=== PATIENT | male | born 1955 | race Caucasian/White ===

== ENCOUNTER 2023-04-03 16:44 | Emergency (ER) | payer BC, SELFPAY ==
--- NOTE | ~2023-04-03 | XR_ITS ---
EXAMINATION: XR chest 2V Exam Date/Time: 04/03/2023 17:06 CDT HISTORY: cough and fever since labor day. Comparison: None. RESULT: Lines, tubes, and devices: None. Lungs and pleura: Clear. Cardiomediastinal silhouette: Unremarkable. Left hemidiaphragm elevation. Other: No acute osseous or upper abdominal finding. IMPRESSION: No acute cardiopulmonary process. Reviewed, dictated and finalized at location K.
[2023-04-03 17:05] VITALS: BP 120/78; PULSE 102; RESP 16; TEMP 37.6; O2SAT 99
--- NOTE | 2023-04-03 17:24 | ED.GENADULT ---
HPI - General Adult General Chief complaint: Upper Respiratory Infection Stated complaint: Cough/Fever Source: patient and family Mode of arrival: ambulatory Limitations: no limitations History of Present Illness HPI narrative: Patient presents for evaluation of sick symptoms since the start of this month. He has had intermittent fevers, reports a productive cough of yellow sputum with associated shortness of breath. He has also been wheezing at home. His throat feels raw which he attributes to frequent coughing. No nausea or vomiting, however he has had diarrhea. He feels fatigued. No recent sick contacts. No underlying hx of asthma or COPD. He is a former smoker. He has tried Robitussin which has helped somewhat. He has also tried albuterol which does not help, and Tessalon Perles which do. He had pneumonia in the past and this feels similar. Related Data Home Medications Medication Instructions Recorded Confirmed atorvastatin 20 mg tablet 20 mg PO DAILY 04/03/23 04/03/23 lisinopril 20 1 tablet PO DAILY 04/03/23 04/03/23 mg-hydrochlorothiazide 25 mg tablet Allergies Allergy/AdvReac Type Severity Reaction Status Date / Time No Known Allergies Allergy Verified 04/03/23 17:11 Review of Systems Review of Systems: CONSTITUTIONAL:Reports fatigue and intermittent fever. Denies chills, or sweats. EYES: Denies visual changes, redness, or discharge. ENT: Reports sore throat. Denies rhinorrhea, congestion, or otalgia. CARDIOVASCULAR: Denies chest pain, palpitations, or edema. RESPIRATORY: Reports productive cough of yellow sputum with associated SOB GASTROINTESTINAL: Reports diarrhea. Denies abdominal pain, nausea, vomiting GENITOURINARY: Denies dysuria or hematuria. SKIN: Denies rash or itching. MUSCULOSKELETAL: Denies back pain, joint pain, or myalgia. NEUROLOGIC: Denies headache, numbness, dizziness, or weakness. PSYCHIATRIC: Denies anxiety or depression. [facility] Past Medical History Medical History Hyperlipidemia Hypertension Surgical History Surgical History No pertinent past surgical history Family History Family History Mother Family history non-contributory Social History Social History Smoking status: Former smoker Alcohol intake: current Alcohol use details: Five beers per week Substance use: former Substance use type: marijuana Living arrangements: with family Gender identity (if verbalized by the patient): Male Sexual Orientation (if Verbalized by the Patient): Straight or Heterosexual Spiritual care concerns: No Exam Narrative: GENERAL: Well-appearing, well-nourished, and in no acute distress. HEAD: Normocephalic, atraumatic. EYES: PERRLA and EOMI. ENT: Nares clear, no rhinorrhea or epistaxis. Mucous membranes moist. Posterior pharyngeal erythema without exudate. Uvula is midline. Bilateral TMs pearly guillen nonbulging NECK: Supple. No adenopathy or masses. No carotid bruits or JVD CHEST: Cough present on exam. Clear to auscultation. No respiratory distress. No wheezes rales or rhonchi HEART: Regular rate and rhythm. No murmur heard. Normal peripheral pulses. ABDOMEN: Soft, nontender, nondistended, normal active bowel sounds. EXTREMITIES: Normal range of motion. No edema. SKIN: Warm, dry, no rash. NEURO: No focal deficits. Alert and oriented x3. PSYCH: Normal mood and affect. Course Course Emergency Course: This is a 67-year-old male who presented for evaluation of respiratory symptoms for approximately 3 weeks. COVID, influenza, strep chest x-ray were all negative. Clinically his exam is consistent with pneumonia. This is further supported by his reported symptoms consistent with those in the past experience
== END 2023-04-03 18:13 | disposition home or self-care (01) ==
PROVIDERS: Emergency Provider Nurse Practitioner
DX: J18.9 Pneumonia, unspecified organism (principal); Z20.822 Contact with and (suspected) exposure to COVID-19; Z87.891 Personal history of nicotine dependence; E78.5 Hyperlipidemia, unspecified; I10 Essential (primary) hypertension
CPT/HCPCS: 71046; 87081; 87426; 87804; 87880; 99213; C9803; G0463

== ENCOUNTER 2023-06-02 09:16 | Emergency (ER) | payer BC, SELFPAY ==
[2023-06-02 09:27] VITALS: BP 146/85; PULSE 94; RESP 16; TEMP 37; O2SAT 97
--- NOTE | 2023-06-02 09:37 | ED.EAR ---
HPI - Ear Problem General Chief complaint: Ear Stated complaint: Ear Problem Source: patient, family and RN notes reviewed History of Present Illness HPI Narrative: 67 yo M presents to urgent care with complaints of right ear pain, decreased hearing, and yellow pus. Pt states 8 days ago, he was attempting to flush his ears with a new device when he believes he stuck the device in too far and caused a significant pain. Pt states that's when his hearing decreased and he started to develop yellow pus in that ear. Pt states he was irrigating his ears b/c friends and family were pestering him to get hearing aids due to loss of hearing. Pt denies any fevers, chills, chest pain, SOB, or other symptoms. Related Data Home Medications Medication Instructions Recorded Confirmed atorvastatin 20 mg tablet 20 mg PO DAILY 04/03/23 06/02/23 lisinopril 20 1 tablet PO DAILY 04/03/23 06/02/23 mg-hydrochlorothiazide 25 mg tablet Allergies Allergy/AdvReac Type Severity Reaction Status Date / Time No Known Allergies Allergy Verified 06/02/23 09:35 Review of Systems Review of Systems: CONSTITUTIONAL: Denies fever, chills, or sweats. EYES: Denies visual changes, redness, or discharge. ENT: Denies sore throat CARDIOVASCULAR: Denies chest pain, palpitations, or edema. RESPIRATORY: Denies cough or dyspnea. GASTROINTESTINAL: Denies abdominal pain, nausea, vomiting, or diarrhea. GENITOURINARY: Denies dysuria or hematuria. SKIN: Denies rash or itching. MUSCULOSKELETAL: Denies back pain, joint pain, or myalgia. NEUROLOGIC: Denies headache, numbness, or weakness. Pertinent positives per HPI. [facility] Past Medical History Medical History Hyperlipidemia Hypertension Surgical History Surgical History No pertinent past surgical history Family History Family History Mother Family history non-contributory Social History Social History Smoking status: Former smoker Alcohol intake: current Alcohol use details: Five beers per week Substance use: former Substance use type: marijuana Living arrangements: with family Gender identity (if verbalized by the patient): Male Sexual Orientation (if Verbalized by the Patient): Straight or Heterosexual Spiritual care concerns: No Comments At the time of my signature, I reviewed and agree with the nursing past medical, surgical, social, and family history. There is no relevant family history pertinent to the patient complaint. Exam Narrative: GENERAL: This is a well-nourished, well-developed patient, in no apparent distress. HEAD: normocephalic, atraumatic. EYES: Sclera clear/white. Vision is grossly intact. EARS: External ears normal, Left auditory canal clear and without drainage, TM normal without perforation. Hearing grossly intact. Right canal with yellow, purulent drainage. Right TM is not visualized due to purulent drainage. NOSE: External nose normal with no obvious nasal discharge, nares without redness, no rhinorrhea. NECK: Neck supple, non-tender without lymphadenopathy, masses or thyromegaly. CARDIOVASCULAR: Regular rate and rhythm without murmurs, gallops, or rubs. RESPIRATORY: Clear to auscultation. Breath sounds equal bilaterally. No wheezes, rales, or rhonchi. SKIN: warm, intact with no suspicious lesions or rash, good texture and turgor. NEURO: awake, alert, and oriented to person, place and time. There were no obvious focal neurologic abnormalities. Course Course Level of Care: Express Care Visit Vital Signs Vital signs: Vital Signs Temperature 98.6 F 06/02/23 09:27 Pulse Rate 94 06/02/23 09:27 Respiratory Rate 16 06/02/23 09:27 Blood Pressure 146/85 H 06/02/23 09:27 Pulse Oximetry 97
== END 2023-06-02 09:46 | disposition home or self-care (01) ==
PROVIDERS: Emergency Provider Nurse Practitioner Family
DX: H66.91 Otitis media, unspecified, right ear (principal); E78.5 Hyperlipidemia, unspecified; I10 Essential (primary) hypertension; Z79.899 Other long term (current) drug therapy; Z87.891 Personal history of nicotine dependence
CPT/HCPCS: 99213; G0463

== ENCOUNTER 2023-07-11 09:17 | Outpatient (CLI) | payer BC, SELFPAY ==
[2023-07-11 19:46] LABS: Basophils Absolute Auto 0.1 K/mm3 (0.0-0.1); Basophils Percent Auto 0.8 % (0.2-1.2); Eosinophils Absolute Auto 0.1 K/mm3 (0-0.3); Eosinophils Percent Auto 0.9 % (0-4.4); Hematocrit 49.4 % (42.0-52.0); Immature Granulocyte Absolute 0.02 K/mm3 (0.00-0.031); Immature Granulocyte Percent A 0.3 % (0-0.5); Lymphocytes Absolute Auto 1.56 K/mm3 (0.9-3.2); Lymphocytes Percent Auto 20.6 % (18.3-44.2); Mean Corpuscular HGB Conc 32.4 g/dl (32-36); Mean Corpuscular Hemoglobin 32.8 pg (26-34); Mean Corpuscular Volume 101.2 fl (80-100); Mean Platelet Volume 9.5 fl (7.4-10.4); Monocytes Absolute Auto 0.7 K/mm3 (0.1-0.6); Monocytes Percent Auto 8.6 % (2.6-8.5); Neutrophils Absolute Auto 5.2 K/mm3 (1.3-6.7); Neutrophils Percent Auto 68.8 % (45.5-73.1); Platelet Count Result 299 k/mm3 (150-375); Red Blood Count 4.88 M/mm3 (4.6-6.20); Red Cell Distribution Width 11.9 % (11.5-14.5); White Blood Count 7.6 K/mm3 (4.5-10.0)
[2023-07-11 21:30] LABS: Alanine Aminotransferase 35 U/L (6-50); Albumin Level 4.7 g/dL (3.5-5.1); Alkaline Phosphatase 152 U/L (38-126); Anion Gap 12 mmol/L (8-16); Aspartate Amino Transferase 48 U/L (17-59); Bilirubin,Total 0.8 mg/dL (0.2-1.3); Blood Urea Nitrogen 15 mg/dL (9-20); Calcium 9.9 mg/dL (8.4-10.2); Carbon Dioxide 28 mmol/L (22-30); Chloride 99 mmol/L (98-107); Cholesterol 200 mg/dL (0-200); Estimated Glomerular Filt Rate > 60; Glucose 97 mg/dL (65-110); HDL Direct 53 mg/dL; Potassium 4.4 mmol/L (3.4-5.0); Sodium 139 mmol/L (137-145); Triglycerides 90 mg/dL (<150)
[2023-07-11 21:44] LABS: LDL Cholesterol Direct 112 mg/dL
[2023-07-11 22:00] LABS: Prostate Specific Antigen 1.9 ng/mL (< OR = 4.0)
[2023-07-11 23:31] LABS: Hemoglobin A1C 5.3 % (<5.7)
== END 2023-07-11 09:18 | disposition home or self-care (01) ==
PROVIDERS: PCP Nurse Practitioner Adult Health; Visit Provider Nurse Practitioner Adult Health
DX: Z12.5 Encounter for screening for malignant neoplasm of prostate (principal); E78.5 Hyperlipidemia, unspecified
CPT/HCPCS: 36415; 80053; 80061; 83036; 84153; 84443; 85025; G0103

== ENCOUNTER 2023-08-25 10:00 | Outpatient (CLI) | payer BC, SELFPAY ==
--- NOTE | ~2023-08-25 | CT_ITS ---
CT Scan of the Chest without Contrast: Clinical Indication: Lung cancer screening, personal history of nicotine dependence Technique: Contiguous sections were acquired throughout the chest without intravenous contrast. Dose reduction technique was used on this scan by utilizing automated exposure control and iterative recon struction technique. The dose-length product (DLP) was 190.38 mGy-cm. Findings: There is no evidence of any significant mediastinal, hilar or axillary lymphadenopathy. Coronary jose ry calcifications are present. There is no evidence of pleural or pericardial effusion. The lungs are clear. No pulmonary nodules or infiltrates are noted. Images through the upper abdomen reveal no abnormalities. Impression: Lung RADS 1: Negative. 12 month follow-up screening CT advised. Reviewed, dictated and finalized at location . [facility] Impression: Lung RADS 1: Negative. 12 month follow-up screening CT advised.
== END 2023-08-25 10:01 | disposition home or self-care (01) ==
PROVIDERS: PCP Nurse Practitioner Adult Health; Visit Provider Nurse Practitioner Adult Health
DX: Z12.2 Encounter for screening for malignant neoplasm of respiratory organs (principal); Z87.891 Personal history of nicotine dependence
CPT/HCPCS: 71271

== ENCOUNTER 2023-09-18 14:16 | Outpatient (CLI) | payer BC, SELFPAY ==
--- NOTE | ~2023-09-18 | XR_ITS ---
EXAMINATION: XR chest 2V DATE: 09/18/2023 14:34 INDICATION: Unspecified cough TECHNIQUE: PA and lateral views of the chest were obtained. COMPARISON: Chest radiograph dated 04/03/2023 FINDINGS: The lungs are clear with no focal airspace opacities, pulmonary edema, pleural effusion or pneumothor ax. The cardiomediastinal silhouette is normal. Mild thoracic spondylosis with chronic mild anterior wedging of T11 and T12. Old anterior left sixth and seventh rib fractures. IMPRESSION: 1. No acute cardiopulmonary disease. Reviewed, dictated and finalized at location L.
[2023-09-18 18:49] LABS: Hematocrit 45.7 % (42.0-52.0); Mean Corpuscular HGB Conc 32.8 g/dl (32-36); Mean Corpuscular Hemoglobin 32.5 pg (26-34); Mean Corpuscular Volume 98.9 fl (80-100); Mean Platelet Volume 10.2 fl (7.4-10.4); Platelet Count Result 349 k/mm3 (150-375); Red Blood Count 4.62 M/mm3 (4.6-6.20); Red Cell Distribution Width 11.7 % (11.5-14.5); White Blood Count 14.8 K/mm3 (4.5-10.0)
[2023-09-18 20:09] LABS: Appearance Urine Clear (Clear); Bacteria Urine None Seen /hpf; Bilirubin Urine 1+ (Negative); Blood Urine Negative (Negative); Color Urine Dark Yellow (Yellow); Glucose Urine UA Negative (Negative); Ketones Urine 1+ mg/dL (Negative); Leukocyte Esterase Ur Negative LEU/UL (Negative); Mucus Urine Present /lpf; Need Manual Microscopic Reviewed; Nitrate Urine Negative (Negative); Protein Urine 1+ mg/dL (Negative); RBC Urine 0-2 /hpf (0-2); Specific Grav Ur 1.024 (1.001-1.035); Squamous Epithelial Cell Urine None Seen /hpf (Few); WBC Urine 0-5 /hpf (0-3); pH Urine 5.5 (5.0-9.0)
[2023-09-18 20:13] LABS: Add Urine Microscopic? YES
[2023-09-18 21:58] LABS: Alanine Aminotransferase 22 U/L (6-50); Albumin Level 4.7 g/dL (3.5-5.1); Alkaline Phosphatase 134 U/L (38-126); Anion Gap 11 mmol/L (8-16); Aspartate Amino Transferase 50 U/L (17-59); Bilirubin,Total 1.3 mg/dL (0.2-1.3); Blood Urea Nitrogen 24 mg/dL (9-20); Calcium 10.2 mg/dL (8.4-10.2); Carbon Dioxide 22 mmol/L (22-30); Chloride 101 mmol/L (98-107); Estimated Glomerular Filt Rate > 60; Glucose 119 mg/dL (65-110); Magnesium 2.3 mg/dL (1.6-2.3); Potassium 4.7 mmol/L (3.4-5.0); Sodium 134 mmol/L (137-145)
== END 2023-09-18 14:17 | disposition home or self-care (01) ==
PROVIDERS: PCP Nurse Practitioner Adult Health; Visit Provider Nurse Practitioner Adult Health
DX: R13.10 Dysphagia, unspecified (principal); R05.9 Cough, unspecified; R50.9 Fever, unspecified; R82.998 Other abnormal findings in urine; M62.81 Muscle weakness (generalized); R74.8 Abnormal levels of other serum enzymes
CPT/HCPCS: 36415; 71046; 80048; 80076; 83735; 85027

== ENCOUNTER 2023-09-25 16:24 | Outpatient (CLI) | payer BC, SELFPAY ==
[2023-09-25 17:02] LABS: Anion Gap 7 mmol/L (8-16); Blood Urea Nitrogen 20 mg/dL (9-20); Calcium 9.6 mg/dL (8.4-10.2); Carbon Dioxide 26 mmol/L (22-30); Chloride 99 mmol/L (98-107); Estimated Glomerular Filt Rate > 60; Glucose 111 mg/dL (65-110); Potassium 4.2 mmol/L (3.4-5.0); Sodium 132 mmol/L (137-145)
== END 2023-09-25 16:25 | disposition home or self-care (01) ==
LOC: ANHLAB 16:25
PROVIDERS: PCP Nurse Practitioner Adult Health; Visit Provider Nurse Practitioner Adult Health
DX: E87.1 Hypo-osmolality and hyponatremia (principal)
CPT/HCPCS: 36415; 80048

== ENCOUNTER 2023-09-26 16:09 | Emergency (ER) | payer BC, SELFPAY ==
--- NOTE | ~2023-09-26 | CT_ITS ---
EXAMINATION: CTA brain carotid DATE: 09/26/2023 20:41 INDICATION: Weakness TECHNIQUE: Computed tomographic angiography (CTA) of the head was performed with 100 mL Omnipaque-350 intravenous contrast. CTA of the neck was performed with intravenous contrast. The dose-length produ ct was 1229.66 mGy-cm. Maximum intensity projection and volume rendered 3D-reconstructions were creat ed by the technologist on a separate workstation. Automated exposure control and iterative reconstruc tion technique were employed. COMPARISON: None. FINDINGS: HEAD CTA: There is no acute intraparenchymal hemorrhage. No evidence of mass lesion. No evidence of a cute infarction. There is mild periventricular and subcortical hypodensity probably related to small vessel ischemic disease. There is mild prominence of the sulci and ventricles related to cerebral atr ophy. Intracranial calcified cerebral atherosclerosis is noted. There are no extra-axial collections. There is no mass effect or midline shift. The orbits and soft tissues are unremarkable. The visualiz ed sinuses and mastoid air cells are well aerated. There is no significant stenosis of the basilar artery or posterior cerebral arteries. There is no si gnificant stenosis of the intracranial internal carotid arteries or the left anterior or bilateral mi ddle cerebral arteries. The right anterior cerebral artery A1 segment is occluded or hypoplastic. The anterior communicating artery and posterior communicating arteries are normal. There is no aneurysm. NECK CTA: The thyroid gland is unremarkable. The submandibular and parotid glands are symmetric. Ther e is no lymphadenopathy. There are no masses identified. The airway is unremarkable. The superior med iastinum is unremarkable. There are no osseous abnormalities. There is 0% stenosis of the proximal right internal carotid artery relative to normal distal artery l umen diameter (NASCET criteria). There is 0% stenosis of the proximal left internal carotid artery re lative to normal distal artery lumen diameter. IMPRESSION: 1. No acute intracranial abnormality. Occluded or hypoplastic right anterior cerebral artery A1 segme nt, otherwise normal head CTA. 2. 0% stenosis of the proximal right internal carotid artery relative to normal distal artery lumen d iameter (NASCET criteria). 3. 0% stenosis of the proximal left internal carotid artery relative to normal distal artery lumen di ameter. Reviewed, dictated and finalized at location F. IMPRESSION: 1. No acute intracranial abnormality. Occluded or hypoplastic right anterior ce rebral artery A1 segment, otherwise normal head CTA. 2. 0% stenosis of the proximal right internal carotid artery relative to normal distal artery lumen diameter (NASCET criteria). 3. 0% stenosis of the proximal left internal carotid artery relative to normal distal artery lumen diameter.
--- NOTE | ~2023-09-26 | XR_ITS ---
EXAMINATION: XR chest 2V DATE: 09/26/2023 17:49 INDICATION: Weakness, hypertension TECHNIQUE: AP and lateral views of the chest are obtained. COMPARISON: 09/18/2023 FINDINGS: The lungs are free of acute opacities. No pleural effusion or pneumothorax. The cardiomedia stinal silhouette is normal. There is moderate thoracic spondylosis. IMPRESSION: 1. No acute cardiopulmonary abnormality. Reviewed, dictated and finalized at location F.
--- NOTE | ~2023-09-26 | CT_ITS ---
EXAMINATION: CT brain wo con INDICATION: Weakness COMPARISON: None TECHNIQUE: Standard unenhanced head CT. The dose-length product (DLP) was 681.00 mGy-cm. The mA was a djusted according to patient size. Iterative reconstruction technique was employed. FINDINGS: No acute intraparenchymal hemorrhage. No evidence of mass lesion. No evidence of acute infa rction. There is mild periventricular and subcortical hypodensity probably related to small vessel is chemic disease. There is mild prominence of the sulci and ventricles related to cerebral atrophy. Int racranial calcified cerebral atherosclerosis is noted. No extra-axial collections. No mass effect or midline shift. The orbits and soft tissues are unremarkable. There is a small right mastoid effusion. IMPRESSION: 1. No acute intracranial abnormality. 2. Age related findings. Reviewed, dictated and finalized at location F.
--- NOTE | ~2023-09-26 | XR_ITS ---
EXAMINATION: XR wrist LT 2V INDICATION: Left wrist pain TECHNIQUE: Two views of the left wrist are obtained. COMPARISON: None available FINDINGS: Bone alignment is normal. There is no fracture. There is calcification of the triangular fi brocartilage. There is mild osteoarthritis at the triscaphe joint. Wrist soft tissue swelling is note d. IMPRESSION: 1. No acute osseous abnormality identified. Reviewed, dictated and finalized at location F.
--- NOTE | ~2023-09-26 | XR_ITS ---
EXAMINATION: XR elbow LT min 3V DATE: 09/26/2023 19:32 INDICATION: Left elbow pain TECHNIQUE: Anteroposterior, oblique and lateral views of the left elbow were obtained. COMPARISON: None. FINDINGS: Alignment is normal. No fracture is identified. There is a large elbow joint effusion. Ther e is a posterior enthesophyte of the olecranon at the triceps insertion. Soft tissues are unremarkabl e. IMPRESSION: 1. Large elbow joint effusion without identifiable fracture, possibly reflecting occult fracture. Con commanding officer motorized squad follow-up radiographs in 7-10 days to evaluate for productive changes of bony healing or CT if there is high clinical suspicion for acute fracture. Reviewed, dictated and finalized at location F. IMPRESSION: 1. Large elbow joint effusion without identifiable fracture, possibly reflectin g occult fracture. Consider follow-up radiographs in 7-10 days to evaluate for productive changes of bony healing or CT if there is high clinical suspicion fo r acute fracture.
[2023-09-26 16:12] VITALS: BP 127/67; PULSE 94; RESP 16; TEMP 36.4; O2SAT 100
--- NOTE | 2023-09-26 16:45 | ED.WEAKNESS ---
HPI - Weakness General Chief complaint: Weakness <Pierre Valente APRN - Last Filed: 09/27/23 18:15> Stated complaint: sent by PCP for full work up <Pierre Valente APRN - Last Filed: 09/27/23 18:15> Time Seen by Provider: 09/26/23 16:48 <Pierre Valente APRN - Last Filed: 09/27/23 18:15> Focused HPI: Tony is a 67-year-old male patient presenting to the emergency room today with complaints of generalized weakness, states he is not able to use his left arm and he is noticing some stiff joints and swelling in his left ankle. Reports that he had stopped drinking alcohol 1 month ago and things have been going downhill ever since. States he drink 6 pack daily times 40 years. Has some blood work done by his PCP in that showed that he had elevated liver enzymes and that scared him so he discontinued cold turkey. GENERAL: Well-appearing, well-nourished, and in no acute distress. HEAD: Normocephalic, atraumatic. CHEST: Clear to auscultation. No respiratory distress. HEART: Regular rate and rhythm. NEURO: Alert and oriented x3. Patient screened in triage and initial orders placed. Additional care and disposition to be based upon diagnostic testing and treatment. <Pierre Valente APRN - Last Filed: 09/27/23 18:15> Source: patient <Pierre Valente APRN - Last Filed: 09/27/23 18:15> Mode of arrival: ambulatory <Pierre Valente APRN - Last Filed: 09/27/23 18:15> Limitations: no limitations <Pierre Valente APRN - Last Filed: 09/27/23 18:15> History of Present Illness HPI Narrative: 67-year-old male present to ED for evaluation of increased generalized weakness and left arm pain after recently quitting alcohol. <Yogesh Barreto MD - Last Filed: 09/27/23 21:55> Related Data Home medications: Home Medications Medication Instructions Recorded Confirmed atorvastatin 20 mg tablet 20 mg PO DAILY 04/03/23 09/18/23 lisinopril 20 1 tablet PO DAILY 04/03/23 09/18/23 mg-hydrochlorothiazide 25 mg tablet AREDS 2 BYMOUTH 07/11/23 09/18/23 Asprin 81 mg BYMOUTH 07/11/23 09/18/23 Mens Multi 50+ BYMOUTH 07/11/23 09/18/23 Qunol Ultra Coq10 BYMOUTH 07/11/23 09/18/23 Super B-Complex BYMOUTH 07/11/23 09/18/23 Tumeric BYMOUTH 07/11/23 09/18/23 Vitamim D3 BYMOUTH 07/11/23 09/18/23 <Pierre Valente APRN - Last Filed: 09/27/23 18:15> Allergies/Adverse reactions: Allergies Allergy/AdvReac Type Severity Reaction Status Date / Time No Known Allergies Allergy Verified 09/18/23 13:53 <Pierre Valente APRN - Last Filed: 09/27/23 18:15> Review of Systems Review of Systems: All systems reviewed & are unremarkable except as noted in HPI and below <Yogesh Barreto MD - Last Filed: 09/27/23 21:55> [facility] Past Medical History Medical History: Medical History Hyperlipidemia Hypertension <Pierre Valente APRN - Last Filed: 09/27/23 18:15> Surgical History Surgical History: Surgical History No pertinent past surgical history <iPerre Valente APRN - Last Filed: 09/27/23 18:15> Family History Family History: Family History Mother Family history non-contributory Sibling Hypertension <Pierre Valente APRN - Last Filed: 09/27/23 18:15> Social History Social History: Social History Smoking status: Former smoker Tobacco type: e-cigarettes/vaping Alcohol intake: current Alcohol use details: Five beers per week Substance use: former Substance use type: marijuana Lack of Transportation: No Lack of Food: Never True Current Housing: I Have Housing Concerned About Future Housing: No Difficulty Paying Gas/Electric Bills: No Difficulty Paying for Meds: No
--- NOTE | 2023-09-26 16:54 | ECG_ITS ---
Measurements Intervals [place] Rate: 90 P: 15 DE: 146 QRS: 32 QRSD: 86 T: 55 QT: 349 QTc: 428 Interpretive Statements SINUS RHYTHM BASELINE ARTIFACT- I, II, III, AVR, AVL, AVF, V1-V6 NORMAL ECG NO PREVIOUS ECG AVAILABLE FOR COMPARISON Electronically Signed On 09-26-2023 19:09:33 CDT by Jose Shrestha D.O.
[2023-09-26 17:27] LABS: Basophils Absolute Auto 0.1 K/mm3 (0.0-0.1); Basophils Percent Auto 0.5 % (0.2-1.2); Eosinophils Absolute Auto 0.2 K/mm3 (0-0.3); Eosinophils Percent Auto 1.5 % (0-4.4); Hematocrit 39.3 % (42.0-52.0); Immature Granulocyte Absolute 0.05 K/mm3 (0.00-0.031); Immature Granulocyte Percent A 0.5 % (0-0.5); Immature Platelet Fraction Pct 3.7 % (0.9-11.2); Lymphocytes Absolute Auto 1.65 K/mm3 (0.9-3.2); Lymphocytes Percent Auto 15.1 % (18.3-44.2); Mean Corpuscular HGB Conc 33.1 g/dl (32-36); Mean Corpuscular Hemoglobin 32.1 pg (26-34); Mean Platelet Volume 9.5 fl (7.4-10.4); Monocytes Absolute Auto 1.3 K/mm3 (0.1-0.6); Monocytes Percent Auto 11.6 % (2.6-8.5); Neutrophils Absolute Auto 7.8 K/mm3 (1.3-6.7); Neutrophils Percent Auto 70.8 % (45.5-73.1); Platelet Count Result 403 k/mm3 (150-375); Red Blood Count 4.05 M/mm3 (4.6-6.20); Red Cell Distribution Width 11.4 % (11.5-14.5)
[2023-09-26 17:42] LABS: Ethanol < 10 mg/dL (<10)
[2023-09-26 17:47] LABS: Alanine Aminotransferase 21 U/L (6-50); Alkaline Phosphatase 99 U/L (38-126); Anion Gap 6 mmol/L (8-16); Aspartate Amino Transferase 27 U/L (17-59); Bilirubin,Total 0.5 mg/dL (0.2-1.3); Blood Urea Nitrogen 22 mg/dL (9-20); CRP 8.9 mg/dL (<1.0); Calcium 9.6 mg/dL (8.4-10.2); Carbon Dioxide 29 mmol/L (22-30); Chloride 99 mmol/L (98-107); Estimated CRCL calculation 105 ml/min; Estimated Glomerular Filt Rate > 60; Glucose 108 mg/dL (65-110); Sodium 134 mmol/L (137-145)
[2023-09-26 17:51] LABS: NT Pro B Type Natriuretic Pept 32 pg/mL (19.9-100)
[2023-09-26 17:55] LABS: Troponin I < 0.012 ng/mL (0.000-0.034)
[2023-09-26 18:02] LABS: Creatine Kinase 42 U/L (55-170)
[2023-09-26 18:05] LABS: Erythrocyte Sedimentation Rate 8 mm/hr (0-20)
[2023-09-26 18:51] VITALS: BP 126/77; PULSE 88; RESP 17; O2SAT 99
[2023-09-26 19:08] LABS: Appearance Urine Clear (Clear); Bilirubin Urine Negative (Negative); Blood Urine Negative (Negative); Color Urine Dark Yellow (Yellow); Glucose Urine UA Negative (Negative); Ketones Urine Trace mg/dL (Negative); Leukocyte Esterase Ur Negative LEU/UL (Negative); Nitrate Urine Negative (Negative); Protein Urine Negative (Negative); Specific Grav Ur 1.022 (1.001-1.035); pH Urine 5.5 (5.0-9.0)
[2023-09-26 19:14] LABS: Add Urine Microscopic? NO
[2023-09-26 22:00] VITALS: BP 129/90; PULSE 89; RESP 17; O2SAT 97
[2023-09-28 17:16] LABS: Folic Acid > 20.0 ng/mL (2.76->20)
== END 2023-09-26 22:45 | disposition home or self-care (01) ==
PROVIDERS: Nurse Practitioner Family; Emergency Provider Emergency Medicine; PCP Nurse Practitioner Adult Health
DX: M25.522 Pain in left elbow (principal); F10.239 Alcohol dependence with withdrawal, unspecified; Y90.0 Blood alcohol level of less than 20 mg/100 ml; I10 Essential (primary) hypertension; E78.5 Hyperlipidemia, unspecified; R93.6 Abnormal findings on diagnostic imaging of limbs
CPT/HCPCS: 36415; 70450; 70496; 70498; 71046; 73080; 73100; 80053; 80307; 82550; 82607; 82746; 83880; 84484; 85025; 85055; 85652; 86140; 93005; 99284; A4565; Q9967

== ENCOUNTER 2023-11-24 11:19 | Emergency (ER) | payer BC, SELFPAY ==
[2023-11-24 11:24] VITALS: BP 141/71; PULSE 98; RESP 20; TEMP 37.3; O2SAT 100
[2023-11-24 11:34] VITALS: BP 141/71; PULSE 98; RESP 20; TEMP 37.3; O2SAT 100
--- NOTE | 2023-11-24 11:35 | ED.URI ---
HPI - URI/Sore Throat General Chief Complaint: Upper Respiratory Infection Stated Complaint: Cough/respiratory/fever Time Seen by Provider: 11/24/23 11:35 Source: patient Mode of arrival: ambulatory Limitations: no limitations History of Present Illness HPI Narrative: 68-year-old male presents with complaint of cough, nasal congestion, sinus pressure, fatigue for 1 week. Taking Tessalon Perles with no relief of his symptoms. Patient states he has been often of sick since [place]. States that him and his and grandkids keep getting a chest X sick. No chest pain or shortness of breath. All systems reviewed and negative except as noted above. Related Data Home Medications Medication Instructions Recorded Confirmed Asprin 81 mg BYMOUTH 07/11/23 09/18/23 Qunol Ultra Coq10 BYMOUTH 07/11/23 09/18/23 Super B-Complex BYMOUTH 07/11/23 09/18/23 Tumeric BYMOUTH 07/11/23 09/18/23 Vitamim D3 BYMOUTH 07/11/23 09/18/23 Allergies Allergy/AdvReac Type Severity Reaction Status Date / Time No Known Allergies Allergy Verified 09/18/23 13:53 Review of Systems Review of Systems: CONSTITUTIONAL: Denies fever, chills, or sweats. Reports EYES: Denies visual changes, redness, or discharge. ENT: Reports rhinorrhea, congestion. Denies sore throat, or otalgia. CARDIOVASCULAR: Denies chest pain, palpitations, or edema. RESPIRATORY: Reports cough. Denies dyspnea. GASTROINTESTINAL: Denies abdominal pain, nausea, vomiting, or diarrhea. GENITOURINARY: Denies dysuria or hematuria. SKIN: Denies rash or itching. MUSCULOSKELETAL: Denies back pain, joint pain, or myalgia. NEUROLOGIC: Denies headache, numbness, or weakness. PSYCHIATRIC: Denies anxiety or depression. All other systems reviewed are negative, except as documented in HPI. [facility] Past Medical History Medical History Hyperlipidemia Hypertension Surgical History Surgical History No pertinent past surgical history Family History Family History Mother Family history non-contributory Sibling Hypertension Social History Social History Smoking status: Former smoker Tobacco type: e-cigarettes/vaping Alcohol intake: current Alcohol use details: Five beers per week Substance use: former Substance use type: marijuana Lack of Transportation: No Lack of Food: Never True Current Housing: I Have Housing Concerned About Future Housing: No Difficulty Paying Gas/Electric Bills: No Difficulty Paying for Meds: No Currently Unemployed: No Education: High School Diploma/GED Difficulty w/ Childcare or Family Care: No Living arrangements: with family Occupation/Education: retired Gender identity (if verbalized by the patient): Male Sexual Orientation (if Verbalized by the Patient): Straight or Heterosexual Spiritual care concerns: No Agree to blood products: Yes Comments At time of signature, agree with nursing past medical, surgical, social and family history. There is no relevant family history pertinent to the presenting complaint. Exam Narrative: GENERAL: This is a well-nourished, well-developed patient, in no apparent distress. HEAD: normocephalic, atraumatic. EYES: PERRL. Sclera clear/white. Vision is grossly intact. EARS: External ears normal, auditory canals clear and without drainage, TMs normal without perforation. Hearing grossly intact. NOSE: External nose normal with nasal drainage, erythema and swelling to bilateral nares. THROAT: Mucous membranes moist, erythema postnasal drainage NECK: Neck supple, non-tender without lymphadenopathy, masses or thyromegaly. CARDIOVASCULAR: Regular rate and rhythm without murmurs, gallops, or rubs. RESPIRATORY: Decreased to lower lung gillespie bilaterally
== END 2023-11-24 11:56 | disposition home or self-care (01) ==
PROVIDERS: Emergency Provider Nurse Practitioner Family; PCP Family Medicine
DX: J20.9 Acute bronchitis, unspecified (principal); J01.90 Acute sinusitis, unspecified; E78.5 Hyperlipidemia, unspecified; I10 Essential (primary) hypertension
CPT/HCPCS: 99213; G0463

== ENCOUNTER 2023-12-07 07:57 | Outpatient (CLI) | payer BC, SELFPAY | END 2023-12-07 07:58 | disposition home or self-care (01) | LOC: ANHAUDASC 08:00 | PROVIDERS: PCP Family Medicine; Visit Provider Nurse Practitioner Adult Health | DX: H90.3 Sensorineural hearing loss, bilateral (principal); H93.13 Tinnitus, bilateral | CPT/HCPCS: 92557; 92567 ==

== ENCOUNTER 2023-12-13 10:02 | Outpatient (CLI) | payer BC, SELFPAY ==
[2023-12-13 19:54] LABS: Appearance Urine Clear (Clear); Bilirubin Urine Negative (Negative); Blood Urine Negative (Negative); Color Urine Yellow (Yellow); Glucose Urine UA Negative (Negative); Ketones Urine Negative (Negative); Leukocyte Esterase Ur Negative LEU/UL (Negative); Nitrate Urine Negative (Negative); Protein Urine Negative (Negative); Specific Grav Ur 1.016 (1.001-1.035); Urobilinogen Urine 0.2 mg/dL (<2.0); pH Urine 5.5 (5.0-9.0)
[2023-12-13 19:59] LABS: Add Urine Microscopic? NO
[2023-12-13 20:00] LABS: Basophils Percent Auto 0.4 % (0.2-1.2); Eosinophils Absolute Auto 0.1 K/mm3 (0-0.3); Hemoglobin 13.3 g/dL (14.0-18.0); Immature Granulocyte Absolute 0.03 K/mm3 (0.00-0.031); Immature Granulocyte Percent A 0.3 % (0-0.5); Lymphocytes Absolute Auto 1.61 K/mm3 (0.9-3.2); Lymphocytes Percent Auto 17.4 % (18.3-44.2); Mean Corpuscular HGB Conc 30.2 g/dl (32-36); Mean Corpuscular Hemoglobin 29.7 pg (26-34); Mean Corpuscular Volume 98.2 fl (80-100); Mean Platelet Volume 9.9 fl (7.4-10.4); Monocytes Absolute Auto 0.6 K/mm3 (0.1-0.6); Monocytes Percent Auto 5.9 % (2.6-8.5); Platelet Count Result 393 k/mm3 (150-375); Red Blood Count 4.48 M/mm3 (4.6-6.20); Red Cell Distribution Width 13.9 % (11.5-14.5); White Blood Count 9.3 K/mm3 (4.5-10.0)
[2023-12-13 21:27] LABS: Erythrocyte Sedimentation Rate 14 mm/hr (0-20)
[2023-12-14 00:21] LABS: Alanine Aminotransferase 19 U/L (6-50); Albumin Level 4.8 g/dL (3.5-5.1); Alkaline Phosphatase 107 U/L (38-126); Anion Gap 12 mmol/L (4-12); Aspartate Amino Transferase 41 U/L (17-59); Bilirubin,Total 0.6 mg/dL (0.2-1.3); Blood Urea Nitrogen 12 mg/dL (9-20); Calcium 10.1 mg/dL (8.4-10.2); Carbon Dioxide 25 mmol/L (22-30); Chloride 102 mmol/L (98-107); Cholesterol 201 mg/dL (0-200); Creatine Kinase 36 U/L (55-170); Estimated Glomerular Filt Rate > 60; Glucose 85 mg/dL (65-110); HDL Direct 33 mg/dL; Potassium 4.2 mmol/L (3.4-5.0); Sodium 139 mmol/L (137-145); Triglycerides 93 mg/dL (<150)
[2023-12-14 00:51] LABS: LDL Cholesterol Direct 136 mg/dL
[2023-12-14 13:24] LABS: Vitamin D 25 Hydroxy 32.2 ng/mL
== END 2023-12-13 10:03 | disposition home or self-care (01) ==
PROVIDERS: PCP Nurse Practitioner Adult Health; Visit Provider Nurse Practitioner Adult Health
DX: F10.11 Alcohol abuse, in remission (principal); M62.81 Muscle weakness (generalized); E55.9 Vitamin D deficiency, unspecified; E78.5 Hyperlipidemia, unspecified
CPT/HCPCS: 36415; 80048; 80061; 80076; 81003; 82306; 82550; 82607; 82746; 84425; 85025; 85652

== ENCOUNTER 2023-12-19 11:08 | Outpatient (CLI) | payer BC, SELFPAY ==
--- NOTE | ~2023-12-19 | CT_ITS ---
Non-contrast CT scan of the Abdomen and Pelvis Clinical indication: Weight loss Technique: 2.5 mm axial scans were obtained through the abdomen and pelvis without intravenous or or al contrast. Dose reduction technique was used on this scan by utilizing automated exposure control a nd iterative reconstruction technique. The dose-length product (DLP) was 763.46 mGy-cm. Findings: Images through the lung bases reveal mild bibasilar tree-in-bud opacities, compatible with small airways infectious process. Punctate nonobstructing right renal stones are present. No left renal stone. No ureteral stone or hyd ronephrosis on either side. The liver, spleen, pancreas, gallbladder, and adrenals appear normal. There are atherosclerotic calci fications of the aorta. There is no evidence of bowel obstruction. Images through the pelvis were performed. There is no evidence of ascites or lymphadenopathy. Urinary bladder unremarkable. No pelvic mass seen. No ascites. There is diffuse degenerative spondylosis of the lumbar spine. Impression: Mild bibasilar tree-in-bud opacities are consistent with small airways infectious process. Punctate nonobstructing right renal stones. Reviewed, dictated and finalized at [facility]. Impression: Mild bibasilar tree-in-bud opacities are consistent with small airways infectio us process. Punctate nonobstructing right renal stones.
== END 2023-12-19 11:09 ==
LOC: MICIMG 11:08
PROVIDERS: PCP Nurse Practitioner Adult Health; Visit Provider Nurse Practitioner Adult Health
DX: R63.4 Abnormal weight loss (principal); F10.11 Alcohol abuse, in remission; N20.0 Calculus of kidney
CPT/HCPCS: 74176

== ENCOUNTER 2023-12-19 15:37 | Outpatient (CLI) | payer BC, SELFPAY ==
[2023-12-19 15:55] LABS: Basophils Percent Auto 0.4 % (0.2-1.2); Eosinophils Absolute Auto 0.2 K/mm3 (0-0.3); Eosinophils Percent Auto 2.9 % (0-4.4); Hematocrit 42.9 % (42.0-52.0); Hemoglobin 13.8 g/dL (14.0-18.0); Immature Granulocyte Absolute 0.03 K/mm3 (0.00-0.031); Immature Granulocyte Percent A 0.4 % (0-0.5); Lymphocytes Absolute Auto 2.14 K/mm3 (0.9-3.2); Lymphocytes Percent Auto 27.2 % (18.3-44.2); Mean Corpuscular HGB Conc 32.2 g/dl (32-36); Mean Corpuscular Hemoglobin 29.7 pg (26-34); Mean Corpuscular Volume 92.5 fl (80-100); Mean Platelet Volume 8.7 fl (7.4-10.4); Monocytes Absolute Auto 0.5 K/mm3 (0.1-0.6); Monocytes Percent Auto 6.2 % (2.6-8.5); Neutrophils Percent Auto 62.9 % (45.5-73.1); Platelet Count Result 498 k/mm3 (150-375); Red Blood Count 4.64 M/mm3 (4.6-6.20); Red Cell Distribution Width 13.3 % (11.5-14.5); White Blood Count 7.9 K/mm3 (4.5-10.0)
[2023-12-19 18:00] LABS: Iron 111 ug/dL (49-181)
[2023-12-19 18:10] LABS: Percent Iron Saturation 34 % (20-50)
[2023-12-19 19:54] LABS: CRP 0.7 mg/dL (<1.0); Lactate Dehydrogenase 187 U/L (120-246)
[2023-12-22 05:49] LABS: Methylmalonic Acid 129 nmol/L (87-318)
[2023-12-27 17:18] LABS: Soluble Transferrin Receptor 1.81 mg/L (0.76-1.76)
== END 2023-12-19 15:38 | disposition home or self-care (01) ==
LOC: ANHLAB 15:39
PROVIDERS: PCP Nurse Practitioner Adult Health; Visit Provider Internal Medicine Hematology & Oncology
DX: D64.9 Anemia, unspecified (principal)
CPT/HCPCS: 36415; 82728; 83540; 83550; 83615; 83921; 84238; 85025; 86140

== ENCOUNTER 2024-01-03 12:06 | Outpatient (CLI) | payer BC, SELFPAY ==
[2024-01-03 12:58] LABS: Immunoglobulin A 203 mg/dL (70-400); Immunoglobulin G 1097 mg/dL (700-1600); Immunoglobulin M 43 mg/dL (40-230)
[2024-01-04 12:39] LABS: Kappa\\Lambda Light Chains 0.84 (0.26-1.65); Lambda Light Chain 36.8 mg/L (5.7-26.3)
[2024-01-04 14:33] LABS: Protein, Total 7.3 g/dL (6.1-8.1)
[2024-01-04 17:14] LABS: Albumin 4.1 g/dL (3.8-4.8); Alpha 1 Globulin 0.4 g/dL (0.2-0.3); Alpha 2 Globulin 0.9 g/dL (0.5-0.9); Beta 1 Globulin 0.5 g/dL (0.4-0.6); Gamma Globulin 1.1 g/dL (0.8-1.7)
== END 2024-01-03 12:07 | disposition home or self-care (01) ==
LOC: ANHLAB 12:11
PROVIDERS: PCP Nurse Practitioner Adult Health; Visit Provider Internal Medicine Hematology & Oncology
DX: R77.9 Abnormality of plasma protein, unspecified (principal)
CPT/HCPCS: 36415; 82784; 83883; 84155; 84165

== ENCOUNTER 2024-03-18 10:12 | Outpatient (CLI) | payer BC, SELFPAY ==
--- NOTE | ~2024-03-18 | XR_ITS ---
EXAMINATION: XR chest 2V DATE: 03/18/2024 10:20 INDICATION: Unspecified cough TECHNIQUE: PA and lateral views of the chest were obtained. COMPARISON: Chest radiograph dated 09/26/2023 FINDINGS: Unchanged mild elevation of the left hemidiaphragm. No focal airspace opacities, pulmonary edema, ple ural effusion or pneumothorax. Heart size is normal. Chronic mild anterior wedging of a lower thoraci c vertebral body with bridging osteophytes at multiple levels consistent with diffuse idiopathic ske letal hyperostosis (DISH). IMPRESSION: 1. Chronic mild elevation the left hemidiaphragm. No acute cardiopulmonary disease. Reviewed, dictated and finalized at location B. IMPRESSION: 1. Chronic mild elevation the left hemidiaphragm. No acute cardiopulmonary dise ase.
== END 2024-03-18 10:13 | disposition home or self-care (01) ==
PROVIDERS: PCP Nurse Practitioner Adult Health; Visit Provider Nurse Practitioner Adult Health
DX: J98.6 Disorders of diaphragm (principal); R05.9 Cough, unspecified
CPT/HCPCS: 71046

== ENCOUNTER 2024-04-28 08:45 | Outpatient (CLI) | payer BC, SELFPAY ==
[2024-04-28 10:42] LABS: Basophils Percent Auto 0.4 % (0.2-1.2); Eosinophils Percent Auto 0.2 % (0-4.4); Hematocrit 45.6 % (42.0-52.0); Hemoglobin 15.5 g/dL (14.0-18.0); Immature Granulocyte Absolute 0.04 K/mm3 (0.00-0.031); Immature Granulocyte Percent A 0.4 % (0-0.5); Lymphocytes Absolute Auto 1.29 K/mm3 (0.9-3.2); Lymphocytes Percent Auto 12.3 % (18.3-44.2); Mean Corpuscular Hemoglobin 32.1 pg (26-34); Mean Corpuscular Volume 94.4 fl (80-100); Mean Platelet Volume 9.5 fl (7.4-10.4); Monocytes Absolute Auto 0.8 K/mm3 (0.1-0.6); Monocytes Percent Auto 7.4 % (2.6-8.5); Neutrophils Absolute Auto 8.4 K/mm3 (1.3-6.7); Neutrophils Percent Auto 79.3 % (45.5-73.1); Platelet Count Result 275 k/mm3 (150-375); Red Blood Count 4.83 M/mm3 (4.6-6.20); Red Cell Distribution Width 12.4 % (11.5-14.5); White Blood Count 10.5 K/mm3 (4.5-10.0)
[2024-04-28 11:21] LABS: Alanine Aminotransferase 22 U/L (6-50); Albumin Level 4.6 g/dL (3.5-5.1); Alkaline Phosphatase 134 U/L (38-126); Anion Gap 9 mmol/L (4-12); Aspartate Amino Transferase 26 U/L (17-59); Bilirubin,Total 0.8 mg/dL (0.2-1.3); Blood Urea Nitrogen 22 mg/dL (9-20); Calcium 9.5 mg/dL (8.4-10.2); Carbon Dioxide 29 mmol/L (22-30); Chloride 99 mmol/L (98-107); Estimated Glomerular Filt Rate > 60; Glucose 106 mg/dL (65-110); Potassium 4.2 mmol/L (3.4-5.0); Sodium 137 mmol/L (137-145)
[2024-04-30 00:39] LABS: Red Blood Cell Folate 509 ng/mL RBC (>280)
--- NOTE | 2024-05-01 12:46 | WPDNEUROLOGY ---
Neurology EEG Report General Information Date of Study: 04/28/24 TEST Electroencephalogram DIAGNOSIS memory loss CONDITION OF RECORDING neurodiagnostic lab EEG NUMBER [id number] CLINICAL HISTORY memory loss EEG DESCRIPTION background activity consists of posterior dominant rhythm in theta range at 7 hertz with an amplitude of 15-30 microvolts. This appears mildly formed. There is no significant anteroposterior gradient. Hyperventilation not performed. 40 cc which was performed during which no significant abnormal background changes were seen. Patient was noted to be drowsy during which attenuation of background activity was seen. Diffuse theta activity was seen. However patient did not progress to stage 2 sleep. IMPRESSION This is an abnormal EEG due to presence of mild diffuse background slowing suggestive of generalized encephalopathy. No focal abnormalities were seen.
[2024-05-02 17:13] LABS: Methylmalonic Acid 132 nmol/L (69-390)
[2024-05-03 11:09] LABS: Vitamin D 1,25 (OH)2 Total 52 pg/mL (18-72); Vitamin D2 1,25 (OH)2 <8 pg/mL; Vitamin D3 1,25 (OH)2 52 pg/mL
== END 2024-04-28 08:46 | disposition home or self-care (01) ==
LOC: ANHNEURO 08:48
PROVIDERS: PCP Nurse Practitioner Adult Health; Visit Provider Psychiatry & Neurology Neurology
DX: F03.90 Unspecified dementia, unspecified severity, without behavioral disturbance, psychotic disturbance, mood disturbance, and anxiety (principal); F10.11 Alcohol abuse, in remission; G93.41 Metabolic encephalopathy; E55.9 Vitamin D deficiency, unspecified; Z87.828 Personal history of other (healed) physical injury and trauma
CPT/HCPCS: 36415; 80053; 82607; 82652; 82747; 83921; 85025; 95816

== ENCOUNTER 2024-04-29 10:40 | Outpatient (CLI) | payer BC, SELFPAY ==
[2024-04-29 11:06] LABS: Basophils Percent Auto 0.4 % (0.2-1.2); Eosinophils Percent Auto 0.5 % (0-4.4); Hematocrit 43.1 % (42.0-52.0); Hemoglobin 14.9 g/dL (14.0-18.0); Immature Granulocyte Absolute 0.02 K/mm3 (0.00-0.031); Immature Granulocyte Percent A 0.3 % (0-0.5); Lymphocytes Absolute Auto 1.63 K/mm3 (0.9-3.2); Lymphocytes Percent Auto 21.6 % (18.3-44.2); Mean Corpuscular HGB Conc 34.6 g/dl (32-36); Mean Corpuscular Hemoglobin 31.8 pg (26-34); Mean Corpuscular Volume 92.1 fl (80-100); Monocytes Absolute Auto 0.9 K/mm3 (0.1-0.6); Monocytes Percent Auto 11.4 % (2.6-8.5); Neutrophils Percent Auto 65.8 % (45.5-73.1); Platelet Count Result 264 k/mm3 (150-375); Red Blood Count 4.68 M/mm3 (4.6-6.20); Red Cell Distribution Width 12.4 % (11.5-14.5); White Blood Count 7.5 K/mm3 (4.5-10.0)
[2024-04-29 12:15] LABS: Iron 50 ug/dL (49-181)
[2024-04-29 12:17] LABS: Alanine Aminotransferase 23 U/L (6-50); Albumin Level 4.7 g/dL (3.5-5.1); Alkaline Phosphatase 129 U/L (38-126); Anion Gap 11 mmol/L (4-12); Aspartate Amino Transferase 22 U/L (17-59); Bilirubin,Total 0.9 mg/dL (0.2-1.3); Blood Urea Nitrogen 21 mg/dL (9-20); Calcium 9.9 mg/dL (8.4-10.2); Carbon Dioxide 25 mmol/L (22-30); Chloride 98 mmol/L (98-107); Estimated Glomerular Filt Rate > 60; Glucose 103 mg/dL (65-110); Potassium 4.1 mmol/L (3.4-5.0); Sodium 134 mmol/L (137-145)
[2024-04-29 12:24] LABS: Percent Iron Saturation 15 % (20-50)
[2024-05-01 08:43] LABS: Protein, Total 7.1 g/dL (6.1-8.1)
[2024-05-01 15:33] LABS: Kappa\\Lambda Light Chains 1.03 (0.26-1.65)
== END 2024-04-29 10:41 | disposition home or self-care (01) ==
PROVIDERS: PCP Nurse Practitioner Adult Health; Visit Provider Internal Medicine Hematology & Oncology
DX: R77.9 Abnormality of plasma protein, unspecified (principal); D64.9 Anemia, unspecified
CPT/HCPCS: 36415; 80053; 82728; 83540; 83550; 83883; 84155; 84165; 84238; 85025

== ENCOUNTER 2024-04-29 11:51 | Emergency (ER) | payer BC, SELFPAY ==
[2024-04-29 11:59] VITALS: BP 109/71; PULSE 94; RESP 20; TEMP 37.2; O2SAT 97
--- NOTE | 2024-04-29 12:13 | ED.URI ---
HPI - URI/Sore Throat General Chief Complaint: Upper Respiratory Infection Stated Complaint: Congestion/Chest Congestion/Cough/Fever Time Seen by Provider: 04/29/24 12:13 Source: patient, RN notes reviewed and old records reviewed Mode of arrival: ambulatory Limitations: no limitations History of Present Illness HPI Narrative: 68 year old male accompanied by spouse with complaint of acute cough which is productive of yellowish mucous with fevers, some sore throat for the past 5 days with fevers up to 102F. reports that patient has been taking Mucinex and Tylenol for his symptoms. reports that patient usually gets this cough and congestion with infection usually in the fall with the change of weather and crop harvest. reports that patient has had pneumonia in the past. MD elicited complaint: fever, cough (productive) and sore throat Pertinent past history: pneumonia Onset (ago): day(s) (5) Pain scale (0-10): 4 Description of mucous: yellow Able to tolerate fluids by mouth: Yes Treatments prior to arrival: acetaminophen and other (Mucinex) Related Data Home Medications Medication Instructions Recorded Confirmed Asprin 81 mg [facility] 07/11/23 04/09/24 Qunol Ultra Coq10 [facility] 07/11/23 04/09/24 Super B-Complex [facility] 07/11/23 04/09/24 Tumeric [facility] 07/11/23 04/09/24 Vitamim D3 [facility] 07/11/23 04/09/24 [facility] 04/29/24 Allergies Allergy/AdvReac Type Severity Reaction Status Date / Time No Known Allergies Allergy Verified 04/29/24 11:58 Review of Systems Review of Systems: CONSTITUTIONAL: Reports malaise, chills, sweats, or fever. EYES: Denies visual changes, redness, or discharge. ENT: Reports rhinorrhea, congestion,no sinus pain, no otalgia and positive for sore throat. CARDIOVASCULAR: Denies chest pain, palpitations, or edema. RESPIRATORY: Reports productive cough yellow mucous.? Denies acute dyspnea. GASTROINTESTINAL: Denies abdominal pain, nausea, vomiting, diarrhea SKIN: Denies rash or itching. MUSCULOSKELETAL: Denies myalgia. NEUROLOGIC: Denies headache. All systems reviewed & are unremarkable except as noted in HPI and below PMFSH Past Medical History Medical History (Updated 04/29/24 @ 12:55 by Radha Meraz NP) Dementia Hyperlipidemia Hypertension Metabolic encephalopathy Pneumonia Surgical History Surgical History (Updated 04/29/24 @ 12:53 by Radha Meraz NP) History of medial meniscus repair of right knee Hx of cervical spine surgery Hx of tonsillectomy Family History Family History Mother Family history non-contributory Sibling Hypertension Social History Social History Smoking status: Former smoker Tobacco type: e-cigarettes/vaping Alcohol intake: current Alcohol use details: Five beers per week Substance use: former Substance use type: marijuana Lack of Transportation: No Lack of Food: Never True Current Housing: I Have Housing Concerned About Future Housing: No Difficulty Paying Gas/Electric Bills: No Difficulty Paying for Meds: No Currently Unemployed: No Education: High School Diploma/GED Difficulty w/ Childcare or Family Care: No Living arrangements: with family Occupation/Education: retired Gender identity (if verbalized by the patient): Male Sexual Orientation (if Verbalized by the Patient): Straight or Heterosexual Spiritual care concerns: No Agree to blood products: Yes Comments At time of signature, agree with nursing past medical, surgical, social and family history. There is no relevant family history pertinent to the presenting complaint Exam Narrative: GENERAL: Well-appearing, well-nourished, and in no acute distress. HEAD: Normocephalic EYES: PERRLA, conjunctivae clear ENT: Nares clear, turbinates edematous and erythematous, clear discharge. Mucous
[2024-04-29 12:19] LABS: EDCOVIDSCREEN Negative (Negative); EDINFLUASCREEN Negative (Negative); EDINFLUBSCREEN Negative (Negative)
== END 2024-04-29 12:38 | disposition home or self-care (01) ==
PROVIDERS: Emergency Provider Registered Nurse; PCP Nurse Practitioner Adult Health
DX: J06.9 Acute upper respiratory infection, unspecified (principal); R05.1 Acute cough; Z20.822 Contact with and (suspected) exposure to COVID-19; Z87.891 Personal history of nicotine dependence; F03.90 Unspecified dementia, unspecified severity, without behavioral disturbance, psychotic disturbance, mood disturbance, and anxiety; E78.5 Hyperlipidemia, unspecified; I10 Essential (primary) hypertension; G93.41 Metabolic encephalopathy
CPT/HCPCS: 87426; 87804; 99213; G0463

== ENCOUNTER 2024-05-10 08:32 | Outpatient (CLI) | payer BC, SELFPAY ==
--- NOTE | ~2024-05-10 | MR_ITS ---
MRI of the brain Clinical History: Dementia Technique: Axial and sagittal T1-weighted images were acquired. These were followed by axial T2-weigh jesús, diffusion weighted, gradient, and FLAIR images. Findings: There is no acute infarct, intracranial hemorrhage or mass lesion. There are mild chronic m icrovascular ischemic changes in the periventricular white matter bilaterally. Ventricles and subarachnoid spaces are mildly dilated. Orbits are unremarkable. Paranasal sinuses and mastoid air cells are clear. Major intracranial flow voids appear intact. Sagittal midline structures are intact. IMPRESSION: No intracranial hemorrhage, mass lesion, or acute infarct. Mild chronic microvascular ischemic change, and mild generalized atrophy. Reviewed, dictated and finalized at location . TOGRAPHIC CENTER SPECIALIST
== END 2024-05-10 08:33 | disposition home or self-care (01) ==
PROVIDERS: PCP Nurse Practitioner Adult Health; Visit Provider Psychiatry & Neurology Neurology
DX: F03.90 Unspecified dementia, unspecified severity, without behavioral disturbance, psychotic disturbance, mood disturbance, and anxiety (principal); I67.82 Cerebral ischemia; G31.9 Degenerative disease of nervous system, unspecified
CPT/HCPCS: 70551

== ENCOUNTER 2024-05-12 12:38 | Outpatient (CLI) | payer BC, SELFPAY ==
[2024-05-12 16:34] LABS: Immunoglobulin A 201 mg/dL (70-400); Immunoglobulin G 1000 mg/dL (700-1600); Immunoglobulin M 49 mg/dL (40-230)
== END 2024-05-12 12:39 | disposition home or self-care (01) ==
LOC: ANHLAB 12:40
PROVIDERS: PCP Nurse Practitioner Adult Health; Visit Provider Internal Medicine Hematology & Oncology
DX: R77.9 Abnormality of plasma protein, unspecified (principal)
CPT/HCPCS: 36415; 82784

== ENCOUNTER 2024-06-10 08:00 | Outpatient (RCR) | payer BC, SELFPAY | END 2024-08-17 23:59 | disposition home or self-care (01) | LOC: ANHAUDASC 08:00 | PROVIDERS: PCP Nurse Practitioner Adult Health; Visit Provider Nurse Practitioner Adult Health | DX: Z46.1 Encounter for fitting and adjustment of hearing aid (principal) | CPT/HCPCS: 99199; V5261 ==

== ENCOUNTER 2024-06-19 13:37 | Emergency (ER) | payer BC, SELFPAY ==
--- NOTE | ~2024-06-19 | CT_ITS ---
EXAMINATION: CT brain wo con DATE: 06/19/2024 14:35 INDICATION: Head injury. Fall. TECHNIQUE: Computed tomography (CT) of the head was performed without intravenous contrast. The mA wa s adjusted according to patient size. Iterative reconstruction technique was employed. The dose-lengt h product was 681.00 mGy-cm. COMPARISON: Head CT 09/26/2023, brain MRI 05/10/2024 FINDINGS: There are scattered areas of low attenuation in the cerebral white matter, which is within normal limits for the patient's age. There is no intracranial hemorrhage, acute infarction, or abnorm al intracranial mass lesion. The ventricles are normal in size. There is mild mucosal thickening in t he paranasal sinuses. The orbits are normal. The mastoid air cells are normal. There is right frontal lateral scalp soft tissue swelling with soft tissue gas. IMPRESSION: 1. Normal aging brain. Reviewed, dictated and finalized at location A. IFIED BREASTFEEDING EDUCATOR IMPRESSION: 1. Normal aging brain.
--- NOTE | ~2024-06-19 | XR_ITS ---
EXAMINATION: XR shoulder RT min 2V, XR humerus RT DATE: 06/19/2024 14:44 INDICATION: Right shoulder and upper arm pain and deformity post fall TECHNIQUE: 1. AP and Grashey views of the right shoulder were obtained. 2. 2 views of the left humerus were obtained with of the minimal differences in degree of rotation. COMPARISON: None FINDINGS: Transverse fracture across the surgical neck of the proximal right humerus. There is 12 mm posterior displacement and 25 degrees posterior medial angulation with medial sided impaction. The humeral head remains normally centered over the glenoid but is rotated as with abduction and posterior rotation. No other fractures identified. Moderate acromioclavicular and mild to moderate glenohumeral osteoarth ritis. There is expansion of the distal third of the humerus with cortical thickening and thickened t rabecular pattern consistent with Paget's disease. Mild to moderate osteoarthritis at the right elbow . IMPRESSION: 1. Displaced and angulated two-part fracture the surgical neck of the proximal right humerus. 2. 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 3. 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 Reviewed, dictated and finalized at location A. LVING FIELD ASSEMBLER IMPRESSION: 1. Displaced and angulated two-part fracture the surgical neck of the proximal right humerus. 2. 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 3. Mild to moderate polyarticular osteoarthritis at the right elbow and shoulde r.
--- NOTE | ~2024-06-19 | XR_ITS ---
EXAMINATION: XR elbow RT min 3V DATE: 06/19/2024 14:45 INDICATION: Right elbow injury and pain. TECHNIQUE: 3 views of right elbow were obtained. COMPARISON: None. FINDINGS: Distal right humerus demonstrates thickened trabecula and bone expansion. No fracture. Ther e is mild elbow joint osteoarthritis. There is an elbow joint effusion. There is soft tissue swelling . IMPRESSION: 1. 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 2. Mild elbow joint osteoarthritis. 3. Elbow joint effusion. Reviewed, dictated and finalized at location A. DISK QUALITY CONTROL SUPERVISOR
--- NOTE | ~2024-06-19 | CT_ITS ---
EXAMINATION: CT cervical spine wo con DATE: 06/19/2024 14:35 INDICATION: Neck injury. Fall. TECHNIQUE: Computed tomography (CT) of the cervical spine was performed without intravenous contrast. Automated exposure control and iterative reconstruction technique were employed. The dose-length pro duct was 304.63 mGy-cm. COMPARISON: None FINDINGS: There is kyphosis of cervical spine. There are changes of anterior fusion procedure at C3-C 4 with interbody device and anterior plate and screws. Vertebral body heights are normal. There is mo derately decreased disc height at C4-C5 and severely decreased disc height at C5-C6, C6-C7, and C7-T1 . There is interbody fusion at C6-C7. The following disc levels are specifically discussed: C2-C3: There is mild right and severe left uncovertebral joint osteoarthritis. There is moderate righ t and severe left facet joint osteoarthritis. There is mild right and moderate left neural foraminal stenosis. There is mild central canal stenosis. C3-C4: There is mild bilateral uncovertebral joint hypertrophy. There is mild bilateral facet joint h ypertrophy. There is mild bilateral neural foraminal stenosis. There is no central canal stenosis. C4-C5: There is severe bilateral uncovertebral joint osteoarthritis. There is mild bilateral facet bettina int osteoarthritis. There is mild bilateral neural foraminal stenosis. There is mild central canal st enosis. C5-C6: There is severe bilateral uncovertebral joint osteoarthritis. There is severe bilateral facet joint osteoarthritis. There is mild bilateral neural foraminal stenosis. There is mild central canal stenosis. C6-C7: There is severe bilateral uncovertebral joint hypertrophy. There is moderate right and severe left facet joint osteoarthritis. There is mild bilateral neural foraminal stenosis. There is mild karmen tral canal stenosis. C7-T1: There is severe bilateral uncovertebral joint osteoarthritis. There is moderate bilateral face t joint osteoarthritis. There is moderate bilateral neural foraminal stenosis. There is mild central canal stenosis. IMPRESSION: 1. No fracture. 2. Severe cervical spondylosis. 3. Anterior fusion procedure at C3-C4. Reviewed, dictated and finalized at location A. CREAM FREEZER
[2024-06-19 13:38] VITALS: BP 140/92; PULSE 84; RESP 14; TEMP 36.8; O2SAT 94
[2024-06-19] MEDS: MORPHINE SULFATE (*CRX) 4 MG/ML INJ IV PUSH (16:00)
[2024-06-19 16:01] VITALS: BP 111/80; PULSE 78; RESP 15; O2SAT 96
--- NOTE | 2024-06-19 18:09 | ED_ITS ---
HPI - Fall General Chief Complaint: Fall Stated Complaint: GLF, poss dislocated R shoulder Time Seen by Provider: 06/19/24 13:42 History of Present Illness HPI Narrative: Pt p/w fall, he slipped while putting on command hooks. did hit his head, and landed on his right shoulder. Pain mostly to his right shoulder and elbow. Related Data Home Medications ?Medication ?Instructions ?Recorded ?Confirmed ?Last Taken ?Type Asprin 81 mg [facility] 07/11/23 04/09/24 Unknown History Qunol Ultra Coq10 [facility] 07/11/23 04/09/24 Unknown History Super B-Complex [facility] 07/11/23 04/09/24 Unknown History Tumeric [facility] 07/11/23 04/09/24 Unknown History Vitamim D3 [facility] 07/11/23 04/09/24 Unknown History Iron Otc 04/29/24 Unknown History Allergies Allergy/AdvReac Type Severity Reaction Status Date / Time No Known Allergies Allergy Verified 06/19/24 13:50 Review of Systems Review of Systems: All systems reviewed & are unremarkable except as noted in HPI and below PMFSH Past Medical History Medical History (Updated 06/19/24 @ 15:37 by Poppy Velez MD) Pneumonia Metabolic encephalopathy Dementia Hyperlipidemia Hypertension Surgical History Surgical History (Updated 04/29/24 @ 12:53 by Radha Meraz NP) History of medial meniscus repair of right knee Hx of cervical spine surgery Hx of tonsillectomy Family History Family History Mother Family history non-contributory Sibling Hypertension Social History Social History Smoking status: Former smoker Tobacco type: e-cigarettes/vaping Alcohol intake: current Alcohol use details: Five beers per week Substance use: former Substance use type: marijuana Lack of Transportation: No Lack of Food: Never True Current Housing: I Have Housing Concerned About Future Housing: No Difficulty Paying Gas/Electric Bills: No Difficulty Paying for Meds: No Currently Unemployed: No Education: High School Diploma/GED Difficulty w/ Childcare or Family Care: No Living arrangements: with family Occupation/Education: retired Gender identity (if verbalized by the patient): Male Sexual Orientation (if Verbalized by the Patient): Straight or Heterosexual Spiritual care concerns: No Agree to blood products: Yes Exam Narrative: EXAMINATION OF ORGAN SYSTEMS/BODY AREAS: Constitutional: Vital signs per nursing GENERAL:[No acute distress, non-toxic appearing.] Slightly uncomfortable HEAD: abrasions to forehead EYES: EOMI, conjunctiva normal ENT: Hearing grossly intact LUNGS: Nonlabored breathing. HEART: [Regular rate and rhythm] ABD: [Soft], [nontender to palpation] EXT: Tenderness to R upper arm, elbow; no tenderness to wrist SKIN: abrasion forehead NEURO: [Alert and oriented x 3. No gross focal sensory or strength deficits.] PSYCH: Normal affect Course Vital Signs Vital signs: Vital Signs Temperature 98.2 F 06/19/24 13:38 Pulse Rate 84 06/19/24 13:38 Respiratory Rate 14 06/19/24 13:38 Blood Pressure 140/92 H 06/19/24 13:38 Pulse Oximetry 94 06/19/24 13:38 Temperature 98.2 F 06/19/24 13:38 Pulse Rate 78 06/19/24 16:01 Respiratory Rate 15 06/19/24 16:01 Blood Pressure 111/80 06/19/24 16:01 Pulse Oximetry 96 06/19/24 16:01 MDM - Fall MDM Narrative Medical decision making narrative: patient presents here after a fall, did hit his head, mostly been having pain to his right shoulder/ arm. X-rays obtained and do confirm humerus fracture unfortunately, he is placed in sling, findings discussed with patient, pain medication administered, follow-up to Orthopedics provided. Discharge Plan Discharge Clinical Impression: Fracture, humerus Patient Disposition: Home, Self-Care Condition: Stable Instructions: Proximal Humerus Fracture (ED) Additional Instructions: Please keep your arm in the sling, follow up with orthopedic surgeon. You can come back to the emergency room for any further issues. Patient Language: Guinean Prescriptions: New hydrocodone-acetaminophen 5-300 mg tablet 1 tablet PO Q8H PRN (Reason: pain) Qty: 20 0RF methocarbamol 750 mg tablet 750 mg PO TID PRN (Reason: muscle spasm) Qty: 30 0RF No Action Iron Otc amoxicillin 875 mg tablet 875 mg PO Q12H Qty: 20 0RF benzonatate 200 mg capsule 200 mg PO TID PRN (Reason: cough) Qty: 20 0RF Rx Instructions: for cough prednisone 20 mg tablet 40 mg PO DAILY 5 Days Qty: 10 0RF escitalopram oxalate [Lexapro] 10 mg tablet 10 mg PO DAILY Qty: 30 5RF Asprin 81 mg [facility] Patient Comments: [facility]D [facility] Instructions: 100mg QD [facility] Rx Instructions: QD Tumeric [facility] Rx Instructions: 450mg QD Vitamim D3 [facility] Rx Instructions: 50mcg 200iu Daily lorazepam [Ativan] 1 mg tablet 1 mg PO ONCE MDD 2 mg on the day of test PRN (Reason: MRI) Qty: 2 0RF Rx Instructions: 1 tablet to be taken 1 hour before MRI and may repeat once more if necessary maximum 2 tablets atorvastatin 20 mg tablet See Rx Instructions .ROUTE .COMPLEX Qty: 90 0RF Dose Instruction: TAKE 1 TABLET BY MOUTH DAILY Rx Instructions: TAKE 1 TABLET BY MOUTH DAILY lisinopril-hydrochlorothiazide 20-25 mg tablet See Rx Instructions .ROUTE .COMPLEX Qty: 90 0RF Dose Instruction: TAKE 1 TABLET BY MOUTH DAILY Rx Instructions: TAKE 1 TABLET BY MOUTH DAILY Follow-up/Referrals: Lalo Lopez MD [Physician] - 2 Days Zaina Castillo APRN [Primary Care Provider] -
== END 2024-06-19 16:22 | disposition home or self-care (01) ==
PROVIDERS: Emergency Provider Emergency Medicine; PCP Nurse Practitioner Adult Health
DX: S42.221A 2-part displaced fracture of surgical neck of right humerus, initial encounter for closed fracture (principal); I10 Essential (primary) hypertension; E78.5 Hyperlipidemia, unspecified; G93.41 Metabolic encephalopathy; F03.90 Unspecified dementia, unspecified severity, without behavioral disturbance, psychotic disturbance, mood disturbance, and anxiety; Z98.1 Arthrodesis status; Z87.01 Personal history of pneumonia (recurrent); Z87.891 Personal history of nicotine dependence; Z79.899 Other long term (current) drug therapy; M19.021 Primary osteoarthritis, right elbow; M19.011 Primary osteoarthritis, right shoulder; M47.812 Spondylosis without myelopathy or radiculopathy, cervical region; R93.6 Abnormal findings on diagnostic imaging of limbs; W01.0XXA Fall on same level from slipping, tripping and stumbling without subsequent striking against object, initial encounter
CPT/HCPCS: 70450; 72125; 73030; 73060; 73080; 96374; 99284; A4565; J2270

== ENCOUNTER 2024-06-23 12:58 | Inpatient (IN) | payer MEDICARE, BC, SELFPAY ==
[2024-06-23] VITALS (12 sets, daily range): BP systolic 99–144; BP diastolic 56–88; PULSE 72–145; RESP 15–22; TEMP 36.4–38; O2SAT 90–99; BMI 25.2
--- NOTE | ~2024-06-23 | XR_ITS ---
XR chest 1V portable 06/26/2024 09:57 Indication: PICC line placement Procedure: AP portable chest Comparison: Comparison to multiple prior studies sequentially, with oldest reviewed study dated 09/25. Findings: Cardiomegaly. There is left perihilar atelectasis/consolidation. PICC line tip in the SVC. Mild pulmonary vascular congestion. No significant pleural effusion or pneumothorax. Impression: 1: Left perihilar linear consolidation, most likely atelectasis. Pneumonia less favored. 2: Cardiomegaly with pulmonary vascular congestion. 3: Left subclavian PICC line tip in the SVC. Reviewed, dictated and finalized at location B. FACTURING SALES REPRESENTATIVE Impression: 1: Left perihilar linear consolidation, most likely atelectasis. Pneumonia less favored. 2: Cardiomegaly with pulmonary vascular congestion. 3: Left subclavian PICC line tip in the SVC.
--- NOTE | ~2024-06-23 | CT_ITS ---
EXAMINATION:CT diagnostic chest wo con DATE: 06/23/2024 16:34 INDICATION: Left lung nodule. TECHNIQUE: Computed tomography (CT) of the chest was performed without intravenous contrast. Automate d exposure control and iterative reconstruction technique were employed. The dose-length product (DLP ) was 545.10 mGy-cm. COMPARISON: Chest CT 08/25/2023 FINDINGS: There is mild elevation of left hemidiaphragm. There is mild atelectasis bilaterally. No pl eural effusion. The heart size is normal. There are coronary artery calcifications. No pericardial ef fusion. The gallbladder is distended, likely secondary to fasting. There is severe cervical and thora cic spondylosis. IMPRESSION: 1. Mild atelectasis in the lungs. Reviewed, dictated and finalized at location A. LE E BUSINESS DEVELOPER
--- NOTE | ~2024-06-23 | XR_ITS ---
XR shoulder RT min 2V Ordering provider: YU Zhao History: . Right Shoulder fx- recurrent fall s/p 06/19 XR . Comparison: June 19, 2024 FINDINGS: BONES: Impacted fracture of the proximal metaphysis of the right humerus with extension to the joint space.. JOINT SPACES: The acromioclavicular joint shows mild osteoarthritic changes. The glenohumeral joint i s narrowed. SOFT TISSUES: Normal. IMPRESSION: Impacted fracture in the proximal metaphysis of the right humerus. Minimal change in alignment. Reviewed, dictated and finalized at location A. PRECIPITATOR OPERATOR HELPER IMPRESSION: Impacted fracture in the proximal metaphysis of the right humerus. Minimal lizama ge in alignment.
--- NOTE | ~2024-06-23 | XR_ITS ---
EXAMINATION: XR wrist RT 2V DATE: 06/24/2024 15:25 INDICATION: Right wrist pain TECHNIQUE: Posteroanterior and lateral views of the right wrist were obtained. COMPARISON: none FINDINGS: Alignment is normal. No fracture. There is dystrophic calcification projecting over the soft tissues dorsal palmar to the proximal carpal row and in the region of the triangular fibrocartilage complex p otentially related to chondrocalcinosis. Mild osteoarthritis at the triscaphe and first carpal metaca rpal joints. No cortical erosions. Diffuse mild soft tissue swelling about the mid to distal forearm. IMPRESSION: 1. Nonspecific soft tissue swelling about the mid to distal right forearm. No acute osseous abnormali ty. Reviewed, dictated and finalized at location A. RONMENTAL HEALTH SANITARIAN IMPRESSION: 1. Nonspecific soft tissue swelling about the mid to distal right forearm. No a cute osseous abnormality.
--- NOTE | ~2024-06-23 | XR_ITS ---
Portable chest x-ray Comparison: 06/26/2024 Clinical History: Congestion Findings: Stable discoid atelectasis or scarring at the left perihilar region. Left-sided PICC line in place. Cardiomediastinal silhouette is stable. Bones and soft tissues are unremarkable. Impression: Stable discoid atelectasis or scarring left perihilar region. No other significant pulmonary abnormality. Left-sided PICC line in place. Reviewed, dictated and finalized at [facility]. ETY EDITOR Impression: Stable discoid atelectasis or scarring left perihilar region. No other significant pulmonary abnormality. Left-sided PICC line in place.
--- NOTE | ~2024-06-23 | CT_ITS ---
EXAMINATION: CT brain wo con DATE: 06/23/2024 13:49 INDICATION: Altered mental status TECHNIQUE: Computed tomography (CT) of the head was performed without intravenous contrast. Sagittal and coronal reconstructions were performed. The mA was adjusted according to patient size. Iterative reconstruction technique was employed. The dose-length product was 1059.33 mGy-cm. COMPARISON: head CT dated 06/19/2024 FINDINGS: No acute intracranial hemorrhage, acute infarction or abnormal extra axial fluid collection. There is mild scattered white matter hypoattenuation consistent with chronic small vessel ischemic disease. S ymmetric prominence of the sulci and ventricles consistent with mild age-appropriate diffuse cerebral volume loss. Ventricles are normal and symmetric. No mass/mass effect. The orbits, paranasal sinuses and mastoid air cells are normal. IMPRESSION: 1. Normal aging brain. No acute intracranial process. Reviewed, dictated and finalized at location A. DOMETER MECHANIC
--- NOTE | ~2024-06-23 | XR_ITS ---
EXAMINATION: XR chest 1V portable DATE: 06/23/2024 14:17 INDICATION: Altered mental status TECHNIQUE: frontal view of the chest was obtained. COMPARISON: Chest radiograph dated FINDINGS: Elevation of left hemidiaphragm with linear discoid atelectasis in the left midlung zone. There is an approximately 1.8 cm nodular opacity at the left lung base projecting over the left hemidiaphragm. N o pulmonary edema, pleural effusion or pneumothorax The cardiomediastinal silhouette is normal. IMPRESSION: 1. Mild elevation left hemidiaphragm with discoid atelectasis in the left midlung zone. 2. Indeterminate 1.8 cm nodular opacity at the left lung base. Recommend chest CT for further evaluat ion. Reviewed, dictated and finalized at location A. SAMPLE BEVELER IMPRESSION: 1. Mild elevation left hemidiaphragm with discoid atelectasis in the left midlu ng zone. 2. Indeterminate 1.8 cm nodular opacity at the left lung base. Recommend chest CT for further evaluation.
--- NOTE | 2024-06-23 12:59 | ECG_ITS ---
Test Date: 2024-06-23 13:06:28 Measurements Intervals [place] Rate: 102 P: 3 RI: 147 QRS: 21 QRSD: 90 T: 56 QT: 341 QTc: 445 Interpretive Statements SINUS TACHYCARDIA MODERATE ST DEPRESSION [0.05+ mV ST DEPRESSION] No previous ECG available for comparison Electronically Signed On 06-23-2024 13:13:17 UC ARCHITECT by Domenic Rojas M.D.
[2024-06-23 13:09] LABS: Glucose Point of Care 116 mg/dl (65-105)
[2024-06-23 13:28] LABS: Basophils Percent Auto 0.1 % (0.2-1.2); Eosinophils Percent Auto 0.1 % (0-4.4); Hematocrit 31.8 % (42.0-52.0); Hemoglobin 10.6 g/dL (14.0-18.0); Immature Granulocyte Absolute 0.06 K/mm3 (0.00-0.031); Immature Granulocyte Percent A 0.4 % (0-0.5); Lymphocytes Absolute Auto 1.82 K/mm3 (0.9-3.2); Lymphocytes Percent Auto 12.9 % (18.3-44.2); Mean Corpuscular HGB Conc 33.3 g/dl (32-36); Mean Corpuscular Hemoglobin 30.7 pg (26-34); Mean Corpuscular Volume 92.2 fl (80-100); Monocytes Absolute Auto 1.5 K/mm3 (0.1-0.6); Monocytes Percent Auto 10.8 % (2.6-8.5); Neutrophils Absolute Auto 10.6 K/mm3 (1.3-6.7); Neutrophils Percent Auto 75.7 % (45.5-73.1); Platelet Count Result 340 k/mm3 (150-375); Red Blood Count 3.45 M/mm3 (4.6-6.20); Red Cell Distribution Width 12.4 % (11.5-14.5); White Blood Count 14.1 K/mm3 (4.5-10.0)
[2024-06-23 13:43] LABS: Alanine Aminotransferase 25 U/L (6-50); Albumin Level 3.7 g/dL (3.5-5.1); Alkaline Phosphatase 103 U/L (38-126); Anion Gap 4 mmol/L (4-12); Aspartate Amino Transferase 35 U/L (17-59); Bilirubin,Total 1.3 mg/dL (0.2-1.3); Blood Urea Nitrogen 31 mg/dL (9-20); Calcium 9.1 mg/dL (8.4-10.2); Carbon Dioxide 26 mmol/L (22-30); Chloride 99 mmol/L (98-107); Estimated CRCL calculation 107 ml/min; Estimated Glomerular Filt Rate > 60; Glucose 125 mg/dL (65-110); Potassium 3.9 mmol/L (3.4-5.0); Sodium 129 mmol/L (137-145)
[2024-06-23] MEDS: LORazepam INJ (*CRX) 2 MG/ML VIAL 0.5 MG IV PUSH (14:10)
[2024-06-23] MEDS: SODIUM CHLORIDE 0.9% IV 1,000 ML 999 ML IV CONT (14:10)
[2024-06-23 14:26] LABS: INR 1.1; Prothrombin Time 14.9 Seconds (11.1-14.7)
[2024-06-23 14:27] LABS: Partial Thromboplastin Time 28.7 Seconds (22.3-36.8)
[2024-06-23 14:45] LABS: Add Urine Microscopic? YES; Appearance Urine Clear (Clear); Bacteria Urine None Seen /hpf; Bilirubin Urine Negative (Negative); Blood Urine Negative (Negative); Color Urine Dark Yellow (Yellow); Glucose Urine UA Negative (Negative); Ketones Urine 2+ mg/dL (Negative); Leukocyte Esterase Ur Negative LEU/UL (Negative); Nitrate Urine Negative (Negative); Non Pathogenic Casts 0-2; Protein Urine 1+ mg/dL (Negative); RBC Urine 0-2 /hpf (0-2); Specific Grav Ur 1.027 (1.001-1.035); Squamous Epithelial Cell Urine None Seen /hpf (Few); WBC Urine 0-5 /hpf (0-3)
[2024-06-23 15:00] LABS: Ammonia < 9 umol/L (9-30)
--- NOTE | 2024-06-23 15:03 | PC.NURSE ---
Patient unable to take PO medications. Provider aware. Patient also acting more altered than when he initially came to the ED. Provider aware and at bedside at this time
[2024-06-23] MEDS: LORazepam INJ (*CRX) 2 MG/ML VIAL 1 MG IV PUSH ×2 (15:20→16:23)
[2024-06-23 15:38] LABS: Influenza A QL RT-PCR Negative (Negative); Influenza B QL RT-PCR Negative (Negative); RSV RNA, RT-PCR Negative (Negative); SARS-CoV-2 RNA PCR Negative (Negative)
--- NOTE | 2024-06-23 16:54 | ED_ITS ---
HPI - General Adult General Chief complaint: Altered Mental Status Stated complaint: AMS Time Seen by Provider: 06/23/24 13:18 History of Present Illness HPI narrative: Patient is a 68-year-old male who presents ER with increased confusion. Patient with history of dementia. Had a recent fall in last week causing fracture to his right shoulder. He has had decreased oral intake. He started having shakiness of his extremities. He has been seeing objects in the room that are crawling around that no one else can actually see. He is oriented x1. No additional falls. Related Data Home Medications ?Medication ?Instructions ?Recorded ?Confirmed ?Last Taken ?Type Asprin 81 mg BYILUTH 07/11/23 04/09/24 Unknown History Qunol Ultra Coq10 BYILUTH 07/11/23 04/09/24 Unknown History Super B-Complex BYILUTH 07/11/23 04/09/24 Unknown History Tumeric BYILUTH 07/11/23 04/09/24 Unknown History Vitamim D3 BYILUTH 07/11/23 04/09/24 Unknown History Iron Otc 04/29/24 Unknown History Allergies Allergy/AdvReac Type Severity Reaction Status Date / Time No Known Allergies Allergy Verified 06/23/24 15:16 Review of Systems 2 Review of Systems: ROS unobtainable: Yes unobtainable due to mental status PMFSH Past Medical History Medical History (Updated 06/23/24 @ 18:33 by Oliver Hanson MD) Pneumonia Metabolic encephalopathy Dementia Hyperlipidemia Hypertension Surgical History Surgical History (Updated 04/29/24 @ 12:53 by Radha Meraz NP) History of medial meniscus repair of right knee Hx of cervical spine surgery Hx of tonsillectomy Family History Family History Mother Family history non-contributory Sibling Hypertension Social History Social History Smoking status: Former smoker Tobacco type: e-cigarettes/vaping Alcohol intake: current Alcohol use details: Five beers per week Substance use: former Substance use type: marijuana Lack of Transportation: No Lack of Food: Never True Current Housing: I Have Housing Concerned About Future Housing: No Difficulty Paying Gas/Electric Bills: No Difficulty Paying for Meds: No Currently Unemployed: No Education: High School Diploma/GED Difficulty w/ Childcare or Family Care: No Living arrangements: with family Occupation/Education: retired Gender identity (if verbalized by the patient): Male Sexual Orientation (if Verbalized by the Patient): Straight or Heterosexual Spiritual care concerns: No Agree to blood products: Yes Exam 2 Narrative: GENERAL: Well-appearing, well-nourished, and in no acute distress. HEAD: Normocephalic, atraumatic. EYES: PERRL and EOMI. ENT: Mucous membranes moist. CHEST: Clear to auscultation. No respiratory distress. HEART: Regular rate and rhythm. Normal peripheral pulses. ABDOMEN: Soft, nontender, nondistended EXTREMITIES: Right upper extremity with bruising from shoulder down towards the elbow. Range of motion preserved at the wrist and elbow. Normal range of motion left upper extremity and bilateral lower extremities. SKIN: Warm, dry, no rash. NEURO: Alert orient x1. Intermittently tremulous and frequently scared he is going to fall off the bed. Course Course Emergency Course: Patient febrile and given Tylenol. No source of fever identified but patient does have leukocytosis with mild drop in hemoglobin. May be related to fracture. I made BUN but preserved creatinine and. Admit to hospitalist service for observation. Vital Signs Vital signs: Vital Signs Temperature 98.5 F 06/23/24 12:52 Pulse Rate 99 06/23/24 12:52 Respiratory Rate 15 06/23/24 12:52 Blood Pressure 126/86 06/23/24 12:52 Pulse Oximetry 96 06/23/24 12:52 Oxygen Delivery Room Air 06/23/24 12:52 Temperature 100.4 F H 06/23/24 14:48 Pulse Rate 92 06/23/24 17:14 Respiratory Rate 20 06/23/24 17:14 Blood Pressure 114/56 L 06/23/24 17:14 Pulse Oximetry 94 06/23/24 17:14 Oxygen Delivery Room Air 06/23/24 12:52 Medical Decision Making Vital Signs Vital Signs: Vital Signs Temperature 98.5 F 06/23/24 12:52 Pulse Rate 99 06/23/24 12:52 Respiratory Rate 15 06/23/24 12:52 Blood Pressure 126/86 06/23/24 12:52 Pulse Oximetry 96 06/23/24 12:52 Oxygen Delivery Room Air 06/23/24 12:52 Temperature 100.4 F H 06/23/24 14:48 Pulse Rate 92 06/23/24 17:14 Respiratory Rate 20 06/23/24 17:14 Blood Pressure 114/56 L 06/23/24 17:14 Pulse Oximetry 94 06/23/24 17:14 Oxygen Delivery Room Air 06/23/24 12:52 Lab Data 06/23/24 13:15 06/23/24 13:15 Labs: Lab Results 06/23/24 06/23/24 06/23/24 Range/Units 13:07 13:15 14:32 WBC 14.1 H (4.5-10.0) K/mm3 RBC 3.45 L (4.6-6.20) M/mm3 Hgb 10.6 L D (14.0-18.0) g/dL Hct 31.8 L (42.0-52.0) % MCV 92.2 (80-100) fl MCH 30.7 (26-34) pg MCHC 33.3 (32-36) g/dl RDW 12.4 (11.5-14.5) % Plt Count 340 (150-375) k/mm3 MPV 9.0 (7.4-10.4) fl Immature Gran % (Auto) 0.4 (0-0.5) % Neut % (Auto) 75.7 H (45.5-73.1) % Lymph % (Auto) 12.9 L (18.3-44.2) % [place] % (Auto) 10.8 H (2.6-8.5) % Eos % (Auto) 0.1 (0-4.4) % Baso % (Auto) 0.1 L (0.2-1.2) % Lymph # (Auto) 1.82 (0.9-3.2) K/mm3 [place] # (Auto) 1.5 H (0.1-0.6) K/mm3 Eos # (Auto) 0.0 (0-0.3) K/mm3 Baso # (Auto) 0.0 (0.0-0.1) K/mm3 Abs Immat Gran (auto) 0.06 H (0.00-0.031) K/mm3 Absolute Neuts (auto) 10.6 H (1.3-6.7) K/mm3 Absolute Nucleated RBC 0.000 (0.0-0.012) K/mm3 Nucleated RBC % 0.0 (0.0-0.2) % PT 14.9 H (11.1-14.7) Seconds INR 1.1 APTT 28.7 (22.3-36.8) Seconds Sodium 129 L (137-145) mmol/L Potassium 3.9 (3.4-5.0) mmol/L Chloride 99 (98-107) mmol/L Carbon Dioxide 26 (22-30) mmol/L Anion Gap 4 (4-12) mmol/L BUN 31 H D (9-20) mg/dL Creatinine 0.70 (0.7-1.3) mg/dL Estim Creat Clear Calc 107 ml/min Estimated GFR > 60 (59 - ) Glucose 125 H (65-110) mg/dL POC Capillary Glucose 116 H (65-105) mg/dl Calcium 9.1 (8.4-10.2) mg/dL Total Bilirubin 1.3 (0.2-1.3) mg/dL AST 35 (17-59) U/L ALT 25 (6-50) U/L Alkaline Phosphatase 103 (38-126) U/L Ammonia (9-30) umol/L Total Protein 7.0 (6.3-8.2) g/dL Albumin 3.7 (3.5-5.1) g/dL Urine Color Dark yellow (Yellow) Urine Appearance Clear (Clear) Urine pH 6.0 (5.0-9.0) Ur Specific [place] 1.027 (1.001-1.035) Urine Protein 1+ H (Negative) mg/dL Urine Glucose (UA) Negative (Negative) mg/dL Urine Ketones 2+ H (Negative) mg/dL Ur Blood (Man) Negative (Negative) Urine Nitrate Negative (Negative) Urine Bilirubin Negative (Negative) Urine Urobilinogen 1.0 (<2.0) mg/dL Leukocyte Esterase Rfl Negative (Negative) MELITON/UL Urine RBC 0-2 (0-2) /hpf Urine WBC 0-5 (0-3) /hpf Ur Squamous Epith Cells None seen (Few) /hpf Urine Bacteria None seen /hpf Urine Casts 0-2 Urine Opiates Screen Pending Urine Methadone Screen Pending Ur Barbiturates Screen Pending Ur Phencyclidine Scrn Pending Ur Amphetamine Screen Pending U Benzodiazepines Scrn Pending Urine Cocaine Screen Pending U Cannabinoids Screen Pending Influenza A (RT-PCR) (Negative) Influenza B (RT-PCR) (Negative) RSV (RT-PCR) (Negative) SARS-CoV-2 RNA (RT-PCR) (Negative) 06/23/24 06/23/24 Range/Units 14:46 14:57 WBC (4.5-10.0) K/mm3 RBC (4.6-6.20) M/mm3 Hgb (14.0-18.0) g/dL Hct (42.0-52.0) % MCV (80-100) fl MCH (26-34) pg MCHC (32-36) g/dl RDW (11.5-14.5) % Plt Count (150-375) k/mm3 MPV (7.4-10.4) fl Immature Gran % (Auto) (0-0.5) % Neut % (Auto) (45.5-73.1) % Lymph % (Auto) (18.3-44.2) % [place] % (Auto) (2.6-8.5) % Eos % (Auto) (0-4.4) % Baso % (Auto) (0.2-1.2) % Lymph # (Auto) (0.9-3.2) K/mm3 [place] # (Auto) (0.1-0.6) K/mm3 Eos # (Auto) (0-0.3) K/mm3 Baso # (Auto) (0.0-0.1) K/mm3 Abs Immat Gran (auto) (0.00-0.031) K/mm3 Absolute Neuts (auto) (1.3-6.7) K/mm3 Absolute Nucleated RBC (0.0-0.012) K/mm3 Nucleated RBC % (0.0-0.2) % PT (11.1-14.7) Seconds INR APTT (22.3-36.8) Seconds Sodium (137-145) mmol/L Potassium (3.4-5.0) mmol/L Chloride (98-107) mmol/L Carbon Dioxide (22-30) mmol/L Anion Gap (4-12) mmol/L BUN (9-20) mg/dL Creatinine (0.7-1.3) mg/dL Estim Creat Clear Calc ml/min Estimated GFR (59 - ) Glucose (65-110) mg/dL POC Capillary Glucose (65-105) mg/dl Calcium (8.4-10.2) mg/dL Total Bilirubin (0.2-1.3) mg/dL AST (17-59) U/L ALT (6-50) U/L Alkaline Phosphatase (38-126) U/L Ammonia < 9 L (9-30) umol/L Total Protein (6.3-8.2) g/dL Albumin (3.5-5.1) g/dL Urine Color (Yellow) Urine Appearance (Clear) Urine pH (5.0-9.0) Ur Specific [place] (1.001-1.035) Urine Protein (Negative) mg/dL Urine Glucose (UA) (Negative) mg/dL Urine Ketones (Negative) mg/dL Ur Blood (Man) (Negative) Urine Nitrate (Negative) Urine Bilirubin (Negative) Urine Urobilinogen (<2.0) mg/dL Leukocyte Esterase Rfl (Negative) MELITON/UL Urine RBC (0-2) /hpf Urine WBC (0-3) /hpf Ur Squamous Epith Cells (Few) /hpf Urine Bacteria /hpf Urine Casts Urine Opiates Screen Urine Methadone Screen Ur Barbiturates Screen Ur Phencyclidine Scrn Ur Amphetamine Screen U Benzodiazepines Scrn Urine Cocaine Screen U Cannabinoids Screen Influenza A (RT-PCR) Negative (Negative) Influenza B (RT-PCR) Negative (Negative) RSV (RT-PCR) Negative (Negative) SARS-CoV-2 RNA (RT-PCR) Negative (Negative) Imaging Data Radiologist's impression: ITS Impressions Head CT 06/23/24 13:50 IMPRESSION: 1. Normal aging brain. No acute intracranial process. Chest X-Ray 06/23/24 15:46 IMPRESSION: 1. Mild elevation left hemidiaphragm with discoid atelectasis in the left midlung zone. 2. Indeterminate 1.8 cm nodular opacity at the left lung base. Recommend chest CT for further evaluation. Chest CT 06/23/24 16:36 IMPRESSION: 1. Mild atelectasis in the lungs. ECG Data EKG #1: ECG completion date: 06/23/24 ECG completion time: 13:06 EKG Interpretation: tachycardia (102), sinus rhythm, non-specific ST changes, normal QRS, normal QT and NL axis Discharge Plan Discharge Clinical Impression: Altered mental status, Acute febrile illness Patient Disposition: Still a Patient Condition: Stable Patient Language: [place] Prescriptions: No Action Iron Otc amoxicillin 875 mg tablet 875 mg PO Q12H Qty: 20 0RF benzonatate 200 mg capsule 200 mg PO TID PRN (Reason: cough) Qty: 20 0RF Rx Instructions: for cough prednisone 20 mg tablet 40 mg PO DAILY 5 Days Qty: 10 0RF escitalopram oxalate [Lexapro] 10 mg tablet 10 mg PO DAILY Qty: 30 5RF Asprin 81 mg BYMOUTH Patient Comments: QD Qunol Ultra Coq10 BYMOUTH Rx Instructions: 100mg QD Super B-Complex BYMOUTH Rx Instructions: QD Tumeric BYMOUTH Rx Instructions: 450mg QD Vitamim D3 BYMOUTH Rx Instructions: 50mcg 200iu Daily hydrocodone-acetaminophen 5-300 mg tablet 1 tablet PO Q8H PRN (Reason: pain) Qty: 20 0RF methocarbamol 750 mg tablet 750 mg PO TID PRN (Reason: muscle spasm) Qty: 30 0RF lorazepam [Ativan] 1 mg tablet 1 mg PO ONCE MDD 2 mg on the day of test PRN (Reason: MRI) Qty: 2 0RF Rx Instructions: 1 tablet to be taken 1 hour before MRI and may repeat once more if necessary maximum 2 tablets atorvastatin 20 mg tablet See Rx Instructions .ROUTE .COMPLEX Qty: 90 0RF Dose Instruction: TAKE 1 TABLET BY MOUTH DAILY Rx Instructions: TAKE 1 TABLET BY MOUTH DAILY lisinopril-hydrochlorothiazide 20-25 mg tablet See Rx Instructions .ROUTE .COMPLEX Qty: 90 0RF Dose Instruction: TAKE 1 TABLET BY MOUTH DAILY Rx Instructions: TAKE 1 TABLET BY MOUTH DAILY Follow-up/Referrals: Zaina Castillo APRN [Primary Care Provider] -
[2024-06-23] MEDS: ACETAMINOPHEN 650 MG SUPPOSITORY (17:27)
[2024-06-23 18:45] LABS: Amphetamine Screen Urine Negative (Negative); Barbiturate Screen Urine Negative (Negative); Benzodiazepines Screen Urine Negative (Negative); Cannabinoid Screen Urine Positive (Negative); Cocaine Screen Urine Negative (Negative); Methadone Screen Urine Negative (Negative); Opiate Screen Urine Negative (Negative); Phencyclidine Screen Urine Negative (Negative)
[2024-06-23 18:56] LABS: Ethanol < 10 mg/dL (<10)
[2024-06-23 18:56] LABS: Creatine Kinase 157 U/L (55-170)
--- NOTE | 2024-06-23 19:01 | PC.NURSE ---
Patient sleeping at this time. Vital signs are within normal limits. Family at bedside
--- NOTE | 2024-06-23 19:04 | PC.NURSE ---
Provider aware of patient sleeping heavily. per family, this is not abnormal for the patient to go into periods of deep sleep. Provider states as long as vital signs are stable, let patient sleep at this time
[2024-06-23 19:09] LABS: Magnesium 2.3 mg/dL (1.6-2.3)
[2024-06-23 19:10] LABS: Erythrocyte Sedimentation Rate > 140 mm/hr (0-20)
--- NOTE | 2024-06-23 19:10 | P.HP_ITS ---
H&P: HPI History of Present Illness Date/Time: 06/23/24 18:15 Chief Complaint: Altered mental status. Narrative: This is a 68-year-old male with dementia, hypertension, and hyperlipidemia who presented to the emergency department via EMS from home for evaluation of altered mental status. Given his current clinical condition, all of the following history is obtained via a review of his electronic medical records as well as information provided by his Barbara and daughter Chaya were at bedside. He has a history of heavier alcohol use and decided to quit drinking in September 2023. Family indicates that he had troubles with withdrawal symptoms for upwards of 4 weeks and he was starting to show memory problems shortly thereafter. Over the course of the last 8 months he has become repetitive with pretty significant short-term memory loss and periods of increasing confusion and sometimes hallucinations. They also report that every few weeks or so he has a few days in a row where he sleeps a majority of the time and they are barely able to get him to wake up let alone eat. Last he had a good day and was helping his hang something up in the bathroom when she heard him yell for help. When she entered the room he was lying on his side and had an obvious deformity to the right shoulder. He was seen emergency department and was diagnosed with a humeral fracture. That evening the patient's gave him a dose of hydrocodone and methocarbamol. He has been increasingly confused since that time despite not having any further doses of those medications. He has not had any recent illnesses and family denies fever, cough, vomiting, and diarrhea. In the ED: He was alert and oriented x1 on arrival. ED nurse reported that he was extremely tremulous and anxious and he was given lorazepam 2 mg IV. Since that time he has been somnolent and very difficult to arouse. Temperature was as high as 100.4?. Blood pressures have been stable aside from a single blood pressure in the mid 90s systolic. Over the course of his stay he went into rapid atrial fibrillation which is reportedly a new diagnosis for him. Labs are significant for a WBC count of 14.1, hemoglobin 10.6, platelet 340, sodium 129, BUN 31, creatinine 0.70, lactic acid 1.0. Urinalysis is positive for 1+ protein and 2+ ketones. Head CT was without acute findings. Chest x-ray showed mild elevation of the left hemidiaphragm with discoid atelectasis in left mid lung zone and an indeterminate 1.8 cm nodule opacity at the left lung base. A subsequent chest CT showed mild atelectasis in the lungs. He is being admitted in this setting for further workup. Review of Systems Review of Systems: Unable to obtain given clinical condition. [facility] Past Medical History Medical History (Updated 06/23/24 @ 22:44 by Aneta Pichardo PA-C) Glaucoma Macular degeneration Dementia Hyperlipidemia Hypertension Surgical History Surgical History (Updated 06/23/24 @ 22:34 by Aneta Pichardo PA-C) History of tonsillectomy History of cervical spinal surgery History of medial meniscus repair of right knee Family History Family History Mother Hypertension Sibling Hypertension Social History Social History (Updated 06/23/24 @ 22:35 by Aneta Pichardo PA-C) Social History: Surrogate medical decision maker: [place], spouse. Code status: Full code. Smoking packs per day: 1 Smoking cigarettes per day: 20.0 Years smoked: 35 Smoking pack-years: 35.00 Smoking status: Former smoker Alcohol intake: former Substance use: former Substance use type: marijuana Do You Feel Safe in your Home?: Yes Lack of Transportation: No Lack of Food: Never True Current Housing: I Have Housing Concerned About Future Housing: No Difficulty Paying Gas/Electric Bills: No Difficulty Paying for Meds: No Currently Unemployed: No Education: High School Diploma/GED Difficulty w/ Childcare or Family Care: No Living arrangements: with family Occupation/Education: retired Spiritual care concerns: No Agree to blood products: Yes Meds Home Medications and Allergies Home Medications ?Medication ?Instructions ?Recorded ?Confirmed ?Type Asprin 81 mg 81 mg BYMOUTH DAILY 07/11/23 06/23/24 History Qunol Ultra Coq10 BYMOUTH 07/11/23 04/09/24 History Super B-Complex BYMOUTH 07/11/23 04/09/24 History Tumeric 1,600 mg BYMOUTH DAILY 07/11/23 06/23/24 History Vitamim D3 50 mcg BYMOUTH DAILY 07/11/23 06/23/24 History escitalopram oxalate 10 mg tablet 10 mg PO DAILY #30 tabs 04/09/24 06/23/24 Rx (Lexapro) Iron Otc 04/29/24 History atorvastatin 20 mg tablet See Rx Instructions .Route 05/22/24 06/23/24 Rx .COMPLEX #90 tabs lisinopril 20 See Rx Instructions .Route 05/22/24 06/23/24 Rx mg-hydrochlorothiazide 25 mg tablet .COMPLEX #90 tabs hydrocodone 5 mg-acetaminophen 300 1 tablet PO Q8H PRN pain #20 tabs 06/19/24 06/23/24 Rx mg tablet methocarbamol 750 mg tablet 750 mg PO TID PRN muscle spasm #30 06/19/24 06/23/24 Rx tabs B-complex with vitamin C 1 tablet PO DAILY 06/23/24 06/23/24 History coenzyme Q10 75 mg capsule (Ultra 75 mg PO DAILY 06/23/24 06/23/24 History CoQ10) ferrous sulfate 325 mg (65 mg 325 mg PO DAILY 06/23/24 06/23/24 History iron) tablet (Feosol) [id number] 300 mcg-K 60 1 tablet PO DAILY 06/23/24 06/23/24 History mcg-lycop 600 mcg-lutein 300 mcg tablet (Cent[place] Men 50 Plus) vit C 250 mg-vit E 90 mg-zinc 40 1 tablet PO ONCE 06/23/24 06/23/24 History mg-copper 1 [id number] capsule (PreserVision AREDS-2) Allergies Allergy/AdvReac Type Severity Reaction Status Date / Time No Known Allergies Allergy Verified 06/23/24 21:18 Vital Signs Vital Signs - 24 hr 06/23/24 12:52 06/23/24 13:33 06/23/24 14:48 Temperature 98.5 F 99.1 F 100.4 F H Pulse Rate 99 113 H Respiratory Rate 15 21 H Blood Pressure 126/86 144/88 H Pulse Oximetry 96 96 Oxygen Delivery Room Air 06/23/24 17:14 06/23/24 18:50 06/23/24 19:04 Temperature Pulse Rate 92 72 90 Respiratory Rate 20 20 20 Blood Pressure 114/56 L 99/80 L 106/60 Pulse Oximetry 94 93 96 Oxygen Delivery Exam Narrative: General: Ill-appearing male in the semi-Hawkins position in bed. Weight: 91.7 kg. BMI: 25.3. HEENT: Bruising over the left pentecostalism/eyebrow with a small abrasion. Pupils are 2 mm are sluggishly reactive. Sclera anicteric. Conjunctiva mildly injected. Extraocular motions appear to be intact. Tacky mucous membranes. Neck: Supple. Fall midline vertebral tenderness. No obvious carotid bruits or thyromegaly. No nuchal rigidity. Respiratory: Respirations are nonlabored. Lung sounds are diminished due to poor effort but are otherwise clear to auscultation. Cardiovascular: Irregularly irregular rate and rhythm. Gastrointestinal: Abdomen is soft, nontender, and nondistended with positive bowel sounds. Skin: Warm and dry. Bruising over the right neck, shoulder, and upper arm extending to the scapula. Musculoskeletal: Right upper extremity is swollen down to the mid forearm. Extremities: No cyanosis, clubbing, or edema. Radial and pedal pulses intact. Neurological: Somnolent but arousable to noxious stimuli. He attempts to follow some commands. He does not answer questions any falls back asleep quickly. No obvious facial asymmetry. Noted to move upper extremities. Withdraws lower extremities to noxious stimuli. Psychiatric: Confused after receiving lorazepam, unable to assess. H&P: Results Labs Labs: Short CBC 06/23/24 Range/Units 13:15 WBC 14.1 H (4.5-10.0) K/mm3 Hgb 10.6 L D (14.0-18.0) g/dL Hct 31.8 L (42.0-52.0) % Plt Count 340 (150-375) k/mm3 [facility] 06/23/24 13:15 Sodium 129 L Potassium 3.9 Chloride 99 Carbon Dioxide 26 BUN 31 H D Creatinine 0.70 Glucose 125 H Calcium 9.1 Cardiac Enzymes 06/23/24 Range/Units 18:19 Total Creatine Kinase 157 (55-170) U/L Liver Function 06/23/24 Range/Units 13:15 Total Bilirubin 1.3 (0.2-1.3) mg/dL AST 35 (17-59) U/L ALT 25 (6-50) U/L Alkaline Phosphatase 103 (38-126) U/L Albumin 3.7 (3.5-5.1) g/dL Urine 06/23/24 Range/Units 14:32 Urine Color Dark yellow (Yellow) Urine Appearance Clear (Clear) Urine pH 6.0 (5.0-9.0) Ur Specific [place] 1.027 (1.001-1.035) Urine Protein 1+ H (Negative) mg/dL Urine Glucose (UA) Negative (Negative) mg/dL Impressions Head CT 06/23/24 13:50 IMPRESSION: 1. Normal aging brain. No acute intracranial process. Chest X-Ray 06/23/24 15:46 IMPRESSION: 1. Mild elevation left hemidiaphragm with discoid atelectasis in the left midlung zone. 2. Indeterminate 1.8 cm nodular opacity at the left lung base. Recommend chest CT for further evaluation. Chest CT 06/23/24 16:36 IMPRESSION: 1. Mild atelectasis in the lungs. Assessment and Plan Assessment and plan (1) Acute febrile illness: Code(s): R50.9 - Fever, unspecified Status: Acute (2) Metabolic encephalopathy: Code(s): G93.41 - Metabolic encephalopathy Status: Acute (3) Dehydration: Code(s): E86.0 - Dehydration Status: Acute (4) Closed right humeral fracture: Code(s): S42.301A - Unspecified fracture of shaft of humerus, right arm, initial encounter for closed fracture Status: Acute (5) Atrial fibrillation with rapid ventricular response: Code(s): I48.91 - Unspecified atrial fibrillation Status: Acute (6) Anemia: Code(s): D64.9 - Anemia, unspecified Status: Acute (7) Dementia: Code(s): F03.90 - Unspecified dementia, unspecified severity, without behavioral disturbance, psychotic disturbance, mood disturbance, and anxiety Status: Acute Plan The patient presented to the emergency department for evaluation of altered mental status as detailed in HPI. Labs, imaging, EKG, and all reports were personally reviewed. He quit drinking alcohol in September 2023 and has had as a fairly rapid cognitive decline since that time and he has been diagnosed with dementia. According to the patient's it is not unusual for him to have periods where he sleeps for days at a time and family members have difficulties getting him to wake up to even eat or drink. Last he fell and broke his right humerus and after receiving hydrocodone methocarbamol he has been increasingly confused. If it was medication related, I would suspect that his mentation would start to improve after the drugs have washed out. On arrival to the ED he was tachycardic with a low-grade fever and elevated WBC count, raising concerns for infection. Chest x-ray and urinalysis however have been unremarkable and is viral panel was negative. Family states there is no way that the patient is could be drinking alcohol again. Etiology of his increasing confusion and fevers not entirely clear but I think we need to cover him for meningitis. There have been no reports of seizure-like activity. Serotonin syndrome seems less likely. Check TSH, ammonia, B12, folate, and drug screen to rule out other etiologies. Neurology has been consulted for their opinion. He looks dry on exam and by labs and will be hydrated overnight. Regarding the atrial fibrillation, this is presumably new diagnosis. He received diltiazem 10 mg IV x1 in the ED without benefit; try Lopressor to see if he responds to that. Echocardiogram has been ordered and cardiology has been consulted. Anemia stable on review of previous labs. Ortho consulted for humeral fracture. His home medications will be reviewed and resumed as appropriate. Findings and treatment plan were discussed with the patient. Questions were solicited and answered to satisfaction. The patient's medical management will be taken over by the hospitalist team in a.m. Quality VTE Prophylaxis VTE prophylaxis: mechanical ordered If No VTE Prophylaxis Answer both mechanical and pharmacologic: Reason no pharmacologic proph: medical contraindication (may need lumbar puncture) The patient has been admitted under observation status. Hospitalist MIPS Advance Care Plan I have confirmed that the patient's Advanced Care Plan is present, code status is documented, or surrogate decision maker is listed in patient medical record.: Yes Medication Reconciliation I have utilized all available resources to obtain, update and review the patients current medications (includes all prescriptions, OTC, herbals, cannabis, and nutritional supplements).: Yes
[2024-06-23 19:25] LABS: CRP 16.9 mg/dL (<1.0)
[2024-06-23 19:27] LABS: Iron 18 ug/dL (49-181)
[2024-06-23 19:38] LABS: Percent Iron Saturation 8 % (20-50)
[2024-06-23 19:46] LABS: Procalcitonin 0.1 ng/mL
[2024-06-23 19:59] LABS: Thyroid Stimulating Hormone Reflex 0.555 uIU/mL (0.465-4.68)
[2024-06-23 20:04] LABS: Folic Acid 17.7 ng/mL (2.76->20)
--- NOTE | 2024-06-23 20:11 | ECG_ITS ---
Test Date: 2024-06-23 20:16:04 Measurements Intervals [place] Rate: 136 P: 0 IA: 0 QRS: 28 QRSD: 85 T: 30 QT: 308 QTc: 463 Interpretive Statements ATRIAL FIBRILLATION WITH RAPID VENTRICULAR RESPONSE MODERATE ST DEPRESSION [0.05+ mV ST DEPRESSION] Compared to ECG 06/23/2024 13:06:28 Sinus tachycardia no longer present ST (T wave) deviation still present Electronically Signed On 06-23-2024 21:24:30 [employer] by Chris Hidalgo M.D.
--- NOTE | 2024-06-23 20:31 | PC.NURSE ---
Call out to hospitalist about patient's heart rate
[2024-06-23] MEDS: dilTIAZem HCl INJ 25 MG/5 ML VIAL 10 MG IV PUSH (20:43)
--- NOTE | 2024-06-23 20:44 | PC.NURSE ---
Spoke with Dr Hughes, hospitalist, and she gave order for 10mg cardizem IV push prior to patient going to the IMU
--- NOTE | 2024-06-23 21:10 | ADMGEN ---
This patient, Tony Mauro, was admitted to IMU Room 206-01. Patient/family oriented to hospital policies and general routines including ID bracelet, bed and alarms, visiting hours, pain management, procedures, bathroom and other care routines, personal items, smoking policy, room service/diet, and visiting hours. Information on how to activate the Rapid Response Team has been discussed. Patient/Family are encouraged to report perceived risks to care and to ask questions if they do not understand what they are told or what they should do.
--- NOTE | 2024-06-23 21:29 | PC.NURSE ---
Admission complete via recall confirmed with patient's spouse; patient is A&O x1 and unable to comprehend. Admission report to [facility].
[2024-06-23] MEDS: METOPROLOL TARTRATE INJ 5 MG/5 ML VIAL IV PUSH (22:12)
[2024-06-23] MEDS: SODIUM CHLORIDE 0.9% IV 1,000 ML 125 ML IV CONT (22:15)
[2024-06-23] MEDS: AMPICILLIN 2 GM/NS 100 ML 2 GM/100 ML BAG IVPB (23:53)
[2024-06-23] MEDS: ACYCLOVIR SODIUM IVPB 800 MG in DEXTROSE 5% IN WATER 250 ML 266 MG IVPB (23:54)
[2024-06-24] VITALS (22 sets, daily range): BP systolic 108–146; BP diastolic 51–93; PULSE 78–148; RESP 18–24; TEMP 36.4–37.2; O2SAT 90–100
[2024-06-24] MEDS: SODIUM CHLORIDE 0.9% IV 1,000 ML 100 ML IV CONT ×2 (00:18→11:21)
[2024-06-24] MEDS: dilTIAZem 100 MG/100 ML 100 MG/100 ML BAG IV CONT (00:45)
[2024-06-24] MEDS: VANCOMYCIN 1,250 MG/NS 250 ML 1,250 MG/250 ML BAG 166.67 MG IVPB (01:38)
[2024-06-24] MEDS: VANCOMYCIN 1,000 MG/NS 250 ML 1,000 MG/250 ML BAG 250 MG IVPB (01:39)
[2024-06-24] MEDS: dilTIAZem 100 MG/100 ML 100 MG/100 ML BAG 10 MG IV CONT (02:00)
[2024-06-24 04:44] LABS: Basophils Percent Auto 0.1 % (0.2-1.2); Hematocrit 30.8 % (42.0-52.0); Hemoglobin 10.2 g/dL (14.0-18.0); Immature Granulocyte Absolute 0.06 K/mm3 (0.00-0.031); Immature Granulocyte Percent A 0.5 % (0-0.5); Lymphocytes Absolute Auto 0.86 K/mm3 (0.9-3.2); Lymphocytes Percent Auto 6.9 % (18.3-44.2); Mean Corpuscular HGB Conc 33.1 g/dl (32-36); Mean Corpuscular Hemoglobin 31.1 pg (26-34); Mean Corpuscular Volume 93.9 fl (80-100); Monocytes Absolute Auto 0.7 K/mm3 (0.1-0.6); Monocytes Percent Auto 5.7 % (2.6-8.5); Neutrophils Absolute Auto 10.8 K/mm3 (1.3-6.7); Neutrophils Percent Auto 86.8 % (45.5-73.1); Platelet Count Result 317 k/mm3 (150-375); Red Blood Count 3.28 M/mm3 (4.6-6.20); Red Cell Distribution Width 12.3 % (11.5-14.5); White Blood Count 12.4 K/mm3 (4.5-10.0)
[2024-06-24] MEDS: AMIODARONE 150 MG/D5W 100 ML 150 MG/100 ML BAG 600 MG IV CONT ×2 (04:45→04:56)
[2024-06-24] MEDS: cefTRIAXone 2 GM/NS 100 ML 2 GM/100 ML BAG IVPB ×2 (04:47→16:48)
[2024-06-24 05:00] LABS: Alanine Aminotransferase 22 U/L (6-50); Albumin Level 3.4 g/dL (3.5-5.1); Alkaline Phosphatase 84 U/L (38-126); Anion Gap 6 mmol/L (4-12); Aspartate Amino Transferase 27 U/L (17-59); Bilirubin,Total 0.9 mg/dL (0.2-1.3); Blood Urea Nitrogen 24 mg/dL (9-20); Calcium 8.6 mg/dL (8.4-10.2); Carbon Dioxide 25 mmol/L (22-30); Chloride 105 mmol/L (98-107); Estimated CRCL calculation 145 ml/min; Estimated Glomerular Filt Rate > 60; Glucose 153 mg/dL (65-110); Magnesium 2.3 mg/dL (1.6-2.3); Potassium 4.1 mmol/L (3.4-5.0); Sodium 136 mmol/L (137-145)
[2024-06-24] MEDS: AMIODARONE 360 MG/D5W 200 ML 360 MG/200 ML BAG 33.33 MG IV CONT (05:06)
[2024-06-24] MEDS: AMPICILLIN 2 GM/NS 100 ML 2 GM/100 ML BAG IVPB ×5 (05:51→23:51)
--- NOTE | 2024-06-24 09:24 | P.PNIM_ITS ---
Progress Note: A&P Assessment and Plan (1) Acute febrile illness: Code(s): R50.9 - Fever, unspecified Status: Acute (2) Metabolic encephalopathy: Code(s): G93.41 - Metabolic encephalopathy Status: Acute (3) Dehydration: Code(s): E86.0 - Dehydration Status: Acute (4) Closed right humeral fracture: Code(s): S42.301A - Unspecified fracture of shaft of humerus, right arm, initial encounter for closed fracture Status: Acute (5) Atrial fibrillation with rapid ventricular response: Code(s): I48.91 - Unspecified atrial fibrillation Status: Acute (6) Anemia: Code(s): D64.9 - Anemia, unspecified Status: Acute (7) Dementia: Code(s): F03.90 - Unspecified dementia, unspecified severity, without behavioral disturbance, psychotic disturbance, mood disturbance, and anxiety Status: Acute Plan The patient presented to the emergency department for evaluation of altered mental status as detailed in HPI. Labs, imaging, EKG, and all reports were personally reviewed. Confusion Patient was diagnosed dementia, cognitive function declines rapidly Increased confusion recently Patient has a fever 100.4 in the ED, leukocytosis, 14,100 upon arrival in the ED Patient is on multiple medication for pain management including hydrocodone History of alcohol dependence, quit drinking in September 2023, Poor intake recently Viral panel negative Differential including meningitis, acute metabolic encephalopathy, polypharmacy, dehydration CT head shows no acute intracranial issues Pending blood culture Pending TSH, ammonia, B12, folate, and drug screen to rule out other etiologies. Neurology has been consulted May need lumbar puncture for diagnosis Start fluid resuscitation Continue ampicillin IV ceftriaxone IV, vancomycin IV discussed the case with Dr. Sweeney, pending consultation New onset atrial fibrillation, received diltiazem 10 mg IV x1 in the ED Also received amiodarone drip Echocardiogram pending Cardiology has been consulted. Follow recommendation Chronic Anemia stable on review of previous labs. Humeral fracture Ortho consulted for humeral fracture. Subjective Date/time seen: 06/24/24 09:24 Interval history: I saw examined the patient today. Patient is still confused, unable to engage in conversation, agitated intermittently. Patient's states patient mental status is improving today. Patient was noticed to have shaking intermittently. Patient cannot provide reliable history. Labs reviewed, leukocytosis improving, patient is afebrile over the night Exam Narrative: GENERAL: Ill-appearing in no acute distress. Well-nourished. - EYES: EOMI. Anicteric. - HENT: Moist mucous membranes. - LUNGS: Clear to auscultation bilateral ly, no wheezing, rhonchi, or rales. - CARDIOVASCULAR: Regular rate and rhyth m. No murmur. No JVD. - ABDOMEN: Soft, non-tender and non-dist ended. No palpable masses. - EXTREMITIES: No edema. Peripheral puls es 2+. Non-tender. - NEUROLOGIC: No focal neurological defi cits. CN II-XII grossly intact. - PSYCHIATRIC: Awake, Alert and not orie nted x 3. mood and affect: Restless - SKIN: No rashes or lesions. Warm. - LYMPH: No cervical lymphadenopathy. Objective Data Vital Signs Vital Signs: Vital Signs - 24 hr 06/23/24 12:52 06/23/24 13:33 06/23/24 14:48 Temperature 98.5 F 99.1 F 100.4 F H Pulse Rate 99 113 H Respiratory Rate 15 21 H Blood Pressure 126/86 144/88 H Pulse Oximetry 96 96 Oxygen Delivery Room Air Oxygen Flow Rate 06/23/24 17:14 06/23/24 18:50 06/23/24 19:04 Temperature Pulse Rate 92 72 90 Respiratory Rate 20 20 20 Blood Pressure 114/56 L 99/80 L 106/60 Pulse Oximetry 94 93 96 Oxygen Delivery Oxygen Flow Rate 06/23/24 20:41 06/23/24 21:29 06/23/24 21:37 Temperature 97.9 F 97.6 F 97.6 F Pulse Rate 135 H 108 H Respiratory Rate 22 H 16 Blood Pressure 107/76 121/79 Pulse Oximetry 99 90 Oxygen Delivery Oxygen Flow Rate 06/23/24 22:00 06/23/24 22:12 06/23/24 23:58 Temperature 97.6 F Pulse Rate 132 H 145 H 134 H Respiratory Rate 16 Blood Pressure 110/63 Pulse Oximetry 98 Oxygen Delivery Oxygen Flow Rate 06/24/24 00:00 06/24/24 00:00 06/24/24 00:45 Temperature Pulse Rate 121 H 131 H Respiratory Rate Blood Pressure 109/93 H Pulse Oximetry 94 Oxygen Delivery Oxygen Flow Rate 3 06/24/24 02:00 06/24/24 02:00 06/24/24 02:00 Temperature 98.0 F Pulse Rate 132 H 115 H 132 H Respiratory Rate 18 Blood Pressure 130/90 Pulse Oximetry 94 Oxygen Delivery Oxygen Flow Rate 06/24/24 02:00 06/24/24 04:00 06/24/24 04:00 Temperature Pulse Rate 132 H 128 H 128 H Respiratory Rate Blood Pressure 130/90 108/79 Pulse Oximetry Oxygen Delivery Oxygen Flow Rate 06/24/24 04:00 06/24/24 04:25 06/24/24 04:39 Temperature 98.3 F Pulse Rate 142 H 148 H Respiratory Rate 18 Blood Pressure 109/77 108/79 Pulse Oximetry 96 96 Oxygen Delivery Oxygen Flow Rate 3 06/24/24 04:45 06/24/24 04:56 06/24/24 04:56 Temperature Pulse Rate 138 H 125 H 122 H Respiratory Rate Blood Pressure 108/79 Pulse Oximetry Oxygen Delivery Oxygen Flow Rate 06/24/24 05:06 06/24/24 05:06 06/24/24 06:00 Temperature Pulse Rate 111 H 112 H 118 H Respiratory Rate Blood Pressure Pulse Oximetry Oxygen Delivery Oxygen Flow Rate 06/24/24 06:00 06/24/24 06:14 06/24/24 08:00 Temperature 98.6 F Pulse Rate 118 H 110 H 102 H Respiratory Rate 19 Blood Pressure 112/77 112/77 108/57 L Pulse Oximetry 90 95 Oxygen Delivery Oxygen Flow Rate 06/24/24 08:59 Temperature Pulse Rate Respiratory Rate Blood Pressure Pulse Oximetry 90 Oxygen Delivery Room Air Oxygen Flow Rate Intake/Output Intake/Output: Intake & Output 06/21/24 06/22/24 06/23/24 06/24/24 23:59 23:59 23:59 23:59 Intake Total 1250 1328.8 Output Total 601 Balance 1250 727.8 Meds/Results Medications: Active Medications Generic Name Dose Route Start Last Admin Trade Name Freq PRN Reason Stop Dose Admin Acetaminophen 650 mg 06/23/24 17:41 Acetaminophen 650 Mg Suppository RECTAL Q6H PRN Mild Pain (1-3) or Fever Ceftriaxone Sodium 2 gm in 100 mls @ 200 mls/hr 06/24/24 04:00 06/24/24 05:17 Rocephin 2 Gm/Ns 100 Ml IVPB Infused Q12H KATIA Infusion Ampicillin Sodium 2 gm in 100 mls @ 200 mls/hr 06/24/24 04:00 06/24/24 06:21 Ampicillin 2 Gm/Ns 100 Ml IVPB Infused Q4H KATIA Infusion Sodium Chloride 1,000 mls @ 100 mls/hr 06/23/24 22:55 06/24/24 00:18 Normal Saline Iv IV CONT 100 mls/hr .Q10H KATIA Administration Vancomycin HCl 1,500 mg in 500 mls @ 250 mls/hr 06/24/24 13:00 Vancomycin 1,500 Mg/Ns 500 Ml IVPB Q12H KATIA Amiodarone HCl/Dextrose 360 mg in 200 mls @ 33.333 mls/hr 06/24/24 04:33 06/24/24 06:00 Nexterone 360 Mg/D5w 200 Ml IV CONT 06/24/24 10:32 1 mg/min .Q6H ONE 33.3 mls/hr Infusion 1 MG/MIN Amiodarone HCl/Dextrose 360 mg in 200 mls @ 16.667 mls/hr 06/24/24 10:33 Nexterone 360 Mg/D5w 200 Ml IV CONT .Q12H KATIA 0.5 MG/MIN Acyclovir Sodium 800 mg/ 266 mls @ 266 mls/hr 06/24/24 08:00 Dextrose IVPB Q8H KATIA Perflutren Lipid Microsphere 0 ml 06/23/24 22:50 Perflutren Lipid Microspheres 1.5 Ml Vial Diluted To 10 Ml Total Volume IV PUSH 06/26/24 22:50 ONCE PRN adequate visualization Protocol Radiology Results: ITS Impressions Head CT 06/23/24 13:50 IMPRESSION: 1. Normal aging brain. No acute intracranial process. Chest X-Ray 06/23/24 15:46 IMPRESSION: 1. Mild elevation left hemidiaphragm with discoid atelectasis in the left midlung zone. 2. Indeterminate 1.8 cm nodular opacity at the left lung base. Recommend chest CT for further evaluation. Chest CT 06/23/24 16:36 IMPRESSION: 1. Mild atelectasis in the lungs. Labs Labs: Laboratory Results - last 24 hr 06/23/24 06/23/24 06/23/24 13:07 13:15 14:32 WBC 14.1 H RBC 3.45 L Hgb 10.6 L D Hct 31.8 L MCV 92.2 MCH 30.7 MCHC 33.3 RDW 12.4 Plt Count 340 MPV 9.0 Immature Gran % (Auto) 0.4 Neut % (Auto) 75.7 H Lymph % (Auto) 12.9 L [place] % (Auto) 10.8 H Eos % (Auto) 0.1 Baso % (Auto) 0.1 L Lymph # (Auto) 1.82 [place] # (Auto) 1.5 H Eos # (Auto) 0.0 Baso # (Auto) 0.0 Abs Immat Gran (auto) 0.06 H Absolute Neuts (auto) 10.6 H Absolute Nucleated RBC 0.000 Nucleated RBC % 0.0 ESR PT 14.9 H INR 1.1 APTT 28.7 Sodium 129 L Potassium 3.9 Chloride 99 Carbon Dioxide 26 Anion Gap 4 BUN 31 H D Creatinine 0.70 Estim Creat Clear Calc 107 Estimated GFR > 60 Glucose 125 H POC Capillary Glucose 116 H Lactic Acid Calcium 9.1 Magnesium Iron TIBC % Saturation Ferritin Total Bilirubin 1.3 AST 35 ALT 25 Alkaline Phosphatase 103 Ammonia Total Creatine Kinase C-Reactive Protein Total Protein 7.0 Albumin 3.7 Vitamin B12 Folate Procalcitonin TSH (Reflex) Urine Color Dark yellow Urine Appearance Clear Urine pH 6.0 Ur Specific [place] 1.027 Urine Protein 1+ H Urine Glucose (UA) Negative Urine Ketones 2+ H Ur Blood (Man) Negative Urine Nitrate Negative Urine Bilirubin Negative Urine Urobilinogen 1.0 Leukocyte Esterase Rfl Negative Urine RBC 0-2 Urine WBC 0-5 Ur Squamous Epith Cells None seen Urine Bacteria None seen Urine Casts 0-2 Urine Opiates Screen Negative Urine Methadone Screen Negative Ur Barbiturates Screen Negative Ur Phencyclidine Scrn Negative Ur Amphetamine Screen Negative U Benzodiazepines Scrn Negative Urine Cocaine Screen Negative U Cannabinoids Screen Positive A Ethyl Alcohol Influenza A (RT-PCR) Influenza B (RT-PCR) RSV (RT-PCR) SARS-CoV-2 RNA (RT-PCR) 06/23/24 06/23/24 06/23/24 14:46 14:57 18:18 WBC RBC Hgb Hct MCV MCH MCHC RDW Plt Count MPV Immature Gran % (Auto) Neut % (Auto) Lymph % (Auto) [place] % (Auto) Eos % (Auto) Baso % (Auto) Lymph # (Auto) [place] # (Auto) Eos # (Auto) Baso # (Auto) Abs Immat Gran (auto) Absolute Neuts (auto) Absolute Nucleated RBC Nucleated RBC % ESR > 140 H PT INR APTT Sodium Potassium Chloride Carbon Dioxide Anion Gap BUN Creatinine Estim Creat Clear Calc Estimated GFR Glucose POC Capillary Glucose Lactic Acid 1.0 Calcium Magnesium 2.3 Iron 18 L TIBC 231 L % Saturation 8 L Ferritin 361.00 H Total Bilirubin AST ALT Alkaline Phosphatase Ammonia < 9 L Total Creatine Kinase C-Reactive Protein 16.9 H Total Protein Albumin Vitamin B12 878.0 Folate 17.7 Procalcitonin 0.1 TSH (Reflex) 0.555 Urine Color Urine Appearance Urine pH Ur Specific [place] Urine Protein Urine Glucose (UA) Urine Ketones Ur Blood (Man) Urine Nitrate Urine Bilirubin Urine Urobilinogen Leukocyte Esterase Rfl Urine RBC Urine WBC Ur Squamous Epith Cells Urine Bacteria Urine Casts Urine Opiates Screen Urine Methadone Screen Ur Barbiturates Screen Ur Phencyclidine Scrn Ur Amphetamine Screen U Benzodiazepines Scrn Urine Cocaine Screen U Cannabinoids Screen Ethyl Alcohol < 10 Influenza A (RT-PCR) Negative Influenza B (RT-PCR) Negative RSV (RT-PCR) Negative SARS-CoV-2 RNA (RT-PCR) Negative 06/23/24 06/24/24 18:19 04:22 WBC 12.4 H RBC 3.28 L Hgb 10.2 L Hct 30.8 L MCV 93.9 MCH 31.1 MCHC 33.1 RDW 12.3 Plt Count 317 MPV 9.0 Immature Gran % (Auto) 0.5 Neut % (Auto) 86.8 H Lymph % (Auto) 6.9 L [place] % (Auto) 5.7 Eos % (Auto) 0.0 Baso % (Auto) 0.1 L Lymph # (Auto) 0.86 L [place] # (Auto) 0.7 H Eos # (Auto) 0.0 Baso # (Auto) 0.0 Abs Immat Gran (auto) 0.06 H Absolute Neuts (auto) 10.8 H Absolute Nucleated RBC 0.000 Nucleated RBC % 0.0 ESR PT INR APTT Sodium 136 L Potassium 4.1 Chloride 105 Carbon Dioxide 25 Anion Gap 6 BUN 24 H Creatinine 0.50 L Estim Creat Clear Calc 145 Estimated GFR > 60 Glucose 153 H POC Capillary Glucose Lactic Acid Calcium 8.6 Magnesium 2.3 Iron TIBC % Saturation Ferritin Total Bilirubin 0.9 AST 27 ALT 22 Alkaline Phosphatase 84 Ammonia Total Creatine Kinase 157 C-Reactive Protein Total Protein 7.0 Albumin 3.4 L Vitamin B12 Folate Procalcitonin TSH (Reflex) Urine Color Urine Appearance Urine pH Ur Specific [place] Urine Protein Urine Glucose (UA) Urine Ketones Ur Blood (Man) Urine Nitrate Urine Bilirubin Urine Urobilinogen Leukocyte Esterase Rfl Urine RBC Urine WBC Ur Squamous Epith Cells Urine Bacteria Urine Casts Urine Opiates Screen Urine Methadone Screen Ur Barbiturates Screen Ur Phencyclidine Scrn Ur Amphetamine Screen U Benzodiazepines Scrn Urine Cocaine Screen U Cannabinoids Screen Ethyl Alcohol Influenza A (RT-PCR) Influenza B (RT-PCR) RSV (RT-PCR) SARS-CoV-2 RNA (RT-PCR)
[2024-06-24] MEDS: ACYCLOVIR SODIUM IVPB 800 MG in DEXTROSE 5% IN WATER 250 ML 266 MG IVPB ×2 (11:21→20:49)
--- NOTE | 2024-06-24 12:59 | PM.CNOR ---
Assessment and Plan Assessment and plan (1) Closed right humeral fracture: Qualifiers: Encounter type: initial encounter Fracture alignment: displaced Humerus Location: surgical neck <YU Zhao - Last Filed: 06/24/24 13:49> Code(s): S42.301A - Unspecified fracture of shaft of humerus, right arm, initial encounter for closed fracture <ANNA ZhaoP - Last Filed: 06/24/24 13:49> Status: Acute <YU Zhao - Last Filed: 06/24/24 13:49> Assessment and Plan: Radiographs from 06/19 reveal a displaced angulated 2 part fracture of the surgical neck of the right proximal humerus. 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 Per the patient's , he has had a fall out of bed since the time of his discharge from the ER. Would recommend repeat radiographs of the right shoulder and new radiographs of the right wrist as patient does endorse right wrist pain and inability for AROM/PROM without severe pain. On exam, no obvious additional extremity pain; however, would recommend reevaluation pending ability to work with PT/OT given recurrent falls per the and inability for full exam due to mentation. The fracture type and injury as well as radiographs discussed with the family. Operative and nonoperative treatment options reviewed. Given current medical state and severe confusion, would recommend continued conservative treatment with shoulder immobilization. He is not tolerated sling. Will order shoulder immobilizer. Ice. PT/OT with [facility] once medically stable. Pain control- limit narcotics. Pending medical stability, may further discuss surgical vs. nonoperative treatment options. <YU Zhao - Last Filed: 06/24/24 13:49> (2) Atrial fibrillation with rapid ventricular response: Code(s): I48.91 - Unspecified atrial fibrillation <YU Zhao - Last Filed: 06/24/24 13:49> Status: Acute <YU Zhao - Last Filed: 06/24/24 13:49> Assessment and Plan: Cardiology consulted. <YU Zhao - Last Filed: 06/24/24 13:49> (3) Metabolic encephalopathy: Code(s): G93.41 - Metabolic encephalopathy <Antonia Rony Smith [employer] - Last Filed: 06/24/24 13:49> Status: Acute <Antonia RGali Smith [employer] - Last Filed: 06/24/24 13:49> Assessment and Plan: Neurology following. Awaiting consult recommendations. <Antonia Rony Smith [employer] - Last Filed: 06/24/24 13:49> (4) Altered mental status: Code(s): R41.82 - Altered mental status, unspecified <Antonia R. Sarah, [employer] - Last Filed: 06/24/24 13:49> Status: Acute <Antonia R. Sarah [employer] TE[employer] - Last Filed: 06/24/24 13:49> Assessment and Plan: Acute change in mentation s/p fall on 06/19. <Antonia Rony Smith [employer] TE[employer] - Last Filed: 06/24/24 13:49> (5) Dementia: Code(s): F03.90 - Unspecified dementia, unspecified severity, without behavioral disturbance, psychotic disturbance, mood disturbance, and anxiety <Antonia Rony Smith [employer] - Last Filed: 06/24/24 13:49> Status: Acute <Antonia Rony Smith [employer] - Last Filed: 06/24/24 13:49> Assessment and Plan: Early onset dementia. Follows with neurology. Patient's reports that he mentates normally 90% of the time and this current state is an acute change. <Antoniasa Rony Smith [employer] TE[employer] - Last Filed: 06/24/24 13:49> (6) History of alcohol abuse: Code(s): F10.11 - Alcohol abuse, in remission <Antonia Rony Smith [employer] - Last Filed: 06/24/24 13:49> Status: Acute <Antonia RGali Smith [employer] - Last Filed: 06/24/24 13:49> Assessment and Plan: Quit in September 2023. Acute alcohol detox, unmedicated. Resulted in neurological deficits. Early onset dementia. <Antoniasa Rony Smith [employer] TE[employer] - Last Filed: 06/24/24 13:49> Assessment and Plan: Reviewed history, exam, radiographs and current labs with attending MD and covering surgeon, Dr. Castellon, who agrees with current plan as indicated above. No further recommendations from Dr. Castellon at this time. <YU Zhao - Last Filed: 06/24/24 13:49> History of Present Illness HPI Consult date: 06/24/24 <YU Zhao - Last Filed: 06/24/24 13:49> 06/24/24 <Víctor Castellon MD - Last Filed: 06/24/24 15:18> Chief complaint: Delirium, Agitation, Febrile illness <YU Zhao - Last Filed: 06/24/24 13:49> Narrative: 68-year-old male with a history of a right shoulder fracture after a fall on 06/19. Patient was initially evaluated in the emergency room on 06/19 after a fall in the bathroom while attempting to hang something with a Command hook. This fall was unwitnessed. Radiographs of the right shoulder on 06/19 revealed a displaced and angulated two-part fracture of the surgical neck of the proximal right humerus. Per the patient's , who is currently at the bedside, he was discharged from the ED at that time with Brinkley and told to f/u with orthopedics within 1 week. Once returning home, she gave him 2 total doses of Brinkley for pain control. It was following the medication on Sunday AM that he became increasingly confused and was experiencing hallucinations. 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 He has not taken pain medication in approximately 3 years and stopped drinking in September of 2023. Prior to the fall, she reports mild dementia which was likely related to acute alcohol cessation but states he is perfectly normal 90% of the time . This acute, rapid decline in mentation prompted her to make an appointment with the neurologist. She also contacted his PCP and the PCP instructed the patient be immediately evaluated in the ER for concerns of a head trauma from the fall. No appointment with neurology or orthopedics occurred prior to return to the ED. Head CT from 06/19 revealed no acute abnormalities. New head CT from 06/23 also revealed no changes. Patient's reports subsequent falls out of bed in the time between 06/19 and readmission to the ED on 06/23. He has also began complaining of right wrist pain. The patient was admitted for delirium, agitation and further workup for possible meningitis due to elevated WBC count/fevers. At time of exam, the patient is confused and hallucinating. He has notable jerking movements and cannot answer questions appropriately. <YU Zhao - Last Filed: 06/24/24 13:49> Review of Systems Review of Systems: ROS unobtainable: Yes unobtainable due to mental status <YU Zhao - Last Filed: 06/24/24 13:49> [facility] Past Medical History Medical History: Medical History Glaucoma Macular degeneration Dementia Hyperlipidemia Hypertension <YU Zhao - Last Filed: 06/24/24 13:49> Surgical History Surgical History: Surgical History History of tonsillectomy History of cervical spinal surgery History of medial meniscus repair of right knee <YU Zhao - Last Filed: 06/24/24 13:49> Family History Family History: Family History Mother Hypertension Sibling Hypertension <YU Zhao - Last Filed: 06/24/24 13:49> Social History Social History: Social History Social History: Surrogate medical decision maker: Barbara Mauro, spouse. Code status: Full code. Smoking packs per day: 1 Smoking cigarettes per day: 20.0 Years smoked: 35 Smoking pack-years: 35.00 Smoking status: Former smoker Alcohol intake: former Substance use: former Substance use type: marijuana Do You Feel Safe in your Home?: Yes Lack of Transportation: No Lack of Food: Never True Current Housing: I Have Housing Concerned About Future Housing: No Difficulty Paying Gas/Electric Bills: No Difficulty Paying for Meds: No Currently Unemployed: No Education: High School Diploma/GED Difficulty w/ Childcare or Family Care: No Living arrangements: with family Occupation/Education: retired Spiritual care concerns: No Agree to blood products: Yes <YU Zhao - Last Filed: 06/24/24 13:49> Meds Home Medications and Allergies Home medications: Home Medications ?Medication ?Instructions ?Recorded ?Confirmed ?Type Asprin 81 mg 81 mg BYMOUTH DAILY 07/11/23 06/23/24 History Qunol Ultra Coq10 BYMOUTH 07/11/23 04/09/24 History Super B-Complex BYMOUTH 07/11/23 04/09/24 History Tumeric 1,600 mg BYMOUTH DAILY 07/11/23 06/23/24 History Vitamim D3 50 mcg BYMOUTH DAILY 07/11/23 06/23/24 History escitalopram oxalate 10 mg tablet 10 mg PO DAILY #30 tabs 04/09/24 06/23/24 Rx (Lexapro) Iron Otc 04/29/24 History atorvastatin 20 mg tablet See Rx Instructions .Route 05/22/24 06/23/24 Rx .COMPLEX #90 tabs lisinopril 20 See Rx Instructions .Route 05/22/24 06/23/24 Rx mg-hydrochlorothiazide 25 mg tablet .COMPLEX #90 tabs hydrocodone 5 mg-acetaminophen 300 1 tablet PO Q8H PRN pain #20 tabs 06/19/24 06/23/24 Rx mg tablet methocarbamol 750 mg tablet 750 mg PO TID PRN muscle spasm #30 06/19/24 06/23/24 Rx tabs B-complex with vitamin C 1 tablet PO DAILY 06/23/24 06/23/24 History coenzyme Q10 75 mg capsule (Ultra 75 mg PO DAILY 06/23/24 06/23/24 History CoQ10) ferrous sulfate 325 mg (65 mg 325 mg PO DAILY 06/23/24 06/23/24 History iron) tablet (Feosol) unfsojsi-wf-wvjpz 300 mcg-K 60 1 tablet PO DAILY 06/23/24 06/23/24 History mcg-lycop 600 mcg-lutein 300 mcg tablet (Century Men 50 Plus) vit C 250 mg-vit E 90 mg-zinc 40 1 tablet PO ONCE 06/23/24 06/23/24 History mg-copper 1 qa-awnhqu-weusab capsule (PreserVision AREDS-2) <YU Zhao - Last Filed: 06/24/24 13:49> Allergies/Adverse reactions: Allergies Allergy/AdvReac Type Severity Reaction Status Date / Time No Known Allergies Allergy Verified 06/23/24 21:18 <YU Zhao - Last Filed: 06/24/24 13:49> Vital Signs Vital Signs - 24 hr 06/23/24 13:33 06/23/24 14:48 06/23/24 17:14 Temperature 37.3 C 38.0 C H Pulse Rate 113 H 92 Respiratory Rate 21 H 20 Blood Pressure 144/88 H 114/56 L Pulse Oximetry 96 94 Oxygen Delivery Oxygen Flow Rate 06/23/24 18:50 06/23/24 19:04 06/23/24 20:41 Temperature 36.6 C Pulse Rate 72 90 135 H Respiratory Rate 20 20 22 H Blood Pressure 99/80 L 106/60 107/76 Pulse Oximetry 93 96 99 Oxygen Delivery Oxygen Flow Rate 06/23/24 21:29 06/23/24 21:37 06/23/24 22:00 Temperature 36.4 C 36.4 C Pulse Rate 108 H 132 H Respiratory Rate 16 Blood Pressure 121/79 Pulse Oximetry 90 Oxygen Delivery Oxygen Flow Rate 06/23/24 22:12 06/23/24 23:58 06/24/24 00:00 Temperature 36.4 C Pulse Rate 145 H 134 H Respiratory Rate 16 Blood Pressure 110/63 Pulse Oximetry 98 94 Oxygen Delivery Oxygen Flow Rate 3 06/24/24 00:00 06/24/24 00:45 06/24/24 02:00 Temperature Pulse Rate 121 H 131 H 132 H Respiratory Rate Blood Pressure 109/93 H Pulse Oximetry Oxygen Delivery Oxygen Flow Rate 06/24/24 02:00 06/24/24 02:00 06/24/24 02:00 Temperature 36.7 C Pulse Rate 115 H 132 H 132 H Respiratory Rate 18 Blood Pressure 130/90 130/90 Pulse Oximetry 94 Oxygen Delivery Oxygen Flow Rate 06/24/24 04:00 06/24/24 04:00 06/24/24 04:00 Temperature Pulse Rate 128 H 128 H Respiratory Rate Blood Pressure 108/79 Pulse Oximetry 96 Oxygen Delivery Oxygen Flow Rate 3 06/24/24 04:25 06/24/24 04:39 06/24/24 04:45 Temperature 36.8 C Pulse Rate 142 H 148 H 138 H Respiratory Rate 18 Blood Pressure 109/77 108/79 108/79 Pulse Oximetry 96 Oxygen Delivery Oxygen Flow Rate 06/24/24 04:56 06/24/24 04:56 06/24/24 05:06 Temperature Pulse Rate 125 H 122 H 111 H Respiratory Rate Blood Pressure Pulse Oximetry Oxygen Delivery Oxygen Flow Rate 06/24/24 05:06 06/24/24 06:00 06/24/24 06:00 Temperature Pulse Rate 112 H 118 H 118 H Respiratory Rate Blood Pressure 112/77 Pulse Oximetry Oxygen Delivery Oxygen Flow Rate 06/24/24 06:14 06/24/24 08:00 06/24/24 08:59 Temperature 37.0 C Pulse Rate 110 H 102 H Respiratory Rate 19 Blood Pressure 112/77 108/57 L Pulse Oximetry 90 95 90 Oxygen Delivery Room Air Oxygen Flow Rate 06/24/24 10:00 06/24/24 12:00 Temperature 37.2 C 37.1 C Pulse Rate 95 98 Respiratory Rate 18 18 Blood Pressure 131/51 L 137/74 Pulse Oximetry 98 97 Oxygen Delivery Oxygen Flow Rate <YU Zhao - Last Filed: 06/24/24 13:49> Exam Const: General: awake, in distress moderate, anxious, confusion, ill appearing and uncomfortable <YU Zhao - Last Filed: 06/24/24 13:49> Nutritional Appearance: average body habitus <YU Zhao - Last Filed: 06/24/24 13:49> Limitations: altered mental status <YU Zhao - Last Filed: 06/24/24 13:49> Neuro: Cognition (Neuro): abnormal cognition <YU Zhao - Last Filed: 06/24/24 13:49> Speech: Abnormal speech present <YU Zhao - Last Filed: 06/24/24 13:49> Gait exam (Neuro): Unable to assess gait <YU Zhao - Last Filed: 06/24/24 13:49> Extrem: Right upper extremity: shoulder/upper arm abnormal to inspection, tenderness of the proximal humerus and of the mid-shaft humerus, abnormal ROM held in an abnormal fashion in ADduction, pain with active ROM and pain with passive ROM and ecchymosis, elbow/forearm tenderness, swelling, abnormal ROM, ecchymosis and distal pulses intact, wrist tenderness, swelling, abnormal ROM pain with active ROM during with extension and with flexion, ecchymosis, radial pulse present 2+ and ulnar pulse present 2+ and Extremity exam: right hand normal to inspection, neurosensory exam normal and vascular exam radial pulse present <Antonia Smith [facility] - Last Filed: 06/24/24 13:49> Right lower extremity: normal to inspection and full ROM <Antonia Smith [facility] - Last Filed: 06/24/24 13:49> Left lower extremity: normal to inspection and full ROM <Antonia Smith [facility] - Last Filed: 06/24/24 13:49> Results Labs Result Diagrams: 06/24/24 04:22 06/24/24 04:22 <Antonia Smith [facility] - Last Filed: 06/24/24 13:49> Labs: Abnormal lab results 06/23/24 06/23/24 06/23/24 Range/Units 13:07 13:15 14:32 WBC 14.1 H (4.5-10.0) K/mm3 RBC 3.45 L (4.6-6.20) M/mm3 Hgb 10.6 L D (14.0-18.0) g/dL Hct 31.8 L (42.0-52.0) % Neut % (Auto) 75.7 H (45.5-73.1) % Lymph % (Auto) 12.9 L (18.3-44.2) % [place] % (Auto) 10.8 H (2.6-8.5) % Baso % (Auto) 0.1 L (0.2-1.2) % Lymph # (Auto) (0.9-3.2) K/mm3 [place] # (Auto) 1.5 H (0.1-0.6) K/mm3 Abs Immat Gran (auto) 0.06 H (0.00-0.031) K/mm3 Absolute Neuts (auto) 10.6 H (1.3-6.7) K/mm3 ESR (0-20) mm/hr PT 14.9 H (11.1-14.7) Seconds Sodium 129 L (137-145) mmol/L BUN 31 H D (9-20) mg/dL Creatinine (0.7-1.3) mg/dL Glucose 125 H (65-110) mg/dL POC Capillary Glucose 116 H (65-105) mg/dl Iron (49-181) ug/dL TIBC (265-497) ug/dL % Saturation (20-50) % Ferritin (11.1-264) ng/mL Ammonia (9-30) umol/L C-Reactive Protein (<1.0) mg/dL Albumin (3.5-5.1) g/dL Urine Protein 1+ H (Negative) mg/dL Urine Ketones 2+ H (Negative) mg/dL U Cannabinoids Screen Positive A (Negative) 06/23/24 06/23/24 06/24/24 Range/Units 14:46 18:18 04:22 WBC 12.4 H (4.5-10.0) K/mm3 RBC 3.28 L (4.6-6.20) M/mm3 Hgb 10.2 L (14.0-18.0) g/dL Hct 30.8 L (42.0-52.0) % Neut % (Auto) 86.8 H (45.5-73.1) % Lymph % (Auto) 6.9 L (18.3-44.2) % [place] % (Auto) (2.6-8.5) % Baso % (Auto) 0.1 L (0.2-1.2) % Lymph # (Auto) 0.86 L (0.9-3.2) K/mm3 [place] # (Auto) 0.7 H (0.1-0.6) K/mm3 Abs Immat Gran (auto) 0.06 H (0.00-0.031) K/mm3 Absolute Neuts (auto) 10.8 H (1.3-6.7) K/mm3 ESR > 140 H (0-20) mm/hr PT (11.1-14.7) Seconds Sodium 136 L (137-145) mmol/L BUN 24 H (9-20) mg/dL Creatinine 0.50 L (0.7-1.3) mg/dL Glucose 153 H (65-110) mg/dL POC Capillary Glucose (65-105) mg/dl Iron 18 L (49-181) ug/dL TIBC 231 L (265-497) ug/dL % Saturation 8 L (20-50) % Ferritin 361.00 H (11.1-264) ng/mL Ammonia < 9 L (9-30) umol/L C-Reactive Protein 16.9 H (<1.0) mg/dL Albumin 3.4 L (3.5-5.1) g/dL Urine Protein (Negative) mg/dL Urine Ketones (Negative) mg/dL U Cannabinoids Screen (Negative) H & H 06/23/24 06/24/24 Range/Units 13:15 04:22 Hgb 10.6 L D 10.2 L (14.0-18.0) g/dL Hct 31.8 L 30.8 L (42.0-52.0) % Coagulation 06/23/24 Range/Units 13:15 INR 1.1 All other labs normal. <YU Zhao - Last Filed: 06/24/24 13:49>
[2024-06-24] MEDS: VANCOMYCIN 1,500 MG/NS 500 ML 1,500 MG/500 ML BAG 250 MG IVPB (13:48)
--- NOTE | 2024-06-24 14:06 | PM.CNCAR ---
Assessment and Plan Assessment and plan (1) Atrial fibrillation with rapid ventricular response: Code(s): I48.91 - Unspecified atrial fibrillation Status: Acute Assessment and Plan: This is a new diagnosis for the patient. Discussed this diagnosis including pathophysiology, management strategies, and risks complications with patient and family members at the bedside. He converted to sinus rhythm this morning just before 9:00 a.m. and remains in sinus rhythm now. Will start Toprol XL 25 mg daily He does have a CHADS2 Vasc score of 2 because of his age and hypertension. However, because of his altered mental status can high risk for falls I am not sure if he is a good candidate for long-term anticoagulation. Will continue to monitor on telemetry -if he has recurrence of atrial fibrillation would recommend systemic anticoagulation as long as his mental status improves. Echocardiogram showed normal LV systolic function Consider [facility] with when he is no longer confused/agitated Cardiology will follow along on an as-needed basis. Please call with any questions. (2) Closed right humeral fracture: Qualifiers: Encounter type: initial encounter Fracture alignment: displaced Humerus Location: surgical neck Code(s): S42.301A - Unspecified fracture of shaft of humerus, right arm, initial encounter for closed fracture Status: Acute Assessment and Plan: Orthopedic surgery is following, recommend nonsurgical management for now. (3) Altered mental status: Code(s): R41.82 - Altered mental status, unspecified Status: Acute Assessment and Plan: Per hospitalist. History of Present Illness History of Present Illness Consult date/time: 06/24/24 14:06 Requesting physician: Aneta Pichardo PA-C Consult reason: atrial fibrillation Reason For Visit: Delirium, Agitation, Febrile illness Narrative: Tony Barber is a 68 year old male with dementia, hypertension, and hyperlipidemia. This is a patient who presented to the emergency room after sustaining a fall and injured his right upper arm/shoulder. Cardiology is consulted because of atrial flutter with rapid ventricular response. I was unable to obtain much history from the patient himself is he is very confused at this point. I did speak with the patient's and daughter who were at the bedside. Family members deny any previous cardiac history. The patient was previously an alcoholic but decided to quit ?cold turkey? in September of this year. Since that time, he has had issues with short-term memory loss and altered mental status. The patient was helping his with some tasks around the house when he sustained a fall and injured his. When he initially came into the hospital he was sinus tachycardia but converted to atrial fibrillation with rapid ventricular response. He was placed on amiodarone drip and did convert to sinus rhythm. Patient is unable to tell me if he was experiencing any symptoms related to the atrial fibrillation due to his mental status. At the time of my evaluation, he is comfortable and alert but not oriented. Review of Systems Review of Systems: ROS unobtainable: Yes unobtainable due to mental status [facility] Past Medical History Medical History Glaucoma Macular degeneration Dementia Hyperlipidemia Hypertension Surgical History Surgical History History of tonsillectomy History of cervical spinal surgery History of medial meniscus repair of right knee Family History Family History Mother Hypertension Sibling Hypertension Social History Social History Social History: Surrogate medical decision maker: Barbara Mauro, spouse. Code status: Full code. Smoking packs per day: 1 Smoking cigarettes per day: 20.0 Years smoked: 35 Smoking pack-years: 35.00 Smoking status: Former smoker Alcohol intake: former Substance use: former Substance use type: marijuana Do You Feel Safe in your Home?: Yes Lack of Transportation: No Lack of Food: Never True Current Housing: I Have Housing Concerned About Future Housing: No Difficulty Paying Gas/Electric Bills: No Difficulty Paying for Meds: No Currently Unemployed: No Education: High School Diploma/GED Difficulty w/ Childcare or Family Care: No Living arrangements: with family Occupation/Education: retired Spiritual care concerns: No Agree to blood products: Yes Meds Home Medications and Allergies Home Medications ?Medication ?Instructions ?Recorded ?Confirmed ?Type Asprin 81 mg 81 mg BYMOUTH DAILY 07/11/23 06/23/24 History Qunol Ultra Coq10 BYMOUTH 07/11/23 04/09/24 History Super B-Complex BYMOUTH 07/11/23 04/09/24 History Tumeric 1,600 mg BYMOUTH DAILY 07/11/23 06/23/24 History Vitamim D3 50 mcg BYMOUTH DAILY 07/11/23 06/23/24 History escitalopram oxalate 10 mg tablet 10 mg PO DAILY #30 tabs 04/09/24 06/23/24 Rx (Lexapro) Iron Otc 04/29/24 History atorvastatin 20 mg tablet See Rx Instructions .Route 05/22/24 06/23/24 Rx .COMPLEX #90 tabs lisinopril 20 See Rx Instructions .Route 05/22/24 06/23/24 Rx mg-hydrochlorothiazide 25 mg tablet .COMPLEX #90 tabs hydrocodone 5 mg-acetaminophen 300 1 tablet PO Q8H PRN pain #20 tabs 06/19/24 06/23/24 Rx mg tablet methocarbamol 750 mg tablet 750 mg PO TID PRN muscle spasm #30 06/19/24 06/23/24 Rx tabs B-complex with vitamin C 1 tablet PO DAILY 06/23/24 06/23/24 History coenzyme Q10 75 mg capsule (Ultra 75 mg PO DAILY 06/23/24 06/23/24 History CoQ10) ferrous sulfate 325 mg (65 mg 325 mg PO DAILY 06/23/24 06/23/24 History iron) tablet (Feosol) [id number]-ur-lrpcg 300 mcg-K 60 1 tablet PO DAILY 06/23/24 06/23/24 History mcg-lycop 600 mcg-lutein 300 mcg tablet (Century Men 50 Plus) vit C 250 mg-vit E 90 mg-zinc 40 1 tablet PO ONCE 06/23/24 06/23/24 History mg-copper 1 ab-xjzumt-mohdjh capsule (PreserVision AREDS-2) Allergies Allergy/AdvReac Type Severity Reaction Status Date / Time No Known Allergies Allergy Verified 06/23/24 21:18 Vital Signs Vital Signs - 24 hr 06/23/24 14:48 06/23/24 17:14 06/23/24 18:50 Temperature 38.0 C H Pulse Rate 113 H 92 72 Respiratory Rate 21 H 20 20 Blood Pressure 144/88 H 114/56 L 99/80 L Pulse Oximetry 96 94 93 Oxygen Delivery Oxygen Flow Rate 06/23/24 19:04 06/23/24 20:41 06/23/24 21:29 Temperature 36.6 C 36.4 C Pulse Rate 90 135 H 108 H Respiratory Rate 20 22 H 16 Blood Pressure 106/60 107/76 121/79 Pulse Oximetry 96 99 90 Oxygen Delivery Oxygen Flow Rate 06/23/24 21:37 06/23/24 22:00 06/23/24 22:12 Temperature 36.4 C Pulse Rate 132 H 145 H Respiratory Rate Blood Pressure Pulse Oximetry Oxygen Delivery Oxygen Flow Rate 06/23/24 23:58 06/24/24 00:00 06/24/24 00:00 Temperature 36.4 C Pulse Rate 134 H 121 H Respiratory Rate 16 Blood Pressure 110/63 Pulse Oximetry 98 94 Oxygen Delivery Oxygen Flow Rate 3 06/24/24 00:45 06/24/24 02:00 06/24/24 02:00 Temperature 36.7 C Pulse Rate 131 H 132 H 115 H Respiratory Rate 18 Blood Pressure 109/93 H 130/90 Pulse Oximetry 94 Oxygen Delivery Oxygen Flow Rate 06/24/24 02:00 06/24/24 02:00 06/24/24 04:00 Temperature Pulse Rate 132 H 132 H 128 H Respiratory Rate Blood Pressure 130/90 Pulse Oximetry Oxygen Delivery Oxygen Flow Rate 06/24/24 04:00 06/24/24 04:00 06/24/24 04:25 Temperature 36.8 C Pulse Rate 128 H 142 H Respiratory Rate 18 Blood Pressure 108/79 109/77 Pulse Oximetry 96 96 Oxygen Delivery Oxygen Flow Rate 3 06/24/24 04:39 06/24/24 04:45 06/24/24 04:56 Temperature Pulse Rate 148 H 138 H 125 H Respiratory Rate Blood Pressure 108/79 108/79 Pulse Oximetry Oxygen Delivery Oxygen Flow Rate 06/24/24 04:56 06/24/24 05:06 06/24/24 05:06 Temperature Pulse Rate 122 H 111 H 112 H Respiratory Rate Blood Pressure Pulse Oximetry Oxygen Delivery Oxygen Flow Rate 06/24/24 06:00 06/24/24 06:00 06/24/24 06:14 Temperature Pulse Rate 118 H 118 H 110 H Respiratory Rate Blood Pressure 112/77 112/77 Pulse Oximetry 90 Oxygen Delivery Oxygen Flow Rate 06/24/24 08:00 06/24/24 08:00 06/24/24 08:59 Temperature 37.0 C Pulse Rate 102 H 102 H Respiratory Rate 19 Blood Pressure 108/57 L 108/57 L Pulse Oximetry 95 90 Oxygen Delivery Room Air Oxygen Flow Rate 06/24/24 10:00 06/24/24 10:00 06/24/24 11:07 Temperature 37.2 C Pulse Rate 95 95 95 Respiratory Rate 18 Blood Pressure 131/51 L 131/51 L 131/51 L Pulse Oximetry 98 Oxygen Delivery Oxygen Flow Rate 06/24/24 12:00 Temperature 37.1 C Pulse Rate 98 Respiratory Rate 18 Blood Pressure 137/74 Pulse Oximetry 97 Oxygen Delivery Oxygen Flow Rate Exam Const: General: comfortable, no acute distress, alert and awake Orientation/consciousness: patient oriented x3 HENMT: Head: normal to inspection Eyes: General: appearance normal, both eyes and all related structures Pupils: Equal, round and reactive pupils present Neck: Neck: normal visual inspection, supple and no JVD Carotids: normal carotid upstroke Resp: Effort & Inspection: normal respiratory effort Auscultation: clear to auscultation bilaterally Cardio: Rate: regular rate Rhythm: regular rhythm Heart sounds: S1 normal heart sound present, S2 normal heart sound present and no murmurs GI: Auscultation: normal bowel sounds Skin: General skin exam: normal color Neuro: General: patient oriented x3 Cranial nerves: Yes Equal, round and reactive pupils present Extrem: General: abnormal to inspection Other: Significant ecchymosis noted on right upper extremity Psych: Appearance: grossly normal Mental Status: mental status grossly normal Results Labs and Meds 06/24/24 04:22 06/24/24 04:22 Lab results: Cardiac Enzymes 06/24/24 Range/Units 04:22 AST 27 (17-59) U/L Coagulation 06/23/24 Range/Units 13:15 PT 14.9 H (11.1-14.7) Seconds APTT 28.7 (22.3-36.8) Seconds CBC 06/24/24 Range/Units 04:22 WBC 12.4 H (4.5-10.0) K/mm3 RBC 3.28 L (4.6-6.20) M/mm3 Hgb 10.2 L (14.0-18.0) g/dL Hct 30.8 L (42.0-52.0) % Plt Count 317 (150-375) k/mm3 Lymph # (Auto) 0.86 L (0.9-3.2) K/mm3 [place] # (Auto) 0.7 H (0.1-0.6) K/mm3 Eos # (Auto) 0.0 (0-0.3) K/mm3 Baso # (Auto) 0.0 (0.0-0.1) K/mm3 Comprehensive Metabolic Panel 06/24/24 Range/Units 04:22 Sodium 136 L (137-145) mmol/L Potassium 4.1 (3.4-5.0) mmol/L Chloride 105 (98-107) mmol/L Carbon Dioxide 25 (22-30) mmol/L BUN 24 H (9-20) mg/dL Creatinine 0.50 L (0.7-1.3) mg/dL Glucose 153 H (65-110) mg/dL Calcium 8.6 (8.4-10.2) mg/dL AST 27 (17-59) U/L ALT 22 (6-50) U/L Alkaline Phosphatase 84 (38-126) U/L Total Protein 7.0 (6.3-8.2) g/dL Albumin 3.4 L (3.5-5.1) g/dL Intake and Output 06/23/24 06/24/24 06/24/24 23:59 07:59 15:59 Intake Total 250 1328.8 1536.0 Output Total 601 Balance 250 727.8 1536.0 Intake: IV 250 1328.8 1536.0 Amiodarone 150 mg/D5w 100 ml 200 150 mg In 100 ml @ 600 mls/hr IV CONT .Q10M [facility] Rx#:[id number] Amiodarone 360 mg/D5w 200 ml 30 170.0 360 mg In 200 ml @ 1 MG/MIN 33. 333 mls/hr IV CONT .Q6H ONE Rx# :[id number] Sodium Chloride 0.9% IV 1,200 341 3810 ml @ 100 mls/hr IV CONT .Q10H [facility] Rx#:[id number] dilTIAZem 100 MG/100 ML 100 mg 32.8 In 100 ml @ 10 MG/HR 10 mls/hr IV CONT .Q10H [facility] Rx#:[id number] Acyclovir Sodium Ivpb 800 mg In 266 266 Dextrose 5% in Water 250 ml @ 266 mls/hr IVPB Q8H [facility] Rx#: [id number] Ampicillin 2 gm/Ns 100 ml 2 gm 200 100 In 100 ml @ 200 mls/hr IVPB Q4H [facility] Rx#:[id number] Vancomycin 1,000 mg/Ns 250 ml 1 250 ,000 mg In 250 ml @ 250 mls/hr IVPB ONCE ONE Rx#:[id number] Vancomycin 1,250 mg/Ns 250 ml 1 250 ,250 mg In 250 ml @ 166.667 mls /hr IVPB ONCE ONE Rx#:[id number] cefTRIAXone 1 GM/NS 50 ML 1 gm 50 In 50 ml @ 100 mls/hr IVPB ONCE STA Rx#:[id number] cefTRIAXone 2 GM/NS 100 ML 2 gm 100 In 100 ml @ 200 mls/hr IVPB Q12H [facility] Rx#:[id number] Output: Urine 600 Output, Urine/Stool Mix Amount 1 Other: Intake, Other Source NPO Number of Bowel Movements Today 1 Patient Weight 06/24/24 23:59 Weight 91.5 kg
--- NOTE | 2024-06-24 15:11 | WPDNEURCNPN ---
Assessment and Plan Assessment and plan (1) Atrial fibrillation with rapid ventricular response: Code(s): I48.91 - Unspecified atrial fibrillation Status: Acute (2) Closed right humeral fracture: Qualifiers: Encounter type: initial encounter Humerus Location: surgical neck Fracture alignment: displaced Code(s): S42.301A - Unspecified fracture of shaft of humerus, right arm, initial encounter for closed fracture Status: Acute (3) Altered mental status: Code(s): R41.82 - Altered mental status, unspecified Status: Acute (4) Dementia: Code(s): F03.90 - Unspecified dementia, unspecified severity, without behavioral disturbance, psychotic disturbance, mood disturbance, and anxiety Status: Acute Plan 1. Dementia which he has been evaluated by Dr. Solomon, has had the normal EEG in the past, 2. 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 2. Antibiotics will be continued as such. 3. Previous EEG has been reviewed it was normal and will order a new EEG for tomorrow morning. 4. I started him on Zyprexa 2.5mg IM at present nurses will keep in touch with me if necessary to give another dose otherwise he will get 2.5mg every morning. 5. 1 could consider the possibility of alcohol withdrawal syndrome he can be supplemented with vitamins and we will defer Librium as he is getting the Zyprexa. If any further question arises please do not hesitate to contact me and nurses are aware Of that. Consult date: 06/24/24 HPI: Tony Mauro is a 68 year old male Admitted to the hospital through the emergency room for the complaints of increasing confusion in addition to the ongoing history of dementia patient reportedly fell last week resulting in the right shoulder fracture,he was noted to have shakiness of his extremities and he has been seeing objects in the room that are crawling around that no one else can actually see. at the time of admission to the hospital medications include aspirin 81mg daily, vitamin D3, iron over the counter, he is not allergic to any medication, he has ongoing history of in the past dementia with hypertension, history of cervical spine surgery, history of being a former smoker, E cigarettes to vaping, and currently 5 beers per week drinking, on initial exam in the emergency room he was found to have right upper extremity bruising from shoulder down towards the elbow though the emotions were preserved at the wrist and elbow vital signs were normal, CBC with hemoglobin 10.6 BMP with sodium 129 BUN 31 mast scan negative his screening for the common viral infections negative CT scan of the head negative for the bleed chest x-ray with mild elevation left hemidiaphragm chest CT scan with mild atelectasis in the lung EKG with tachycardia of 102 and in the hospital he is receiving aspirin, atorvastatin, Lexapro, hydrocodone, and oxacillin set 875mg q.12 hours and patient is already covered with acyclovir, vancomycin and ampicillin, echocardiogram done on 06/24 is negative Review of Systems Review of Systems: All systems reviewed & are unremarkable except as noted in HPI and below PMFSH Past Medical History Medical History Glaucoma Macular degeneration Dementia Hyperlipidemia Hypertension Surgical History Surgical History History of tonsillectomy History of cervical spinal surgery History of medial meniscus repair of right knee Family History Family History Mother Hypertension Sibling Hypertension Social History Social History Social History: Surrogate medical decision maker: Barbara Mauro, spouse. Code status: Full code. Smoking packs per day: 1 Smoking cigarettes per day: 20.0 Years smoked: 35 Smoking pack-years: 35.00 Smoking status: Former smoker Alcohol intake: former Substance use: former Substance use type: marijuana Do You Feel Safe in your Home?: Yes Lack of Transportation: No Lack of Food: Never True Current Housing: I Have Housing Concerned About Future Housing: No Difficulty Paying Gas/Electric Bills: No Difficulty Paying for Meds: No Currently Unemployed: No Education: High School Diploma/GED Difficulty w/ Childcare or Family Care: No Living arrangements: with family Occupation/Education: retired Spiritual care concerns: No Agree to blood products: Yes Meds Home Medications and Allergies Home Medications ?Medication ?Instructions ?Recorded ?Confirmed ?Type Asprin 81 mg 81 mg BYMOUTH DAILY 07/11/23 06/23/24 History Qunol Ultra Coq10 BYMOUTH 07/11/23 04/09/24 History Super B-Complex BYMOUTH 07/11/23 04/09/24 History Tumeric 1,600 mg BYMOUTH DAILY 07/11/23 06/23/24 History Vitamim D3 50 mcg BYMOUTH DAILY 07/11/23 06/23/24 History escitalopram oxalate 10 mg tablet 10 mg PO DAILY #30 tabs 04/09/24 06/23/24 Rx (Lexapro) Iron Otc 04/29/24 History atorvastatin 20 mg tablet See Rx Instructions .Route 05/22/24 06/23/24 Rx .COMPLEX #90 tabs lisinopril 20 See Rx Instructions .Route 05/22/24 06/23/24 Rx mg-hydrochlorothiazide 25 mg tablet .COMPLEX #90 tabs hydrocodone 5 mg-acetaminophen 300 1 tablet PO Q8H PRN pain #20 tabs 06/19/24 06/23/24 Rx mg tablet methocarbamol 750 mg tablet 750 mg PO TID PRN muscle spasm #30 06/19/24 06/23/24 Rx tabs B-complex with vitamin C 1 tablet PO DAILY 06/23/24 06/23/24 History coenzyme Q10 75 mg capsule (Ultra 75 mg PO DAILY 06/23/24 06/23/24 History CoQ10) ferrous sulfate 325 mg (65 mg 325 mg PO DAILY 06/23/24 06/23/24 History iron) tablet (Feosol) vclmisqt-lk-psqbm 300 mcg-K 60 1 tablet PO DAILY 06/23/24 06/23/24 History mcg-lycop 600 mcg-lutein 300 mcg tablet (Century Men 50 Plus) vit C 250 mg-vit E 90 mg-zinc 40 1 tablet PO ONCE 06/23/24 06/23/24 History mg-copper 1 ym-orllib-axnnwe capsule (PreserVision AREDS-2) Allergies Allergy/AdvReac Type Severity Reaction Status Date / Time No Known Allergies Allergy Verified 06/23/24 21:18 Vital Signs Vital Signs - 24 hr 06/23/24 17:14 06/23/24 18:50 06/23/24 19:04 Temperature Pulse Rate 92 72 90 Respiratory Rate 20 20 20 Blood Pressure 114/56 L 99/80 L 106/60 Pulse Oximetry 94 93 96 Oxygen Delivery Oxygen Flow Rate 06/23/24 20:41 06/23/24 21:29 06/23/24 21:37 Temperature 36.6 C 36.4 C 36.4 C Pulse Rate 135 H 108 H Respiratory Rate 22 H 16 Blood Pressure 107/76 121/79 Pulse Oximetry 99 90 Oxygen Delivery Oxygen Flow Rate 06/23/24 22:00 06/23/24 22:12 06/23/24 23:58 Temperature 36.4 C Pulse Rate 132 H 145 H 134 H Respiratory Rate 16 Blood Pressure 110/63 Pulse Oximetry 98 Oxygen Delivery Oxygen Flow Rate 06/24/24 00:00 06/24/24 00:00 06/24/24 00:45 Temperature Pulse Rate 121 H 131 H Respiratory Rate Blood Pressure 109/93 H Pulse Oximetry 94 Oxygen Delivery Oxygen Flow Rate 3 06/24/24 02:00 06/24/24 02:00 06/24/24 02:00 Temperature 36.7 C Pulse Rate 132 H 115 H 132 H Respiratory Rate 18 Blood Pressure 130/90 Pulse Oximetry 94 Oxygen Delivery Oxygen Flow Rate 06/24/24 02:00 06/24/24 04:00 06/24/24 04:00 Temperature Pulse Rate 132 H 128 H 128 H Respiratory Rate Blood Pressure 130/90 108/79 Pulse Oximetry Oxygen Delivery Oxygen Flow Rate 06/24/24 04:00 06/24/24 04:25 06/24/24 04:39 Temperature 36.8 C Pulse Rate 142 H 148 H Respiratory Rate 18 Blood Pressure 109/77 108/79 Pulse Oximetry 96 96 Oxygen Delivery Oxygen Flow Rate 3 06/24/24 04:45 06/24/24 04:56 06/24/24 04:56 Temperature Pulse Rate 138 H 125 H 122 H Respiratory Rate Blood Pressure 108/79 Pulse Oximetry Oxygen Delivery Oxygen Flow Rate 06/24/24 05:06 06/24/24 05:06 06/24/24 06:00 Temperature Pulse Rate 111 H 112 H 118 H Respiratory Rate Blood Pressure Pulse Oximetry Oxygen Delivery Oxygen Flow Rate 06/24/24 06:00 06/24/24 06:14 06/24/24 08:00 Temperature 37.0 C Pulse Rate 118 H 110 H 102 H Respiratory Rate 19 Blood Pressure 112/77 112/77 108/57 L Pulse Oximetry 90 95 Oxygen Delivery Oxygen Flow Rate 06/24/24 08:00 06/24/24 08:00 06/24/24 08:59 Temperature Pulse Rate 102 H 123 H Respiratory Rate Blood Pressure 108/57 L Pulse Oximetry 90 Oxygen Delivery Room Air Oxygen Flow Rate 06/24/24 10:00 06/24/24 10:00 06/24/24 11:07 Temperature 37.2 C Pulse Rate 95 95 95 Respiratory Rate 18 Blood Pressure 131/51 L 131/51 L 131/51 L Pulse Oximetry 98 Oxygen Delivery Oxygen Flow Rate 06/24/24 12:00 06/24/24 12:00 06/24/24 14:00 Temperature 37.1 C 36.8 C Pulse Rate 98 87 78 Respiratory Rate 18 18 Blood Pressure 137/74 142/71 H Pulse Oximetry 97 98 Oxygen Delivery Oxygen Flow Rate Exam Narrative: On examination today he is awake alert but appears happily confused, family members are around, he was aware of me being in the room he was also aware of being making conversation with family members, but every now and then 18 intermittently he did not make any sense when responded, head was normocephalic with no bruit, ear nose throat examination were normal, neck was supple with no cervical bruit, heart was irregular, lungs were clear, abdomen is soft nontender, neurologically he was awake alert oriented in the place but disoriented in time, was able to follow the verbal commands when I asked him to move the left upper extremity he moves at and also squeeze my hand, pupils are round regular feels the vision were full extraocular movements are full sensation was intact face was symmetrical tongue was in the oral cavity motor examination revealed him to have fairly normal strength in left upper and both lower extremities reflexes were 1 to2+ plantars were downgoing. Results Labs 06/24/24 04:22 06/24/24 04:22 Labs: Short CBC 06/24/24 Range/Units 04:22 WBC 12.4 H (4.5-10.0) K/mm3 Hgb 10.2 L (14.0-18.0) g/dL Hct 30.8 L (42.0-52.0) % Plt Count 317 (150-375) k/mm3 BMP 06/24/24 04:22 Sodium 136 L Potassium 4.1 Chloride 105 Carbon Dioxide 25 BUN 24 H Creatinine 0.50 L Glucose 153 H Calcium 8.6 Cardiac Enzymes 06/23/24 Range/Units 18:19 Total Creatine Kinase 157 (55-170) U/L Liver Function 06/24/24 Range/Units 04:22 Total Bilirubin 0.9 (0.2-1.3) mg/dL AST 27 (17-59) U/L ALT 22 (6-50) U/L Alkaline Phosphatase 84 (38-126) U/L Albumin 3.4 L (3.5-5.1) g/dL
[2024-06-24] MEDS: IBUPROFEN IV 800 MG/200 ML 800 MG/200 ML BAG 400 MG IVPB ×2 (15:53→23:42)
[2024-06-24] MEDS: OLANZapine 2.5 MG, WATER, STERILE FOR INJECTION 2.1 ML IM ×2 (18:55→21:45)
--- NOTE | 2024-06-24 22:50 | ECHO_ITS ---
Patient Info Name: Tony Mauro Age: 68 years : 1955 Gender: Male Ht: 75 in Wt: 202 lbs BSA: 2.21 m2 HR: 110 bpm BP: 112 / 77 mmHg Technical Quality: Fair Exam Date: 06/24/2024 11:43 AM Exam Location: Echo Lab Patient Status: Inpatient Admit Date: 06/24/2024 Staff Ordering Physician: Aneta Pichardo PA-C Billing And Insurance Coordinator: Joe Bartholomew RDCS Attending Provider: Monica Bauman MD Referring Physician: Kylee SANCHEZ; Exam Type: CA echo doppler color flow Study Info Indications - Rapid atrial fibrillation Complete two-dimensional, color flow and Doppler transthoracic echocardiogram is performed. Summary 1. Complete two-dimensional, color flow and Doppler transthoracic echocardiogram is performed. 2. Left ventricular chamber dimension is normal. 3. Left ventricular systolic function is normal, estimated at 65-70%. 4. The left ventricular diastolic function is normal. 5. E/e' 6 is not elevated. Left Ventricle E/e' 6 is not elevated. Left ventricular chamber dimension is normal. Left ventricular systolic function is normal, estimated at 65-70%. The left ventricular diastolic function is normal. Right Ventricle Right ventricular chamber dimension is normal. Right ventricular systolic function is normal and with normal TAPSE 2.3 cm. Left Atria Left atrial chamber dimension is normal. Right Atria Right atrial chamber dimension is normal. Aortic Valve The aortic valve is not well visualized. There is no aortic valve stenosis. There is no aortic valve regurgitation. Pulmonic Valve There is no pulmonic regurgitation. Mitral Valve There is no mitral valve stenosis. There is no mitral valve regurgitation. Tricuspid Valve There is no tricuspid valve regurgitation. Pericardium/Pleural There is no pericardial effusion. Inferior Vena Cava Normal inferior vena cava with >50% collapse upon inspiration consistent with normal right atrial pressure, 5 mmHg. Aorta The aortic root size at the sinus of Valsalva is normal. Left Ventricular Outflow Tract Name Value Normal LVOT 2D LVOT Diameter 2.1 cm LVOT Doppler LVOT Peak Gradient 3 mmHg LVOT Mean Gradient 1 mmHg LVOT VTI 16 cm LVOT VTI/AV VTI Ratio 0.9 LVOT Stroke Volume 52 ml LVOT CO 3.9 l/min LVOT CI 1.8 l/min/m2 Mitral Valve Name Value Normal MV Doppler MV Decel [place] 467 cm/s2 MV PHT 50 ms MV Area (PHT) 4.4 cm2 4.0-5.0 MV Diastolic Function MV E Peak Velocity 81 cm/s MV A Peak Velocity 79 cm/s MV E/A 1.0 MV Decel Time 173 ms Tricuspid Valve Name Value Normal Estimated PAP/RSVP RA Pressure 5 mmHg <=5 Aorta Name Value Normal Ascending Aorta Ao Root Diameter (MM) 1.9 cm Ao Root Diam Index (MM) 0.9 cm/m2 Aortic Valve Name Value Normal AV Doppler AV Peak Velocity 105 cm/s AV Peak Gradient 4 mmHg AV Mean Gradient 2 mmHg AV VTI 17 cm AV Area (Cont Eq VTI) 3.1 cm2 >=3.0 AV Area (Cont Eq Quintin) 3.4 cm2 AV Regurgitation 2D LVOT Area 3.4 cm2 Ventricles Name Value Normal LV Dimensions 2D/MM IVS Diastolic Thickness (2D) 0.8 cm 0.6-1.0 LVID Diastole (2D) 5.8 cm 4.2-5.8 LVIW Diastolic Thickness (2D) 0.9 cm 0.6-1.0 LVID Systole (2D) 2.5 cm 2.5-4.0 LVOT Diameter 2.1 cm LV Mass (2D Cubed) 201.18 g 88.00-224.00 LV Mass Index (2D Cubed) 91 g/m2 49-115 Relative Wall Thickness (2D) 0.33 LV Fractional Shortening/Ejection Fraction 2D/MM LV Fractional Shortening (2D) 57 % 25-43 LV EF (2D Teicholz) 87 % 52-72 LV Diastolic Volume (4C MOD) 35 ml LV EF (4C MOD) 55 % LV Diastolic Length (4C) 7.7 cm LV Systolic Length (4C) 6.5 cm LV Stroke Volume (4C MOD) 19 ml Atria Name Value Normal LA Dimensions LA Dimension (MM) 3.7 cm 3.0-4.1 LA Volume (4C A-L) 25 ml Report Signatures
[2024-06-25] VITALS (16 sets, daily range): BP systolic 108–145; BP diastolic 67–95; PULSE 66–90; RESP 18–20; TEMP 36.4–36.8; O2SAT 96–100
[2024-06-25] MEDS: SODIUM CHLORIDE 0.9% IV 1,000 ML 100 ML IV CONT ×2 (01:01→18:06)
[2024-06-25] MEDS: VANCOMYCIN 1,500 MG/NS 500 ML 1,500 MG/500 ML BAG 250 MG IVPB (01:46)
[2024-06-25] MEDS: AMPICILLIN 2 GM/NS 100 ML 2 GM/100 ML BAG IVPB ×6 (03:50→22:59)
[2024-06-25] MEDS: cefTRIAXone 2 GM/NS 100 ML 2 GM/100 ML BAG IVPB ×2 (05:04→17:51)
[2024-06-25] MEDS: ACYCLOVIR SODIUM IVPB 800 MG in DEXTROSE 5% IN WATER 250 ML 266 MG IVPB ×3 (05:04→21:14)
[2024-06-25 05:13] LABS: Estimated CRCL calculation 145 ml/min; Estimated Glomerular Filt Rate > 60
--- NOTE | 2024-06-25 08:54 | P.PNIM_ITS ---
Progress Note: A&P Assessment and Plan (1) Acute febrile illness: Code(s): R50.9 - Fever, unspecified Status: Acute (2) Metabolic encephalopathy: Code(s): G93.41 - Metabolic encephalopathy Status: Acute (3) Dehydration: Code(s): E86.0 - Dehydration Status: Acute (4) Closed right humeral fracture: Qualifiers: Encounter type: initial encounter Fracture alignment: displaced Humerus Location: surgical neck Code(s): S42.301A - Unspecified fracture of shaft of humerus, right arm, initial encounter for closed fracture Status: Acute (5) Atrial fibrillation with rapid ventricular response: Code(s): I48.91 - Unspecified atrial fibrillation Status: Acute (6) Anemia: Code(s): D64.9 - Anemia, unspecified Status: Acute (7) Dementia: Code(s): F03.90 - Unspecified dementia, unspecified severity, without behavioral disturbance, psychotic disturbance, mood disturbance, and anxiety Status: Acute Plan The patient presented to the emergency department for evaluation of altered mental status as detailed in HPI. Labs, imaging, EKG, and all reports were personally reviewed. Confusion Patient was diagnosed dementia, cognitive function declines rapidly Increased confusion recently Patient has a fever 100.4 in the ED, leukocytosis, 14,100 upon arrival in the ED Patient is on multiple medication for pain management including hydrocodone History of alcohol dependence, quit drinking in September 2023, Poor intake recently Viral panel negative Differential including meningitis, acute metabolic encephalopathy, polypharmacy, dehydration CT head shows no acute intracranial issues No grows from blood culture TSH 0.55, ammonia, B12 878, folate 17, and drug screen to rule out other etiologies. Neurology has been consulted May need lumbar puncture for diagnosis Start fluid resuscitation Continue ampicillin IV ceftriaxone IV, vancomycin IV discussed the case with Dr. Sweeney, Appreciate neurologist consultation, pending LICO, will continue antibiotics for empiric treatment of meningitis. Given high risk of bleeding, will postpone lumbar puncture if symptoms will not improve New onset atrial fibrillation, received diltiazem 10 mg IV x1 in the ED Also received amiodarone drip Echocardiogram 1. Complete two-dimensional, color flow and Doppler transthoracic echocardiogram is performed. 2. Left ventricular chamber dimension is normal. 3. Left ventricular systolic function is normal, estimated at 65-70%. 4. The left ventricular diastolic function is normal. 5. E/e' 6 is not elevated. Cardiology has been consulted. Follow recommendation Chronic Anemia stable on review of previous labs. Humeral fracture Ortho consulted for humeral fracture. Subjective Date/time seen: 06/25/24 08:54 Interval history: I saw examined the patient today. Patient is still confused, patient received Zyprexa. No new issue even overnight Labs reviewed, leukocytosis improving, patient is afebrile over the night Exam Narrative: GENERAL: Ill-appearing in no acute distress. Well-nourished. - EYES: EOMI. Anicteric. - HENT: Moist mucous membranes. - LUNGS: Clear to auscultation bilateral ly, no wheezing, rhonchi, or rales. - CARDIOVASCULAR: Regular rate and rhyth m. No murmur. No JVD. - ABDOMEN: Soft, non-tender and non-dist ended. No palpable masses. - EXTREMITIES: No edema. Peripheral puls es 2+. Non-tender. - NEUROLOGIC: No focal neurological defi cits. CN II-XII grossly intact. - PSYCHIATRIC: Awake, Alert and not orie nted x 3. mood and affect: Restless - SKIN: No rashes or lesions. Warm. - LYMPH: No cervical lymphadenopathy. Objective Data Vital Signs Vital Signs: Vital Signs - 24 hr 06/24/24 08:59 06/24/24 10:00 06/24/24 10:00 Temperature 98.9 F Pulse Rate 95 95 Respiratory Rate 18 Blood Pressure 131/51 L 131/51 L Pulse Oximetry 90 98 Oxygen Delivery Room Air 06/24/24 11:07 06/24/24 12:00 06/24/24 12:00 Temperature 98.7 F Pulse Rate 95 98 87 Respiratory Rate 18 Blood Pressure 131/51 L 137/74 Pulse Oximetry 97 Oxygen Delivery 06/24/24 14:00 06/24/24 14:00 06/24/24 16:00 Temperature 98.2 F 97.5 F L Pulse Rate 78 88 91 Respiratory Rate 18 24 H Blood Pressure 142/71 H 146/90 H Pulse Oximetry 98 97 Oxygen Delivery 06/24/24 16:00 06/24/24 18:00 06/24/24 20:00 Temperature 98.2 F Pulse Rate 87 87 94 Respiratory Rate 19 Blood Pressure 135/70 Pulse Oximetry 100 Oxygen Delivery 06/24/24 20:00 06/24/24 20:00 06/24/24 22:00 Temperature Pulse Rate 97 83 Respiratory Rate Blood Pressure Pulse Oximetry 96 Oxygen Delivery Room Air 06/25/24 00:00 06/25/24 00:00 06/25/24 00:00 Temperature 98.0 F Pulse Rate 78 90 Respiratory Rate 18 Blood Pressure 124/67 Pulse Oximetry 99 Oxygen Delivery Room Air 06/25/24 02:00 06/25/24 04:00 06/25/24 04:00 Temperature 97.8 F Pulse Rate 67 77 Respiratory Rate 19 Blood Pressure 145/95 H Pulse Oximetry 100 Oxygen Delivery Room Air 06/25/24 04:00 06/25/24 06:00 06/25/24 07:35 Temperature 97.5 F L Pulse Rate 75 71 66 Respiratory Rate 20 Blood Pressure 111/67 Pulse Oximetry 97 Oxygen Delivery Intake/Output Intake/Output: Intake & Output 06/22/24 06/23/24 06/24/24 06/25/24 23:59 23:59 23:59 23:59 Intake Total 1250 5310.8 1366 Output Total 1201 1550 Balance 1250 4109.8 -184 Meds/Results Medications: Active Medications Generic Name Dose Route Start Last Admin Trade Name Freq PRN Reason Stop Dose Admin Acetaminophen 650 mg 06/23/24 17:41 Acetaminophen 650 Mg Suppository RECTAL Q6H PRN Mild Pain (1-3) or Fever Ceftriaxone Sodium 2 gm in 100 mls @ 200 mls/hr 06/24/24 04:00 06/25/24 05:34 Rocephin 2 Gm/Ns 100 Ml IVPB Infused Q12H KATIA Infusion Sodium Chloride 1,000 mls @ 100 mls/hr 06/23/24 22:55 06/25/24 01:01 Normal Saline Iv IV CONT 100 mls/hr .Q10H KATIA Administration Vancomycin HCl 1,500 mg in 500 mls @ 250 mls/hr 06/24/24 13:00 06/25/24 03:46 Vancomycin 1,500 Mg/Ns 500 Ml IVPB Infused Q12H KATIA Infusion Acyclovir Sodium 800 mg/ 266 mls @ 266 mls/hr 06/24/24 20:00 06/25/24 06:04 Dextrose IVPB Infused Q8H KATIA Infusion Ampicillin Sodium 2 gm in 100 mls @ 200 mls/hr 06/24/24 15:00 06/25/24 06:40 Ampicillin 2 Gm/Ns 100 Ml IVPB Infused Q4H KATIA Infusion Ibuprofen 800 mg in 200 mls @ 400 mls/hr 06/24/24 13:49 06/25/24 00:12 Caldolor 800 Mg/200 Ml IVPB Infused Q6H PRN Infusion Pain Rated 4-6 Metoprolol Succinate 25 mg 06/25/24 09:00 Metoprolol Succinate Ext Rel 25 Mg Tabcr PO QAM KATIA Olanzapine 2.5 mg 06/24/24 15:40 06/24/24 15:46 Olanzapine 2.5 Mg Tablet PO Not Given QAM KATIA Perflutren Lipid Microsphere 0 ml 06/23/24 22:50 Perflutren Lipid Microspheres 1.5 Ml Vial Diluted To 10 Ml Total Volume IV PUSH 06/26/24 22:50 ONCE PRN adequate visualization Protocol Radiology Results: ITS Impressions Head CT 06/23/24 13:50 IMPRESSION: 1. Normal aging brain. No acute intracranial process. Chest X-Ray 06/23/24 15:46 IMPRESSION: 1. Mild elevation left hemidiaphragm with discoid atelectasis in the left midlung zone. 2. Indeterminate 1.8 cm nodular opacity at the left lung base. Recommend chest CT for further evaluation. Chest CT 06/23/24 16:36 IMPRESSION: 1. Mild atelectasis in the lungs. Wrist X-Ray 06/24/24 15:29 IMPRESSION: 1. Nonspecific soft tissue swelling about the mid to distal right forearm. No acute osseous abnormality. Shoulder X-Ray 06/24/24 15:31 IMPRESSION: Impacted fracture in the proximal metaphysis of the right humerus. Minimal change in alignment. Labs Labs: Laboratory Results - last 24 hr 06/25/24 04:10 Creatinine 0.50 L Estim Creat Clear Calc 145 Estimated GFR > 60
--- NOTE | 2024-06-25 08:59 | PM.PNORT ---
Progress Note: A&P Assessment and Plan (1) Closed fracture of right proximal humerus: Qualifiers: Encounter type: initial encounter Fracture morphology: other fracture Fracture alignment: displaced Qualified Code(s): S42.291A - Other displaced fracture of upper end of right humerus, initial encounter for closed fracture Code(s): S42.201A - Unspecified fracture of upper end of right humerus, initial encounter for closed fracture Status: Acute Assessment and Plan: 1 week status post fall with right proximal humerus fracture. New radiographs yesterday show displaced fracture with impaction. No change in alignment compared to injury radiographs. X-rays of the right wrist negative for fracture or acute injury. 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 Patient still with mental status changes. Currently not medically stable or candidate for operative treatment. Continue conservative care with sling, ice, pain control as able to. Will continue to follow. Subjective Subjective Date/Time Seen: 06/25/24 08:59 Principal diagnosis: Right proximal humerus fracture Interval history: not awake, in bed. Does not answer questions. Not oriented. Exam Const: General: awake, in distress moderate, anxious, confusion, ill appearing and uncomfortable Nutritional Appearance: average body habitus Limitations: altered mental status Neuro: Cognition (Neuro): abnormal cognition Speech: Abnormal speech present Gait exam (Neuro): Unable to assess gait Extrem: Right upper extremity: shoulder/upper arm abnormal to inspection, tenderness of the proximal humerus and of the mid-shaft humerus, abnormal ROM held in an abnormal fashion in ADduction, pain with active ROM and pain with passive ROM and ecchymosis, elbow/forearm tenderness, swelling, abnormal ROM, ecchymosis and distal pulses intact, wrist tenderness, swelling, abnormal ROM pain with active ROM during with extension and with flexion, ecchymosis, radial pulse present 2+ and ulnar pulse present 2+ and Extremity exam: right hand normal to inspection, neurosensory exam normal and vascular exam radial pulse present Right lower extremity: normal to inspection Left lower extremity: normal to inspection Objective Data Vital Signs Vital Signs: Vital Signs - 24 hr 06/24/24 10:00 06/24/24 10:06/24/24 11:07 Temperature 98.9 F Pulse Rate 95 95 95 Respiratory Rate 18 Blood Pressure 131/51 L 131/51 L 131/51 L Pulse Oximetry 98 Oxygen Delivery 06/24/24 12:00 06/24/24 12:00 06/24/24 14:00 Temperature 98.7 F 98.2 F Pulse Rate 98 87 78 Respiratory Rate 18 18 Blood Pressure 137/74 142/71 H Pulse Oximetry 97 98 Oxygen Delivery 06/24/24 14:00 06/24/24 16:00 06/24/24 16:00 Temperature 97.5 F L Pulse Rate 88 91 87 Respiratory Rate 24 H Blood Pressure 146/90 H Pulse Oximetry 97 Oxygen Delivery 06/24/24 18:00 06/24/24 20:00 06/24/24 20:00 Temperature 98.2 F Pulse Rate 87 94 Respiratory Rate 19 Blood Pressure 135/70 Pulse Oximetry 100 96 Oxygen Delivery Room Air 06/24/24 20:00 06/24/24 22:00 06/25/24 00:00 Temperature Pulse Rate 97 83 78 Respiratory Rate Blood Pressure Pulse Oximetry Oxygen Delivery 06/25/24 00:00 06/25/24 00:00 06/25/24 02:00 Temperature 98.0 F Pulse Rate 90 67 Respiratory Rate 18 Blood Pressure 124/67 Pulse Oximetry 99 Oxygen Delivery Room Air 06/25/24 04:00 06/25/24 04:00 06/25/24 04:00 Temperature 97.8 F Pulse Rate 77 75 Respiratory Rate 19 Blood Pressure 145/95 H Pulse Oximetry 100 Oxygen Delivery Room Air 06/25/24 06:00 06/25/24 07:35 Temperature 97.5 F L Pulse Rate 71 66 Respiratory Rate 20 Blood Pressure 111/67 Pulse Oximetry 97 Oxygen Delivery Intake/Output Intake/Output: Intake & Output 06/22/24 06/23/24 06/24/24 06/25/24 23:59 23:59 23:59 23:59 Intake Total 1250 5310.8 1366 Output Total 1201 1550 Balance 1250 4109.8 -184 Meds/Results Medications: Active Medications Generic Name Dose Route Start Last Admin Trade Name Freq PRN Reason Stop Dose Admin Acetaminophen 650 mg 06/23/24 17:41 Acetaminophen 650 Mg Suppository RECTAL Q6H PRN Mild Pain (1-3) or Fever Ceftriaxone Sodium 2 gm in 100 mls @ 200 mls/hr 06/24/24 04:00 06/25/24 05:34 Rocephin 2 Gm/Ns 100 Ml IVPB Infused Q12H KATIA Infusion Sodium Chloride 1,000 mls @ 100 mls/hr 06/23/24 22:55 06/25/24 01:01 Normal Saline Iv IV CONT 100 mls/hr .Q10H KATIA Administration Vancomycin HCl 1,500 mg in 500 mls @ 250 mls/hr 06/24/24 13:00 06/25/24 03:46 Vancomycin 1,500 Mg/Ns 500 Ml IVPB Infused Q12H KATIA Infusion Acyclovir Sodium 800 mg/ 266 mls @ 266 mls/hr 06/24/24 20:00 06/25/24 06:04 Dextrose IVPB Infused Q8H KATIA Infusion Ampicillin Sodium 2 gm in 100 mls @ 200 mls/hr 06/24/24 15:00 06/25/24 06:40 Ampicillin 2 Gm/Ns 100 Ml IVPB Infused Q4H KATIA Infusion Ibuprofen 800 mg in 200 mls @ 400 mls/hr 06/24/24 13:49 06/25/24 00:12 Caldolor 800 Mg/200 Ml IVPB Infused Q6H PRN Infusion Pain Rated 4-6 Metoprolol Succinate 25 mg 06/25/24 09:00 Metoprolol Succinate Ext Rel 25 Mg Tabcr PO QAM KATIA Olanzapine 2.5 mg 06/24/24 15:40 06/24/24 15:46 Olanzapine 2.5 Mg Tablet PO Not Given QAM KATIA Perflutren Lipid Microsphere 0 ml 06/23/24 22:50 Perflutren Lipid Microspheres 1.5 Ml Vial Diluted To 10 Ml Total Volume IV PUSH 06/26/24 22:50 ONCE PRN adequate visualization Protocol Radiology Results: ITS Impressions Head CT 06/23/24 13:50 IMPRESSION: 1. Normal aging brain. No acute intracranial process. Chest X-Ray 06/23/24 15:46 IMPRESSION: 1. Mild elevation left hemidiaphragm with discoid atelectasis in the left midlung zone. 2. Indeterminate 1.8 cm nodular opacity at the left lung base. Recommend chest CT for further evaluation. Chest CT 06/23/24 16:36 IMPRESSION: 1. Mild atelectasis in the lungs. Wrist X-Ray 06/24/24 15:29 IMPRESSION: 1. Nonspecific soft tissue swelling about the mid to distal right forearm. No acute osseous abnormality. Shoulder X-Ray 06/24/24 15:31 IMPRESSION: Impacted fracture in the proximal metaphysis of the right humerus. Minimal change in alignment. Labs Labs: Laboratory Results - last 24 hr 06/25/24 04:10 Creatinine 0.50 L Estim Creat Clear Calc 145 Estimated GFR > 60 Fracture/Casting/Strapping Pre Procedure Consent was obtained ( Informed consent unable to be obtained from the patient due to mental status changes. Consent given from spouse.), Procedures/risks were explained and Questions were answered Episode of Care New episode Location: Right upper arm Fracture Care Clavicle/scapula/humerus/shoulder Clavicle, Scapula, Humerus, Shoulder: CLOSED TX PROXIMAL MARK Application Exam of Affected Area: Color: Abnormal (ecchymosis), Temp: Normal, Pulse: Abnormal (a fib), Blanching: Abnormal, Capillary Refill: Normal and Sensory Exam: Abnormal (unable to assess due to MS) Swelling: Yes (severe arm) and Tenderness: Yes Skin Apperance: Intact
--- NOTE | 2024-06-25 09:10 | WPDNEUROLOGY ---
Neurology EEG Report General Information Date of Study: 06/25/24 TEST eeg DIAGNOSIS Change in the mental status. CONDITION OF RECORDING Sleeping EEG NUMBER [id number] CLINICAL HISTORY patient is in hospital for the worsening of dementia has a previous EEG done about 6 weeks ago that had documented abnormalities. EEG DESCRIPTION Background rhythm consists of low to medium voltage 2 to 3 hertz per 2nd delta activity admixed with low to medium voltage 5 to 7 hertz per 2nd theta activities. Poor anteroposterior gradient noted. Bilateral symmetrical sleep activity is noted with evidence of sleep spindles but again admixed with diffuse bihemispheric theta and delta activity. There is no evidence of any paroxysmal activity throughout the tracing. Non paroxysmal. Nonfocal. Nonlateralizing. IMPRESSION Abnormal record due to the presence of bihemispheric theta and delta activity with symmetrical sleep spindles. These abnormalities are suggestive of diffuse organic or metabolic encephalopathy, clinical correlation recommended. There is no evidence of any paroxysmal or epileptic discharge.
[2024-06-25] MEDS: OLANZapine 2.5 MG TABLET PO (12:18)
[2024-06-25] MEDS: METOPROLOL SUCCINATE EXT REL 25 MG TABCR PO (12:18)
[2024-06-25 13:11] LABS: Vancomycin Trough 8.8 ug/mL (10.0-20.0)
--- NOTE | 2024-06-25 13:29 | P.PNCA_ITS ---
Progress Note: A&P Assessment and Plan (1) Atrial fibrillation with rapid ventricular response: Code(s): I48.91 - Unspecified atrial fibrillation Status: Acute (2) Dementia: Code(s): F03.90 - Unspecified dementia, unspecified severity, without behavioral disturbance, psychotic disturbance, mood disturbance, and anxiety Status: Acute (3) Closed right humeral fracture: Qualifiers: Encounter type: initial encounter Humerus Location: surgical neck Count Includes [facility] tur alignment: displaced Code(s): S42.301A - Unspecified fracture of shaft of humerus, right arm, initial encounter for closed fracture Status: Acute (4) Altered mental status: Code(s): R41.82 - Altered mental status, unspecified Status: Acute Plan Assessment: 1. New onset Atrial fibrillation with RVR most likely secondary to recent stress of fall and infection-now converted to sinus rhythm with rates in the 60s; chads Vasc score of 2 (hypertension, age greater than 65 years); 2. Mechanical fall with bruising and injury to right upper extremity and chest region 3. Dementia 4. Acute fracture secondary to fall being managed nonsurgically 5. Hypertension 6. Hyperlipidemia 7. Iron deficiency anemia Plan 1. Continue metoprolol 25 mg q.day. Currently patient is in sinus rhythm with heart rate in the 60s 2. Discussed the risk of stroke from atrial fibrillation and need for anticoagulation to reduce stroke risk. However given dementia and mechanical falls patient is also at risk of bleeding from falls if placed on oral anticoagulation. Will plan to place a Zio monitor for 4 weeks to evaluate the burden of atrial fibrillation. If AFib burden is high then readdress anticoagulation if patient will be in a monitored environment. Patient's family agrees with this plan 3. Monitor on telemetry 4. Check and replace electrolytes as needed keeping potassium greater than 4 and magnesium greater than 2 5. Management of other medical and surgical problems per primary team 6. Cardiology will follow as needed. Please call us with any questions Subjective Date/time seen: 06/25/24 13:29 Interval history: Date of service: 06/25/2024 1:45 p.m. HPI: Tony Barber is a 68 year old male with dementia, hypertension, and hyperlipidemia. This is a patient who presented to the emergency room after sustaining a fall and injured his right upper arm/shoulder. Cardiology is consulted because of atrial flutter with rapid ventricular response. When he initially came into the hospital he was sinus tachycardia but converted to atrial fibrillation with rapid ventricular response. He was placed on amiodarone drip and did convert to sinus rhythm. Amiodarone was stopped and metoprolol was started. Patient remains in sinus rhythm with heart rate in the 60s. Interval history: No chest pain, shortness of breath, dizziness, lightheadedness, palpitations. Telemetry shows sinus rhythm with heart rate in the 60s. Patient is accompanied by his and daughter at bedside. Review of Systems Review of Systems: All systems reviewed & are unremarkable except as noted in HPI and below Exam Narrative: Const: General: comfortab le, no acute distr ess HENMT: Head: normal to in spection Eyes: General: appearanc e normal, both eye s and all related structures Pupils : Equal, round and reactive pupils p resent Neck: Neck: normal visua l inspection, supp le and no JVD Car otids: normal lowery tid upstroke Resp: Effort & Inspectio n: normal respirat ory effort Auscul tation: clear to a uscultation bilate rally Cardio: Rate: regular rate Rhythm: regular rhythm Heart soun ds: S1 normal hear t sound present, S 2 normal heart steven nd present and no murmurs GI: Auscultation: norm al bowel sounds Skin: General skin exam: normal color Neuro: General: patient o riented x3 Crania l nerves: Yes Equa l, round and react cici pupils present Extrem: General: abnormal to inspection Oth er: Significant ecchymosis noted o n right upper extr emity Psych: Appearance: grossl y normal Mental S tatus: dementia Objective Data Vital Signs Vital Signs: Vital Signs - 24 hr 06/24/24 14:00 06/24/24 14:00 06/24/24 16:00 Temperature 36.8 C 36.4 C L Pulse Rate 78 88 91 Respiratory Rate 18 24 H Blood Pressure 142/71 H 146/90 H Pulse Oximetry 98 97 Oxygen Delivery 06/24/24 16:00 06/24/24 18:00 06/24/24 20:00 Temperature 36.8 C Pulse Rate 87 87 94 Respiratory Rate 19 Blood Pressure 135/70 Pulse Oximetry 100 Oxygen Delivery 06/24/24 20:00 06/24/24 20:00 06/24/24 22:00 Temperature Pulse Rate 97 83 Respiratory Rate Blood Pressure Pulse Oximetry 96 Oxygen Delivery Room Air 06/25/24 00:00 06/25/24 00:00 06/25/24 00:00 Temperature 36.7 C Pulse Rate 78 90 Respiratory Rate 18 Blood Pressure 124/67 Pulse Oximetry 99 Oxygen Delivery Room Air 06/25/24 02:00 06/25/24 04:00 06/25/24 04:00 Temperature 36.6 C Pulse Rate 67 77 Respiratory Rate 19 Blood Pressure 145/95 H Pulse Oximetry 100 Oxygen Delivery Room Air 06/25/24 04:00 06/25/24 06:00 06/25/24 07:35 Temperature 36.4 C L Pulse Rate 75 71 66 Respiratory Rate 20 Blood Pressure 111/67 Pulse Oximetry 97 Oxygen Delivery 06/25/24 11:48 06/25/24 12:18 Temperature 36.4 C L Pulse Rate 77 78 Respiratory Rate 20 Blood Pressure 119/71 Pulse Oximetry 100 Oxygen Delivery Intake/Output Intake/Output: Intake & Output 06/22/24 06/23/24 06/24/24 06/25/24 23:59 23:59 23:59 23:59 Intake Total 1250 5310.8 1366 Output Total 1201 1550 Balance 1250 4109.8 -184 Meds/Results Medications: Active Medications Generic Name Dose Route Start Last Admin Trade Name Freq PRN Reason Stop Dose Admin Acetaminophen 650 mg 06/23/24 17:41 Acetaminophen 650 Mg Suppository RECTAL Q6H PRN Mild Pain (1-3) or Fever Ceftriaxone Sodium 2 gm in 100 mls @ 200 mls/hr 06/24/24 04:00 06/25/24 05:34 Rocephin 2 Gm/Ns 100 Ml IVPB 07/03/24 23:59 Infused Q12H KATIA Infusion Sodium Chloride 1,000 mls @ 100 mls/hr 06/23/24 22:55 06/25/24 01:01 Normal Saline Iv IV CONT 100 mls/hr .Q10H KATIA Administration Acyclovir Sodium 800 mg/ 266 mls @ 266 mls/hr 06/24/24 20:00 06/25/24 12:19 Dextrose IVPB 07/03/24 23:59 266 mls/hr Q8H KATIA Administration Ampicillin Sodium 2 gm in 100 mls @ 200 mls/hr 06/24/24 15:00 06/25/24 11:03 Ampicillin 2 Gm/Ns 100 Ml IVPB 07/03/24 23:59 200 mls/hr Q4H KATIA Administration Ibuprofen 800 mg in 200 mls @ 400 mls/hr 06/24/24 13:49 06/25/24 12:20 Caldolor 800 Mg/200 Ml IVPB 400 mls/hr Q6H PRN Administration Pain Rated 4-6 Vancomycin HCl 1,750 mg in 500 mls @ 250 mls/hr 06/25/24 14:00 Vancomycin 1,750 Mg/Ns 500 Ml IVPB Q8HR KATIA Metoprolol Succinate 25 mg 06/25/24 09:00 06/25/24 12:18 Metoprolol Succinate Ext Rel 25 Mg Tabcr PO 25 mg QAM KATIA Administration Olanzapine 2.5 mg 06/24/24 15:40 06/25/24 12:18 Olanzapine 2.5 Mg Tablet PO 2.5 mg QAM KATIA Administration Perflutren Lipid Microsphere 0 ml 06/23/24 22:50 Perflutren Lipid Microspheres 1.5 Ml Vial Diluted To 10 Ml Total Volume IV PUSH 06/26/24 22:50 ONCE PRN adequate visualization Protocol Radiology Results: ITS Impressions Head CT 06/23/24 13:50 IMPRESSION: 1. Normal aging brain. No acute intracranial process. Chest X-Ray 06/23/24 15:46 IMPRESSION: 1. Mild elevation left hemidiaphragm with discoid atelectasis in the left midlung zone. 2. Indeterminate 1.8 cm nodular opacity at the left lung base. Recommend chest CT for further evaluation. Chest CT 06/23/24 16:36 IMPRESSION: 1. Mild atelectasis in the lungs. Wrist X-Ray 06/24/24 15:29 IMPRESSION: 1. Nonspecific soft tissue swelling about the mid to distal right forearm. No acute osseous abnormality. Shoulder X-Ray 06/24/24 15:31 IMPRESSION: Impacted fracture in the proximal metaphysis of the right humerus. Minimal change in alignment. Labs Labs: Laboratory Results - last 24 hr 06/25/24 06/25/24 04:10 12:31 Creatinine 0.50 L Estim Creat Clear Calc 145 Estimated GFR > 60 Vancomycin Trough 8.8 L
[2024-06-25 13:41] LABS: Anion Gap 1 mmol/L (4-12); Blood Urea Nitrogen 16 mg/dL (9-20); Calcium 8.2 mg/dL (8.4-10.2); Carbon Dioxide 28 mmol/L (22-30); Chloride 111 mmol/L (98-107); Estimated CRCL calculation 145 ml/min; Estimated Glomerular Filt Rate > 60; Glucose 103 mg/dL (65-110); Potassium 3.4 mmol/L (3.4-5.0); Sodium 140 mmol/L (137-145)
[2024-06-25] MEDS: VANCOMYCIN 1,750 MG/NS 500 ML 1,750 MG/500 ML BAG 250 MG IVPB ×2 (13:57→22:59)
[2024-06-25] MEDS: IBUPROFEN IV 800 MG/200 ML 800 MG/200 ML BAG 400 MG IVPB ×2 (13:59→21:18)
[2024-06-25 14:01] LABS: Hematocrit 31.6 % (42.0-52.0); Hemoglobin 9.9 g/dL (14.0-18.0); Mean Corpuscular HGB Conc 31.3 g/dl (32-36); Mean Corpuscular Volume 99.1 fl (80-100); Mean Platelet Volume 9.4 fl (7.4-10.4); Platelet Count Result 292 k/mm3 (150-375); Red Blood Count 3.19 M/mm3 (4.6-6.20); Red Cell Distribution Width 12.8 % (11.5-14.5); White Blood Count 10.9 K/mm3 (4.5-10.0)
[2024-06-26] VITALS (16 sets, daily range): BP systolic 103–169; BP diastolic 71–102; PULSE 66–91; RESP 18–24; TEMP 36.5–36.9; O2SAT 94–100
[2024-06-26] MEDS: ACYCLOVIR SODIUM IVPB 800 MG in DEXTROSE 5% IN WATER 250 ML 266 MG IVPB ×3 (03:15→20:18)
[2024-06-26] MEDS: cefTRIAXone 2 GM/NS 100 ML 2 GM/100 ML BAG IVPB ×2 (03:17→17:20)
[2024-06-26] MEDS: AMPICILLIN 2 GM/NS 100 ML 2 GM/100 ML BAG IVPB (03:17)
[2024-06-26 04:59] LABS: Estimated CRCL calculation 145 ml/min; Estimated Glomerular Filt Rate > 60
[2024-06-26] MEDS: VANCOMYCIN 1,750 MG/NS 500 ML 1,750 MG/500 ML BAG 250 MG IVPB (06:15)
[2024-06-26] MEDS: LIDOCAINE 1% PF INJ 5 ML VIAL INFILTRATE (09:15)
--- NOTE | 2024-06-26 09:24 | P.PNIM_ITS ---
Progress Note: A&P Assessment and Plan (1) Acute febrile illness: Code(s): R50.9 - Fever, unspecified Status: Acute (2) Metabolic encephalopathy: Code(s): G93.41 - Metabolic encephalopathy Status: Acute (3) Dehydration: Code(s): E86.0 - Dehydration Status: Acute (4) Closed right humeral fracture: Qualifiers: Encounter type: initial encounter Fracture alignment: displaced Humerus Location: surgical neck Code(s): S42.301A - Unspecified fracture of shaft of humerus, right arm, initial encounter for closed fracture Status: Acute (5) Atrial fibrillation with rapid ventricular response: Code(s): I48.91 - Unspecified atrial fibrillation Status: Acute (6) Anemia: Code(s): D64.9 - Anemia, unspecified Status: Acute (7) Dementia: Code(s): F03.90 - Unspecified dementia, unspecified severity, without behavioral disturbance, psychotic disturbance, mood disturbance, and anxiety Status: Acute Plan The patient presented to the emergency department for evaluation of altered mental status as detailed in HPI. Labs, imaging, EKG, and all reports were personally reviewed. Confusion Patient was diagnosed dementia, cognitive function declines rapidly Increased confusion recently Patient has a fever 100.4 in the ED, leukocytosis, 14,100 upon arrival in the ED Patient is on multiple medication for pain management including hydrocodone History of alcohol dependence, quit drinking in September 2023, Viral panel negative Differential including meningitis, acute metabolic encephalopathy, polypharmacy, dehydration CT head shows no acute intracranial issues No grows from blood culture TSH 0.55, ammonia, B12 878, folate 17, and drug screen to rule out other etiologies. Neurology has been consulted Start fluid resuscitation, poor intake Received ampicillin IV ceftriaxone IV, vancomycin IV acyclovir discussed the case with Dr. Sweeney, Appreciate neurologist consultation, pending LICO, will continue antibiotics for empiric treatment of meningitis. Given high risk of bleeding, will postpone lumbar puncture if symptoms will not improve Mental status is improving. Changed to ceftriaxone and acyclovir today per neurologist recommendation New onset atrial fibrillation, received diltiazem 10 mg IV x1 in the ED Also received amiodarone drip Echocardiogram 1. Complete two-dimensional, color flow and Doppler transthoracic echocardiogram is performed. 2. Left ventricular chamber dimension is normal. 3. Left ventricular systolic function is normal, estimated at 65-70%. 4. The left ventricular diastolic function is normal. 5. E/e' 6 is not elevated. Cardiology has been consulted. Follow recommendation Chronic Anemia stable on review of previous labs. Humeral fracture Ortho consulted for humeral fracture. Pain is tolerable Advance diet as tolerable Consult PT OT career orientation teacher for evaluation and assisting placement Subjective Date/time seen: 06/26/24 09:24 Interval history: I saw examined the patient in presents of patient's today. Patient mental status is improving, has some headache, patient is alert oriented x2. Denies vision change, nausea vomiting, chest pain shortness breast. Patient has general weakness patient denies trouble with swallowing Exam Narrative: GENERAL: Ill-appearing in no acute distress. Well-nourished. - EYES: EOMI. Anicteric. - HENT: Moist mucous membranes. - LUNGS: Clear to auscultation bilateral ly, no wheezing, rhonchi, or rales. - CARDIOVASCULAR: Regular rate and rhyth m. No murmur. No JVD. - ABDOMEN: Soft, non-tender and non-dist ended. No palpable masses. - EXTREMITIES: No edema. Peripheral puls es 2+. Non-tender., right arm tenderness by palpation, - NEUROLOGIC: No focal neurological defi cits. CN II-XII grossly intact. - PSYCHIATRIC: Awake, Alert and oriente d x to time and person, patient knows he is in hospital. mood and affect: Restless - SKIN: No rashes or lesions. Warm. - LYMPH: No cervical lymphadenopathy. Objective Data Vital Signs Vital Signs: Vital Signs - 24 hr 06/25/24 10:00 06/25/24 11:48 06/25/24 12:00 Temperature 97.5 F L Pulse Rate 72 77 Respiratory Rate 20 Blood Pressure 119/71 Pulse Oximetry 100 Oxygen Delivery Room Air 06/25/24 12:00 06/25/24 12:18 06/25/24 14:00 Temperature Pulse Rate 79 78 71 Respiratory Rate Blood Pressure Pulse Oximetry Oxygen Delivery 06/25/24 15:42 06/25/24 16:00 06/25/24 16:00 Temperature 98.3 F Pulse Rate 84 69 Respiratory Rate 20 Blood Pressure 108/67 Pulse Oximetry 96 Oxygen Delivery Room Air 06/25/24 18:00 06/25/24 20:00 06/25/24 20:00 Temperature 97.9 F Pulse Rate 70 73 Respiratory Rate 18 Blood Pressure 135/79 Pulse Oximetry 100 Oxygen Delivery Room Air 06/25/24 20:00 06/25/24 22:00 06/26/24 00:00 Temperature 98.4 F Pulse Rate 71 85 66 Respiratory Rate 18 Blood Pressure 103/71 Pulse Oximetry 100 Oxygen Delivery 06/26/24 00:00 06/26/24 00:00 06/26/24 02:00 Temperature Pulse Rate 68 76 Respiratory Rate Blood Pressure Pulse Oximetry Oxygen Delivery Room Air 06/26/24 04:00 06/26/24 04:00 06/26/24 04:00 Temperature 97.8 F Pulse Rate 80 68 Respiratory Rate 18 Blood Pressure 146/74 H Pulse Oximetry 100 Oxygen Delivery Room Air 06/26/24 06:00 06/26/24 07:50 Temperature 98.4 F Pulse Rate 69 75 Respiratory Rate 20 Blood Pressure 138/72 Pulse Oximetry 96 Oxygen Delivery Intake/Output Intake/Output: Intake & Output 06/23/24 06/24/24 06/25/24 06/26/24 23:59 23:59 23:59 23:59 Intake Total 1250 5310.8 4538 1416 Output Total 1201 4300 700 Balance 1250 4109.8 238 716 Meds/Results Medications: Active Medications Generic Name Dose Route Start Last Admin Trade Name Freq PRN Reason Stop Dose Admin Acetaminophen 650 mg 06/23/24 17:41 Acetaminophen 650 Mg Suppository RECTAL Q6H PRN Mild Pain (1-3) or Fever Ceftriaxone Sodium 2 gm in 100 mls @ 200 mls/hr 06/24/24 04:00 06/26/24 03:47 Rocephin 2 Gm/Ns 100 Ml IVPB 07/03/24 23:59 Infused Q12H KATIA Infusion Sodium Chloride 1,000 mls @ 100 mls/hr 06/23/24 22:55 06/25/24 22:56 Normal Saline Iv IV CONT Not Given .Q10H KATIA Acyclovir Sodium 800 mg/ 266 mls @ 266 mls/hr 06/24/24 20:00 06/26/24 04:15 Dextrose IVPB 07/03/24 23:59 Infused Q8H KATIA Infusion Ampicillin Sodium 2 gm in 100 mls @ 200 mls/hr 06/24/24 15:00 06/26/24 08:36 Ampicillin 2 Gm/Ns 100 Ml IVPB 07/03/24 23:59 200 mls/hr Q4H KATIA Administration Ibuprofen 800 mg in 200 mls @ 400 mls/hr 06/24/24 13:49 06/25/24 21:48 Caldolor 800 Mg/200 Ml IVPB Infused Q6H PRN Infusion Pain Rated 4-6 Vancomycin HCl 1,750 mg in 500 mls @ 250 mls/hr 06/25/24 14:00 06/26/24 06:15 Vancomycin 1,750 Mg/Ns 500 Ml IVPB 250 mls/hr Q8HR KATIA Administration Metoprolol Succinate 25 mg 06/25/24 09:00 06/25/24 12:18 Metoprolol Succinate Ext Rel 25 Mg Tabcr PO 25 mg QAM KATIA Administration Olanzapine 2.5 mg 06/24/24 15:40 06/25/24 12:18 Olanzapine 2.5 Mg Tablet PO 2.5 mg QAM KATIA Administration Perflutren Lipid Microsphere 0 ml 06/23/24 22:50 Perflutren Lipid Microspheres 1.5 Ml Vial Diluted To 10 Ml Total Volume IV PUSH 06/26/24 22:50 ONCE PRN adequate visualization Protocol Radiology Results: ITS Impressions Head CT 06/23/24 13:50 IMPRESSION: 1. Normal aging brain. No acute intracranial process. Chest X-Ray 06/23/24 15:46 IMPRESSION: 1. Mild elevation left hemidiaphragm with discoid atelectasis in the left midlu ng zone. 2. Indeterminate 1.8 cm nodular opacity at the left lung base. Recommend chest CT for further evaluation. Chest CT 06/23/24 16:36 IMPRESSION: 1. Mild atelectasis in the lungs. Wrist X-Ray 06/24/24 15:29 IMPRESSION: 1. Nonspecific soft tissue swelling about the mid to distal right forearm. No acute osseous abnormality. Shoulder X-Ray 06/24/24 15:31 IMPRESSION: Impacted fracture in the proximal metaphysis of the right humerus. Minimal change in alignment. Labs Labs: Laboratory Results - last 24 hr 06/25/24 06/25/24 06/26/24 04:09 12:31 04:40 WBC 10.9 H RBC 3.19 L Hgb 9.9 L Hct 31.6 L MCV 99.1 D MCH 31.0 MCHC 31.3 L RDW 12.8 Plt Count 292 MPV 9.4 Sodium 140 Potassium 3.4 Chloride 111 H Carbon Dioxide 28 Anion Gap 1 L BUN 16 Creatinine 0.50 L 0.50 L Estim Creat Clear Calc 145 145 Estimated GFR > 60 > 60 Glucose 103 Calcium 8.2 L Vancomycin Trough 8.8 L
[2024-06-26 09:39] LABS: Basophils Percent Auto 0.2 % (0.2-1.2); Eosinophils Absolute Auto 0.3 K/mm3 (0-0.3); Eosinophils Percent Auto 3.6 % (0-4.4); Hematocrit 30.1 % (42.0-52.0); Hemoglobin 9.4 g/dL (14.0-18.0); Immature Granulocyte Absolute 0.04 K/mm3 (0.00-0.031); Immature Granulocyte Percent A 0.5 % (0-0.5); Lymphocytes Absolute Auto 1.56 K/mm3 (0.9-3.2); Lymphocytes Percent Auto 18.2 % (18.3-44.2); Mean Corpuscular HGB Conc 31.2 g/dl (32-36); Mean Corpuscular Hemoglobin 30.5 pg (26-34); Mean Corpuscular Volume 97.7 fl (80-100); Mean Platelet Volume 9.2 fl (7.4-10.4); Monocytes Absolute Auto 0.6 K/mm3 (0.1-0.6); Monocytes Percent Auto 6.9 % (2.6-8.5); Neutrophils Absolute Auto 6.1 K/mm3 (1.3-6.7); Neutrophils Percent Auto 70.6 % (45.5-73.1); Platelet Count Result 297 k/mm3 (150-375); Red Blood Count 3.08 M/mm3 (4.6-6.20); Red Cell Distribution Width 12.6 % (11.5-14.5); White Blood Count 8.6 K/mm3 (4.5-10.0)
[2024-06-26 10:18] LABS: Anion Gap 5 mmol/L (4-12); Blood Urea Nitrogen 13 mg/dL (9-20); Calcium 8.2 mg/dL (8.4-10.2); Carbon Dioxide 25 mmol/L (22-30); Chloride 110 mmol/L (98-107); Estimated CRCL calculation 145 ml/min; Estimated Glomerular Filt Rate > 60; Glucose 121 mg/dL (65-110); Potassium 3.2 mmol/L (3.4-5.0); Sodium 140 mmol/L (137-145)
[2024-06-26] MEDS: METOPROLOL SUCCINATE EXT REL 25 MG TABCR PO (11:30)
--- NOTE | 2024-06-26 11:43 | WPDNEUROPN ---
Progress Note: A&P Assessment and Plan (1) Metabolic encephalopathy: Code(s): G93.41 - Metabolic encephalopathy Status: Acute (2) Alcohol abuse: Code(s): F10.10 - Alcohol abuse, uncomplicated Status: Acute (3) Atrial fibrillation with rapid ventricular response: Code(s): I48.91 - Unspecified atrial fibrillation Status: Acute (4) Dementia: Code(s): F03.90 - Unspecified dementia, unspecified severity, without behavioral disturbance, psychotic disturbance, mood disturbance, and anxiety Status: Acute Plan The patient has had 2 EEGs both of them have shown mild diffuse background slowing suggestive of generalized encephalopathy. The fact that he time to time becomes more confused or drowsy and in fact on admission he was more agitated and confused raises possibility of a superimposed another process such as Wernicke encephalopathy or possible other etiologies. Now we have found that he has a 8 relation with rapid ventricular rate the possible a possibility that could cause changes in the mental status. This is a being addressed by the bobbin cleaning machine operator and hopefully that will help the situation and a follow-up to see if this helps resolve the question. Especially this is pertinent since he is not drinking anymore according to his . He did have a fracture of the right humerus which is being addressed by the orthopedic surgeon. Whether he had meningitis or not, is difficult to decide since he is on 3 antibiotics for last few days. We can go down to ceftriaxone and acyclovir for now and see how he does. He is still being observed in the hospital. He has had MRI of the brain done on 05/12/2024 which showed mild chronic microvascular ischemic changes. On this admission he had a CT scan of the brain on 06/23/2024 which did not show any significant abnormal findings. His hemoglobin now down to 9.4 that may require some further attention. At the time of admission his alcohol level was less than 10 urine toxic was positive cannabis only. Echocardiogram shows ejection fraction was 65-70% and no other significant abnormalities were described. Subjective Date/time seen: 06/26/24 11:43 Interval history: 68 years old with history of alcoholism and dementia presented to the hospital after having had a fall leg to the fracture of the right humerus has also been found to have atrial fibrillation with a fast heart rate which is being addressed by the bobbin cleaning machine operator and now he has turned into regular sinus rhythm. He is currently being treated with a beta zach. He is also being assessed for the density of the atrial fibrillation to decide about treatment with anticoagulation. Is had a fall on 06/19/2024. Patient lives his him. His states that he does not drink alcohol at all and stop drinking in September 2023. His he hemoglobin is now down to 9.9. Initially he has had some fever and he was also confused and agitated and it was suspected that he may have meningitis or encephalitis and he was empirically started on 4 major anti biotics including acyclovir. He is not on any anticoagulation. He remains afebrile and mental status is also improved. He is overall condition in terms of for fever and heart rate has also improved. has noted that he time to time becomes confused or sleepy which is otherwise unexplained and is wondering what might be going on besides the memory problems even though he is not drinking. Exam Narrative: Fully conscious alert oriented to self place and person. Moving both upper and lower limbs. A detailed examination was deferred since he is being attended to by the nursing and bobbin cleaning machine operator staff at this particular time. Objective Data Vital Signs Vital Signs: Vital Signs - 24 hr 06/25/24 11:48 06/25/24 12:00 06/25/24 12:00 Temperature 97.5 F L Pulse Rate 77 79 Respiratory Rate 20 Blood Pressure 119/71 Pulse Oximetry 100 Oxygen Delivery Room Air 06/25/24 12:18 06/25/24 14:00 06/25/24 15:42 Temperature 98.3 F Pulse Rate 78 71 84 Respiratory Rate 20 Blood Pressure 108/67 Pulse Oximetry 96 Oxygen Delivery 06/25/24 16:00 06/25/24 16:00 06/25/24 18:00 Temperature Pulse Rate 69 70 Respiratory Rate Blood Pressure Pulse Oximetry Oxygen Delivery Room Air 06/25/24 20:00 06/25/24 20:00 06/25/24 20:00 Temperature 97.9 F Pulse Rate 73 71 Respiratory Rate 18 Blood Pressure 135/79 Pulse Oximetry 100 Oxygen Delivery Room Air 06/25/24 22:00 06/26/24 00:00 06/26/24 00:00 Temperature 98.4 F Pulse Rate 85 66 Respiratory Rate 18 Blood Pressure 103/71 Pulse Oximetry 100 Oxygen Delivery Room Air 06/26/24 00:00 06/26/24 02:00 06/26/24 04:00 Temperature Pulse Rate 68 76 Respiratory Rate Blood Pressure Pulse Oximetry Oxygen Delivery Room Air 06/26/24 04:00 06/26/24 04:00 06/26/24 06:00 Temperature 97.8 F Pulse Rate 80 68 69 Respiratory Rate 18 Blood Pressure 146/74 H Pulse Oximetry 100 Oxygen Delivery 06/26/24 07:50 06/26/24 11:30 Temperature 98.4 F Pulse Rate 75 85 Respiratory Rate 20 Blood Pressure 138/72 Pulse Oximetry 96 Oxygen Delivery Intake/Output Intake/Output: Intake & Output 06/23/24 06/24/24 06/25/24 06/26/24 23:59 23:59 23:59 23:59 Intake Total 1250 5310.8 4538 1416 Output Total 1201 4300 700 Balance 1250 4109.8 238 716 Meds/Results Medications: Active Medications Generic Name Dose Route Start Last Admin Trade Name Freq PRN Reason Stop Dose Admin Acetaminophen 650 mg 06/23/24 17:41 Acetaminophen 650 Mg Suppository RECTAL Q6H PRN Mild Pain (1-3) or Fever Ceftriaxone Sodium 2 gm in 100 mls @ 200 mls/hr 06/24/24 04:00 06/26/24 03:47 Rocephin 2 Gm/Ns 100 Ml IVPB 07/03/24 23:59 Infused Q12H KATIA Infusion Sodium Chloride 1,000 mls @ 100 mls/hr 06/23/24 22:55 06/25/24 22:56 Normal Saline Iv IV CONT Not Given .Q10H KATIA Acyclovir Sodium 800 mg/ 266 mls @ 266 mls/hr 06/24/24 20:00 06/26/24 04:15 Dextrose IVPB 07/03/24 23:59 Infused Q8H KATIA Infusion Ibuprofen 400 mg 06/26/24 10:40 Ibuprofen 400 Mg Tablet PO Q6H PRN Pain Rated 1-3 Metoprolol Succinate 25 mg 06/25/24 09:00 06/26/24 11:30 Metoprolol Succinate Ext Rel 25 Mg Tabcr PO 25 mg QAM KATIA Administration Olanzapine 2.5 mg 06/26/24 10:39 Olanzapine 2.5 Mg Tablet PO HS PRN Irritation Perflutren Lipid Microsphere 0 ml 06/23/24 22:50 Perflutren Lipid Microspheres 1.5 Ml Vial Diluted To 10 Ml Total Volume IV PUSH 06/26/24 22:50 ONCE PRN adequate visualization Protocol Sodium Chloride 10 ml 06/26/24 14:00 Central Line Flush IV PUSH Q8HR KATIA Sodium Chloride 10 ml 06/26/24 10:32 Central Line Flush IV PUSH PRN PRN with TPN bag changes Sodium Chloride 20 ml 06/26/24 10:32 Central Line Flush IV PUSH PRN PRN after blood draws Radiology Results: ITS Impressions Head CT 06/23/24 13:50 IMPRESSION: 1. Normal aging brain. No acute intracranial process. Chest CT 06/23/24 16:36 IMPRESSION: 1. Mild atelectasis in the lungs. Wrist X-Ray 06/24/24 15:29 IMPRESSION: 1. Nonspecific soft tissue swelling about the mid to distal right forearm. No acute osseous abnormality. Shoulder X-Ray 06/24/24 15:31 IMPRESSION: Impacted fracture in the proximal metaphysis of the right humerus. Minimal change in alignment. Chest X-Ray 06/26/24 10:16 Impression: 1: Left perihilar linear consolidation, most likely atelectasis. Pneumonia less favored. 2: Cardiomegaly with pulmonary vascular congestion. 3: Left subclavian PICC line tip in the SVC. Labs Labs: Laboratory Results - last 24 hr 06/25/24 06/25/24 06/26/24 04:09 12:31 04:36 WBC 10.9 H 8.6 RBC 3.19 L 3.08 L Hgb 9.9 L 9.4 L Hct 31.6 L 30.1 L MCV 99.1 D 97.7 MCH 31.0 30.5 MCHC 31.3 L 31.2 L RDW 12.8 12.6 Plt Count 292 297 MPV 9.4 9.2 Immature Gran % (Auto) 0.5 Neut % (Auto) 70.6 Lymph % (Auto) 18.2 L [place] % (Auto) 6.9 Eos % (Auto) 3.6 Baso % (Auto) 0.2 Lymph # (Auto) 1.56 [place] # (Auto) 0.6 Eos # (Auto) 0.3 Baso # (Auto) 0.0 Abs Immat Gran (auto) 0.04 H Absolute Neuts (auto) 6.1 Absolute Nucleated RBC 0.000 Nucleated RBC % 0.0 Sodium 140 140 Potassium 3.4 3.2 L Chloride 111 H 110 H Carbon Dioxide 28 25 Anion Gap 1 L 5 BUN 16 13 Creatinine 0.50 L 0.50 L Estim Creat Clear Calc 145 145 Estimated GFR > 60 > 60 Glucose 103 121 H Calcium 8.2 L 8.2 L Vancomycin Trough 8.8 L 06/26/24 04:40 WBC RBC Hgb Hct MCV MCH MCHC RDW Plt Count MPV Immature Gran % (Auto) Neut % (Auto) Lymph % (Auto) [place] % (Auto) Eos % (Auto) Baso % (Auto) Lymph # (Auto) [place] # (Auto) Eos # (Auto) Baso # (Auto) Abs Immat Gran (auto) Absolute Neuts (auto) Absolute Nucleated RBC Nucleated RBC % Sodium Potassium Chloride Carbon Dioxide Anion Gap BUN Creatinine 0.50 L Estim Creat Clear Calc 145 Estimated GFR > 60 Glucose Calcium Vancomycin Trough
[2024-06-26] MEDS: CENTRAL LINE FLUSH 10 ML IV PUSH ×2 (13:55→20:18)
--- NOTE | 2024-06-26 16:40 | PCSTNOTE ---
Please refer to the Bedside Swallow Evaluation in the EMR. Please note, silent aspiration cannot be ruled out at bedside.
[2024-06-26] MEDS: IBUPROFEN 400 MG TABLET PO (17:22)
[2024-06-26] MEDS: OLANZapine 2.5 MG TABLET PO (20:18)
[2024-06-27] VITALS (15 sets, daily range): BP systolic 136–160; BP diastolic 64–82; PULSE 74–97; RESP 20–24; TEMP 36.5–37.4; O2SAT 94–98
[2024-06-27] MEDS: SODIUM CHLORIDE 0.9% IV 1,000 ML 100 ML IV CONT (03:03)
[2024-06-27] MEDS: cefTRIAXone 2 GM/NS 100 ML 2 GM/100 ML BAG IVPB ×2 (04:31→17:08)
[2024-06-27] MEDS: CENTRAL LINE FLUSH 10 ML IV PUSH ×3 (04:32→21:10)
[2024-06-27] MEDS: ACYCLOVIR SODIUM IVPB 800 MG in DEXTROSE 5% IN WATER 250 ML 266 MG IVPB ×3 (05:41→21:10)
[2024-06-27 06:27] LABS: Basophils Percent Auto 0.4 % (0.2-1.2); Eosinophils Absolute Auto 0.2 K/mm3 (0-0.3); Eosinophils Percent Auto 2.2 % (0-4.4); Hematocrit 30.8 % (42.0-52.0); Hemoglobin 10.2 g/dL (14.0-18.0); Immature Granulocyte Absolute 0.03 K/mm3 (0.00-0.031); Immature Granulocyte Percent A 0.3 % (0-0.5); Lymphocytes Absolute Auto 1.04 K/mm3 (0.9-3.2); Lymphocytes Percent Auto 10.1 % (18.3-44.2); Mean Corpuscular HGB Conc 33.1 g/dl (32-36); Mean Corpuscular Hemoglobin 31.2 pg (26-34); Mean Corpuscular Volume 94.2 fl (80-100); Mean Platelet Volume 8.7 fl (7.4-10.4); Monocytes Absolute Auto 0.6 K/mm3 (0.1-0.6); Monocytes Percent Auto 5.4 % (2.6-8.5); Neutrophils Absolute Auto 8.4 K/mm3 (1.3-6.7); Neutrophils Percent Auto 81.6 % (45.5-73.1); Platelet Count Result 296 k/mm3 (150-375); Red Blood Count 3.27 M/mm3 (4.6-6.20); Red Cell Distribution Width 12.3 % (11.5-14.5); White Blood Count 10.3 K/mm3 (4.5-10.0)
[2024-06-27 06:41] LABS: Anion Gap 1 mmol/L (4-12); Blood Urea Nitrogen 8 mg/dL (9-20); Calcium 8.1 mg/dL (8.4-10.2); Carbon Dioxide 27 mmol/L (22-30); Chloride 109 mmol/L (98-107); Estimated CRCL calculation 145 ml/min; Estimated Glomerular Filt Rate > 60; Glucose 119 mg/dL (65-110); Potassium 3.5 mmol/L (3.4-5.0); Sodium 137 mmol/L (137-145)
--- NOTE | 2024-06-27 08:18 | PCOTNOTE ---
The patient treatment was not able to be completed patient is slightly confused and does best when is present per RN report. Will plan to continue treatment per plan of care.
--- NOTE | 2024-06-27 09:34 | PM.PNORT ---
Progress Note: A&P Assessment and Plan (1) Closed fracture of right proximal humerus: Qualifiers: Encounter type: initial encounter Fracture morphology: other fracture Fracture alignment: displaced Qualified Code(s): S42.291A - Other displaced fracture of upper end of right humerus, initial encounter for closed fracture Code(s): S42.201A - Unspecified fracture of upper end of right humerus, initial encounter for closed fracture Status: Acute Assessment and Plan: 1 week, 2 days s/p fall resulting in right proximal humerus fracture. Repeat radiographs during this hospitalization revealed displaced fracture with impaction, no change in alignment compared to injury radiographs. Patient still with mental status changes. Currently not medically stable or candidate for operative treatment. Continue conservative care with sling, ice, pain control as able to. Will continue to follow. Subjective Subjective Date/Time Seen: 06/27/24 09:34 Interval history: Patient resting comfortably. Review of Systems Review of Systems: ROS unobtainable: Yes unobtainable due to mental status Exam Const: General: comfortable and ill appearing Nutritional Appearance: average body habitus Neuro: Cognition (Neuro): abnormal cognition Speech: Abnormal speech present Gait exam (Neuro): Unable to assess gait Extrem: Right upper extremity: shoulder/upper arm abnormal to inspection, tenderness of the proximal humerus and of the mid-shaft humerus, abnormal ROM held in an abnormal fashion in ADduction, pain with active ROM and pain with passive ROM and ecchymosis, elbow/forearm tenderness, swelling, abnormal ROM, ecchymosis and distal pulses intact, wrist tenderness, swelling, abnormal ROM pain with active ROM during with extension and with flexion, ecchymosis, radial pulse present 2+ and ulnar pulse present 2+ and Extremity exam: right hand normal to inspection, neurosensory exam normal and vascular exam radial pulse present Right lower extremity: normal to inspection Left lower extremity: normal to inspection Objective Data Vital Signs Vital Signs: Vital Signs - 24 hr 06/26/24 10:00 06/26/24 11:30 06/26/24 11:56 Temperature 36.8 C Pulse Rate 76 85 88 Respiratory Rate 24 H Blood Pressure 169/102 H Pulse Oximetry 98 Oxygen Delivery 06/26/24 12:00 06/26/24 12:00 06/26/24 12:16 Temperature Pulse Rate 79 Respiratory Rate Blood Pressure Pulse Oximetry Oxygen Delivery Room Air Room Air 06/26/24 14:00 06/26/24 15:41 06/26/24 16:00 Temperature 36.9 C Pulse Rate 91 86 Respiratory Rate 20 Blood Pressure 152/76 H Pulse Oximetry 95 Oxygen Delivery Room Air 06/26/24 16:00 06/26/24 18:00 06/26/24 20:00 Temperature Pulse Rate 86 84 Respiratory Rate Blood Pressure Pulse Oximetry Oxygen Delivery Room Air 06/26/24 20:00 06/26/24 20:32 06/26/24 23:12 Temperature 36.5 C Pulse Rate 79 85 Respiratory Rate 20 Blood Pressure 138/71 Pulse Oximetry 94 Oxygen Delivery Room Air 06/27/24 00:00 06/27/24 00:00 06/27/24 04:00 Temperature 36.5 C Pulse Rate 87 74 Respiratory Rate 20 Blood Pressure 160/77 H Pulse Oximetry 96 Oxygen Delivery Room Air 06/27/24 04:00 06/27/24 04:32 06/27/24 07:53 Temperature 36.5 C 36.9 C Pulse Rate 83 82 96 Respiratory Rate 20 20 Blood Pressure 140/69 149/78 H Pulse Oximetry 97 98 Oxygen Delivery Intake/Output Intake/Output: Intake & Output 06/24/24 06/25/24 06/26/24 06/27/24 23:59 23:59 23:59 23:59 Intake Total 5310.8 4538 3528 100 Output Total 1201 4300 3400 2000 Balance 4109.8 238 128 -1900 Meds/Results Medications: Active Medications Generic Name Dose Route Start Last Admin Trade Name Freq PRN Reason Stop Dose Admin Acetaminophen 650 mg 06/23/24 17:41 Acetaminophen 650 Mg Suppository RECTAL Q6H PRN Mild Pain (1-3) or Fever Ceftriaxone Sodium 2 gm in 100 mls @ 200 mls/hr 06/24/24 04:00 06/27/24 05:35 Rocephin 2 Gm/Ns 100 Ml IVPB 07/03/24 23:59 Infused Q12H KATIA Infusion Sodium Chloride 1,000 mls @ 100 mls/hr 06/23/24 22:55 06/27/24 03:03 Normal Saline Iv IV CONT 100 mls/hr .Q10H KATIA Administration Acyclovir Sodium 800 mg/ 266 mls @ 266 mls/hr 06/24/24 20:00 06/27/24 05:41 Dextrose IVPB 07/03/24 23:59 266 mls/hr Q8H KATIA Administration Ibuprofen 400 mg 06/26/24 10:40 06/26/24 17:22 Ibuprofen 400 Mg Tablet PO 400 mg Q6H PRN Administration Pain Rated 1-3 Metoprolol Succinate 25 mg 06/25/24 09:00 06/26/24 11:30 Metoprolol Succinate Ext Rel 25 Mg Tabcr PO 25 mg QAM KATIA Administration Olanzapine 2.5 mg 06/26/24 10:39 06/26/24 20:18 Olanzapine 2.5 Mg Tablet PO 2.5 mg HS PRN Administration Irritation Sodium Chloride 10 ml 06/26/24 14:00 06/27/24 04:32 Central Line Flush IV PUSH 10 ml Q8HR KATIA Administration Sodium Chloride 10 ml 06/26/24 10:32 Central Line Flush IV PUSH PRN PRN with TPN bag changes Sodium Chloride 20 ml 06/26/24 10:32 Central Line Flush IV PUSH PRN PRN after blood draws Radiology Results: ITS Impressions Head CT 06/23/24 13:50 IMPRESSION: 1. Normal aging brain. No acute intracranial process. Chest CT 06/23/24 16:36 IMPRESSION: 1. Mild atelectasis in the lungs. Wrist X-Ray 06/24/24 15:29 IMPRESSION: 1. Nonspecific soft tissue swelling about the mid to distal right forearm. No acute osseous abnormality. Shoulder X-Ray 06/24/24 15:31 IMPRESSION: Impacted fracture in the proximal metaphysis of the right humerus. Minimal change in alignment. Chest X-Ray 06/26/24 10:16 Impression: 1: Left perihilar linear consolidation, most likely atelectasis. Pneumonia less favored. 2: Cardiomegaly with pulmonary vascular congestion. 3: Left subclavian PICC line tip in the SVC. Labs Labs: Laboratory Results - last 24 hr 06/26/24 06/27/24 04:36 06:10 WBC 8.6 10.3 H RBC 3.08 L 3.27 L Hgb 9.4 L 10.2 L Hct 30.1 L 30.8 L MCV 97.7 94.2 MCH 30.5 31.2 MCHC 31.2 L 33.1 RDW 12.6 12.3 Plt Count 297 296 MPV 9.2 8.7 Immature Gran % (Auto) 0.5 0.3 Neut % (Auto) 70.6 81.6 H Lymph % (Auto) 18.2 L 10.1 L [place] % (Auto) 6.9 5.4 Eos % (Auto) 3.6 2.2 Baso % (Auto) 0.2 0.4 Lymph # (Auto) 1.56 1.04 [place] # (Auto) 0.6 0.6 Eos # (Auto) 0.3 0.2 Baso # (Auto) 0.0 0.0 Abs Immat Gran (auto) 0.04 H 0.03 Absolute Neuts (auto) 6.1 8.4 H Absolute Nucleated RBC 0.000 0.000 Nucleated RBC % 0.0 0.0 Sodium 140 137 Potassium 3.2 L 3.5 Chloride 110 H 109 H Carbon Dioxide 25 27 Anion Gap 5 1 L BUN 13 8 L D Creatinine 0.50 L 0.50 L Estim Creat Clear Calc 145 145 Estimated GFR > 60 > 60 Glucose 121 H 119 H Calcium 8.2 L 8.1 L
--- NOTE | 2024-06-27 10:35 | P.PNIM_ITS ---
Progress Note: A&P Assessment and Plan (1) Acute febrile illness: Code(s): R50.9 - Fever, unspecified Status: Acute (2) Metabolic encephalopathy: Code(s): G93.41 - Metabolic encephalopathy Status: Acute (3) Dehydration: Code(s): E86.0 - Dehydration Status: Acute (4) Closed right humeral fracture: Qualifiers: Encounter type: initial encounter Fracture alignment: displaced Humerus Location: surgical neck Code(s): S42.301A - Unspecified fracture of shaft of humerus, right arm, initial encounter for closed fracture Status: Acute (5) Atrial fibrillation with rapid ventricular response: Code(s): I48.91 - Unspecified atrial fibrillation Status: Acute (6) Anemia: Code(s): D64.9 - Anemia, unspecified Status: Acute (7) Dementia: Code(s): F03.90 - Unspecified dementia, unspecified severity, without behavioral disturbance, psychotic disturbance, mood disturbance, and anxiety Status: Acute Plan The patient presented to the emergency department for evaluation of altered mental status as detailed in HPI. Labs, imaging, EKG, and all reports were personally reviewed. Confusion Patient was diagnosed dementia, cognitive function declines rapidly Increased confusion recently Patient has a fever 100.4 in the ED, leukocytosis, 14,100 upon arrival in the ED Patient is on multiple medication for pain management including hydrocodone History of alcohol dependence, quit drinking in September 2023, Viral panel negative Differential including meningitis, acute metabolic encephalopathy, polypharmacy, dehydration CT head shows no acute intracranial issues No grows from blood culture TSH 0.55, ammonia, B12 878, folate 17, and drug screen to rule out other etiologies. Neurology has been consulted Start fluid resuscitation, poor intake Received ampicillin IV ceftriaxone IV, vancomycin IV acyclovir Discussed with Dr. Solomon if Trazodone will be beneficial. He agrees to adding trazodone and increased Zyprexa to 5 mg. Also I discussed with the him in regards to continuing vancomycin if he develops fever. He agrees with the above plan. Discussed the case with Dr. Sweeney, Appreciate neurologist consultation, pending LICO, will continue antibiotics for empiric treatment of meningitis. Given high risk of bleeding, will postpone lumbar puncture if symptoms will not improve Mental status is improving. Changed to ceftriaxone and acyclovir today per neurologist recommendation New onset atrial fibrillation, received diltiazem 10 mg IV x1 in the ED Also received amiodarone drip Echocardiogram 1. Complete two-dimensional, color flow and Doppler transthoracic echocardiogram is performed. 2. Left ventricular chamber dimension is normal. 3. Left ventricular systolic function is normal, estimated at 65-70%. 4. The left ventricular diastolic function is normal. 5. E/e' 6 is not elevated. Cardiology has been consulted. Follow recommendation Chronic Anemia stable on review of previous labs. Humeral fracture Ortho consulted for humeral fracture. Pain is tolerable Advance diet as tolerable Consult PT OT childcare center director for evaluation and assisting placement Subjective Date/time seen: 06/27/24 10:35 Interval history: Had a long discussion with the his daughter and . As per his he is heavy alcohol drinker, previous smoker, current vaping and marijuana. He drinks more than 10 beers in a day and he quit his alcohol the month of September and he had a severe withdrawal symptoms. Patient had ongoing dementia for past new few months for which he is following with . Patient was previously on ceftriaxone, vancomycin, acyclovir and ampicillin but after the recommendation from vancomycin and ampicillin was discontinued. His TSH, vitamin B12 is normal. Patient experiencing sundowning effect during the nighttime. Discussed with Dr. Solomon if Trazodone will be beneficial. He agrees to adding trazodone and increased Zyprexa to 5 mg. Also I discussed with the him in regards to continuing vancomycin if he develops fever. He agrees with the above plan. Review of Systems Review of Systems: Unable to obtain given clinical condition. All systems reviewed & are unremarkable except as noted in HPI and below ROS unobtainable: Yes unobtainable due to mental status Neurologic: Reports Abnormal speech present and Reports confusion Psychiatric: Psychiatric: Reports confusion Exam Narrative: GENERAL: Ill-appearing in no acute distress. Well-nourished. - EYES: EOMI. Anicteric. - HENT: Moist mucous membranes. - LUNGS: Clear to auscultation bilateral ly, no wheezing, rhonchi, or rales. - CARDIOVASCULAR: Regular rate and rhyth m. No murmur. No JVD. - ABDOMEN: Soft, non-tender and non-dist ended. No palpable masses. - EXTREMITIES: No edema. Peripheral puls es 2+. Non-tender., right arm tenderness by palpation, - NEUROLOGIC: No focal neurological defi cits. CN II-XII grossly intact. - PSYCHIATRIC: Awake, Alert and oriente d x to time and person, patient knows he is in hospital. mood and affect: Restless - SKIN: No rashes or lesions. Warm. - LYMPH: No cervical lymphadenopathy. Const: General: comfortable, no acute distress, alert, awake, in distress moderate, anxious, confusion, ill appearing, uncomfortable and average body habitus Nutritional Appearance: average body habitus Orientation/consciousness: patient oriented x3 and confusion Limitations: altered mental status HENMT: Head: normal to inspection Eyes: General: appearance normal, both eyes and all related structures Pupils: Equal, round and reactive pupils present Neck: Neck: normal visual inspection, supple and no JVD Carotids: normal carotid upstroke Resp: Effort & Inspection: normal respiratory effort Auscultation: clear to auscultation bilaterally Cardio: Rate: regular rate Rhythm: regular rhythm Heart sounds: S1 normal heart sound present, S2 normal heart sound present and no murmurs GI: Auscultation: normal bowel sounds Skin: General skin exam: normal color Neuro: General: patient oriented x3, confusion and Unable to assess gait Cranial nerves: Yes Equal, round and reactive pupils present Cognition (Neur o): abnormal cognition Speech: Abnormal speech present Gait exam (Neuro): Unable to assess gait Extrem: General: abnormal to inspection Right upper extremity: shoulder/upper arm abnormal to inspection, tenderness of the proximal humerus and of the mid-shaft humerus, abnormal ROM held in an abnormal fashion in ADduction, pain with active ROM and pain with passive ROM and ecchymosis, elbow/forearm tenderness, swelling, abnormal ROM, ecchymosis and distal pulses intact, wrist tenderness, swelling, abnormal ROM pain with active ROM during with extension and with flexion, ecchymosis, radial pulse present 2+ and ulnar pulse present 2+ and Extremity exam: right hand normal to inspection, neurosensory exam normal and vascular exam radial pulse present Right lower extremity: normal to inspection and full ROM Left lower extremity: normal to inspection and full ROM Other: Significant ecchymosis noted on right upper extremity Psych: Appearance: grossly normal Mental Status: mental status grossly normal Objective Data Vital Signs Vital Signs: Vital Signs - 24 hr 06/26/24 11:30 06/26/24 11:56 06/26/24 12:00 Temperature 98.2 F Pulse Rate 85 88 Respiratory Rate 24 H Blood Pressure 169/102 H Pulse Oximetry 98 Oxygen Delivery Room Air 06/26/24 12:00 06/26/24 12:16 06/26/24 14:00 Temperature Pulse Rate 79 91 Respiratory Rate Blood Pressure Pulse Oximetry Oxygen Delivery Room Air 06/26/24 15:41 06/26/24 16:00 06/26/24 16:00 Temperature 98.5 F Pulse Rate 86 86 Respiratory Rate 20 Blood Pressure 152/76 H Pulse Oximetry 95 Oxygen Delivery Room Air 06/26/24 18:00 06/26/24 20:00 06/26/24 20:00 Temperature Pulse Rate 84 79 Respiratory Rate Blood Pressure Pulse Oximetry Oxygen Delivery Room Air 06/26/24 20:32 06/26/24 23:12 06/27/24 00:00 Temperature 97.7 F 97.7 F Pulse Rate 85 87 Respiratory Rate 20 20 Blood Pressure 138/71 160/77 H Pulse Oximetry 94 96 Oxygen Delivery Room Air 06/27/24 00:00 06/27/24 04:00 06/27/24 04:00 Temperature Pulse Rate 74 83 Respiratory Rate Blood Pressure Pulse Oximetry Oxygen Delivery Room Air 06/27/24 04:32 06/27/24 07:53 Temperature 97.7 F 98.4 F Pulse Rate 82 96 Respiratory Rate 20 20 Blood Pressure 140/69 149/78 H Pulse Oximetry 97 98 Oxygen Delivery Intake/Output Intake/Output: Intake & Output 06/24/24 06/25/24 06/26/24 06/27/24 23:59 23:59 23:59 23:59 Intake Total 5310.8 4538 3528 100 Output Total 1201 4300 3400 2000 Balance 4109.8 238 128 -1900 Meds/Results Medications: Active Medications Generic Name Dose Route Start Last Admin Trade Name Freq PRN Reason Stop Dose Admin Acetaminophen 650 mg 06/23/24 17:41 Acetaminophen 650 Mg Suppository RECTAL Q6H PRN Mild Pain (1-3) or Fever Ceftriaxone Sodium 2 gm in 100 mls @ 200 mls/hr 06/24/24 04:00 06/27/24 05:35 Rocephin 2 Gm/Ns 100 Ml IVPB 07/03/24 23:59 Infused Q12H KATIA Infusion Sodium Chloride 1,000 mls @ 100 mls/hr 06/23/24 22:55 06/27/24 03:03 Normal Saline Iv IV CONT 100 mls/hr .Q10H KATIA Administration Acyclovir Sodium 800 mg/ 266 mls @ 266 mls/hr 06/24/24 20:00 06/27/24 05:41 Dextrose IVPB 07/03/24 23:59 266 mls/hr Q8H KATIA Administration Ibuprofen 400 mg 06/26/24 10:40 06/26/24 17:22 Ibuprofen 400 Mg Tablet PO 400 mg Q6H PRN Administration Pain Rated 1-3 Metoprolol Succinate 25 mg 06/25/24 09:00 06/26/24 11:30 Metoprolol Succinate Ext Rel 25 Mg Tabcr PO 25 mg QAM KATIA Administration Olanzapine 2.5 mg 06/26/24 10:39 06/26/24 20:18 Olanzapine 2.5 Mg Tablet PO 2.5 mg HS PRN Administration Irritation Sodium Chloride 10 ml 06/26/24 14:00 06/27/24 04:32 Central Line Flush IV PUSH 10 ml Q8HR KATIA Administration Sodium Chloride 10 ml 06/26/24 10:32 Central Line Flush IV PUSH PRN PRN with TPN bag changes Sodium Chloride 20 ml 06/26/24 10:32 Central Line Flush IV PUSH PRN PRN after blood draws Radiology Results: ITS Impressions Head CT 06/23/24 13:50 IMPRESSION: 1. Normal aging brain. No acute intracranial process. Chest CT 06/23/24 16:36 IMPRESSION: 1. Mild atelectasis in the lungs. Wrist X-Ray 06/24/24 15:29 IMPRESSION: 1. Nonspecific soft tissue swelling about the mid to distal right forearm. No acute osseous abnormality. Shoulder X-Ray 06/24/24 15:31 IMPRESSION: Impacted fracture in the proximal metaphysis of the right humerus. Minimal change in alignment. Chest X-Ray 06/26/24 10:16 Impression: 1: Left perihilar linear consolidation, most likely atelectasis. Pneumonia less favored. 2: Cardiomegaly with pulmonary vascular congestion. 3: Left subclavian PICC line tip in the SVC. Labs Labs: Laboratory Results - last 24 hr 06/27/24 06:10 WBC 10.3 H RBC 3.27 L Hgb 10.2 L Hct 30.8 L MCV 94.2 MCH 31.2 MCHC 33.1 RDW 12.3 Plt Count 296 MPV 8.7 Immature Gran % (Auto) 0.3 Neut % (Auto) 81.6 H Lymph % (Auto) 10.1 L [place] % (Auto) 5.4 Eos % (Auto) 2.2 Baso % (Auto) 0.4 Lymph # (Auto) 1.04 [place] # (Auto) 0.6 Eos # (Auto) 0.2 Baso # (Auto) 0.0 Abs Immat Gran (auto) 0.03 Absolute Neuts (auto) 8.4 H Absolute Nucleated RBC 0.000 Nucleated RBC % 0.0 Sodium 137 Potassium 3.5 Chloride 109 H Carbon Dioxide 27 Anion Gap 1 L BUN 8 L D Creatinine 0.50 L Estim Creat Clear Calc 145 Estimated GFR > 60 Glucose 119 H Calcium 8.1 L Quality VTE Prophylaxis VTE prophylaxis: mechanical ordered Hospitalist MIPS Advance Care Plan I have confirmed that the patient's Advanced Care Plan is present, code status is documented, or surrogate decision maker is listed in patient medical record.: Yes Medication Reconciliation I have utilized all available resources to obtain, update and review the patients current medications (includes all prescriptions, OTC, herbals, cannabis, and nutritional supplements).: Yes
[2024-06-27] MEDS: METOPROLOL SUCCINATE EXT REL 25 MG TABCR PO (13:11)
[2024-06-27] MEDS: IBUPROFEN 400 MG TABLET PO (13:19)
[2024-06-27] MEDS: IPRATROPIUM 0.5 MG/ALBUTEROL SULFATE 2.5 MG AMPUL.NEB 3 ML INHALATION (15:37)
[2024-06-28] VITALS (22 sets, daily range): BP systolic 70–149; BP diastolic 57–95; PULSE 76–194; RESP 18–20; TEMP 36.6–38.3; O2SAT 95–98
[2024-06-28] MEDS: SODIUM CHLORIDE 0.9% IV 1,000 ML 100 ML IV CONT ×2 (01:43→13:10)
[2024-06-28] MEDS: ACYCLOVIR SODIUM IVPB 800 MG in DEXTROSE 5% IN WATER 250 ML 266 MG IVPB ×2 (05:00→13:11)
[2024-06-28] MEDS: cefTRIAXone 2 GM/NS 100 ML 2 GM/100 ML BAG IVPB ×2 (06:00→16:59)
[2024-06-28] MEDS: CENTRAL LINE FLUSH 10 ML IV PUSH ×2 (06:12→13:19)
[2024-06-28 06:50] LABS: Basophils Percent Auto 0.3 % (0.2-1.2); Eosinophils Absolute Auto 0.3 K/mm3 (0-0.3); Eosinophils Percent Auto 2.9 % (0-4.4); Hematocrit 28.9 % (42.0-52.0); Hemoglobin 9.6 g/dL (14.0-18.0); Immature Granulocyte Absolute 0.03 K/mm3 (0.00-0.031); Immature Granulocyte Percent A 0.3 % (0-0.5); Lymphocytes Percent Auto 12.4 % (18.3-44.2); Mean Corpuscular HGB Conc 33.2 g/dl (32-36); Mean Corpuscular Hemoglobin 31.1 pg (26-34); Mean Corpuscular Volume 93.5 fl (80-100); Mean Platelet Volume 8.5 fl (7.4-10.4); Monocytes Absolute Auto 0.7 K/mm3 (0.1-0.6); Monocytes Percent Auto 8.1 % (2.6-8.5); Neutrophils Absolute Auto 6.7 K/mm3 (1.3-6.7); Platelet Count Result 270 k/mm3 (150-375); Red Blood Count 3.09 M/mm3 (4.6-6.20); Red Cell Distribution Width 12.5 % (11.5-14.5); White Blood Count 8.9 K/mm3 (4.5-10.0)
[2024-06-28 07:11] LABS: Alanine Aminotransferase 19 U/L (6-50); Albumin Level 2.6 g/dL (3.5-5.1); Alkaline Phosphatase 73 U/L (38-126); Anion Gap 1 mmol/L (4-12); Aspartate Amino Transferase 25 U/L (17-59); Bilirubin,Total 0.8 mg/dL (0.2-1.3); Blood Urea Nitrogen 11 mg/dL (9-20); Calcium 7.9 mg/dL (8.4-10.2); Carbon Dioxide 26 mmol/L (22-30); Chloride 107 mmol/L (98-107); Estimated CRCL calculation 123 ml/min; Estimated Glomerular Filt Rate > 60; Glucose 124 mg/dL (65-110); Potassium 3.4 mmol/L (3.4-5.0); Sodium 134 mmol/L (137-145)
[2024-06-28] MEDS: METOPROLOL SUCCINATE EXT REL 25 MG TABCR PO (10:48)
[2024-06-28] MEDS: IBUPROFEN 400 MG TABLET PO (10:49)
[2024-06-28] MEDS: THIAMINE HCL 100 MG TABLET PO (10:50)
[2024-06-28] MEDS: FOLIC ACID 1 MG TABLET PO (10:50)
[2024-06-28] MEDS: IPRATROPIUM 0.5 MG/ALBUTEROL SULFATE 2.5 MG AMPUL.NEB 3 ML INHALATION (11:00)
[2024-06-28] MEDS: METOPROLOL TARTRATE INJ 5 MG/5 ML VIAL IV PUSH ×2 (12:16→12:30)
--- NOTE | 2024-06-28 12:16 | ECG_ITS ---
Test Date: 2024-06-28 12:15:43 Measurements Intervals [place] Rate: 194 P: 0 VA: 0 QRS: 29 QRSD: 159 T: 0 QT: 221 QTc: 398 Interpretive Statements SUPRAVENTRICULAR TACHYCARDIA INTRAVENTRICULAR CONDUCTION DELAY [130+ ms QRS DURATION] diffuse ST depression consistent with ischemia Compared to ECG 06/23/2024 20:16:04 Intraventricular conduction delay now present Atrial fibrillation no longer present ST (T wave) deviation is now present Electronically Signed On 06-28-2024 12:54:14 SPECIAL PROCEDURE TECH by Chris Hidalgo M.D.
[2024-06-28] MEDS: ADENOSINE IV SOLN 6 MG/2 ML VIAL IV PUSH (12:57)
--- NOTE | 2024-06-28 13:00 | ECG_ITS ---
Test Date: 2024-06-28 13:06:47 Measurements Intervals [place] Rate: 84 P: 0 AL: 0 QRS: 22 QRSD: 88 T: 35 QT: 369 QTc: 437 Interpretive Statements sinus RHYTHM MINIMAL ST DEPRESSION [0.025+ mV ST DEPRESSION] WARNING: DATA QUALITY MAY AFFECT INTERPRETATION Compared to ECG 06/28/2024 12:15:43 sinus rhythm now present Supraventricular tachycardia no longer present Intraventricular conduction delay no longer present ST (T wave) deviation much less Electronically Signed On 06-28-2024 13:37:02 [employer] by Chris Hidalgo M.D.
--- NOTE | 2024-06-28 14:24 | P.PNIM_ITS ---
Progress Note: A&P Assessment and Plan (1) Acute febrile illness: Code(s): R50.9 - Fever, unspecified Status: Acute (2) Metabolic encephalopathy: Code(s): G93.41 - Metabolic encephalopathy Status: Acute (3) Dehydration: Code(s): E86.0 - Dehydration Status: Acute (4) Closed right humeral fracture: Qualifiers: Encounter type: initial encounter Fracture alignment: displaced Humerus Location: surgical neck Code(s): S42.301A - Unspecified fracture of shaft of humerus, right arm, initial encounter for closed fracture Status: Acute (5) Atrial fibrillation with rapid ventricular response: Code(s): I48.91 - Unspecified atrial fibrillation Status: Acute (6) Anemia: Code(s): D64.9 - Anemia, unspecified Status: Acute (7) Dementia: Code(s): F03.90 - Unspecified dementia, unspecified severity, without behavioral disturbance, psychotic disturbance, mood disturbance, and anxiety Status: Acute Plan The patient presented to the emergency department for evaluation of altered mental status as detailed in HPI. Labs, imaging, EKG, and all reports were personally reviewed. Awaiting transfer to [facility] Confusion Patient was diagnosed dementia, cognitive function declines rapidly Increased confusion recently Patient has a fever 100.4 in the ED, leukocytosis, 14,100 upon arrival in the ED Patient is on multiple medication for pain management including hydrocodone History of alcohol dependence, quit drinking in September 2023, Viral panel negative Differential including meningitis, acute metabolic encephalopathy, polypharmacy, dehydration CT head shows no acute intracranial issues No grows from blood culture TSH 0.55, ammonia, B12 878, folate 17, and drug screen to rule out other etiologies. Neurology has been consulted Start fluid resuscitation, poor intake Received ampicillin IV ceftriaxone IV, vancomycin IV acyclovir Discussed with Dr. Solomon and agrees with transfer Discontinued Zyprexa and trazodone Advise ativan as needed for anxiety New onset atrial fibrillation, received diltiazem 10 mg IV x1 in the ED 06/28: Received metoprolol 5 mg x 2. Adenosine 0.6 mg x 1 Also received amiodarone drip Echocardiogram 1. Complete two-dimensional, color flow and Doppler transthoracic echocardiogram is performed. 2. Left ventricular chamber dimension is normal. 3. Left ventricular systolic function is normal, estimated at 65-70%. 4. The left ventricular diastolic function is normal. 5. E/e' 6 is not elevated. Cardiology has been consulted. Follow recommendation Chronic Anemia stable on review of previous labs. Humeral fracture Ortho consulted for humeral fracture. Pain is tolerable Advance diet as tolerable Consult PT OT healthcare market consultant for evaluation and assisting placement Subjective Date/time seen: 06/28/24 14:24 Interval history: Today, a patient had an elevated heart rate of around 190. Nursing reports he received albuterol and PT a few minutes ago before the heart rate elevation. His blood pressure was in the 150s over the 90s. He was given 5 mg metoprolol, but his heart rate was still sustained in the 170s. Repeat blood pressure was in the 130s over 90. Give another 5 mg of metoprolol. The patient's heart rate was still sustained at 170s, and he was given adenosine 0.6 mg. Later, his heart rate after receiving adenosine dropped to 70. The repeat EKG shows ST depression, which was present in the previous EKGs. Will follow Cardio recommendations. Added vancomycin to his regimen and ordered blood cultures due to spikes of fever. I discussed the case with the neurologist, who agreed that the patient's sudden decline in mentation, with other conditions like falls, AFib, confusion, aggression, and possible seizures, could not be explained. The patient needs continuous EEG monitoring and an opinion on infectious disease. Today, I called [facility] and explained pt condition and accepted by Dr. Wheeler. Awaiting transfer. Will defer doing spinal tap and MRI brain. Discontinuing Zyprexa and trazodone. Advised as needed Ativan for anxiety. Review of Systems Review of Systems: Unable to obtain given clinical condition. All systems reviewed & are unremarkable except as noted in HPI and below ROS unobtainable: Yes unobtainable due to mental status Neurologic: Reports Abnormal speech present and Reports confusion Psychiatric: Psychiatric: Reports confusion Exam Narrative: GENERAL: Ill-appearing in no acute distress. Well-nourished. - EYES: EOMI. Anicteric. - HENT: Moist mucous membranes. - LUNGS: Clear to auscultation bilateral ly, no wheezing, rhonchi, or rales. - CARDIOVASCULAR: Regular rate and rhyth m. No murmur. No JVD. - ABDOMEN: Soft, non-tender and non-dist ended. No palpable masses. - EXTREMITIES: No edema. Peripheral puls es 2+. Non-tender., right arm tenderness by palpation, - NEUROLOGIC: No focal neurological defi cits. CN II-XII grossly intact. - PSYCHIATRIC: Awake, Alert and oriente d x to time and person, patient knows he is in hospital. mood and affect: Restless - SKIN: No rashes or lesions. Warm. - LYMPH: No cervical lymphadenopathy. Const: General: comfortable, no acute distress, alert, awake, in distress moderate, anxious, confusion, ill appearing, uncomfortable and average body habitus Nutritional Appearance: average body habitus Orientation/consciousness: patient oriented x3 and confusion Limitations: altered mental status HENMT: Head: normal to inspection Eyes: General: appearance normal, both eyes and all related structures Pupils: Equal, round and reactive pupils present Neck: Neck: normal visual inspection, supple and no JVD Carotids: normal carotid upstroke Resp: Effort & Inspection: normal respiratory effort Auscultation: clear to auscultation bilaterally Cardio: Rate: regular rate Rhythm: regular rhythm Heart sounds: S1 normal heart sound present, S2 normal heart sound present and no murmurs GI: Auscultation: normal bowel sounds Skin: General skin exam: normal color Neuro: General: patient oriented x3, confusion and Unable to assess gait Cranial nerves: Yes Equal, round and reactive pupils present Cognition (Neuro): abnormal cognition Speech: Abnormal speech present Gait exam (Neuro): Unable to assess gait Extrem: General: abnormal to inspection Right upper extremity: shoulder/upper arm abnormal to inspection, tenderness of the proximal humerus and of the mid-shaft humerus, abnormal ROM held in an abnormal fashion in ADduction, pain with active ROM and pain with passive ROM and ecchymosis, el bow/forearm tenderness, swelling, abnormal ROM, ecchymosis and distal pulses intact, wrist tenderness, swelling, abnormal ROM pain with active ROM during with extension and with flexion, ecchymosis, radial pulse present 2+ and ulnar pulse present 2+ and Extremity exam: right hand normal to inspection, neurosensory exam normal and vascular exam radial pulse present Right lower extremity: normal to inspection and full ROM Left lower extremity: normal to inspection and full ROM Other: Significant ecchymosis noted on right upper extremity Psych: Appearance: grossly normal Mental Status: mental status grossly normal Objective Data Vital Signs Vital Signs: Vital Signs - 24 hr 06/27/24 15:24 06/27/24 15:38 06/27/24 16:00 Temperature 99.3 F Pulse Rate 87 89 87 Respiratory Rate 20 20 Blood Pressure 136/72 Pulse Oximetry 94 Oxygen Delivery 06/27/24 16:00 06/27/24 18:00 06/27/24 18:01 Temperature Pulse Rate 79 85 Respiratory Rate 20 Blood Pressure Pulse Oximetry Oxygen Delivery Room Air 06/27/24 20:00 06/27/24 20:00 06/27/24 20:00 Temperature 98.7 F Pulse Rate 83 82 Respiratory Rate 20 Blood Pressure 149/64 H Pulse Oximetry 97 Oxygen Delivery Room Air 06/28/24 00:00 06/28/24 00:00 06/28/24 00:00 Temperature 100.1 F H Pulse Rate 86 89 Respiratory Rate 20 Blood Pressure 133/86 Pulse Oximetry 98 Oxygen Delivery Room Air 06/28/24 02:00 06/28/24 04:00 06/28/24 04:00 Temperature 101 F H Pulse Rate 83 88 83 Respiratory Rate 20 Blood Pressure 149/78 H Pulse Oximetry 95 Oxygen Delivery 06/28/24 04:00 06/28/24 06:00 06/28/24 08:00 Temperature 98 F Pulse Rate 90 99 Respiratory Rate 18 Blood Pressure 149/95 H Pulse Oximetry 95 Oxygen Delivery Room Air 06/28/24 10:48 06/28/24 11:00 06/28/24 11:10 Temperature Pulse Rate 91 93 97 Respiratory Rate 18 20 Blood Pressure Pulse Oximetry Oxygen Delivery 06/28/24 11:26 06/28/24 12:00 06/28/24 12:16 Temperature 100.1 F H Pulse Rate 176 H 194 H Respiratory Rate 20 Blood Pressure 131/80 Pulse Oximetry 95 Oxygen Delivery Room Air 06/28/24 12:30 06/28/24 12:36 06/28/24 13:03 Temperature Pulse Rate 172 H 176 H 162 H Respiratory Rate Blood Pressure 115/95 H 70/57 L Pulse Oximetry 96 Oxygen Delivery 06/28/24 13:09 06/28/24 13:16 Temperature Pulse Rate 84 Respiratory Rate Blood Pressure 144/83 H 144/77 H Pulse Oximetry Oxygen Delivery Intake/Output Intake/Output: Intake & Output 06/25/24 06/26/24 06/27/24 06/28/24 23:59 23:59 23:59 23:59 Intake Total 4533 7045 2040 1706 Output Total 2517 1505 2496 744 Balance 238 128 -1552 856 Meds/Results Medications: Active Medications Generic Name Dose Route Start Last Admin Trade Name Freq PRN Reason Stop Dose Admin Acetaminophen 650 mg 06/23/24 17:41 Acetaminophen 650 Mg Suppository RECTAL Q6H PRN Mild Pain (1-3) or Fever Albuterol/Ipratropium 3 ml 06/27/24 14:48 06/28/24 11:00 Ipratropium 0.5 Mg/Albuterol Sulfate 2.5 Mg Ampul.Neb 3 Ml INHALATION 3 ml Q6HRT PRN Administration wheezing Artificial Tears 1 drop 06/27/24 12:24 Artificial Tears Ophth Soln 15 Ml Bottle EACH EYE QID PRN Dry Eye(s) Folic Acid 1 mg 06/29/24 09:00 Folic Acid 1 Mg Tablet PO DAILY KATIA Ceftriaxone Sodium 2 gm in 100 mls @ 200 mls/hr 06/24/24 04:00 06/28/24 06:30 Rocephin 2 Gm/Ns 100 Ml IVPB 07/03/24 23:59 Infused Q12H KATIA Infusion Sodium Chloride 1,000 mls @ 100 mls/hr 06/23/24 22:55 06/28/24 13:10 Normal Saline Iv IV CONT 100 mls/hr .Q10H KATIA Administration Acyclovir Sodium 800 mg/ 266 mls @ 266 mls/hr 06/24/24 20:00 06/28/24 13:11 Dextrose IVPB 07/03/24 23:59 266 mls/hr Q8H KATIA Administration Ibuprofen 400 mg 06/26/24 10:40 06/28/24 10:49 Ibuprofen 400 Mg Tablet PO 400 mg Q6H PRN Administration Pain Rated 1-3 Metoprolol Tartrate 25 mg 06/28/24 14:10 Metoprolol Tartrate 25 Mg Tablet PO Q8HR KATIA Olanzapine 5 mg 06/27/24 16:06 Olanzapine Dispertab 5 Mg PO DAILY PRN Agitation Sodium Chloride 10 ml 06/26/24 14:00 06/28/24 13:19 Central Line Flush IV PUSH 10 ml Q8HR KATIA Administration Sodium Chloride 10 ml 06/26/24 10:32 Central Line Flush IV PUSH PRN PRN with TPN bag changes Sodium Chloride 20 ml 12/19/24 10:32 Central Line Flush IV PUSH PRN PRN after blood draws Thiamine HCl 100 mg 06/29/24 09:00 Thiamine Hcl 100 Mg Tablet PO QAM KATIA Trazodone HCl 50 mg 06/27/24 16:06 Trazodone Hcl 50 Mg Tablet PO HS PRN Insomnia Radiology Results: ITS Impressions Head CT 06/23/24 13:50 IMPRESSION: 1. Normal aging brain. No acute intracranial process. Chest CT 06/23/24 16:36 IMPRESSION: 1. Mild atelectasis in the lungs. Wrist X-Ray 06/24/24 15:29 IMPRESSION: 1. Nonspecific soft tissue swelling about the mid to distal right forearm. No acute osseous abnormality. Shoulder X-Ray 06/24/24 15:31 IMPRESSION: Impacted fracture in the proximal metaphysis of the right humerus. Minimal change in alignment. Chest X-Ray 06/27/24 13:45 Impression: Stable discoid atelectasis or scarring left perihilar region. No other significant pulmonary abnormality. Left-sided PICC line in place. Labs Labs: Laboratory Results - last 24 hr 06/28/24 06:29 WBC 8.9 RBC 3.09 L Hgb 9.6 L Hct 28.9 L MCV 93.5 MCH 31.1 MCHC 33.2 RDW 12.5 Plt Count 270 MPV 8.5 Immature Gran % (Auto) 0.3 Neut % (Auto) 76.0 H Lymph % (Auto) 12.4 L Andrew % (Auto) 8.1 Eos % (Auto) 2.9 Baso % (Auto) 0.3 Lymph # (Auto) 1.10 Andrew # (Auto) 0.7 H Eos # (Auto) 0.3 Baso # (Auto) 0.0 Abs Immat Gran (auto) 0.03 Absolute Neuts (auto) 6.7 Absolute Nucleated RBC 0.000 Nucleated RBC % 0.0 Sodium 134 L Potassium 3.4 Chloride 107 Carbon Dioxide 26 Anion Gap 1 L BUN 11 Creatinine 0.60 L Estim Creat Clear Calc 123 Estimated GFR > 60 Glucose 124 H Calcium 7.9 L Total Bilirubin 0.8 AST 25 ALT 19 Alkaline Phosphatase 73 Total Protein 5.0 L Albumin 2.6 L Quality VTE Prophylaxis VTE prophylaxis: mechanical ordered Hospitalist [facility] Advance Care Plan I have confirmed that the patient's Advanced Care Plan is present, code status is documented, or surrogate decision maker is listed in patient medical record.: Yes Medication Reconciliation I have utilized all available resources to obtain, update and review the patients current medications (includes all prescriptions, OTC, herbals, cannabis, and nutritional supplements).: Yes
[2024-06-28] MEDS: METOPROLOL TARTRATE 25 MG TABLET PO (15:00)
--- NOTE | 2024-06-28 16:52 | WPDNEUROPN ---
Progress Note: A&P Assessment and Plan (1) Altered mental status: Code(s): R41.82 - Altered mental status, unspecified Status: Acute (2) History of alcohol abuse: Code(s): F10.11 - Alcohol abuse, in remission Status: Acute (3) Atrial fibrillation with rapid ventricular response: Code(s): I48.91 - Unspecified atrial fibrillation Status: Acute (4) Acute febrile illness: Code(s): R50.9 - Fever, unspecified Status: Acute (5) Closed fracture of right proximal humerus: Qualifiers: Encounter type: initial encounter Fracture morphology: other fracture Fracture alignment: displaced Qualified Code(s): S42.291A - Other displaced fracture of upper end of right humerus, initial encounter for closed fracture Code(s): S42.201A - Unspecified fracture of upper end of right humerus, initial encounter for closed fracture Status: Acute Plan Intermittent low-grade temperature and fluctuating mental status is a must 1. There is a history of alcohol drinking but apparently he has not been drinking since September. He also went into supraventricular tachycardia this afternoon. I discussed with the hospitalist and I advised that we should hold off Zyprexa and trazodone. He may be given a wide spectrum antibiotic coverage and consider spinal tap to look for encephalitis. He is currently not on anticoagulation. Cardiology is following. The changes in mental status is also difficult to explain fully. A referral to a tertiary care is also a recommendation if possible since continuous EEG monitoring and a consultation with Infectious Disease may be helpful. In the meanwhile benzodiazepines should be preferred over Zyprexa or trazodone for insomnia and behavior problems. I believe that sometimes his behavior can be a problem which is also something that we need to watch for. He does not appear to be tremulous or show any other features to suggest alcohol withdrawal his is fairly certain that he does not drink at all since September of 2023. Subjective Date/time seen: 06/28/24 16:52 Interval history: 68-year-old with history of right humerus fracture and atrial fibrillation had a bout of supraventricular tachycardia this afternoon for which he was given Adenocard and now has converted back to sinus rhythm. Cardiology is following and the Toprol has been adjusted. I discussed this with hospitalist. Patient is also confused. His is also by the bedside. He has difficulty falling asleep. He is currently on olanzapine 5 mg a day and add trazodone 50 mg at bedtime but it. There is history of alcohol drinking but he has stopped drinking in September 2023. His temperature 100.1? this morning. Is 98.8 now. Exam Narrative: patient is confused but happy and talking things which did not appear relevant. Denies any pain. Difficult to evaluate reliably since he has relatively confused. He points to his a right side where he has a fracture. No other additional new findings were noted. Objective Data Vital Signs Vital Signs: Vital Signs - 24 hr 06/27/24 18:00 06/27/24 18:01 06/27/24 20:00 Temperature 98.7 F Pulse Rate 79 85 83 Respiratory Rate 20 20 Blood Pressure 149/64 H Pulse Oximetry 97 Oxygen Delivery 06/27/24 20:00 06/27/24 20:00 06/28/24 00:00 Temperature 100.1 F H Pulse Rate 82 86 Respiratory Rate 20 Blood Pressure 133/86 Pulse Oximetry 98 Oxygen Delivery Room Air 06/28/24 00:00 06/28/24 00:00 06/28/24 02:00 Temperature Pulse Rate 89 83 Respiratory Rate Blood Pressure Pulse Oximetry Oxygen Delivery Room Air 06/28/24 04:00 06/28/24 04:00 06/28/24 04:00 Temperature 101 F H Pulse Rate 88 83 Respiratory Rate 20 Blood Pressure 149/78 H Pulse Oximetry 95 Oxygen Delivery Room Air 06/28/24 06:00 06/28/24 08:00 06/28/24 10:48 Temperature 98 F Pulse Rate 90 99 91 Respiratory Rate 18 Blood Pressure 149/95 H Pulse Oximetry 95 Oxygen Delivery 06/28/24 11:00 06/28/24 11:10 06/28/24 11:26 Temperature Pulse Rate 93 97 Respiratory Rate 18 20 Blood Pressure Pulse Oximetry Oxygen Delivery Room Air 06/28/24 12:00 06/28/24 12:16 06/28/24 12:30 Temperature 100.1 F H Pulse Rate 176 H 194 H 172 H Respiratory Rate 20 Blood Pressure 131/80 Pulse Oximetry 95 Oxygen Delivery 06/28/24 12:36 06/28/24 13:03 06/28/24 13:09 Temperature Pulse Rate 176 H 162 H Respiratory Rate Blood Pressure 115/95 H 70/57 L 144/83 H Pulse Oximetry 96 Oxygen Delivery 06/28/24 13:16 06/28/24 16:00 Temperature 98.8 F Pulse Rate 84 83 Respiratory Rate 18 Blood Pressure 144/77 H 140/86 Pulse Oximetry 97 Oxygen Delivery Intake/Output Intake/Output: Intake & Output 06/25/24 06/26/24 06/27/24 06/28/24 23:59 23:59 23:59 23:59 Intake Total 4538 3528 2048 1946 Output Total 4300 3400 3600 2550 Balance 238 203 -5399 -757 Meds/Results Medications: Active Medications Generic Name Dose Route Start Last Admin Trade Name Freq PRN Reason Stop Dose Admin Acetaminophen 650 mg 06/23/24 17:41 Acetaminophen 650 Mg Suppository RECTAL Q6H PRN Mild Pain (1-3) or Fever Albuterol/Ipratropium 3 ml 06/27/24 14:48 06/28/24 11:00 Ipratropium 0.5 Mg/Albuterol Sulfate 2.5 Mg Ampul.Neb 3 Ml INHALATION 3 ml Q6HRT PRN Administration wheezing Artificial Tears 1 drop 06/27/24 12:24 Artificial Tears Ophth Soln 15 Ml Bottle EACH EYE QID PRN Dry Eye(s) Folic Acid 1 mg 06/29/24 09:00 Folic Acid 1 Mg Tablet PO DAILY KATIA Ceftriaxone Sodium 2 gm in 100 mls @ 200 mls/hr 06/24/24 04:00 06/28/24 06:30 Rocephin 2 Gm/Ns 100 Ml IVPB 07/03/24 23:59 Infused Q12H KATIA Infusion Sodium Chloride 1,000 mls @ 100 mls/hr 06/23/24 22:55 06/28/24 13:10 Normal Saline Iv IV CONT 100 mls/hr .Q10H KATIA Administration Acyclovir Sodium 800 mg/ 266 mls @ 266 mls/hr 06/24/24 20:00 06/28/24 13:11 Dextrose IVPB 07/03/24 23:59 266 mls/hr Q8H KATIA Administration Ibuprofen 400 mg 06/26/24 10:40 06/28/24 10:49 Ibuprofen 400 Mg Tablet PO 400 mg Q6H PRN Administration Pain Rated 1-3 Metoprolol Tartrate 25 mg 06/28/24 14:10 Metoprolol Tartrate 25 Mg Tablet PO Q8HR KATIA Olanzapine 5 mg 06/27/24 16:06 Olanzapine Dispertab 5 Mg PO DAILY PRN Agitation Sodium Chloride 10 ml 06/26/24 14:00 06/28/24 13:19 Central Line Flush IV PUSH 10 ml Q8HR KATIA Administration Sodium Chloride 10 ml 06/26/24 10:32 Central Line Flush IV PUSH PRN PRN with TPN bag changes Sodium Chloride 20 ml 06/26/24 10:32 Central Line Flush IV PUSH PRN PRN after blood draws Thiamine HCl 100 mg 06/29/24 09:00 Thiamine Hcl 100 Mg Tablet PO QAM KATIA Trazodone HCl 50 mg 06/27/24 16:06 Trazodone Hcl 50 Mg Tablet PO HS PRN Insomnia Radiology Results: ITS Impressions Head CT 06/23/24 13:50 IMPRESSION: 1. Normal aging brain. No acute intracranial process. Chest CT 06/23/24 16:36 IMPRESSION: 1. Mild atelectasis in the lungs. Wrist X-Ray 06/24/24 15:29 IMPRESSION: 1. Nonspecific soft tissue swelling about the mid to distal right forearm. No acute osseous abnormality. Shoulder X-Ray 06/24/24 15:31 IMPRESSION: Impacted fracture in the proximal metaphysis of the right humerus. Minimal change in alignment. Chest X-Ray 06/27/24 13:45 Impression: Stable discoid atelectasis or scarring left perihilar region. No other significant pulmonary abnormality. Left-sided PICC line in place. Labs Labs: Laboratory Results - last 24 hr 06/28/24 06:29 WBC 8.9 RBC 3.09 L Hgb 9.6 L Hct 28.9 L MCV 93.5 MCH 31.1 MCHC 33.2 RDW 12.5 Plt Count 270 MPV 8.5 Immature Gran % (Auto) 0.3 Neut % (Auto) 76.0 H Lymph % (Auto) 12.4 L [place] % (Auto) 8.1 Eos % (Auto) 2.9 Baso % (Auto) 0.3 Lymph # (Auto) 1.10 [place] # (Auto) 0.7 H Eos # (Auto) 0.3 Baso # (Auto) 0.0 Abs Immat Gran (auto) 0.03 Absolute Neuts (auto) 6.7 Absolute Nucleated RBC 0.000 Nucleated RBC % 0.0 Sodium 134 L Potassium 3.4 Chloride 107 Carbon Dioxide 26 Anion Gap 1 L BUN 11 Creatinine 0.60 L Estim Creat Clear Calc 123 Estimated GFR > 60 Glucose 124 H Calcium 7.9 L Total Bilirubin 0.8 AST 25 ALT 19 Alkaline Phosphatase 73 Total Protein 5.0 L Albumin 2.6 L
[2024-06-28] MEDS: VANCOMYCIN 1,250 MG/NS 250 ML 1,250 MG/250 ML BAG 166.67 MG IVPB ×2 (19:00→20:30)
[2024-06-29] VITALS (22 sets, daily range): BP systolic 135–167; BP diastolic 69–87; PULSE 71–98; RESP 16–24; TEMP 36.7–38.4; O2SAT 93–98
[2024-06-29] MEDS: METOPROLOL TARTRATE 25 MG TABLET PO ×4 (01:00→21:40)
[2024-06-29] MEDS: CENTRAL LINE FLUSH 10 ML IV PUSH ×3 (01:10→16:26)
[2024-06-29] MEDS: cefTRIAXone 2 GM/NS 100 ML 2 GM/100 ML BAG IVPB ×2 (04:42→16:26)
[2024-06-29] MEDS: SODIUM CHLORIDE 0.9% IV 1,000 ML 100 ML IV CONT (04:42)
[2024-06-29] MEDS: ACYCLOVIR SODIUM IVPB 800 MG in DEXTROSE 5% IN WATER 250 ML 266 MG IVPB ×4 (06:19→20:09)
[2024-06-29 06:41] LABS: Hematocrit 29.7 % (42.0-52.0); Hemoglobin 9.7 g/dL (14.0-18.0); Mean Corpuscular HGB Conc 32.7 g/dl (32-36); Mean Corpuscular Hemoglobin 30.7 pg (26-34); Mean Platelet Volume 8.6 fl (7.4-10.4); Platelet Count Result 249 k/mm3 (150-375); Red Blood Count 3.16 M/mm3 (4.6-6.20); Red Cell Distribution Width 12.4 % (11.5-14.5); White Blood Count 9.7 K/mm3 (4.5-10.0)
[2024-06-29] MEDS: VANCOMYCIN 1,500 MG/NS 500 ML 1,500 MG/500 ML BAG 250 MG IVPB ×2 (06:44→14:11)
[2024-06-29 06:59] LABS: Alanine Aminotransferase 20 U/L (6-50); Albumin Level 2.8 g/dL (3.5-5.1); Alkaline Phosphatase 76 U/L (38-126); Anion Gap 2 mmol/L (4-12); Aspartate Amino Transferase 26 U/L (17-59); Bilirubin,Total 0.8 mg/dL (0.2-1.3); Blood Urea Nitrogen 10 mg/dL (9-20); Calcium 7.9 mg/dL (8.4-10.2); Carbon Dioxide 26 mmol/L (22-30); Chloride 106 mmol/L (98-107); Estimated CRCL calculation 145 ml/min; Estimated Glomerular Filt Rate > 60; Glucose 97 mg/dL (65-110); Potassium 3.6 mmol/L (3.4-5.0); Sodium 134 mmol/L (137-145)
[2024-06-29 09:43] LABS: Magnesium 1.8 mg/dL (1.6-2.3)
[2024-06-29] MEDS: FOLIC ACID 1 MG TABLET PO (09:51)
[2024-06-29] MEDS: THIAMINE HCL 100 MG TABLET PO ×2 (09:51→09:56)
[2024-06-29] MEDS: POTASSIUM CHLORIDE 20 MEQ ER TABLET 40 MEQ PO (09:52)
[2024-06-29] MEDS: IPRATROPIUM 0.5 MG/ALBUTEROL SULFATE 2.5 MG AMPUL.NEB 3 ML INHALATION (12:06)
--- NOTE | 2024-06-29 12:45 | P.PNIM_ITS ---
Progress Note: A&P Assessment and Plan (1) Acute febrile illness: Code(s): R50.9 - Fever, unspecified Status: Acute (2) Metabolic encephalopathy: Code(s): G93.41 - Metabolic encephalopathy Status: Acute (3) Dehydration: Code(s): E86.0 - Dehydration Status: Acute (4) Closed right humeral fracture: Qualifiers: Encounter type: initial encounter Fracture alignment: displaced Humerus Location: surgical neck Code(s): S42.301A - Unspecified fracture of shaft of humerus, right arm, initial encounter for closed fracture Status: Acute (5) Atrial fibrillation with rapid ventricular response: Code(s): I48.91 - Unspecified atrial fibrillation Status: Acute (6) Anemia: Code(s): D64.9 - Anemia, unspecified Status: Acute (7) Dementia: Code(s): F03.90 - Unspecified dementia, unspecified severity, without behavioral disturbance, psychotic disturbance, mood disturbance, and anxiety Status: Acute Plan The patient presented to the emergency department for evaluation of altered mental status as detailed in HPI. Labs, imaging, EKG, and all reports were personally reviewed. Awaiting transfer to [facility] Confusion Patient was diagnosed dementia, cognitive function declines rapidly Increased confusion recently Patient has a fever 100.4 in the ED, leukocytosis, 14,100 upon arrival in the ED Patient is on multiple medication for pain management including hydrocodone History of alcohol dependence, quit drinking in September 2023, Viral panel negative Differential including meningitis, acute metabolic encephalopathy, polypharmacy, dehydration CT head shows no acute intracranial issues No grows from blood culture TSH 0.55, ammonia, B12 878, folate 17, and drug screen to rule out other etiologies. Neurology has been consulted Start fluid resuscitation, poor intake Received ampicillin IV ceftriaxone IV, vancomycin IV acyclovir Discussed with Dr. Solomon and agrees with transfer Discontinued Zyprexa and trazodone Advise ativan as needed for anxiety New onset atrial fibrillation, received diltiazem 10 mg IV x1 in the ED 06/28: Received metoprolol 5 mg x 2. Adenosine 0.6 mg x 1 Also received amiodarone drip Echocardiogram 1. Complete two-dimensional, color flow and Doppler transthoracic echocardiogram is performed. 2. Left ventricular chamber dimension is normal. 3. Left ventricular systolic function is normal, estimated at 65-70%. 4. The left ventricular diastolic function is normal. 5. E/e' 6 is not elevated. Cardiology has been consulted. Follow recommendation Chronic Anemia stable on review of previous labs. Humeral fracture Ortho consulted for humeral fracture. Pain is tolerable Advance diet as tolerable Consult PT OT critical care technician for evaluation and assisting placement Subjective Date/time seen: 06/29/24 12:45 Interval history: 06/29: No acute events reported.Patient is more disoriented when compared to yesterday. No evidence of neurological deficits. As mentioned earlier still awaiting for the transfer to [facility]. Accepted by . Holding on MRI and spinal tap. 06/28:Patient had an elevated heart rate of around 190. Nursing reports he received albuterol and PT a few minutes ago before the heart rate elevation. His blood pressure was in the 150s over the 90s. He was given 5 mg metoprolol, but his heart rate was still sustained in the 170s. Repeat blood pressure was in the 130s over 90. Give another 5 mg of metoprolol. The patient's heart rate was still sustained at 170s, and he was given adenosine 0.6 mg. Later, his heart rate after receiving adenosine dropped to 70. The repeat EKG shows ST depression, which was present in the previous EKGs. Will follow Cardio recommendations. Added vancomycin to his regimen and ordered blood cultures due to spikes of fever. I discussed the case with the neurologist, who agreed that the patient's sudden decline in mentation, with other conditions like falls, AFib, confusion, aggression, and possible seizures, could not be explained. The patient needs continuous EEG monitoring and an opinion on infectious disease. Today, I called [facility] and explained pt condition and accepted by Dr. Wheeler. Awaiting transfer. Will defer doing spinal tap and MRI brain. Discontinuing Zyprexa and trazodone. Advised as needed Ativan for anxiety. Review of Systems Review of Systems: Unable to obtain given clinical condition. All systems reviewed & are unremarkable except as noted in HPI and below ROS unobtainable: Yes unobtainable due to mental status Neurologic: Reports Abnormal speech present and Reports confusion Psychiatric: Psychiatric: Reports confusion Exam Narrative: GENERAL: Ill-appearing in no acute distress. Well-nourished. - EYES: EOMI. Anicteric. - HENT: Moist mucous membranes. - LUNGS: Clear to auscultation bilateral ly, no wheezing, rhonchi, or rales. - CARDIOVASCULAR: Regular rate and rhyth m. No murmur. No JVD. - ABDOMEN: Soft, non-tender and non-dist ended. No palpable masses. - EXTREMITIES: No edema. Peripheral puls es 2+. Non-tender., right arm tenderness by palpation, - NEUROLOGIC: No focal neurological defi cits. CN II-XII grossly intact. - PSYCHIATRIC: Awake, Alert and oriente d x to time and person, patient knows he is in hospital. mood and affect: Restless - SKIN: No rashes or lesions. Warm. - LYMPH: No cervical lymphadenopathy. Const: General: comfortable, no acute distress, alert, awake, in distress moderate, anxious, confusion, ill appearing, uncomfortable and average body habitus Nutritional Appearance: average body habitus Orientation/consciousness: patient oriented x3 and confusion Limitations: altered mental status HENMT: Head: normal to inspection Eyes: General: appearance normal, both eyes and all related structures Pupils: Equal, round and reactive pupils present Neck: Neck: normal visual inspection, supple and no JVD Carotids: normal carotid upstroke Resp: Effort & Inspection: normal respiratory effort Auscultation: clear to auscultation bilaterally Cardio: Rate: regular rate Rhythm: regular rhythm Heart sounds: S1 normal heart sound present, S2 normal heart sound present and no murmurs GI: Auscultation: normal bowel sounds Skin: General skin exam: normal color Neuro: General: patient oriented x3, confusion and Unable to assess gait Cranial nerves: Yes Equal, round and reactive pupils present Cognition (Neuro): abnormal cognition Speech: Abnormal speech present Gait exam (Neuro): Unable to assess gait Extrem: General: abnormal to inspection Right upper extremity: shoulder/upper arm abnormal to inspection, tenderness of the proximal humerus and of the mid-shaft humerus, abnormal ROM held in an abnormal fashion in ADduction, pain with active ROM and pain with passive ROM and ecchymosis, elbow/forearm tenderness, swelling, abnormal ROM, ecchymosis and distal pulses intact, wrist tenderness, swelling, abnormal ROM pain with active ROM during with extension and with flexion, ecchymosis, radial pulse present 2+ and ulnar pulse present 2+ and Extremity exam: right hand normal to inspection, neurosensory exam normal and vascular exam radial pulse present Right lower extremity: normal to inspection and full ROM Left lower extremity: normal to inspection and full ROM Other: Significant ecchymosis noted on right upper extremity Psych: Appearance: grossly normal Mental Status: mental status grossly normal Objective Data Vital Signs Vital Signs: Vital Signs - 24 hr 06/28/24 13:03 06/28/24 13:09 06/28/24 13:16 Temperature Pulse Rate 162 H 84 Respiratory Rate Blood Pressure 70/57 L 144/83 H 144/77 H Pulse Oximetry Oxygen Delivery 06/28/24 14:00 06/28/24 15:00 06/28/24 16:00 Temperature 98.8 F Pulse Rate 92 85 83 Respiratory Rate 18 Blood Pressure 140/86 Pulse Oximetry 97 Oxygen Delivery 06/28/24 16:00 06/28/24 16:00 06/28/24 18:00 Temperature Pulse Rate 79 84 Respiratory Rate Blood Pressure Pulse Oximetry Oxygen Delivery Room Air 06/28/24 20:00 06/28/24 20:00 06/28/24 20:00 Temperature 98.6 F Pulse Rate 85 76 Respiratory Rate 18 Blood Pressure 139/65 Pulse Oximetry 98 Oxygen Delivery Room Air 06/28/24 22:00 06/29/24 00:00 06/29/24 00:00 Temperature 98.1 F Pulse Rate 90 98 Respiratory Rate 18 Blood Pressure 166/74 H Pulse Oximetry 98 Oxygen Delivery Room Air 06/29/24 00:00 06/29/24 01:00 06/29/24 02:00 Temperature Pulse Rate 95 90 86 Respiratory Rate Blood Pressure Pulse Oximetry Oxygen Delivery 06/29/24 04:00 06/29/24 04:00 06/29/24 04:59 Temperature 98.0 F Pulse Rate 71 76 Respiratory Rate 18 Blood Pressure 167/79 H Pulse Oximetry 96 Oxygen Delivery Room Air 06/29/24 06:00 06/29/24 06:29 06/29/24 07:32 Temperature 99.0 F Pulse Rate 89 88 86 Respiratory Rate 24 H Blood Pressure 136/87 Pulse Oximetry 96 Oxygen Delivery 06/29/24 12:06 06/29/24 12:06 06/29/24 12:18 Temperature Pulse Rate 88 87 Respiratory Rate 22 H 22 H Blood Pressure Pulse Oximetry 93 Oxygen Delivery Room Air Intake/Output Intake/Output: Intake & Output 06/26/24 06/27/24 06/28/24 06/29/24 23:59 23:59 23:59 23:59 Intake Total 1359 3045 3552 1352 Output Total 3400 3600 2550 2850 Balance 128 -1552 1002 -1498 Meds/Results Medications: Active Medications Generic Name Dose Route Start Last Admin Trade Name Freq PRN Reason Stop Dose Admin Acetaminophen 650 mg 06/23/24 17:41 Acetaminophen 650 Mg Suppository RECTAL Q6H PRN Mild Pain (1-3) or Fever Albuterol/Ipratropium 3 ml 06/27/24 14:48 06/29/24 12:06 Ipratropium 0.5 Mg/Albuterol Sulfate 2.5 Mg Ampul.Neb 3 Ml INHALATION 3 ml Q6HRT PRN Administration wheezing Artificial Tears 1 drop 06/27/24 12:24 Artificial Tears Ophth Soln 15 Ml Bottle EACH EYE QID PRN Dry Eye(s) Folic Acid 1 mg 06/29/24 09:00 06/29/24 09:51 Folic Acid 1 Mg Tablet PO 1 mg DAILY KATIA Administration Ceftriaxone Sodium 2 gm in 100 mls @ 200 mls/hr 06/24/24 04:00 06/29/24 06:05 Rocephin 2 Gm/Ns 100 Ml IVPB 07/03/24 23:59 Infused Q12H KATIA Infusion Sodium Chloride 1,000 mls @ 100 mls/hr 06/23/24 22:55 06/29/24 04:42 Normal Saline Iv IV CONT 100 mls/hr .Q10H KATIA Administration Acyclovir Sodium 800 mg/ 266 mls @ 266 mls/hr 06/24/24 20:00 06/29/24 07:19 Dextrose IVPB 07/03/24 23:59 Infused Q8H KATIA Infusion Vancomycin HCl 1,500 mg in 500 mls @ 250 mls/hr 06/29/24 04:00 06/29/24 06:44 Vancomycin 1,500 Mg/Ns 500 Ml IVPB 250 mls/hr Q8H KATIA Administration Ibuprofen 400 mg 06/26/24 10:40 06/28/24 10:49 Ibuprofen 400 Mg Tablet PO 400 mg Q6H PRN Administration Pain Rated 1-3 Metoprolol Tartrate 25 mg 06/28/24 14:10 06/29/24 06:29 Metoprolol Tartrate 25 Mg Tablet PO 25 mg Q8HR KATIA Administration Sodium Chloride 10 ml 06/26/24 14:00 06/29/24 06:30 Central Line Flush IV PUSH 10 ml Q8HR KATIA Administration Sodium Chloride 10 ml 06/26/24 10:32 Central Line Flush IV PUSH PRN PRN with TPN bag changes Sodium Chloride 20 ml 06/26/24 10:32 Central Line Flush IV PUSH PRN PRN after blood draws Thiamine HCl 100 mg 06/29/24 09:00 06/29/24 09:56 Thiamine Hcl 100 Mg Tablet PO 100 mg QAM KATIA Administration Radiology Results: ITS Impressions Head CT 06/23/24 13:50 IMPRESSION: 1. Normal aging brain. No acute intracranial process. Chest CT 06/23/24 16:36 IMPRESSION: 1. Mild atelectasis in the lungs. Wrist X-Ray 06/24/24 15:29 IMPRESSION: 1. Nonspecific soft tissue swelling about the mid to distal right forearm. No acute osseous abnormality. Shoulder X-Ray 06/24/24 15:31 IMPRESSION: Impacted fracture in the proximal metaphysis of the right humerus. Minimal change in alignment. Chest X-Ray 06/27/24 13:45 Impression: Stable discoid atelectasis or scarring left perihilar region. No other significant pulmonary abnormality. Left-sided PICC line in place. Labs Labs: Laboratory Results - last 24 hr 06/29/24 06:25 WBC 9.7 RBC 3.16 L Hgb 9.7 L Hct 29.7 L MCV 94.0 MCH 30.7 MCHC 32.7 RDW 12.4 Plt Count 249 MPV 8.6 Sodium 134 L Potassium 3.6 Chloride 106 Carbon Dioxide 26 Anion Gap 2 L BUN 10 Creatinine 0.50 L Estim Creat Clear Calc 145 Estimated GFR > 60 Glucose 97 Calcium 7.9 L Magnesium 1.8 Total Bilirubin 0.8 AST 26 ALT 20 Alkaline Phosphatase 76 Total Protein 6.0 L Albumin 2.8 L Quality VTE Prophylaxis VTE prophylaxis: mechanical ordered Hospitalist MIPS Advance Care Plan I have confirmed that the patient's Advanced Care Plan is present, code status is documented, or surrogate decision maker is listed in patient medical record.: Yes Medication Reconciliation I have utilized all available resources to obtain, update and review the patients current medications (includes all prescriptions, OTC, herbals, cannabis, and nutritional supplements).: Yes
--- NOTE | 2024-06-29 16:34 | PCOTNOTE ---
Per RN, pt is not appropriate for OT treatment on this date due to increase confusion,etc. RN states that pt will be transferring to another hospital for further testing when available. Will continue per POC duration/frequency when appropriate.
[2024-06-29 20:37] LABS: Vancomycin Trough 11.7 ug/mL (10.0-20.0)
[2024-06-29] MEDS: VANCOMYCIN 1,750 MG/NS 500 ML 1,750 MG/500 ML BAG 250 MG IVPB (21:39)
[2024-06-30] VITALS: PULSE 86
--- NOTE | 2024-06-30 00:10 | PC.NURSE ---
Addendum entered by Saundra Sanchez RN 06/30/24 00:23: 0020 Per Lakesha at the [facility] transfer center, the [facility] Seismographer has agreed to hold this bed tonight so EMS can accommodate his transfer. Original Note: Per Noemí at [facility], the patient is next on the list to transfer if no other 911 calls take precedence. Estimated ETA now 0030 06/30. Lakesha at [facility] transfer line unsure if bed can be held any longer due to EMS pushing back this transfer for several hours at this point. Lakesha is to contact [facility] Seismographer and call this policy writer back with decision if bed can be held.
[2024-06-30 00:25] VITALS: PULSE 87; RESP 22; O2SAT 97
--- OUTSIDE RECORDS SUMMARY | 2024-07-02 02:39 | XMS_ITS | Encounter Summary ---
Author Organization [facility] Address [address] [place] [address] Care Team Providers Care Animal Husbandry Professor Name Role Phone Unavailable Primary Care Provider Unavailabl e Encounter Details Date Type Department Care Team (Late Contact Info) Description 05/13/2024 Orders Only [facility] Oncology [facility] Hematology [facility] Jasson [address] [place] [phone] Nelson Saavedra MD [address] [place] [address] [address] [place] [id number] Social History Tobacco Use Types Packs/Day Years Used Date Smoking Tobacco: Former Cigarettes 1 40 Q uit: 12/18/2016 Alcohol Use Standard Drinks/Week Comments Not Currently 0 (1 standard drink = 0.6 oz pur e alcohol) stopped drinking in september Sex and Gender Information Value Date Recorded Sex Assigned at Not on file Gender Identity Not on file Sexual Orientation Not on file documented as of this encounter Plan of Treatment Upcoming Encounters Date Type Department Care Team (Late Contact Info) Description 11/24/2024 11:30 AM CDT Office Visit [facility] Oncology and Hematology [place] [address] [place] [address] Nelson Saavedra MD [address] [place] [address] [address] [place] [phone] documented as of this encounter Procedures Procedure Name Priority Date/Time Associated Diagnosis Comments IGG Routine 05/12/2024 9:08 AM CELL STRIPPER documented in this encounter Results * IGG (05/12/2024 9:08 AM CELL STRIPPER) Blood Nelson Saavedra MD CHEMISTRY ORDERABLES documented in this encounter Visit Diagnoses Not on filedocumented in this encounter
--- OUTSIDE RECORDS SUMMARY | 2024-07-02 02:39 | XMS_ITS | Encounter Summary ---
Author Organization [facility] [facility] Address [address] [place] [address] Care Team Providers Care Atomizer Assembler Name Role Phone Unavailable Primary Care Provider Unavailabl e Encounter Details Date Type Department Care Team (Late st Contact Info) Description 01/24/2024 3:45 PM CDT Telephone Check Up [facility] Oncology and Hematology - John [address] [facility] [address] [place] [address] Nelson Saavedra MD [address] [place] [address] Social History Tobacco Use Types Packs/Day [...] on file documented as of this encounter Progress Notes * Nelson Saavedra MD - 01/24/2024 4:43 PM CDT HEMATOLOGY / ONCOLOGY PROGRESS NOTE Patient Identification: Name: Tony Mauro Age: 68 y.o. Sex: male : 1955 DIAGNOSIS Normocytic anemia Leukocytosis Unintentional weight loss CURRENT TREATMENT Expectant TREATMENT HISTORY SUBJECTIVE This is a phone visit with patient. He denies any excessive tiredness and fatigue. No bleeding and bruising. No chest pain shortness of breath. No other new complaints. Review of system Constitutional: Patient did not mention fevers, sweats, denies any tiredness and fatigue HEENT: Patient did not mention sinus congestion, hearing or vision problems Respiratory: Patient did not mention cough, dyspnea, wheeze Cardiovascular: Patient did not mention chest pain, exertional chest pressure/discomfort, nausea, syncope, shortness of breath GI: Patient did not mention constipation, diarrhea, dsyphagia, reflux symptoms, vomiting, melena : Patient did not mention dysuria, frequency, incontinence, urgency Integumentary system: no lymphadenopathy, sweats, flushing Musculoskeletal: Patient not mention: myalgia, arthralgia Neurological: Patient did not mention blurry or disturbed vision, numbness/weakness, dizziness Skin: No lumps, bumps or rashes. 12 point review of system was reviewed Objective: Vital signs in last 24 hours: As per nursing note Exam: This is a phone visit [facility] Labs from December 18 showed hemoglobin 13.8 platelet 4 98,000 WBC 7.9 LDH 187 iron 111 ferritin 200 saturation 34% soluble transferrin receptor elevated at 1.81 serum protein elevated at 9.0. Labs from January 02 including serum protein electrophoresis showed no monoclonal spike serum protein 7.3 [place] light chain 31 lambda light chain 36 ratio 0.84 normal immunoglobulin levels Assessment: Plan: There are no problems to display for this patient. Normocytic anemia. Labs showed elevated soluble transferrin receptor indicating iron deficiency. Will start iron 65 mg once a day. Repeat labs in 3 months. Elevated serum protein. See protein electrophoresis and immunofixation showed no monoclonal protein. Repeat protein level was also normal. Quantitative immunoglobulin was also normal. We will see himback in 3 months with repeat labs. Unintentional weight loss. Previous testing for malignancy including colonoscopy, CT scan of chest abdomen and pelvis, PSA was all negative. He just started gaining weight. Leukocytosis. Resolved. Follow up with labs on return to clinic in 3 months. TOBACCO COUNSELING He is not a tobacco/nicotine user. 01/24/2024 Nelson Saavedra MD This encounter was completed via audio-only two way synchronous communication. Patient's identity confirmed yes Patient gave verbal consent to have these services billed to their insurance and expressed understanding that co-insurance and deductible may apply: yes Time spent by the provider delivering the care documented in this encounter 21 minutes. documented in this encounter Plan of Treatment Upcoming Encounters Date Type Department Care Team (Late st Contact Info) Description 11/24/2024 11:30 AM CDT Office Visit [facility] Oncology and Hematology - [place] [address] [facility] [address] [place] [address] Nelson Saavedra MD [address] [place] [address] documented as of this encounter Visit Diagnoses Not on filedocumented in this encounter
--- OUTSIDE RECORDS SUMMARY | 2024-07-02 02:39 | XMS_ITS | Encounter Summary ---
Author Organization [facility] Address [address] [place] [address] Care Team Providers Care Lining Sewer Name Role Phone Unavailable Primary Care Provider Unavailabl e Encounter Details Date Type Department Care Team (Late st Contact Info) Description 05/12/2024 External Device Data [facility] ABSTRACTION Provider, Abstract NO ADDRESS ON FILE Social History Tobacco Use Types Packs/Day Years [...] Description 11/24/2024 11:30 AM CDT Office Visit [facility] Oncology and Hematology - [place] [address] [place] [address] [facility] [address] [place] [address] Nelson Saavedra MD [address] [place] [address] documented as of this encounter Visit Diagnoses Not on filedocumented in this encounter
--- OUTSIDE RECORDS SUMMARY | 2024-07-02 02:39 | XMS_ITS | Clinical Summary ---
Author Organization [facility] Kiah sullivan Bulmaro Address [address] [place] [address] Care Team Providers Care Material Control Clerk Name Role Phone Unavailable Primary Care Provider Unavailabl e Allergies No known active allergies Medications Medication Sig Dispensed Refills Start Date End Date Status aspirin (ECOTRIN EC) 81 mg Tablet, Delayed Release (E.C.) Take 81 mg by mouth daily. Active atorvastatin (LIPITOR) 20 mg tablet Take 20 mg by mouth daily. Active lisinopril-hydroCHLOR Othiazide (ZESTORETIC) 20-25 mg tablet Take 1 Tablet by mouth daily. Active multivitamin (DAILY-JESSICA) tablet Take 1 Tablet by mouth daily. Active Vit C-Vit X-Dtvrph-TmJs-Lutein (PRESERVISION) 226-90-0.8-5 mg Capsule Take 1 Capsule by mouth daily. Active viatamin B complex-vitamin I-cgrtsvyc-icit-folic acid 106 mg iron- 1 mg Tablet Take 1 Tablet by mouth daily. Active CALCIUM CITRATE-VITAMIN D3 ORAL Take by mouth. Active sildenafiL (VIAGRA) 25 mg tablet Take by mouth 1 time daily as needed for Erectile Dysfunction. Active Active Problems No known active problems Encounters Date Type Department Care Team Description 05/23/2024 3:30 PM HEADING UP MACHINE OPERATOR Telephone Check Up [facility] Oncology and Hematology - John [address] [place] [address] Nelson Saavedra MD Elevated serum protein level (Primary Dx); Chronic anemia 05/13/2024 Orders Only [facility] Oncology and Hematology - John [address] [place] [address] Nelson Saavedra MD 05/12/2024 External Device Data STL ABSTRACTION Provider, Abstract 05/09/2024 Orders Only [facility] Oncology and Hematology - John [address] Nelson Saavedra MD 05/07/2024 Abstract [facility] Oncology and Hematology - Ojhn [address] [place] [address] Nelson Saavedra MD 05/05/2024 Orders Only [facility] Oncology and Hematology - John [address] [place] [address] Nelson Saavedra MD 04/30/2024 Orders Only [facility] Oncology and Hematology - John [address] [place] [phone] Nelson Saavedra MD 04/28/2024 Orders Only [facility] Oncology and Hematology - John [address] [place] [address] Nelson Saavedra MD Elevated serum protein level (Primary Dx); Chronic anemia from Last 3 Months Family History Medical History Relation Name Comments No Known Problems Child 1 No Known Problems Child 2 Hyperlipidemia Father Hypertension Father Prostate Cancer Father Hyperlipidemia Mother Hypertension Mother Breast Cancer Sister Relation Name Status Comments Child 1 Alive Child 2 Alive Father Mother Sister Alive Social History Tobacco Use Types Packs/Day Years Used Date Smoking Tobacco: Former Cigarettes 1 40 Q uit: 12/18/2016 Tobacco Cessation:Counseling Given: Not Answered Alcohol Use Standard Drinks/Week Comments Not Currently 0 (1 standard drink = 0.6 oz pur e alcohol) stopped drinking in september Sex and Gender Information Value Date Recorded Sex Assigned at Not on file Gender Identity Not on file Sexual Orientation Not on file Last Filed Vital Signs Vital Sign Reading Time Taken Comments Blood Pressure 125/84 01/03/2024 11:01 AM CDT Pulse 87 01/03/2024 11:01 AM CDT Temperature 36.7 ??C (98 ??F) 01/03/2024 11:01 AM CDT Respiratory Rate 16 01/03/2024 11:01 AM CDT Oxygen Saturation 96% 01/03/2024 11:01 AM CDT Inhaled Oxygen Concentration - - Weight 89.4 kg (197 lb) 01/03/2024 11:01 AM CDT Height 188 cm (6' 2 ) 12/19/2023 2:34 PM CDT Body Mass Index 25.29 12/19/2023 2:34 PM CDT Plan of Treatment Upcoming Encounters Date Type Department Care Team (Late st Contact Info) Description 11/24/2024 11:30 AM CDT Office Visit [facility] Oncology and Hematology [facility] [address] [facility] [address] [place] [address] Nelson Saavedra MD [address] [facility] [address] [place] [address] Health Maintenance Due Date Last Done Comments Pre-Diabetes and Diabetes Screening 1955 DTAP/TDAP/TD VACCINES (1 - Tdap) 1976 COLORECTAL SCREENING 2002 Colorectal Cancer Screening 2002 FIT-DNA Q 3 years 2002 FIT/FOBT Q 1 year 2002 Flex Sig/CT Colonography Q 5 years 2002 ZOSTER VACCINE (1 of 2) 11/05/2007 Abdominal Aortic Aneurysm (AAA) Screening 2022 PNEUMOCOCCAL VACCINE 65+ YEARS (1 of 1 - PCV) 11/05/19 23 INFLUENZA VACCINE (#1) 2024 RSV VACCINE (60+ or ) (1 - 1-dose 75+ series) 2032 Procedures Procedure Name Priority Date/Time Associated Diagnosis Comments IGG Routine 05/12/2024 9:08 AM HEADING UP MACHINE OPERATOR PROTEIN ELECTROPHORESIS, CSF Routine 05/08/2024 10:50 AM CDT KAPPA/LAMBDA LIGHT CHAINS Routine 05/02/2024 10:38 AM CDT IRON LEVEL Routine 04/29/2024 1:20 PM CDT from Last 3 Months Results * IGG (05/12/2024 9:08 AM HEADING UP MACHINE OPERATOR) Blood Nelson Saavedra MD CHEMISTRY ORDERABLES * PROTEIN ELECTROPHORESIS, CSF (05/08/2024 10:50 AM CDT) Cerebrospinal fluid CEREBROSPINAL FLUID / Unknown Nelson Saavedra MD BODY FLUIDS AND STOO LS * KAPPA/LAMBDA, FREE LIGHT CHAINS (05/02/2024 10:38 AM CDT) Blood Nelson Saavedra MD CHEMISTRY ORDERABLES * IRON LEVEL (04/29/2024 1:20 PM CDT) Blood Nelson Saavedra MD CHEMISTRY ORDERABLES from Last 3 Months
--- OUTSIDE RECORDS SUMMARY | 2024-07-02 02:39 | XMS_ITS | Encounter Summary ---
Author Organization [facility] Address [address] [place] [address] Care Team Providers Care Press Hand Name Role Phone Unavailable Primary Care Provider Unavailabl e Encounter Details Date Type Department Care Team (Late st Contact Info) Description 01/01/2024 External Device Data STL ABSTRACTION Provider, Abstract [...] Description 11/24/2024 11:30 AM CDT Office Visit [facility] Oncology and Hematology - [place] [address] [place] [address] [facility] 200 [place] [address] Nelson Saavedra MD [address] [facility] [address] [place] [address] documented as of this encounter Visit Diagnoses Not on filedocumented in this encounter
--- OUTSIDE RECORDS SUMMARY | 2024-07-02 02:39 | XMS_ITS | Encounter Summary ---
Author Organization [facility] Address [address] [place] [address] Care Team Providers Care Pickle Processor Name Role Phone Unavailable Primary Care Provider Unavailabl e Encounter Details Date Type Department Care Team (Late st Contact Info) Description 01/22/2024 External Device Data STL ABSTRACTION Provider, Abstract [...] Description 11/24/2024 11:30 AM CDT Office Visit [facility] Oncology and Hematology - John [address] [place] [address] [facility] 200 [place] [address] Nelson Saavedra MD [address] [facility] [address] [place] [address] documented as of this encounter Visit Diagnoses Not on filedocumented in this encounter
--- OUTSIDE RECORDS SUMMARY | 2024-07-02 02:39 | XMS_ITS | Encounter Summary ---
Author Organization [facility] Address [address] [place] [address] Care Team Providers Care Pony Edger Name Role Phone Unavailable Primary Care Provider Unavailabl e Reason for Visit * Reason Comments Establish Care Encounter Details Date Type Department Care Team (Late st Contact Info) Description 12/19/2023 3:00 PM CDT Office Visit [facility] Oncology and Hematology - John [address] [facility] 200 [place] [address] Nelson Saavedra MD [address] [facility] [address] [place] [address] Chronic anemia (Primary Dx) Social History Tobacco Use Types Packs/Day Years [...] on file documented as of this encounter Last Filed Vital Signs Vital Sign Reading Time Taken Comments Blood Pressure 122/87 12/19/2023 2:34 PM CDT Pulse 84 12/19/2023 2:34 PM CDT Temperature 36.7 ??C (98 ??F) 12/19/2023 2:34 PM CDT Respiratory Rate 18 12/19/2023 2:34 PM CDT Oxygen Saturation 94% 12/19/2023 2:34 PM CDT Inhaled Oxygen Concentration - - Weight 88 kg (194 lb) 12/19/2023 2:34 PM CDT Height 188 cm (6' 2 ) 12/19/2023 2:34 PM CDT Body Mass Index 24.91 12/19/2023 2:34 PM CDT documented in this encounter Progress Notes * Nelson Saavedra MD - 12/19/2023 4:10 PM CDT Hematology-oncology consult Note Requesting Physician Zaina Castillo NP Primary Care Physician No primary care provider on file. Problem list There is no problem list on file for this patient. Previous TREATMENT ? Measurable Disease ? Reason for Visit Tony Mauro is a 68 y.o. male who was referred for consultation for anemia and weight loss. History of present illness This is a pleasant 68-year-old male with history of hypertension and hyperlipidemia referred to me for weight loss and anemia. Patient quit smoking 7 years ago but used to smoke 1 pack/day for 40 years duration. He also used to drink 7-10 beers a day but quit in September 2023. Since then he has lost 20 pound weight with poor appetite. He feels tired and sleepy most of the time. He does started feeling better recently. He also complained of bilateral lower extremity weakness along with dyspnea on exertion. He denies any previous history of malignancy. Patient had CT lung done on August 2023 showed no evidence of malignancy and repeat scan will be recommended in 1 year. Patient also had CT abdomen pelvis done on . Abdominal pain showed no evidence of malignancy. Last PSA was checked in July 2023 came back normal at 1.9. He had a family history of prostate cancer in the father. Patient had colonoscopy done 2020 showed 10 polyps and they were benign. Past Medical History Past Medical History: Diagnosis Date Hyperlipidemia Hypertension Surgical History Past Surgical History: Procedure Laterality Date HX KNEE REPLACEMENT, TOTAL Right HX SPINAL SURGERY fusion 2019 HX TONSILLECTOMY Medications Current Outpatient Medications Medication Sig Dispense Refill Vit C-Vit X-Scvfox-UuRd-Lutein (PRESERVISION) 226-90-0.8-5 mg Capsule Take 1 Capsule by mouth daily. viatamin B complex-vitamin V-pvgyubbs-dvff-folic acid 106 mg iron- 1 mg Tablet Take 1 Tablet by mouth daily. CALCIUM CITRATE-VITAMIN D3 ORAL Take by mouth. sildenafiL (VIAGRA) 25 mg tablet Take by mouth 1 time daily as needed for Erectile Dysfunction. aspirin (ECOTRIN EC) 81 mg Tablet, Delayed Release (E.C.) Take 81 mg by mouth daily. atorvastatin (LIPITOR) 20 mg tablet Take 20 mg by mouth daily. lisinopril-hydroCHLOROthiazide (ZESTORETIC) 20-25 mg tablet Take 1 Tablet by mouth daily. multivitamin (DAILY-JESSICA) tablet Take 1 Tablet by mouth daily. No current facility-administered medications for this visit. Allergies No Known Allergies Immunizations: There is no immunization history on file for this patient. Family History Family History Problem Relation Name Age of Onset Prostate Cancer Father Hyperlipidemia Father Hypertension Father Hyperlipidemia Mother Hypertension Mother Breast Cancer Sister No Known Problems Child No Known Problems Child Social History Social History Tobacco Use Smoking status: Former Current packs/day: 0.00 Average packs/day: 1 pack/day for 40.0 years (40.0 ttl pk-yrs) Types: Cigarettes Quit date: 12/18/2016 Years since quittin.0 Smokeless tobacco: Not on file Substance Use Topics Alcohol use: Not Currently Comment: stopped drinking in september Review of Systems Constitutional: Patient did not mention fever; no night sweats; poor appetite with 20 pound weight loss in 3 months with mild tiredness and fatigue NEENT: Patient did not mention headache; no change in vision; no change in hearing; no sore throat;no dysphagia Respiratory: Patient did not mention shortness of breath; no pleuritic chest pain; no cough; no hemoptysis Cardiac: Patient did not mention cardiac-like chest pain; no palpitations; no orthopnea; no PND; noDOE GI: Patient did not mention abdominal pain; no nausea; no vomiting; no diarrhea; no hematochezia; no melena : Patient did not mention dysuria; no frequency; no hesitancy; no hematuria DANCE STUDIO MANAGER: Musculosketetal: Patient did not mention bone pain; no arthralgia; no joint swelling; no myalgia; Skin: Patient did not mention pruritis; no rash; no petechiae; no ecchymoses Endocrine: Patient did not mention polydipsia; no polyuria; no unusual weight gain Neuro: Patient did not mention headache; no change in vision; no sensory changes; no muscle weakness; no confusion; no seizures Psych: Patient did not mention anxiety; no depression; Physical Exam Vitals: As per nursing note Constitutional: Well developed, well nourished, no acute distress, non-toxic appearance Teeth and gum. No signs of infection or swelling. Eyes: PERRL, conjunctiva normal HEENT: Atraumatic, external ears normal, nose normal, oropharynx moist, no pharyngeal exudates. no sinus tenderness Neck- normal range of motion, no tenderness, supple Respiratory: No respiratory distress, normal breath sounds, no rales, no wheezing Cardiovascular: Normal rate, normal rhythm, no murmurs, no gallops, no rubs GI: Soft, nondistended, normal bowel sounds, nontender, no splenomegaly, no hepatomegaly, no mass, no rebound, no guarding : No costovertebral angle tenderness Musculoskeletal: No edema, no tenderness, no deformities. Back- no tenderness Integument: Well hydrated, no rash, Digits and nails inspection normal Lymphatic: No lymphadenopathy noted Neurologic: Alert & oriented x 3, CN 2-12 normal, normal motor function, normal sensory function, no focal deficits noted Psychiatric: Speech and behavior appropriate ? labs No results found for this or any previous visit (from the past 24 hour(s)). Labs from December 12, 2021 showed WBC 9.3 hemoglobin 13.8 platelet 393,000 neutrophils 75% lymphocyte 17% vitamin B12 556 protein was elevated at 9.0. Pathology ? Imaging & Other Studies Performance Status? Assessment / Plan: ? Unintentional weight loss. Patient is a pleasant 68-year-old male with history of hypertension and hyperlipidemia along with history of drinking alcohol with 7-10 beers a day for last 40 years duration just quit in September 2023 when that showed elevated liver enzymes. Since then patient haslost almost 20 pound weight. I suspect his weight loss is due to abstinence from alcohol consumption. I do not see any signs of malignancy. His PSA was checked in July and was normal at 1.9. Patient last colonoscopy was in 2020 showed benign polyp. He is going to have another colonoscopy in May 2024. Patient also had CT scan of the lung for cancer screening done on August 27, 2023 showed no evidence of malignancy. Recent CT abdomen and pelvis from December 18 showed unremarkable for malignancy. I am not going to add any further screening imaging studies at this time. I have recommended upper and lower extremity exercises and increase protein intake to build the muscle mass back. His we akness could be due to the weight loss and mild anemia. I have answered all questions to patient satisfaction. Normocytic anemia. Labs reviewed. Vitamin B12 and kidney function was normal previously. If serum protein comes back elevated then will order serum protein electrophoresis. Will check iron studies and soluble transferrin receptor. Clinically he is feeling better and more stronger. Leukocytosis. This has now resolved on the most recent studies. Previously with elevated white cellC-reactive protein was also elevated at 8.9 suggesting reactive process which has now resolved. No further workup is needed at this time. Thank you very much for allowing me to participate in Tony Mauro's evaluation and management. Please feel free to contact if I can be of any further assistance in your patient???s care requiringhematology or oncology evaluation. Sincerely, ? ? Nelson Saavedra M.D. cell TOBACCO COUNSELING He is not a tobacco/nicotine user. Nelson Saavedra MD ,12/19/2023 4:10 PM ? Total time spent 60 minutes, two third of the total time spent counseling patient [id number]. CC:?Requesting Physician Zaina Castillo NP documented in this encounter Plan of Treatment Upcoming Encounters Date Type Department Care Team (Late st Contact Info) Description 11/24/2024 11:30 AM CDT Office Visit [facility] Oncology and Hematology - John [address] [facility] 200 [place] [address] Nelson Saavedra MD [address] [facility] [address] [place] [address] Scheduled Orders Name Type Priority Associated Diagnoses Orde r Schedule CBC WITH DIFFERENTIAL Lab Stat Chronic anemia Expected: 12/19/2023, Expires: 12/18/2024 C-REACTIVE PROTEIN Lab Routine Chronic anemia Expected: 12/19/2023, Expires: 12/18/2024 FERRITIN Lab Routine Chronic anemia Expected: 12/19/2023, Expires: 12/18/2024 IRON, TIBC, AND PERCENT SATURATION Lab Routine Chronic anemia Expected: 12/19/2023, Expires: 12/18/2024 LACTATE DEHYDROGENASE Lab Routine Chronic anemia Expected: 12/19/2023, Expires: 12/18/2024 METHYLMALONIC ACID Lab Routine Chronic anemia Expected: 12/19/2023, Expires: 12/18/2024 TRANSFERRIN RECEPTOR TFR SOLUBLE Lab Routine Chronic anemia Expected: 12/19/2023, Expires: 12/18/2024 documented as of this encounter Visit Diagnoses Diagnosis Chronic anemia- Primary Anemia, unspecified documented in this encounter
--- OUTSIDE RECORDS SUMMARY | 2024-07-02 02:39 | XMS_ITS | Encounter Summary ---
Author Organization [facility] Address [address] [place] [address] Care Team Providers Care Plate Cleaner Name Role Phone Unavailable Primary Care Provider Unavailabl e Encounter Details Date Type Department Care Team (Late st Contact Info) Description 12/25/2023 External Device Data STL ABSTRACTION Provider, Abstract [...] Description 11/24/2024 11:30 AM CDT Office Visit [facility] Oncology and Hematology - John [address] [place] [address] [facility] 200 [place] [address] Nelson Saavedra MD [address] [facility] [address] [place] [address] documented as of this encounter Visit Diagnoses Not on filedocumented in this encounter
--- OUTSIDE RECORDS SUMMARY | 2024-07-02 02:39 | XMS_ITS | Encounter Summary ---
Author Organization [facility] Address [address] [place] [address] Care Team Providers Care Video Production Assistant Name Role Phone Unavailable Primary Care Provider Unavailabl e Encounter Details Date Type Department Care Team (Late Contact Info) Description 12/24/2023 Orders Only [facility] Oncology and Hematology [facility] [address] [place] [address] Nelson Saavedra MD [address] [place] [address] [employer] [address] [place] [address] Social History Tobacco Use Types Packs/Day [...] Description 11/24/2024 11:30 AM CDT Office Visit [facility] Oncology and Hematology [place] [address] [place] [address] Nelson Saavedra MD [address] [place] [address] [employer] [address] [place] [address] documented as of this encounter Procedures Procedure Name Priority Date/Time Associated Diagnosis Comments METHYLMALONIC ACID Routine 12/19/2023 1:39 PM CDT documented in this encounter Results * METHYLMALONIC ACID (12/19/2023 1:39 PM CDT) Blood Nelson Saavedra MD CHEMISTRY ORDERABLES documented in this encounter Visit Diagnoses Not on filedocumented in this encounter
--- OUTSIDE RECORDS SUMMARY | 2024-07-02 02:39 | XMS_ITS | Encounter Summary ---
Author Organization [email or web address] Address [address] [place] [address] Care Team Providers Care Tray Checker Name Role Phone Unavailable Primary Care Provider Unavailabl e Encounter Details Date Type Department Care Team (Late Contact Info) Description 04/28/2024 Orders Only [facility] Oncology and [facility] [place] [address] [place] [address] Nelson Saavedra MD [address] [place], [place] [address] [address] [place] [address] Elevated serum protein level (Primary Dx); Chronic anemia Social History Tobacco Use Types Packs/Day Years [...] Description 11/24/2024 11:30 AM CDT Office Visit [facility] Oncology and Hematology [facility] [address] [place] [address] Nelson Saavedra MD [address] [place], [place] [address] [address] [place] [address] Scheduled Orders Name Type Priority Associated Diagnoses Orde r Schedule PROTEIN ELECTROPHORESIS W/REFLEX,SERUM Lab Routine Elevated serum protein level Expected: 04/28/2024, Expires: 04/28/2025 IRON, TIBC, AND PERCENT SATURATION Lab Routine Elevated serum protein level Expected: 04/28/2024, Expires: 04/28/2025 FERRITIN Lab Routine Elevated serum protein level Expected: 04/28/2024, Expires: 04/28/2025 KAPPA/LAMBDA, FREE LIGHT CHAINS Lab Routine Elevated serum protein level Expected: 04/28/2024, Expires: 04/28/2025 TRANSFERRIN RECEPTOR TFR SOLUBLE Lab Routine Elevated serum protein level Expected: 04/28/2024, Expires: 04/28/2025 IMMUNOGLOBULINS IGG IGA IGM Lab Routine Elevated serum protein level Expected: 04/28/2024, Expires: 04/28/2025 CBC WITH DIFFERENTIAL Lab Routine Elevated serum protein level Expected: 04/28/2024, Expires: 04/28/2025 COMPREHENSIVE METABOLIC PANEL Lab Routine Elevated serum protein level Expected: 04/28/2024, Expires: 04/28/2025 documented as of this encounter Visit Diagnoses Diagnosis Elevated serum protein level- Primary Other nonspecific findings on examination of blood Chronic anemia Anemia, unspecified documented in this encounter
--- OUTSIDE RECORDS SUMMARY | 2024-07-02 02:39 | XMS_ITS | Encounter Summary ---
Author Organization [facility] [facility] Address [address] [place] [address] Care Team Providers Care Paving Foreman Name Role Phone Unavailable Primary Care Provider Unavailabl e Encounter Details Date Type Department Care Team (Late Contact Info) Description 04/30/2024 Orders Only [facility] Oncology and Hematology [facility] [address] [place] [phone] Nelson Saavedra MD [address] [place] [address] [employer] [address] [place] [address] Social History Tobacco Use Types Packs/Day [...] Description 11/24/2024 11:30 AM CDT Office Visit [facility] Oncology and Hematology [address] [place] [address] Nelson Saavedra MD [address] [place] [address] [employer] [address] [place] [address] documented as of this encounter Procedures Procedure Name Priority Date/Time Associated Diagnosis Comments IRON LEVEL Routine 04/29/2024 1:20 PM CDT documented in this encounter Results * IRON LEVEL (04/29/2024 1:20 PM CDT) Blood Nelson Saavedra MD CHEMISTRY ORDERABLES documented in this encounter Visit Diagnoses Not on filedocumented in this encounter
--- OUTSIDE RECORDS SUMMARY | 2024-07-02 02:39 | XMS_ITS | Encounter Summary ---
Author Organization [facility] NATALYLibreDigital [facility] Address [address] [place] [address] Care Team Providers Care Local Truck Driver Name Role Phone Unavailable Primary Care Provider Unavailabl e Encounter Details Date Type Department Care Team (Late Contact Info) Description 01/03/2024 Orders Only [facility] Oncology [facility] H[facility] Jasson Bearden [address] [place] [phone] Nelson Saavedra MD [address] [place] [address] [employer] [address] [place] [phone] Social History Tobacco Use Types Packs/Day [...] Description 11/24/2024 11:30 AM CDT Office Visit [facility] Oncology and Hematology [place] [address] Bearden [address] [place] [address] Nelson Saavedra MD [address] [place] [address] [employer] [address] [place] [phone] documented as of this encounter Procedures Procedure Name Priority Date/Time Associated Diagnosis Comments IGG Routine 01/03/2024 3:51 PM CDT documented in this encounter Results * IGG (01/03/2024 3:51 PM CDT) Blood Nelson Saavedra MD CHEMISTRY ORDERABLES documented in this encounter Visit Diagnoses Not on filedocumented in this encounter
--- OUTSIDE RECORDS SUMMARY | 2024-07-02 02:39 | XMS_ITS | Encounter Summary ---
Author Organization [facility] [employer] [facility] Address [address] [place] [address] Care Team Providers Care Rasper Machine Operator Name Role Phone Unavailable Primary Care Provider Unavailabl e Encounter Details Date Type Department Care Team (Late st Contact Info) Description 05/23/2024 3:30 PM COMPOUND FILLER Telephone Check Up [facility] Oncology and Hematology - John [address] [facility] [address] [place] [address] Nelson Saavedra MD [address] [facility] [address] [place] [address] Elevated serum protein level (Primary Dx); [...] Progress Notes * Nelson Saavedra MD - 05/23/2024 4:24 PM CST HEMATOLOGY / ONCOLOGY PROGRESS NOTE Patient Identification: Name: Tony Mauro Age: 68 y.o. Sex: male : 1955 DIAGNOSIS Normocytic anemia Leukocytosis Unintentional weight loss CURRENT TREATMENT Expectant TREATMENT HISTORY SUBJECTIVE This is a phone visit with patient. Looks like he has been gaining weight. He denies any chest painor shortness of breath. No bleeding and bruising. No other new complaints. Review of system [...] showed no monoclonal spike serum protein 7.3 [place] light chain 31 lambda light chain 36 ratio 0.84 normal immunoglobulin levels Labs from April 29 showed hemoglobin 14.9 iron 50 saturation 15 ferritin 116 creatinine 0.1 normal immunoglobulin level. Serum protein extra pheresis showed no monoclonal spike [place] and lambda light chain was elevated at 29 but ratio was normal at 1.0 soluble transferrin receptor came down to 1.3. Assessment: Plan: There are no problems to display for this patient. Normocytic anemia. Hemoglobin has improved with improvement in soluble transferrin receptor. He will continue oral iron once a day. Repeat labs in 6 months. Elevated serum protein. Serum protein electrophoresis showed no monoclonal spike. Will repeat labs in 6 months. Unintentional weight loss. Seems like patient has been gaining some weight now. Previous workup including colonoscopy CT scan chest abdomen pelvis and PSA were all negative for malignancy. Leukocytosis. Resolved. Follow-up in 6 months. 05/23/2024 Nelson Saavedra MD This encounter was completed via audio-only two way synchronous communication. Patient's identity confirmed yes Patient gave verbal consent to have these services billed to their insurance and expressed understanding that co-insurance and deductible may apply: yes Time spent by the provider delivering the care documented in this encounter 20 minutes. OUND FILLER documented in this encounter Plan of Treatment Upcoming Encounters Date Type Department Care Team (Late st Contact Info) Description 11/24/2024 11:30 AM CDT Office Visit [facility] Oncology and Hematology - John [address] [facility] [address] [place] [phone] Nelson Saavedra MD [address] [facility] [address] [place] [address] Scheduled Orders Name Type Priority Associated Diagnoses Orde r Schedule CBC WITH DIFFERENTIAL Lab Stat Elevated serum protein level Expected: 11/20/2024, Expires: 05/23/2025 COMPREHENSIVE METABOLIC PANEL Lab Stat Elevated serum protein level Expected: 11/20/2024, Expires: 05/23/2025 IMMUNOGLOBULINS IGG IGA IGM Lab Routine Elevated serum protein level Expected: 11/20/2024, Expires: 05/23/2025 KAPPA/LAMBDA, FREE LIGHT CHAINS Lab Routine Elevated serum protein level Expected: 11/20/2024, Expires: 05/23/2025 PROTEIN ELECTROPHORESIS W/REFLEX,SERUM Lab Routine Elevated serum protein level Expected: 11/20/2024, Expires: 05/23/2025 FERRITIN Lab Routine Chronic anemia Expected: 11/20/2024, Expires: 05/23/2025 IRON, TIBC, AND PERCENT SATURATION Lab Routine Chronic anemia Expected: 11/20/2024, Expires: 05/23/2025 documented as of this encounter Visit Diagnoses Diagnosis Elevated serum protein level- Primary Other nonspecific findings on examination of blood Chronic anemia Anemia, unspecified documented in this encounter
--- OUTSIDE RECORDS SUMMARY | 2024-07-02 02:39 | XMS_ITS | Encounter Summary ---
Author Organization [facility] CHANDNIDispatch [facility] Address [address] [place] [address] Care Team Providers Care Nitric Acid Concentrator Operator Name Role Phone Unavailable Primary Care Provider Unavailabl e Encounter Details Date Type Department Care Team (Late Contact Info) Description 05/05/2024 Orders Only [facility] Oncology and Hematology [address] Bearden [address] [place] [phone] Nelson Saavedra MD [address] [place] [address] [employer] [address] [place] [phone] Social History Tobacco Use Types Packs/Day [...] Description 11/24/2024 11:30 AM CDT Office Visit [facility] H[facility] [address] [place] [address] Nelson Saavedra MD [address] [place] [address] [employer] [address] [place] [phone] documented as of this encounter Procedures Procedure Name Priority Date/Time Associated Diagnosis Comments KAPPA/LAMBDA LIGHT CHAINS Routine 05/02/2024 10:38 AM CDT documented in this encounter Results * KAPPA/LAMBDA, FREE LIGHT CHAINS (05/02/2024 10:38 AM CDT) Blood Nelson Saavedra MD CHEMISTRY ORDERABLES documented in this encounter Visit Diagnoses Not on filedocumented in this encounter
--- OUTSIDE RECORDS SUMMARY | 2024-07-02 02:39 | XMS_ITS | Encounter Summary ---
Author Organization [facility] NATALYSparq Systems [facility] Address [address] [place] [address] Care Team Providers Care Incident Response Engineer Name Role Phone Unavailable Primary Care Provider Unavailabl e Encounter Details Date Type Department Care Team (Late Contact Info) Description 12/28/2023 Orders Only [facility] [place] [facility] Oncology and Hematology [facility] Jasson Bearden [address] [place] [phone] Nelson Saavedra MD [address] [place] [address] MD [employer] [address] [place] [phone] Social History Tobacco Use Types Packs/Day [...] Description 11/24/2024 11:30 AM CDT Office Visit [facility] [place] [facility] Oncology and Hematology [place] [address]Hugo Bearden [address] [place] [address] Nelson Saavedra MD [address] [place] [address] MD [employer] [address] [place] [phone] documented as of this encounter Procedures Procedure Name Priority Date/Time Associated Diagnosis Comments METHYLMALONIC ACID Routine 12/19/2023 9:07 AM CDT documented in this encounter Results * METHYLMALONIC ACID (12/19/2023 9:07 AM CDT) Blood Nelson Saavedra MD CHEMISTRY ORDERABLES documented in this encounter Visit Diagnoses Not on filedocumented in this encounter
--- OUTSIDE RECORDS SUMMARY | 2024-07-02 02:39 | XMS_ITS | Encounter Summary ---
Author Organization [facility] Address [address] [place] [address] Care Team Providers Care Direct Selling Counselor Name Role Phone Unavailable Primary Care Provider [...] Description 11/24/2024 11:30 AM CDT Office Visit [facility] Oncology and Hematology - John [address] [place] [address] [facility] 200 [place] [address] Nelson Saavedra MD [address] [facility] [address] [place] [address] documented as of this encounter Visit Diagnoses Not on filedocumented in this encounter
--- OUTSIDE RECORDS SUMMARY | 2024-07-02 02:39 | XMS_ITS | Encounter Summary ---
Author Organization [facility] NATALYHopscotch [facility] Address [address] [place] [address] Care Team Providers Care Finished Cloth Checker Name Role Phone Unavailable Primary Care Provider Unavailabl e Encounter Details Date Type Department Care Team (Late Contact Info) Description 12/20/2023 Orders Only [facility] Oncology and Hematology [place] [address] Jasson Bearden [address] [place] [phone] Nelson Saavedra MD [address] [place] [address] [employer] [address] [place] [phone] Social History Tobacco Use Types Packs/Day [...] Description 11/24/2024 11:30 AM CDT Office Visit [facility] Oncology and Hematology [facility] [address] [place] [address] Nelson Saavedra MD [address] [place] [address] [employer] [address] [place] [phone] documented as of this encounter Procedures Procedure Name Priority Date/Time Associated Diagnosis Comments IRON, TIBC, AND PERCENT SATURATION Routine 12/19/2023 10:58 AM CDT documented in this encounter Results * IRON, TIBC, AND PERCENT SATURATION (12/19/2023 10:58 AM CDT) Blood Nelson Saavedra MD CHEMISTRY ORDERABLES documented in this encounter Visit Diagnoses Not on filedocumented in this encounter
--- OUTSIDE RECORDS SUMMARY | 2024-07-02 02:39 | XMS_ITS | Encounter Summary ---
Author Organization [facility] CHANDNISetPoint [employer] [facility] Address [address] [place] [address] Care Team Providers Care Help Desk Rep Name Role Phone Unavailable Primary Care Provider Unavailabl e Reason for Visit * Reason Comments Follow Up Encounter Details Date Type Department Care Team (Late st Contact Info) Description 01/03/2024 11:15 AM CDT Office Visit [facility] Oncology and Hematology - John [address] [facility] [address] [place] [address] Nelson Saavedra MD [address] [facility] [address] [place] [address] Elevated serum protein level (Primary Dx) Social History Tobacco Use Types [...] (197 lb) 01/03/2024 11:01 AM CDT Height - - Body Mass Index 25.29 12/19/2023 2:34 PM CDT documented in this encounter Progress Notes * Nelson Saavedra MD - 01/03/2024 1:16 PM CDT HEMATOLOGY / ONCOLOGY PROGRESS NOTE Patient Identification: Name: Tony Mauro Age: 68 y.o. Sex: male : 1955 DIAGNOSIS Normocytic anemia Leukocytosis Unintentional weight loss CURRENT TREATMENT Expectant TREATMENT HISTORY SUBJECTIVE Patient came to the office for follow-up visit. He is feeling little bit more better and energetic.He has gained 3 pound weight. He just darted taking protein supplements. No other new complaints. Review of system Constitutional: Patient did not mention fevers, sweats, improvement in tiredness and fatigue and 3 pound weight gain HEENT: Patient did not mention sinus congestion, [...] dizziness Skin: No lumps, bumps or rashes. Objective: Vital signs in last 24 hours: As per nursing note Exam: General appearance: alert, cooperative, no distress, appears stated age Head: normocephalic, without obvious abnormality, atraumatic Eyes: conjunctivae/corneas clear, EOM's intact Ears: normal external ear canals AU Nose: Nares normal. Septum midline. Mucosa normal. No drainage or sinus tenderness Throat: Lips, mucosa, and tongue normal. Teeth and gums normal Neck: supple, symmetrical, trachea midline. Lungs: clear to auscultation bilaterally Heart: regular rate and rhythm, S1, S2 normal, no murmur, click, rub or gallop Abdomen: soft, non-tender. Bowel sounds normal. No masses, No organomegaly Extremities: extremities normal, atraumatic, no cyanosis or edema Skin: Skin color, texture, turgor normal. No rashes or lesions Lymph nodes: No lymphadenopathy Neuro: No obvious focal deficit PATH LABS Labs from December 18 showed hemoglobin 13.8 platelet 4 98,000 WBC 7.9 LDH 187 iron 111 ferritin 200 saturation 34% soluble transferrin receptor elevated at 1.81 serum protein elevated at 9.0. @IMAGEIMP@ Assessment: Plan: There are no problems to display for this patient. Normocytic anemia. Labs showed elevated soluble transferrin receptor indicating iron deficiency. Will start iron 65 mg once a day. Repeat labs in 3 months. Elevated serum protein. Will check serum protein electrophoresis with immunofixation today. Phone visit in 3 weeks to discuss. Unintentional weight loss. He just started gaining weight. Previous workup for malignancy includingcolonoscopy PSA and CT scan for chest came back negative. Leukocytosis. Resolved. ? TOBACCO COUNSELING He is not a tobacco/nicotine user. 01/03/2024 Nelson Saavedra MD documented in this encounter Plan of Treatment Upcoming Encounters Date Type Department Care Team (Late st Contact Info) Description 11/24/2024 11:30 AM CDT Office Visit [facility] Oncology and Hematology [facility] [address] [facility] 200 [place] [address] Nelson Saavedra MD [address] [facility] [address] [place] [address] Scheduled Orders Name Type Priority Associated Diagnoses Orde r Schedule IMMUNOGLOBULINS IGG IGA IGM Lab Routine Elevated serum protein level Expected: 01/03/2024, Expires: 01/02/2025 KAPPA/LAMBDA, FREE LIGHT CHAINS Lab Routine Elevated serum protein level Expected: 01/03/2024, Expires: 01/02/2025 PROTEIN ELECTROPHORESIS W/REFLEX,SERUM Lab Routine Elevated serum protein level Expected: 01/03/2024, Expires: 01/02/2025 documented as of this encounter Visit Diagnoses Diagnosis Elevated serum protein level- Primary Other nonspecific findings on examination of blood documented in this encounter
--- OUTSIDE RECORDS SUMMARY | 2024-07-02 02:39 | XMS_ITS | Encounter Summary ---
Author Organization [facility] NATALYCastTV [facility] Address [address] [place] [address] Care Team Providers Care Lithographic Platemaker Name Role Phone Unavailable Primary Care Provider Unavailabl e Encounter Details Date Type Department Care Team (Late Contact Info) Description 05/09/2024 Orders Only [facility] Oncology and Hematology [place] [address] Jasson Bearden [address] [place] [phone] Nelson Saavedra MD [address] [place] [address] [employer] [address] [place] [phone] Social History Tobacco Use Types Packs/Day [...] Description 11/24/2024 11:30 AM CDT Office Visit [facility] Oncology and Hematology [place] [address]Hugo Bearden [address] [place] [phone] Nelson Saavedra MD [address] [place] [address] [employer] [address] [place] [phone] documented as of this encounter Procedures Procedure Name Priority Date/Time Associated Diagnosis Comments PROTEIN ELECTROPHORESIS, CSF Routine 05/08/2024 10:50 AM CDT documented in this encounter Results * PROTEIN ELECTROPHORESIS, CSF (05/08/2024 10:50 AM CDT) Cerebrospinal fluid CEREBROSPINAL FLUID / Unknown Nelson Saavedra MD BODY FLUIDS AND JOVAN WEINSTEIN documented in this encounter Visit Diagnoses Not on filedocumented in this encounter
--- OUTSIDE RECORDS SUMMARY | 2024-07-02 02:39 | XMS_ITS | Encounter Summary ---
Author Organization [facility] CHANDNIRupture [facility] Address [address] [place] [address] Care Team Providers Care Road Cleaner Name Role Phone Unavailable Primary Care Provider Unavailabl e Encounter Details Date Type Department Care Team (Late Contact Info) Description 01/07/2024 Orders Only [facility] Oncology [facility] Hematology [place] [address] Jasson [address] [place] [phone] Nelson Saavedra MD [address] [place] [address] [employer] [address] [place] [phone] Social History Tobacco Use Types Packs/Day Years [...] Visit [facility] Oncology and Hematology [place] [address]Hugo Bearden [address] [place] [phone] Nelson Saavedra MD [address] [place] [address] [employer] [address] [place] [phone] documented as of this encounter Procedures Procedure Name Priority Date/Time Associated Diagnosis Comments PROTEIN TOTAL Routine 01/03/2024 3:00 PM CDT KAPPA/LAMBDA LIGHT CHAINS Routine 01/03/2024 10:39 AM CDT documented in this encounter Results * PROTEIN TOTAL (01/03/2024 3:00 PM CDT) Blood Nelson Saavedra MD CHEMISTRY ORDERABLES * KAPPA/LAMBDA, FREE LIGHT CHAINS (01/03/2024 10:39 AM CDT) Blood Nelson Saavedra MD CHEMISTRY ORDERABLES documented in this encounter Visit Diagnoses Not on filedocumented in this encounter
--- OUTSIDE RECORDS SUMMARY | 2024-07-02 02:39 | XMS_ITS | Encounter Summary ---
Author Organization [facility]IFosbury [facility] Address [address] [place] [address] Care Team Providers Care Marine Pipe Welder Name Role Phone Unavailable Primary Care Provider Unavailabl e Encounter Details Date Type Department Care Team (Late Contact Info) Description 05/07/2024 Abstract [facility] Oncology and Hematology John Jasson Bearden [address] [place] [phone] Nelson Saavedra MD [address] [place] [address] [employer] [address] [place] [phone] Social History Tobacco Use Types Packs/Day [...] Description 11/24/2024 11:30 AM CDT Office Visit [facility] Oncology and Hematology - John Suzette Bearden [address] [place] [phone] Nelson Saavedra MD [address] [place] [address] [employer] [address] [place] [phone] documented as of this encounter Visit Diagnoses Not on filedocumented in this encounter
--- OUTSIDE RECORDS SUMMARY | 2024-07-02 12:02 | XMS_ITS | Encounter Summary ---
Author Organization [facility] [employer] [facility] Address [address] [place] [address] Care Team Providers Care Health Unit Coordinator Name Role Phone Unavailable Primary Care Provider Unavailabl e Encounter Details Date Type Department Care Team (Late st Contact Info) Description 05/23/2024 3:30 PM INDUSTRIAL REFRIGERATION MECHANIC Telephone Check Up [facility] Oncology and Hematology - John [address] [facility] [address] [place] [address] Nelson Saavedra MD [address] [facility] [address] [place] [address] Elevated serum protein level (Primary [...] showed no monoclonal spike serum protein 7.3 [place] light chain 31 lambda light chain 36 ratio 0.84 normal immunoglobulin levels Labs from April 29 showed hemoglobin 14.9 iron 50 saturation 15 ferritin 116 creatinine 0.1 normal immunoglobulin level. Serum protein extra pheresis showed no monoclonal spike [place] and lambda light chain was elevated at [...] care documented in this encounter 20 minutes. STRIAL REFRIGERATION MECHANIC documented in this encounter Plan of Treatment Upcoming Encounters Date Type Department Care Team (Late st Contact Info) Description 11/24/2024 11:30 AM CDT Office Visit [facility] Oncology and Hematology - John 2227 [facility] 200 [place] [phone] Nelson Saavedra MD [address] [facility] [address] [place] [address] Scheduled Orders Name Type Priority [...]
--- OUTSIDE RECORDS SUMMARY | 2024-07-02 12:02 | XMS_ITS | Encounter Summary ---
Author Organization [facility] NATALYPower2SME [facility] Address [address] [place] [address] Care Team Providers Care Community Living Specialist Name Role Phone Unavailable Primary Care Provider Unavailabl e Encounter Details Date Type Department Care Team (Late Contact Info) Description 05/13/2024 Orders Only [facility] Oncology [facility] Hematology [facility] Jasson Bearden [address] [place] [phone] Nelson Saavedra MD [address] [place] [address] [employer] [address] [place] [phone] Social History Tobacco Use Types Packs/Day [...] Description 11/24/2024 11:30 AM CDT Office Visit [facility] Oncology and Hematology [place] [address]Hugo Bearden [address] [place] [address] Nelson Saavedra MD [address] [place] [address] [employer] [address] [place] [phone] documented as of this encounter Procedures Procedure Name Priority Date/Time Associated Diagnosis Comments IGG Routine 05/12/2024 9:08 AM DIRECTOR OF CHILD WELFARE SERVICES documented in this encounter Results * IGG (05/12/2024 9:08 AM DIRECTOR OF CHILD WELFARE SERVICES) Blood Nelson Saavedra MD CHEMISTRY ORDERABLES documented in this encounter Visit Diagnoses Not on filedocumented in this encounter
--- OUTSIDE RECORDS SUMMARY | 2024-07-02 12:02 | XMS_ITS | Clinical Summary ---
Author Organization [facility] Kiah sullivan Bulmaro Address [address] [place] [address] Care Team Providers Care Utility Worker Rol[employer] Name Role Phone Unavailable Primary Care Provider [...] Tablet by mouth daily. Active Vit C-Vit T-Rarggs-MwKt-Lutein (PRESERVISION) 226-90-0.8-5 mg Capsule Take 1 Capsule by mouth daily. Active viatamin B complex-vitamin J-itjzdqrn-zfzg-folic acid 106 mg iron- 1 mg Tablet Take 1 Tablet by mouth daily. Active CALCIUM CITRATE-VITAMIN D3 ORAL Take by mouth. Active sildenafiL (VIAGRA) 25 mg tablet Take by mouth 1 time daily as needed for Erectile Dysfunction. Active Active Problems No known active problems Encounters Date Type Department Care Team Description 05/23/2024 3:30 PM TUNNEL INSPECTOR Telephone Check Up [facility] Oncology and Hematology - John [address] [place] [address] Nelson Saavedra MD Elevated serum protein level (Primary Dx); Chronic anemia 05/13/2024 Orders Only [facility] Oncology and Hematology - John [address] [facility] [place] [address] Nelson Saavedra MD 05/12/2024 External Device Data STL ABSTRACTION Provider, Abstract 05/09/2024 Orders Only [facility] Oncology and Hematology - John [address] Nelson Saavedra MD 05/07/2024 Abstract [facility] Oncology and Hematology - Ojhn [address] [place] [address] Nelson Saaevdra MD 05/05/2024 Orders Only [facility] Oncology and Hematology - John [address] [place] [address] Nelson Saavedra MD 04/30/2024 Orders Only [facility] Oncology and Hematology - John [address] [place] [phone] Nelson Saavedra MD 04/28/2024 Orders Only [facility] Oncology and Hematology - John [address] [place] [address] Nelson Saavedra MD Elevated serum protein level [...] Office Visit [facility] Oncology and Hematology [facility] [address] [facility] 200 [place] [address] Nelson Saavedra MD [address] [facility] [address] [place] [address] Health Maintenance Due Date Last [...] Diagnosis Comments IGG Routine 05/12/2024 9:08 AM TUNNEL INSPECTOR PROTEIN ELECTROPHORESIS, CSF Routine 05/08/2024 10:50 AM CDT KAPPA/LAMBDA LIGHT CHAINS Routine 05/02/2024 10:38 AM CDT IRON LEVEL Routine 04/29/2024 1:20 PM CDT from Last 3 Months Results * IGG (05/12/2024 9:08 AM TUNNEL INSPECTOR) Blood Nelson Saavedra MD CHEMISTRY ORDERABLES * [...]
--- OUTSIDE RECORDS SUMMARY | 2024-07-02 12:02 | XMS_ITS | Encounter Summary ---
Author Organization [facility] CHANDNIThe Mill [facility] Address [address] [place] [address] Care Team Providers Care Terminologist Name Role Phone Unavailable Primary Care Provider Unavailabl e Encounter Details Date Type Department Care Team (Late Contact Info) Description 04/28/2024 Orders Only [facility] Oncology and [facility] [address] [place] [address] Nelson Saavedra MD [address] [place], [place] [address] [address] [place] [phone] Elevated serum protein level (Primary Dx); [...] Description 11/24/2024 11:30 AM CDT Office Visit [facility] Oncology and Hematology [facility] [address] [place] [address] Nelson Saavedra MD [address] [place], [place] [address] [address] [place] [phone] Scheduled Orders Name Type Priority Associated [...]
--- OUTSIDE RECORDS SUMMARY | 2024-07-02 12:02 | XMS_ITS | Encounter Summary ---
Author Organization [facility] Address [address] [place] [address] Care Team Providers Care Bridge Crew Member Name Role Phone Unavailable Primary Care Provider [...] [facility] Oncology and Hematology - John [address] [place] [address] [facility] 200 [place] [address] Nelson Saavedra MD [address] [facility] [address] [place] [address] documented as of this encounter Visit Diagnoses Not on filedocumented in this encounter
--- OUTSIDE RECORDS SUMMARY | 2024-07-02 12:02 | XMS_ITS | Encounter Summary ---
Author Organization [facility] NATALYCookBrite [facility] Address [address] [place] [address] Care Team Providers Care Attendant [facility] Name Role Phone Unavailable Primary Care Provider Unavailabl e Encounter Details Date Type Department Care Team (Late Contact Info) Description 01/03/2024 Orders Only [facility] Oncology [facility] Hematology [facility] [address] [place] [phone] Nelson Saavedra MD [address] [place] [address] [employer] [address] [place] [phone] Social History Tobacco Use Types Packs/Day [...] [facility] Oncology and Hematology [place] [address] [place] [address] Nelson Saavedra MD [address] [place] [address] [employer] [address] [place] [phone] documented as of this encounter Procedures Procedure Name Priority Date/Time Associated Diagnosis Comments IGG Routine 01/03/2024 3:51 PM CDT documented in this encounter Results * IGG (01/03/2024 3:51 PM CDT) Blood Nelson Saavedra MD CHEMISTRY ORDERABLES documented in this encounter Visit Diagnoses Not on filedocumented in this encounter
--- OUTSIDE RECORDS SUMMARY | 2024-07-02 12:02 | XMS_ITS | Encounter Summary ---
Author Organization [facility] CHANDNIMobovivo [facility] Address [address] [place] [address] Care Team Providers Care Rubber Tire And Tubes Supervisor Name Role Phone Unavailable Primary Care Provider Unavailabl e Encounter Details Date Type Department Care Team (Late Contact Info) Description 04/30/2024 Orders Only [facility] Oncology and Hematology [facility] [address]asson [address] [place] [phone] Nelson Saavedra MD [address] [place] [address] [employer] [address] [place] [phone] Social History Tobacco Use Types Packs/Day [...] Description 11/24/2024 11:30 AM CDT Office Visit [facility] Oncology and Hematology John Hugo [address] 200 [place] [address] Nelson Saavedra MD [address] [place] [address] [employer] [address] [place] [phone] documented as of this encounter Procedures Procedure Name Priority Date/Time Associated Diagnosis Comments IRON LEVEL Routine 04/29/2024 1:20 PM CDT documented in this encounter Results * IRON LEVEL (04/29/2024 1:20 PM CDT) Blood Nelson Saavedra MD CHEMISTRY ORDERABLES documented in this encounter Visit Diagnoses Not on filedocumented in this encounter
--- OUTSIDE RECORDS SUMMARY | 2024-07-02 12:02 | XMS_ITS | Encounter Summary ---
Author Organization [facility] Address [address] [place] [address] Care Team Providers Care Parcel Wrapper Name Role Phone Unavailable Primary Care Provider [...] Description 11/24/2024 11:30 AM CDT Office Visit [facility] Oncology and Hematology - John [address] [place] [address] [facility] 200 [place] [address] Nelson Saavedra MD [address] [facility] [address] [place] [address] documented as of this encounter Visit Diagnoses Not on filedocumented in this encounter
--- OUTSIDE RECORDS SUMMARY | 2024-07-02 12:02 | XMS_ITS | Encounter Summary ---
Author Organization [facility] Monitise [facility] Address [address] [place] [address] Care Team Providers Care Club Steward Name Role Phone Unavailable Primary Care Provider Unavailabl e Encounter Details Date Type Department Care Team (Late st Contact Info) Description 01/24/2024 3:45 PM CDT Telephone Check Up [facility] Oncology and Hematology - John 2[address] [facility] 200 [place] [address] Nelson Saavedra MD 2227 [facility] [address] [place] [address] Social History Tobacco Use Types [...] showed no monoclonal spike serum protein 7.3 Hoskins light chain 31 lambda light chain 36 [...] Description 11/24/2024 11:30 AM CDT Office Visit [facility] Oncology and Hematology - John [address] [facility] 200 [place] [address] Nelson Saavedra MD 2[address] [facility] [address] [place] [address] documented as of this encounter Visit Diagnoses Not on filedocumented in this encounter
--- OUTSIDE RECORDS SUMMARY | 2024-07-02 12:02 | XMS_ITS | Encounter Summary ---
Author Organization [facility] CHANDNIBrighter Future Challenge [facility] Address [address] [place] [address] Care Team Providers Care Day Light Relief Operator Name Role Phone Unavailable Primary Care Provider Unavailabl e Encounter Details Date Type Department Care Team (Late Contact Info) Description 01/07/2024 Orders Only [facility] Hematology [place] [address] [address] [place] [address] Nelson Saavedra MD [address] [place] [address] [employer] [address] [place] [phone] Social History Tobacco Use Types Packs/Day Years [...] Description 11/24/2024 11:30 AM CDT Office Visit [facility] Oncology and Hematology [place] [address] [place] [address] Nelson Saavedra MD [address] [place] [address] [employer] [address] [place] [phone] documented as of this encounter Procedures Procedure [...]
--- OUTSIDE RECORDS SUMMARY | 2024-07-02 12:02 | XMS_ITS | Encounter Summary ---
Author Organization [facility] Address [address] [place] [address] Care Team Providers Care English Lecturer Name Role Phone Unavailable Primary Care Provider [...] Description 11/24/2024 11:30 AM CDT Office Visit [facility] Oncology and Hematology - John [address] [place] [address] [facility] 200 [place] [address] Nelson Saavedra MD [address] [facility] [address] [place] [address] documented as of this encounter Visit Diagnoses Not on filedocumented in this encounter
--- OUTSIDE RECORDS SUMMARY | 2024-07-02 12:02 | XMS_ITS | Encounter Summary ---
Author Organization [facility] Address [address] [place] [address] Care Team Providers Care Fabricating Machine Operator Name Role Phone Unavailable Primary [...] Description 11/24/2024 11:30 AM CDT Office Visit [facility] Oncology and Hematology - John [address] [place] [address] [facility] 200 [place] [address] Nelson Saavedra MD 2[address] [facility] [address] [place] [address] documented as of this encounter Visit Diagnoses Not on filedocumented in this encounter
--- OUTSIDE RECORDS SUMMARY | 2024-07-02 12:02 | XMS_ITS | Encounter Summary ---
Author Organization [facility] NATALYRobertson [employer] [facility] Address [address] [place] [address] Care Team Providers Care Ophthalmic Technologist Name Role Phone Unavailable Primary Care Provider Unavailabl e Encounter Details Date Type Department Care Team (Late Contact Info) Description 05/09/2024 Orders Only [facility] Oncology and Hematology [place] [address] [address] [place] [address] Nelson Saavedra MD [address] [place] [address] [employer] [address] [place] [phone] Social History Tobacco Use Types Packs/Day [...] Description 11/24/2024 11:30 AM CDT Office Visit [facility] Oncology and Hematology [place] [address] [place] [address] Nelson Saavedra MD [address] [place] [address] [employer] [address] [place] [phone] documented as of this encounter Procedures [...]
--- OUTSIDE RECORDS SUMMARY | 2024-07-02 12:02 | XMS_ITS | Encounter Summary ---
Author Organization [facility] CHANDNICoastal [employer] Henry [facility] Address [address] [place] [address] Care Team Providers Care Tutorial Laboratory Supervisor Name Role Phone Unavailable Primary Care Provider Unavailabl e Encounter Details Date Type Department Care Team (Late Contact Info) Description 05/07/2024 [facility] On[facility] Hematology John [address] [place] [phone] Nelson Saavedra MD [address] [place] [address] [employer] [address] [place] [phone] Social History Tobacco Use Types Packs/Day [...] Description 11/24/2024 11:30 AM CDT [facility] On[facility] Hematology - John Suzette [address] [place] [address] Nelson Saavedra MD [address] [place] [address] [employer] [address] [place] [phone] documented as of this encounter Visit Diagnoses Not on filedocumented in this encounter
--- OUTSIDE RECORDS SUMMARY | 2024-07-02 12:02 | XMS_ITS | Encounter Summary ---
Author Organization [facility] CHANDNIfake company [employer] [facility] Address [address] [place] [address] Care Team Providers Care Demurrage Clerk Name Role Phone Unavailable Primary Care Provider Unavailabl e Encounter Details Date Type Department Care Team (Late Contact Info) Description 05/05/2024 Orders Only [facility] Oncology and Hematology [address] [place] [phone] Nelson Saavedra MD [address] [place] [address] [employer] [address] [place] [phone] Social History Tobacco Use Types Packs/Day [...] Description 11/24/2024 11:30 AM CDT Office Visit [facility] [address] [address] [place] [address] Nelson Saavedra MD [address] [place] [address] [employer] [address] [place] [phone] documented as of this encounter Procedures Procedure Name Priority Date/Time Associated Diagnosis Comments KAPPA/LAMBDA LIGHT CHAINS Routine 05/02/2024 10:38 AM CDT documented in this encounter Results * KAPPA/LAMBDA, FREE LIGHT CHAINS (05/02/2024 10:38 AM CDT) Blood Nelson Saavedra MD CHEMISTRY ORDERABLES documented in this encounter Visit Diagnoses Not on filedocumented in this encounter
--- OUTSIDE RECORDS SUMMARY | 2024-07-02 12:02 | XMS_ITS | Encounter Summary ---
Author Organization [facility] CHANDNIStripe Henry [facility] Address [address] [place] [address] Care Team Providers Care Wrapper Opener Name Role Phone Unavailable Primary Care Provider Unavailabl e Reason for Visit * Reason Comments Follow Up Encounter Details Date Type Department Care Team (Late st Contact Info) Description 01/03/2024 11:15 AM CDT Office Visit [facility] Oncology and Hematology - John 2227 [facility] 200 [place] [address] Nelson Saavedra MD 2[address] [facility] [address] [place] [address] Elevated serum protein level (Primary [...] Visit [facility] Oncology and Hematology [facility] 2227 [facility] 200 [place] [address] Nelson Saavedra MD [address] [facility] [address] [place] [address] Scheduled Orders Name Type Priority [...]
--- OUTSIDE RECORDS SUMMARY | 2024-07-02 12:02 | XMS_ITS | Encounter Summary ---
Author Organization [facility] NATALYWeOrder LTD [facility] Address [address] [place] [address] Care Team Providers Care Glass Mould Cleaner Name Role Phone Unavailable Primary Care Provider Unavailabl e Encounter Details Date Type Department Care Team (Late Contact Info) Description 12/28/2023 Orders Only [facility] Oncology and Hematology [facility] [address]asson [address] [place] [address] Nelson Saavedra MD [address] [place] [address] [employer] [address] [place] [phone] Social History Tobacco Use Types Packs/Day [...] CDT Office Visit [facility] Oncology and Hematology [place] [address] [place] [address] Nelson Saavedra MD [address] [place] [address] Repair Report [address] [place] [phone] documented as of this encounter Procedures Procedure Name Priority Date/Time Associated Diagnosis Comments METHYLMALONIC ACID Routine 12/19/2023 9:07 AM CDT documented in this encounter Results * METHYLMALONIC ACID (12/19/2023 9:07 AM CDT) Blood Nelson Saavedra MD CHEMISTRY ORDERABLES documented in this encounter Visit Diagnoses Not on filedocumented in this encounter
--- OUTSIDE RECORDS SUMMARY | 2024-07-02 12:03 | XMS_ITS | Encounter Summary ---
Author Organization [facility] NATALYDuriana [facility] Address [address] [place] [address] Care Team Providers Care Inbound Ingredient Logistics Specialist Name Role Phone Unavailable Primary Care Provider Unavailabl e Encounter Details Date Type Department Care Team (Late Contact Info) Description 12/20/2023 Orders Only [facility] Oncology and Hematology [place] [address] [address] [place] [phone] Nelson Saavedra MD [address] [place] [address] [employer] [address] [place] [phone] Social History Tobacco Use Types Packs/Day [...] Description 11/24/2024 11:30 AM CDT Office Visit [facility]cology and [facility] [address] [address] [place] [address] Nelson Saavedra MD [address] [place] [address] [employer] [address] [place] [phone] documented as of this encounter Procedures [...]
--- OUTSIDE RECORDS SUMMARY | 2024-07-02 12:03 | XMS_ITS | Encounter Summary ---
Author Organization [facility] CHANDNIWinLocal Henry [facility] Address [address] [place] [address] Care Team Providers Care Athletic Trainer Name Role Phone Unavailable Primary Care Provider Unavailabl e Reason for Visit * Reason Comments Establish Care Encounter Details Date Type Department Care Team (Late st Contact Info) Description 12/19/2023 3:00 PM CDT Office Visit [facility] Oncology and Hematology - John 2227 [facility] 200 [place] [address] Nelson Saavedra MD 2227 [facility] [address] [place] [address] Chronic anemia (Primary Dx) Social [...] Medications Medication Sig Dispense Refill Vit C-Vit D-Nauadd-VwWp-Lutein (PRESERVISION) 226-90-0.8-5 mg Capsule Take 1 Capsule by mouth daily. viatamin B complex-vitamin F-yvujjmgu-ssxr-folic acid 106 mg iron- 1 mg Tablet [...] dysuria; no frequency; no hesitancy; no hematuria SAP BW BI DEVELOPER: Musculosketetal: Patient did not mention bone pain; [...] of the total time spent counseling patient [id number]. CC:?Requesting Physician Zaina Castillo NP documented in this encounter Plan of Treatment Upcoming Encounters Date Type Department Care Team (Late st Contact Info) Description 11/24/2024 11:30 AM CDT Office Visit [facility] Oncology and Hematology - John 2227 [facility] 200 [place] [address] Nelson Saavedra MD 2[address] [facility] [address] [place] [address] Scheduled Orders Name Type Priority [...]
--- OUTSIDE RECORDS SUMMARY | 2024-07-02 12:03 | XMS_ITS | Encounter Summary ---
Author Organization [facility] Address [address] [place] [address] Care Team Providers Care Fast Food Fry Cook Name Role Phone Unavailable Primary Care Provider [...] 11/24/2024 11:30 AM CDT Office Visit [facility] Oncology and Hematology - John [address] [place] [address] [facility] 200 [place] [address] Nelson Saavedra MD 2[address] [facility] [address] [place] [address] documented as of this encounter Visit Diagnoses Not on filedocumented in this encounter
--- OUTSIDE RECORDS SUMMARY | 2024-07-02 12:03 | XMS_ITS | Encounter Summary ---
Author Organization [facility] NATALYMarucci Sports [facility] Address [address] [place] [address] Care Team Providers Care Tangled Yarn Spool Straightener Name Role Phone Unavailable Primary Care Provider Unavailabl e Encounter Details Date Type Department Care Team (Late Contact Info) Description 12/24/2023 Orders Only [facility] Oncology and Hematology [facility] [address]asson [address] [place] [phone] Nelson Saavedra MD [address] [place] [address] [employer] [address] [place] [phone] Social History Tobacco Use Types Packs/Day [...] [facility] Oncology and Hematology [place] [address] [place] [phone] Nelson Saavedra MD [address] [place] [address] [employer] [address] [place] [phone] documented as of this encounter Procedures Procedure Name Priority Date/Time Associated Diagnosis Comments METHYLMALONIC ACID Routine 12/19/2023 1:39 PM CDT documented in this encounter Results * METHYLMALONIC ACID (12/19/2023 1:39 PM CDT) Blood Nelson Saavedra MD CHEMISTRY ORDERABLES documented in this encounter Visit Diagnoses Not on filedocumented in this encounter
--- NOTE | 2024-07-10 19:07 | P.TS_ITS ---
Transfer Discharge Sum: Prov Provider Date of admission: 06/24/24 08:30 Primary care physician: Zaina Castillo APRN Admitting clinician: Monica Bauman MD Consults: 06/23/24 Consult to Physician Routine Comment: Consulting Provider: Preston Tyler at home independent call center agent/MD group to consult: Orthopedics Reason for consultation: Right humeral fracture Has provider been notified: Yes Consult to Physician Routine Comment: Consulting Provider: Romario Sweeney at home independent call center agent/MD group to consult: Neurology Reason for consultation: Altered mental status Has provider been notified: Yes Consult to Physician Routine Comment: Consulting Provider: Juan Simmons at home independent call center agent/MD group to consult: Cardiology on-call Reason for consultation: New onset atrial fibrillation Has provider been notified: Yes DS: Admitting Diagnosis Discharge Date 06/30/24 Admitting Diagnosis AMS DS: Discharge Diagnosis Discharge Diagnosis (1) Acute febrile illness: Code(s): R50.9 - Fever, unspecified Status: Acute (2) Metabolic encephalopathy: Code(s): G93.41 - Metabolic encephalopathy Status: Acute (3) Dehydration: Code(s): E86.0 - Dehydration Status: Acute (4) Closed right humeral fracture: Qualifiers: Encounter type: initial encounter Humerus Location: surgical neck Fracture alignment: displaced Code(s): S42.301A - Unspecified fracture of shaft of humerus, right arm, initial encounter for closed fracture Status: Acute (5) Atrial fibrillation with rapid ventricular response: Code(s): I48.91 - Unspecified atrial fibrillation Status: Acute (6) Anemia: Code(s): D64.9 - Anemia, unspecified Status: Acute (7) Dementia: Code(s): F03.90 - Unspecified dementia, unspecified severity, without behavioral disturbance, psychotic disturbance, mood disturbance, and anxiety Status: Acute Plan The patient presented to the emergency department for evaluation of altered mental status as detailed in HPI. Labs, imaging, EKG, and all reports were personally reviewed. Transfered to [facility] Confusion Patient was diagnosed dementia, cognitive function declines rapidly Increased confusion recently Patient has a fever 100.4 in the ED, leukocytosis, 14,100 upon arrival in the ED Patient is on multiple medication for pain management including hydrocodone History of alcohol dependence, quit drinking in September 2023, Viral panel negative Differential including meningitis, acute metabolic encephalopathy, polypharmacy, dehydration CT head shows no acute intracranial issues No grows from blood culture TSH 0.55, ammonia, B12 878, folate 17, and drug screen to rule out other etiologies. Neurology has been consulted Start fluid resuscitation, poor intake Received ampicillin IV ceftriaxone IV, vancomycin IV acyclovir Discussed with Dr. Solomon and agrees with transfer Discontinued Zyprexa and trazodone Advise ativan as needed for anxiety New onset atrial fibrillation, received diltiazem 10 mg IV x1 in the ED 06/28: Received metoprolol 5 mg x 2. Adenosine 0.6 mg x 1 Also received amiodarone drip Echocardiogram 1. Complete two-dimensional, color flow and Doppler transthoracic echocardiogram is performed. 2. Left ventricular chamber dimension is normal. 3. Left ventricular systolic function is normal, estimated at 65-70%. 4. The left ventricular diastolic function is normal. 5. E/e' 6 is not elevated. Cardiology has been consulted. Follow recommendation Chronic Anemia stable on review of previous labs. Humeral fracture Ortho consulted for humeral fracture. Pain is tolerable Advance diet as tolerable Consult PT OT primary care coordinator for evaluation and assisting placement Transfer Discharge Sum: Med Medications Active and Home Medications: Home Medications Asprin 81 mg 81 mg BYMOUTH DAILY 07/11/23 [History Confirmed 06/23/24] Qunol Ultra Coq10 100 mg BYMOUTH DAILY 07/11/23 [History Confirmed 06/25/24] Tumeric 1,600 mg BYMOUTH DAILY 07/11/23 [History Confirmed 06/23/24] Vitamim D3 50 mcg BYMOUTH DAILY 07/11/23 [History Confirmed 06/23/24] escitalopram oxalate 10 mg tablet (Lexapro) 10 mg PO DAILY #30 tabs 04/09/24 [Rx Confirmed 06/23/24] atorvastatin 20 mg tablet See Rx Instructions .Route .COMPLEX #90 tabs 05/22/24 [Rx Confirmed 06/23/24] lisinopril 20 mg-hydrochlorothiazide 25 mg tablet See Rx Instructions .Route .COMPLEX #90 tabs 05/22/24 [Rx Confirmed 06/23/24] hydrocodone 5 mg-acetaminophen 300 mg tablet 1 tablet PO Q8H PRN pain #20 tabs 06/19/24 [Rx Confirmed 06/25/24] methocarbamol 750 mg tablet 750 mg PO TID PRN muscle spasm #30 tabs 06/19/24 [Rx Confirmed 06/25/24] B-complex with vitamin C 1 tablet PO DAILY 06/23/24 [History Confirmed 06/23/24] coenzyme Q10 75 mg capsule (Ultra CoQ10) 75 mg PO DAILY 06/23/24 [History Confirmed 06/23/24] ferrous sulfate 325 mg (65 mg iron) tablet (Feosol) 325 mg PO DAILY 06/23/24 [History Confirmed 06/23/24] ysvnyxht-fh-dqerh 300 mcg-K 60 mcg-lycop 600 mcg-lutein 300 mcg tablet (Century Men 50 Plus) 1 tablet PO DAILY 06/23/24 [History Confirmed 06/23/24] vit C 250 mg-vit E 90 mg-zinc 40 mg-copper 1 kn-sbcihw-nyhjbm capsule (PreserVision AREDS-2) 1 tablet PO ONCE 06/23/24 [History Confirmed 06/23/24] Transfer Discharge Sum: Hosp Hospital Course Hospital course: Tony Mauro is a 68 year old male with dementia, hypertension, and hyper lipidemia who presented to the emergency department via EMS from home for evaluation of altered mental status. Given his current clinical condition, all of the following history is obtained via a review of his electronic medical records as well as information provided by his Barbara and daughter Chaya were at bedside. He has a history of heavier alcohol use and decided to quit drinking in September 2023. Family indicates that he had troubles with withdrawal symptoms for upwards of 4 weeks and he was starting to show memory problems shortly thereafter. Over the course of the last 8 months he has become repetitive with pretty significant short-term memory loss and periods of increasing confusion and sometimes hallucinations. They also report that every few weeks or so he has a few days in a row where he sleeps a majority of the time and they are barely able to get him to wake up let alone eat. Last he had a good day and was helping his hang something up in the bathroom when she heard him yell for help. When she entered the room he was lying on his side and had an obvious deformity to the right shoulder. He was seen emergency department and was diagnosed with a humeral fracture. That evening the patient's gave him a dose of hydrocodone and methocarbamol. He has been increasingly confused since that time despite not having any further doses of those medications. He has not had any recent illnesses and family denies fever, cough, vomiting, and diarrhea. In the ED: He was alert and oriented x1 on arrival. ED nurse reported that he was extremely tremulous and anxious and he was given lorazepam 2 mg IV. Since that time he has been somnolent and very difficult to arouse. Temperature was as high as 100.4?. Blood pressures have been stable aside from a single blood pressure in the mid 90s systolic. Over the course of his stay he went into rapid atrial fibrillation which is reportedly a new diagnosis for him. Labs are significant for a WBC count of 14.1, hemoglobin 10.6, platelet 340, sodium 129, BUN 31, creatinine 0.70, lactic acid 1.0. Urinalysis is positive for 1+ protein and 2+ ketones. Head CT was without acute findings. Chest x-ray showed mild elev ation of the left hemidiaphragm with discoid atelectasis in left mid lung zone and an indeterminate 1.8 cm nodule opacity at the left lung base. A subsequent chest CT showed mild atelectasis in the lungs. He is being admitted in this setting for further workup. 06/29: No acute events reported.Patient is more disoriented when compared to yesterday. No evidence of neurological deficits. As mentioned earlier still awaiting for the transfer to [facility]. Accepted by . Holding on MRI and spinal tap. 06/28:Patient had an elevated heart rate of around 190. Nursing reports he received albuterol and PT a few minutes ago before the heart rate elevation. His blood pressure was in the 150s over the 90s. He was given 5 mg metoprolol, but his heart rate was still sustained in the 170s. Repeat blood pressure was in the 130s over 90. Give another 5 mg of metoprolol. The patient's heart rate was still sustained at 170s, and he was given adenosine 0.6 mg. Later, his heart rate after receiving adenosine dropped to 70. The repeat EKG shows ST depression, which was present in the previous EKGs. Will follow Cardio recommendations. Added vancomycin to his regimen and ordered blood cultures due to spikes of fever. I discussed the case with the neurologist, who agreed that the patient's sudden decline in mentation, with other conditions like falls, AFib, confusion, aggression, and possible seizures, could not be explained. The patient needs continuous EEG monitoring and an opinion on infectious disease. Today, I called [facility] and explained pt condition and accepted by Dr. Wheeler. Will defer doing spinal tap and MRI brain. Discontinuing Zyprexa and trazodone. Advised as needed Ativan for anxiety. Time Spent with Patient Time attestation: Total time spent providing and/or coordinating transfer services:45 mins Exam Narrative: GENERAL: Ill-appearing in no acute distress. Well-nourished. - EYES: EOMI. Anicteric. - HENT: Moist mucous membranes. - LUNGS: Clear to auscultation bilateral ly, no wheezing, rhonchi, or rales. - CARDIOVASCULAR: Regular rate and rhyth m. No murmur. No JVD. - ABDOMEN: Soft, non-tender and non-dist ended. No palpable masses. - EXTREMITIES: No edema. Peripheral puls es 2+. Non-tender., right arm tenderness by palpation, - NEUROLOGIC: No focal neurological defi cits. CN II-XII grossly intact. - PSYCHIATRIC: Awake, Alert and oriente d x to time and person, patient knows he is in hospital. mood and affect: Restless - SKIN: No rashes or lesions. Warm. - LYMPH: No cervical lymphadenopathy. Const: General: comfortable, no acute distress, alert, awake, in distress moderate, anxious, confusion, ill appearing, uncomfortable and average body habitus Nutritional Appearance: average body habitus Orientation/consciousness: patient oriented x3 and confusion Limitations: altered mental status HENMT: Head: normal to inspection Eyes: General: appearance normal, both eyes and all related structures Pupils: Equal, round and reactive pupils present Neck: Neck: normal visual inspection, supple and no JVD Carotids: normal carotid upstroke Resp: Effort & Inspection: normal respiratory effort Auscultation: clear to auscultation bilaterally Cardio: Rate: regular rate Rhythm: regular rhythm Heart sounds: S1 normal heart sound present, S2 normal heart sound present and no murmurs GI: Auscultation: normal bowel sounds Skin: General skin exam: normal color Neuro: General: patient oriented x3, confusion and Unable to assess gait Cranial nerves: Yes Equal, round and reactive pupils present Cognition (Neuro): abnormal cognition Speech: Abnormal speech present Gait exam (Neuro): Unable to assess gait Extrem: General: abnormal to inspection Right upper extremity: shoulder/upper arm abnormal to inspection, tenderness of the proximal humerus and of the mid-shaft humerus, abnormal ROM held in an abnormal fashion in ADduction, pain with active ROM and pain with passive ROM and ecchymosis, elbow/forearm tenderness, swelling, abnormal ROM, ecchymosis and distal pulses intact, wrist tenderness, swelling, abnormal ROM pain with active ROM during with extension and with flexion, ecchymosis, radial pulse present 2+ and ulnar pulse present 2+ and Extremity exam: right hand normal to inspection, neurosensory exam normal and vascular exam radial pulse present Right lower extremity: normal to inspection and full ROM Left lower extremity: normal to inspection and full ROM Other: Significant ecchymosis noted on right upper extremity Psych: Appearance: grossly normal Mental Status: mental status grossly normal
== END 2024-06-30 00:58 | disposition short-term general hospital (02) ==
LOC: ANHED 18:33 → ANHIMU 20:37
PROVIDERS: Emergency Medicine; Hospitalist; Physician Assistant; Admitting Provider Internal Medicine; Emergency Provider Emergency Medicine; PCP Nurse Practitioner Adult Health; Visit Provider General Practice
DX: R50.9 Fever, unspecified (principal); G93.41 Metabolic encephalopathy; I47.10 Supraventricular tachycardia, unspecified; I48.91 Unspecified atrial fibrillation; I10 Essential (primary) hypertension; E86.0 Dehydration; E78.5 Hyperlipidemia, unspecified; D64.9 Anemia, unspecified; H35.30 Unspecified macular degeneration; H40.9 Unspecified glaucoma; F03.90 Unspecified dementia, unspecified severity, without behavioral disturbance, psychotic disturbance, mood disturbance, and anxiety; F10.21 Alcohol dependence, in remission; Z20.822 Contact with and (suspected) exposure to COVID-19; W19.XXXD Unspecified fall, subsequent encounter; S42.201D Unspecified fracture of upper end of right humerus, subsequent encounter for fracture with routine healing; Z79.82 Long term (current) use of aspirin; Z87.891 Personal history of nicotine dependence
CPT/HCPCS: 23600; 36415; 36569; 70450; 71045; 71250; 73030; 73100; 80048; 80053; 80202; 80307; 81001; 82077; 82140; 82550; 82565; 82607; 82728; 82746; 82948; 83540; 83550; 83605; 83735; 84145; 84443; 85025; 85027; 85610; 85652; 85730; 86140; 87040; 87637; 92610; 93005; 93306; 94640; 95816; 96361; 96365; 96366; 96367; 96375; 96376; 97162; 97166; 99285; A9270; G0378; J0133; J0153; J0282; J0290; J0696; J1741; J2003; J2060; J2359; J3370; J7030; J7060

== ENCOUNTER 2024-09-03 11:37 | Outpatient (CLI) | payer MEDICARE, BC, SELFPAY ==
--- NOTE | ~2024-09-03 | XR_ITS ---
EXAMINATION: XR humerus RT DATE: 09/03/2024 11:58 INDICATION: Unspecified fracture shaft of right humerus. TECHNIQUE: 2 views of right humerus were obtained. COMPARISON: Right shoulder radiographs 06/24/2024 FINDINGS: There is a comminuted fracture of proximal right humerus. At the surgical neck, the distal fracture fragment demonstrates 36 degrees varus angulation and impaction. Callus formation is noted. 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 Osteopenia is noted. IMPRESSION: 1. Healing comminuted two-part fracture of proximal right humerus. Reviewed, dictated and finalized at location A. RCOLLAR BASTER
--- OUTSIDE RECORDS SUMMARY | 2024-09-03 13:33 | XMS_ITS | Clinical Summary ---
Author Organization [facility] Kiah nate Spaulding Address [address] [place] [address] Care Team Providers Care Remote Sensing Technologist Name Role Phone Unavailable Primary Care Provider Unavailabl e Allergies No known active allergies Medications aspirin (ECOTRIN EC) 81 mg Tablet, Delayed Release (E.C.) Take 81 mg by mouth daily. Active atorvastatin (LIPITOR) 20 mg tablet Take 20 mg by mouth daily. Active lisinopril-hydr oCHLOROthiazide (ZESTORETIC) 20-25 mg tablet Take 1 Tablet by mouth daily. Active multivitamin (DAILY-JESSICA) tablet Take 1 Tablet by mouth daily. Active Vit C-Vit M-Wjthkj-MiHo-L utein (PRESERVISION) 226-90-0.8-5 mg Capsule Take 1 Capsule by mouth daily. Active viatamin B complex-vitamin R-sikzvvug-zdgy -folic acid 106 mg iron- 1 mg Tablet Take 1 Tablet by mouth daily. Active CALCIUM CITRATE-VITAMIN D3 ORAL Take by mouth. Active sildenafiL (VIAGRA) 25 mg tablet Take by mouth 1 time daily as needed for Erectile Dysfunction. Active Active Problems No known active problems Family History Medical History Relation Name Comments [...] Recorded Sex Assigned at Not on file Legal Sex Male 3:50 PM CDT Gender Identity Not on file Sexual Orientation Not on file Last Filed Vital Signs Vital Sign Reading Time Taken Comments Blood Pressure 125/84 01/03/2024 11:01 AM CDT Pulse 87 01/03/2024 11:01 AM CDT Temperature 36.7 C (98 F) 01/03/2024 11:01 AM CDT Respiratory Rate 16 [...] Description 11/24/2024 11:30 AM CDT Office Visit [facility] [place] [address] [place] [address] [facility] [address] [place] [address] Nelson Saavedra MD [address] [facility] [address] [place] [address] Health Maintenance Due Date Last Done Comments Pre-Diabetes and Diabetes Screening 1955 DTAP/TDAP/TD VACCINES (1 - Tdap) 1976 COLORECTAL SCREENING 2002 Colorectal Cancer Screening 2002 FIT-DNA Q 3 years 2002 FIT/FOBT Q 1 year 2002 Flex Sig/CT Colonography Q 5 years 2002 PNEUMOCOCCAL VACCINE 65+ YEARS (1 of 1 - PCV) 11/05/19 08 ZOSTER VACCINE (1 of 2) 11/05/2007 Abdominal Aortic Aneurysm (AAA) Screening 2022 INFLUENZA VACCINE (#1) 2024 RSV VACCINE (60+ or ) (1 - 1-dose 75+ series) 2032 Insurance [facility]
--- OUTSIDE RECORDS SUMMARY | 2024-09-03 13:34 | XMS_ITS | Patient Health Summary ---
Author Organization [facility] Address [address] [place] [address] Care Team Providers Care Tobacco Warehouse Manager Name Role Phone Unknown, Provider Primary Care Provider Unavaila ble Note from Formerly named [facility],non-owned Affiliates and Associated Physician Practices is amultiple site organization consisting of ambulatory clinics and hospital sitesin [place], [place], [place] and [place]. This disclosure is being madepursuant to the Care Everywhere program and may not contain all information available regarding this patient. Last updated 18.[facility]alio Allergies No known active allergies Medications * Be aware that medications may not be up to date on this document. Alwaysverify current medications with the patient. * acetaminophen (Tylenol) 500 MG tablet(Started 07/18/2024) Take 2 (two) tablets by mouth 3 times daily Maximum allowable Acetaminophen amount = 4 Grams (4000 mg) / 24 hours. * albuterol-ipratropium (Duo-Neb) 0.5-2.5 (3) MG/3ML nebulizer solution(Started 07/18/2024) Inhale 3 mL by mouth every 6 hours as needed for Shortness of Breath or Wheezing * apixaban (Eliquis) 5 MG tablet(Started 07/18/2024) Take 1 (one) tablet by mouth 2 times daily Reasons: Atrial Fibrillation * traZODone (Desyrel) 50 MG tablet(Started 07/18/2024) Take 1 (one) tablet by mouth nightly as needed for Insomnia * QUEtiapine (SEROquel) 50 MG tablet(Started 07/18/2024) Take 1 (one) tablet by mouth once daily * metoprolol tartrate IR (Lopressor) 25 MG tablet(Started 07/18/2024) Take 1 (one) tablet by mouth 2 times daily * folic acid (Folvite) 1 MG tablet(Started 07/19/2024) Take 1 (one) tablet by mouth once daily * melatonin 3 MG tablet(Started 07/18/2024) Take 2 (two) tablets by mouth once daily * magnesium oxide (Mag-Ox) 400 MG tablet(Started 07/18/2024) Take 1 (one) tablet by mouth 2 times daily * multiple vitamins with minerals tablet(Started 07/19/2024) Take 1 (one) tablet by mouth once daily * thiamine (Vitamin B-1) 100 MG tablet(Started 07/19/2024) Take 1 (one) tablet by mouth once daily * vitamin D3 (Cholecalciferol) 25 MCG (1000 UNITS) tablet(Started 07/19/2024) Take 1 (one) tablet by mouth once daily * LORazepam (Ativan) 1 MG tablet(Started 04/22/2024) Take 1 (one) tablet by mouth pre-Procedure once * atorvastatin (Lipitor) 20 MG tablet Take 1 (one) tablet by mouth once daily * hydrOXYzine HCl (Atarax) 25 MG tablet Take 1 (one) tablet by mouth 4 times daily as needed for Itching Ended Medications* amoxicillin (Amoxil) 875 MG tablet(Started 04/29/2024) (Discontinued) Take 1 (one) tablet by mouth every 12 hours * aspirin EC (Ecotrin) 81 MG tablet(Discontinued) Take 1 (one) tablet by mouth once daily * azithromycin (Zithromax) 250 MG tablet(Started 03/20/2024)(Discontinued) Take 1 (one) tablet by mouth once daily * benzonatate (Tessalon) 200 MG capsule(Started 04/29/2024)(Discontinued) Take 1 (one) capsule by mouth 3 times daily as needed for cough * doxycycline hyclate (Vibramycin) 100 MG capsule(Started 11/24/2023) (Discontinued) Take 1 (one) capsule by mouth 2 times daily * escitalopram (Lexapro) 10 MG tablet(Started 06/04/2024)(Discontinued) Take 1 (one) tablet by mouth once daily * Ferrous Sulfate (IRON PO)(Discontinued) Take 1 tablet by mouth once daily * HYDROcodone-acetaminophen (Avoca) 5-325 MG tablet(Started 06/19/2024) (Discontinued) Take 1 (one) tablet by mouth every 8 hours as needed For pain. * ibuprofen (Motrin) 600 MG tablet(Started 12/19/2023)(Discontinued) Take 1 (one) tablet by mouth every 8 hours as needed for Fever or Pain * ibuprofen (Motrin) 800 MG tablet(Started 03/18/2024)(Discontinued) Take 1 (one) tablet by mouth 3 times daily as needed For pain. * lisinopril-hydroCHLOROthiazide (Prinzide; Zestoretic) 20-25 MG tablet (Discontinued) Take 1 (one) tablet by mouth once daily * methocarbamol (Robaxin) 750 MG tablet(Started 06/19/2024)(Discontinued) Take 1 (one) tablet by mouth 3 times daily as needed FOR MUSCLE SPASM * Multiple Vitamins-Minerals (PreserVision/Lutein)(Discontinued) Take 1 (one) capsule by mouth once daily * hqhewqxu-ghpxhijpb-bi (Cortisporin) 3.5-05853-7 otic suspension(Started 07/18/2023)(Discontinued) Instill 5 (five) drops into both ears 3 times daily * omeprazole (PriLOSEC) 20 MG capsule(Started 07/18/2023)(Discontinued) Take 1 (one) capsule by mouth once daily * sildenafil (Viagra) 25 MG tablet(Discontinued) Take 1 (one) tablet by mouth once daily as needed * predniSONE (Deltasone) 20 MG tablet(Started 04/29/2024)(Discontinued) Take 2 (two) tablets by mouth once daily * travoprost, SALMA free, (Travatan Z) 0.004 % ophthalmic solution(Discontinued) Instill 1 (one) drop into both eyes at bedtime * timolol as hemihydrate (Betimol) 0.25 % ophthalmic solution(Discontinued) Instill 1 (one) drop into both eyes once daily * B Complex Vitamins (VITAMIN-B COMPLEX PO)(Discontinued) Take 1 tablet by mouth once daily * Turmeric (QC TUMERIC COMPLEX PO)(Discontinued) Take 1 tablet by mouth once daily * Calcium Citrate-Vitamin D (CALCIUM CITRATE + D3 PO)(Discontinued) Take 1 tablet by mouth once daily Active Problems Problem Noted Date Diagnosed Date Hallucinations 07/04/2024 Memory loss 07/04/2024 Closed fracture of right humerus 06/28/2024 Suspected infectious meningitis 06/28/2024 LLQ abdominal pain 04/14/2021 History of colonic polyps 04/14/2021 Multiple abrasions 05/07/2018 Fracture of toe of left foot 05/07/2018 Social History Tobacco Use Types Packs/Day Years Used Date Smoking Tobacco: Former Cigarettes Passive Smoke Exposure: Past Smokeless Tobacco: Never Alcohol Use Standard Drinks/Week Comments Yes 0 (1 standard drink = 0.6 oz pur e alcohol) AUDIT-C Answer Date Recorded Q1: How often do you have a drink containing alcohol? Never 07/01/2024 Q2: How many drinks containi ng alcohol do you have on a typical day when you are drinking? Patient does not drink Q3: How often do you have si x or more drinks on one occasion? Patient unable to answer 07/01/2024 Overall Financial Resource Strain (CARDIA) Answe r Date Recorded How hard is it for you to pa y for the very basics like food, housing, medical care, and heating? Patient declined 07/01/2024 PHQ-2 Answer Date Recorded Patient Health Questionnaire-2 Score 2 08/06/2024 [facility] - Occupational Stress Questionnaire Answer Date Recorded Do you feel stress - tense, restless, nervous, or anxious, or unable to sleep at night because your mind is troubled all the time - these days? Patient declined 07/01/2024 Hunger Vital Sign Answer Date Recorded Within the past 12 months, y ou worried that your food would run out before you got the money to buy more. Patient declined Within the past 12 months, t he food you bought just didn't last and you didn't have money to get more. Patient declined PRAPARE - Transportation Answer Date Re corded In the past 12 months, has l ack of transportation kept you from medical appointments or from getting medications? No 06/09 In the past 12 months, has l ack of transportation kept you from meetings, work, or from getting things needed for daily living? No 07/01/2024 Housing Stability Vital Sign Answer Alex e Recorded In the last 12 months, was t here a time when you were not able to pay the mortgage or rent on time? Patient declined 07/01/20 24 In the past 12 months, how m any times have you moved where you were living? 0 07/01/2024 At any time in the past 12 m [facility], were you homeless or living in a residential (including now)? No 07/01/2024 Sex and Gender Information Value Date Recorded Sex Assigned at Not on file Gender Identity Not on file Sexual Orientation Not on file Last Filed Vital Signs Vital Sign Reading Time Taken Comments Blood Pressure 108/77 07/18/2024 12:04 PM [facility] Pulse 72 07/18/2024 12:04 PM [facility] Temperature 36.5 C (97.7 F) 07/18/2024 12:04 PM [facility] Respiratory Rate 17 07/18/2024 12:04 PM [facility] Oxygen Saturation 100% 07/18/2024 12:04 PM [facility] Inhaled Oxygen Concentration - - Weight 83.6 kg (184 lb 6.4 oz) 07/18/2024 4:00 A M [facility] Height 185.4 cm (6' 1 ) 07/12/2024 9:28 PM [facility] Body Mass Index 24.33 07/12/2024 9:28 PM [facility] Procedures * XR SHOULDER RIGHT 2VW OR MORE(Performed 08/06/2024) Performed for Right shoulder pain, unspecified chronicity * PHOSPHORUS BLOOD(Performed 07/18/2024) * MAGNESIUM BLOOD(Performed 07/18/2024) * COMPREHENSIVE METABOLIC PANEL(Performed 07/18/2024) * CBC W/O DIFFERENTIAL(Performed 07/18/2024) * PHOSPHORUS BLOOD(Performed 07/17/2024) * MAGNESIUM BLOOD(Performed 07/17/2024) * COMPREHENSIVE METABOLIC PANEL(Performed 07/17/2024) * CBC W/O DIFFERENTIAL(Performed 07/17/2024) * XR SHOULDER RIGHT 2VW OR MORE(Performed 07/16/2024) Performed for Closed fracture of proximal end of right humerus, unspecified fracture morphology, initial encounter * PHOSPHORUS BLOOD(Performed 07/16/2024) * MAGNESIUM BLOOD(Performed 07/16/2024) * COMPREHENSIVE METABOLIC PANEL(Performed 07/16/2024) * CBC W/O DIFFERENTIAL(Performed 07/16/2024) * PHOSPHORUS BLOOD(Performed 07/15/2024) * MAGNESIUM BLOOD(Performed 07/15/2024) * COMPREHENSIVE METABOLIC PANEL(Performed 07/15/2024) * CBC W/O DIFFERENTIAL(Performed 07/15/2024) * PHOSPHORUS BLOOD(Performed 07/14/2024) * MAGNESIUM BLOOD(Performed 07/14/2024) * COMPREHENSIVE METABOLIC PANEL(Performed 07/14/2024) * CBC W/O DIFFERENTIAL(Performed 07/14/2024) * PHOSPHORUS BLOOD(Performed 07/13/2024) * MAGNESIUM BLOOD(Performed 07/13/2024) * COMPREHENSIVE METABOLIC PANEL(Performed 07/13/2024) * CBC W/O DIFFERENTIAL(Performed 07/13/2024) * COMPREHENSIVE METABOLIC PANEL(Performed 07/12/2024) * MAGNESIUM BLOOD(Performed 07/12/2024) * PHOSPHORUS BLOOD(Performed 07/12/2024) * CBC W/O DIFFERENTIAL(Performed 07/12/2024) * COMPREHENSIVE METABOLIC PANEL(Performed 07/11/2024) * CBC W/O DIFFERENTIAL(Performed 07/11/2024) * MAGNESIUM BLOOD(Performed 07/11/2024) * PHOSPHORUS BLOOD(Performed 07/11/2024) * CELL COUNT W DIFFERENTIAL CSF(Performed 07/10/2024) * PROTEIN CSF(Performed 07/10/2024) * HOLD SPECIMEN CSF(Performed 07/10/2024) * GLUCOSE CSF(Performed 07/10/2024) * CULTURE CSF+GRAM STAIN(Performed 07/10/2024) * CULTURE AFB+SMEAR(Performed 07/10/2024) * MENINGITIS/ENCEPHALITIS PANEL CSF(Performed 07/10/2024) * HERPES SIMPLEX 1+2 PCR CSF(Performed 07/10/2024) * CULTURE FUNGUS OTHER+FUNGUS SMEAR(Performed 07/10/2024) * FL LUMBAR PUNCTURE(Performed 07/10/2024) Performed for Suspected infectious meningitis * PERIPHERAL IV NOTE(Performed 07/10/2024) * COMPREHENSIVE METABOLIC PANEL(Performed 07/10/2024) * CBC W/O DIFFERENTIAL(Performed 07/10/2024) * MAGNESIUM BLOOD(Performed 07/10/2024) * PHOSPHORUS BLOOD(Performed 07/10/2024) * COMPREHENSIVE METABOLIC PANEL(Performed 07/09/2024) * CBC W/O DIFFERENTIAL(Performed 07/09/2024) * MAGNESIUM BLOOD(Performed 07/09/2024) * PHOSPHORUS BLOOD(Performed 07/09/2024) * XR SHOULDER RIGHT 2VW OR MORE(Performed 07/08/2024) Performed for Closed supracondylar fracture of right humerus with routine healing, subsequent encounter * PT-INR [facility](Performed 07/08/2024) Performed for Suspected infectious meningitis * COMPREHENSIVE METABOLIC PANEL(Performed 07/08/2024) * CBC W/O DIFFERENTIAL(Performed 07/08/2024) * MAGNESIUM BLOOD(Performed 07/08/2024) * PHOSPHORUS BLOOD(Performed 07/08/2024) * COMPREHENSIVE METABOLIC PANEL(Performed 07/07/2024) * CBC W/O DIFFERENTIAL(Performed 07/07/2024) * MAGNESIUM BLOOD(Performed 07/07/2024) * PHOSPHORUS BLOOD(Performed 07/07/2024) * VANCOMYCIN LEVEL TROUGH(Performed 07/06/2024) * EKG 12-LEAD(Performed 07/06/2024) Performed for Atrial fibrillation, unspecified type (HCC) * CRYPTOCOCCUS ANTIGEN BLOOD(Performed 07/06/2024) * COMPREHENSIVE METABOLIC PANEL(Performed 07/06/2024) * CBC W/O DIFFERENTIAL(Performed 07/06/2024) * MAGNESIUM BLOOD(Performed 07/06/2024) * PHOSPHORUS BLOOD(Performed 07/06/2024) * URINALYSIS REFLEX TO MICROSCOPIC NO CULTURE(Performed 07/05/2024) * CT CHEST WO CONTRAST(Performed 07/05/2024) Performed for Altered mental status, unspecified altered mental status type * CULTURE BLOOD FUNGUS(Performed 07/05/2024) * VANCOMYCIN LEVEL TROUGH(Performed 07/05/2024) * DNA ANTIBODY DOUBLE STRANDED(Performed 07/05/2024) * MYCOPLASMA PNEUMONIAE AB IGM(Performed 07/05/2024) * COMPLEMENT C4(Performed 07/05/2024) * COMPLEMENT C3(Performed 07/05/2024) * CYCLIC CITRUL PEPTIDE ANTIBODY IGG/IGA (CCP)(Performed 07/05/2024) * RHEUMATOID FACTOR BLOOD QUANTITATIVE(Performed 07/05/2024) * KAYLEY BLOOD SCREEN W/REFLEX TITER(Performed 07/05/2024) * COMPREHENSIVE METABOLIC PANEL(Performed 07/05/2024) * CBC W/O DIFFERENTIAL(Performed 07/05/2024) * MAGNESIUM BLOOD(Performed 07/05/2024) * PHOSPHORUS BLOOD(Performed 07/05/2024) * ECHO COMPLETE W CONTRAST(Performed 07/04/2024) Performed for Atrial fibrillation, unspecified type (HCC) * COMPREHENSIVE METABOLIC PANEL(Performed 07/04/2024) * CBC W/O DIFFERENTIAL(Performed 07/04/2024) * MAGNESIUM BLOOD(Performed 07/04/2024) * PHOSPHORUS BLOOD(Performed 07/04/2024) * MRI BRAIN WO CONTRAST(Performed 07/03/2024) Performed for Suspected infectious meningitis * CULTURE BLOOD(Performed 07/03/2024) * VANCOMYCIN LEVEL TROUGH(Performed 07/03/2024) * CULTURE BLOOD(Performed 07/03/2024) * CULTURE SPUTUM+GRAM STAIN(Performed 07/03/2024) * COMPREHENSIVE METABOLIC PANEL(Performed 07/03/2024) * CBC W/O DIFFERENTIAL(Performed 07/03/2024) * MAGNESIUM BLOOD(Performed 07/03/2024) * PHOSPHORUS BLOOD(Performed 07/03/2024) * SARS-COV-2 (COVID-19) FLU A/B RSV PCR RAPID(Performed 07/02/2024) * XR CHEST 1VW PORTABLE(Performed 07/02/2024) Performed for Productive cough * COMPREHENSIVE METABOLIC PANEL(Performed 07/02/2024) * CBC W/O DIFFERENTIAL(Performed 07/02/2024) * MAGNESIUM BLOOD(Performed 07/01/2024) * RENAL FUNCTION PANEL(Performed 07/01/2024) * PT-INR [facility](Performed 07/01/2024) * CT HEAD WO CONTRAST(Performed 07/01/2024) Performed for Atrial fibrillation, unspecified type (HCC) * GLUCOSE - POINT OF CARE(Performed 07/01/2024) * DIFFERENTIAL MANUAL(Performed 07/01/2024) * MAGNESIUM BLOOD(Performed 07/01/2024) * RENAL FUNCTION PANEL(Performed 07/01/2024) * CBC W AUTO DIFFERENTIAL(Performed 07/01/2024) * LACTIC ACID BLOOD(Performed 07/01/2024) * BLOOD GASES JOSE MIGUEL + COOX PANEL(Performed 07/01/2024) * EKG 12-LEAD(Performed 07/01/2024) Performed for Atrial fibrillation, unspecified type (HCC) * EKG 12-LEAD(Performed 07/01/2024) Performed for Atrial fibrillation, unspecified type (HCC) * COMPREHENSIVE METABOLIC PANEL(Performed 07/01/2024) * CBC W/O DIFFERENTIAL(Performed 07/01/2024) * MAGNESIUM BLOOD(Performed 07/01/2024) * PHOSPHORUS BLOOD(Performed 07/01/2024) * XR SHOULDER RIGHT 2VW OR MORE(Performed 06/30/2024) Performed for Atrial fibrillation, unspecified type (HCC) * XR ELBOW RIGHT 2VW(Performed 06/30/2024) Performed for Atrial fibrillation, unspecified type (HCC) * CT SHOULDER RIGHT WO CONTRAST(Performed 06/30/2024) Performed for Closed fracture dislocation of right hip joint, initial encounter ([facility]) * CT CHEST ABDOMEN PELVIS W CONT(Performed 06/30/2024) Performed for Suspected infectious meningitis * EKG 12-LEAD(Performed 06/30/2024) Performed for Atrial fibrillation, unspecified type ([facility]) * CULTURE BLOOD(Performed 06/30/2024) * VITAMIN D 25-HYDROXY(Performed 06/30/2024) * HIV-1 HIV-2 ANTIBODY + HIV P24 AG PANEL(Performed 06/30/2024) * SYPHILIS ANTIBODY CASCADING REFLEX(Performed 06/30/2024) * VITAMIN B12(Performed 06/30/2024) * TSH(Performed 06/30/2024) * PHOSPHATIDYLETHANOL (PETH)(Performed 06/30/2024) * HEMOGLOBIN A1C(Performed 06/30/2024) * CULTURE BLOOD(Performed 06/30/2024) * URINE DRUG SCREEN IMMUNOASSAY(Performed 06/30/2024) * LEGIONELLA ANTIGEN URINE(Performed 06/30/2024) * STREP PNEUMONIAE ANTIGEN URINE(Performed 06/30/2024) * XR HUMERUS RIGHT 2VW OR MORE(Performed 06/30/2024) Performed for Closed supracondylar fracture of right humerus with routine healing, subsequent encounter * EKG 12-LEAD(Performed 06/30/2024) Performed for Atrial fibrillation, unspecified type ([facility]) * URINE MICROSCOPIC ONLY REFLEX TO CULTURE(Performed 06/30/2024) * URINALYSIS REFLEX MICROSCOPIC REFLEX CULTURE(Performed 06/30/2024) * XR CHEST 1VW PORTABLE(Performed 06/30/2024) Performed for Suspected infectious meningitis * CBC W/O DIFFERENTIAL(Performed 06/30/2024) * MAGNESIUM BLOOD(Performed 06/30/2024) * PHOSPHORUS BLOOD(Performed 06/30/2024) * COMPREHENSIVE METABOLIC PANEL(Performed 06/30/2024) * PT EVAL AND TREAT(Performed 06/30/2024) * OT EVAL AND TREAT(Performed 06/30/2024) Results * XR Shoulder Right 2Vw or More (08/06/2024 9:38 AM [facility]) Only the most recent of4 resultswithin the time period is included. Anatomical Region Laterality Modality Upper Extremity Computed Radiogr aphy 08/06/2024 9:37 AM [facility] Impressions 08/06/2024 9:38 AM [facility] IMPRESSION: Proximal humeral fracture, not significantly changed in alignment. > Interpreting Provider: Feng Ybarra MD on 08/06/2024 9:38 AM Narrative 08/06/2024 9:38 AM [facility] PROCEDURE: XR SHOULDER RIGHT 2VW OR MORE DATE/TIME OF EXAM: 08/06/2024 9:09 AM CLINICAL INFORMATION: None relevant/not provided if blank. Indication: M25.511: Right shoulder pain, unspecified chronicity Additional History: COMPARISON: 07/16/2024. FINDINGS: A moderately displaced fracture of the humeral neck and head is unchanged in alignment allowing for differences in projection. Callus has progressed. There is no dislocation. 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 The bones are osteopenic. Cervical spine instrumentation is noted. Procedure Note Feng Ybarra MD - 08/06/2024 PROCEDURE: XR SHOULDER RIGHT 2VW OR MORE DATE/TIME OF EXAM: 08/06/2024 9:09 AM CLINICAL INFORMATION: None relevant/not provided if blank. Indication: M25.511: Right shoulder pain, unspecified chronicity Additional History: COMPARISON: 07/16/2024. FINDINGS: A moderately displaced fracture of the humeral neck and head isunchanged in alignment allowing for differences in projection. Callus hasprogressed. There is no dislocation. 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 The bones are osteopenic. Cervical spine instrumentationis noted. IMPRESSION: Proximal humeral fracture, not significantly changed in alignment. > Interpreting Provider: Feng Ybarra MD on 08/06/2024 9:38 AM John Noel MD DIAGNOSTIC IMAGING O RDERABLES * (ABNORMAL) CBC W/O DIFFERENTIAL (07/18/2024 5:02 AM [facility]) Only the most recent of19 resultswithin the time period is included. WBC 6.4 4.0 - 10.7 x10E9/L 07/18/2024 5:52 AM [facility] RBC Count 3.78(L) 4.30 - 5.80 x10E12/L 07/18/2024 5:52 AM [facility] Hemoglobin 11.4(L) 13.3 - 17.5 g/dL 07/18/2024 5:52 AM [facility] Hematocrit 34.6(L) 38.7 - 51.1 % 07/18/2024 5:52 AM [facility] MCV 91.5 80.0 - 98.0 fL 07/18/2024 5:52 AM [facility] MCH 30.2 26.7 - 33.6 pg 07/18/2024 5:52 AM [facility] MCHC 32.9 31.7 - 36.3 g/dL 07/18/2024 5:52 AM [facility] RDW-CV 14.9(H) 11.3 - 14.8 % 07/18/2024 5:52 AM [facility] Platelet Count 302 150 - 420 x10E9/L 07/18/2024 5:52 AM [facility] MPV 9.7 7.8 - 11.4 fL 07/18/2024 5:52 AM [facility] Blood BLOOD SPECIMEN / Unknown Lab Venipuncture / Unknown 07/18/2024 5:02 AM [facility] 07/18/2024 5:36 AM [facility] Juve Olvera MD LAB - HEMATOLOGY ORD ERABLES [facility] [address] [place] [id number], [facility] [phone] * (ABNORMAL) COMPREHENSIVE METABOLIC PANEL (07/18/2024 5:02 AM [facility]) Only the most recent of19 resultswithin the time period is included. Pathologist [facility] BUN 21 7 - 26 mg/dL 07/18/2024 6:05 AM [facility] Creatinine 0.58(L) 0.71 - 1.16 mg/dL 07/18/2024 6:05 AM [facility] Sodium 135(L) 136 - 145 mmol/L 07/18/2024 6:05 AM [facility] Potassium 3.9 3.5 - 4.5 mmol/L 07/18/2024 6:05 AM [facility] Chloride 105 98 - 107 mmol/L 07/18/2024 6:05 AM [facility] CO2 25 22 - 29 mmol/L 07/18/2024 6:05 AM [facility] Glucose 110(H) 70 - 99 mg/dL 07/18/2024 6:05 AM [facility] Calcium 8.7 8.4 - 10.2 mg/dL 07/18/2024 6:05 AM [facility] Protein Total 5.9(L) 6.0 - 8.3 g/dL 07/18/2024 6:05 AM [facility] Albumin 3.0(L) 3.4 - 5.0 g/dL 07/18/2024 6:05 AM [facility] Bilirubin Total 0.4 0.2 - 1.2 mg/dL 07/18/2024 6:05 AM [facility] Alkaline Phosphatase 116 40 - 150 U/L 07/18/2024 6:05 AM [facility] ALT 52 5 - 55 U/L 07/18/2024 6:05 AM [facility] AST 35(H) 5 - 34 U/L 07/18/2024 6:05 AM [facility] Anion Gap 5(L) 6 - 16 07/18/2024 6:05 AM [facility] BUN/Creatinine Ratio 36(H) 7 - 23 07/18/2024 6:05 AM [facility] Osmolality Calculated 284 275 - 295 mOsm/kg 07/18/2024 6:05 AM [facility] Albumin/Globulin Ratio 1.0(L) 1.1 - 2.3 07/18/2024 6:05 AM [facility] eGFR by CKD-EPI >90 >=90 mL/min/1.7 3 m2 07/18/2024 6:05 AM [facility] Blood BLOOD SPECIMEN / Unknown Lab Venipuncture / Unknown 07/18/2024 5:02 AM [facility] 07/18/2024 5:36 AM [facility] Juve Olvera MD LAB - CHEMISTRY MANI LUTHER Performing Organization Address City/[facility]/ZIP Co de Phone Number [address] [address], [place] [phone] * PHOSPHORUS BLOOD (07/18/2024 5:02 AM [facility]) Only the most recent of18 resultswithin the time period is included. Phosphorus 3.6 2.8 - 5.1 mg/dL 07/18/2024 6:05 AM [facility] Blood BLOOD SPECIMEN / Unknown Lab Venipuncture / Unknown 07/18/2024 5:02 AM [facility] 07/18/2024 5:36 AM [facility] Juve Olvera MD LAB - CHEMISTRY MANI LUTHER Performing Organization Address [facility] Co de Phone Number [address] [address], [place] [phone] * MAGNESIUM BLOOD (07/18/2024 5:02 AM [facility]) Only the most recent of20 resultswithin the time period is included. Magnesium 1.6 1.6 - 2.6 mg/dL 07/18/2024 6:05 AM [facility] Blood BLOOD SPECIMEN / Unknown Lab Venipuncture / Unknown 07/18/2024 5:02 AM [facility] 07/18/2024 5:36 AM [facility] Juve Olvera MD LAB - CHEMISTRY MANI LUTHER Performing Organization Address City/[facility]/ZIP Co de Phone Number [address] [address], [place] [phone] * CULTURE FUNGUS OTHER+FUNGUS SMEAR (07/10/2024 12:24 PM [facility]) Culture No fungus isolated FRANCOISE 08/04/2024 7:14 AM [facility] Fungus Stain No yeast or hyphae seen 08/04/2024 7:14 AM [facility] MICROBI[facility] Microbiology CEREBROSPINAL FLUID SPECIMEN / Unknown Collection / Unknown 07/10/2024 12:24 PM [facility] 07/11/2024 4:05 AM [facility] Claus Wallace III, MD LAB - MICROBIOLO GY ORDERABLES Performing Organization Address City/[facility]/ZIP Co de Phone Number [facility]CROBIOLOGY [address] [place] [address], [facility] [phone] * HOLD SPECIMEN CSF (07/10/2024 12:24 PM VAULT CASHIER) Pathologist [facility] Specimen Hold 07/10/2024 2:01 PM VAULT CASHIER [facility] Comment:The Hold Sample has been received in the lab and will be held for 30 days. Cerebral spinal fluid CEREBROSPINAL FLUID SPECIMEN / Unknown Collection / Unknown 07/10/2024 12:24 PM VAULT CASHIER 07/10/2024 12:32 PM VAULT CASHIER Claus Wallace III, MD LAB - BODY FLUID ORDERABLES Performing Organization Address City/[facility]/ZIP Co de Phone Number [facility] [address] [place] [address], [facility] [phone] * MENINGITIS/ENCEPHALITIS PANEL CSF (07/10/2024 12:24 PM VAULT CASHIER) Pathologist [facility] [facility] Escherichia coli K1 Not detected Not detected 07/10/2024 6:07 PM [facility] Haemophilus influenzae Not detected Not detected 07/10/2024 6:07 PM [facility] Listeria monocytogenes Not detected Not detected 07/10/2024 6:07 PM [facility] Neisseria meningitis Not detected Not detected 07/10/2024 6:07 PM [facility] Streptococcus agalactiae (Group B) Not detected Not detected 07/10/2024 6:07 PM [facility] Streptococcus pneumoniae Not detected Not detected 07/10/2024 6:07 PM [facility] Cytomegalovirus Not detected Not detected 07/10/2024 6:07 PM [facility] Enterovirus Not detected Not detected 07/10/2024 6:07 PM [facility] Herpes simplex Virus 1 Not detected Not detected 07/10/2024 6:07 PM [facility] Herpes simplex Virus 2 Not detected Not detected 07/10/2024 6:07 PM [facility] Human Herpesvirus 6 Not detected Not detected 07/10/2024 6:07 PM VAULT C[facility]IER [facility] Human Parechovirus Not detected Not detected 07/10/2024 6:07 PM [facility] Varicella zoster Virus Not detected Not detected 07/10/2024 6:07 PM [facility] Cryptococcus neoformans/gattii Not detected Not detected 07/10/2024 6:07 PM [facility] Microbiology CEREBROSPINAL FLUID SPECIMEN / Unknown Collection / Unknown 07/10/2024 12:24 PM VAULT CASHIER 07/10/2024 12:32 PM VAULT CASHIER Narrative [facility] - 07/10/2024 6:07 PM VAULT CASHIER Meningitis/Encephalitis PCR CSF Panel performed by [employer] FilmArray multiplex PCR. A negative FilmArray ME Panel result does not exclude the possibility of LIQUID CHLORINE OPERATOR infection and should not be used as the sole basis for diagnosis, treatment, or other management decisions. The FilmArray ME Panel is intended to be used in conjunction with the standard of care CSF Gram stain and culture for organism recovery and is not a substitute for these tests. Test results should be interpreted in the context of patient presentation and other laboratory information. Claus Wallace III, MD LAB - MICROBIOLO GY ORDERABLES [facility] [address] [place] [address], [facility] [phone] * CULTURE CSF+GRAM STAIN (07/10/2024 12:24 PM VAULT CASHIER) Culture No growth FRANCOISE 07/17/2024 7:19 AM [facility] Gram Stain No polymorphonuclear cells 07/17/2024 7:19 AM [facility] Gram Stain Moderate Red blood cells 07/17/2024 7:19 AM [facility] Gram Stain No organisms seen 025 7:19 AM [facility] Cerebral spinal fluid CEREBROSPINAL FLUID SPECIMEN / Unknown Collection / Unknown 07/10/2024 12:24 PM VAULT CASHIER 07/10/2024 12:31 PM VAULT CASHIER Claus Wallace III, MD LAB - MICROBIOLO GY ORDERABLES [facility] [address] [place] [address], [facility] [phone] * HERPES SIMPLEX 1+2 PCR CSF (07/10/2024 12:24 PM VAULT CASHIER) Pathologist [facility] Herpes Simplex Virus 1 PCR CSF Not detected Not detected 07/10/2024 5:52 PM VAULT CASHIER [facility] Herpes Simplex Virus 2 PCR CSF Not detected Not detected 07/10/2024 5:52 PM VAULT CASHIER [facility] Microbiology CEREBROSPINAL FLUID SPECIMEN / Unknown Collection / Unknown 07/10/2024 12:24 PM VAULT CASHIER 07/10/2024 1:26 PM VAULT CASHIER Claus Wallace III, MD LAB - MICROBIOLO GY ORDERABLES Performing Organization Address City/[facility]/ZIP Co de Phone Number [facility] [address] [place] [address], [facility] [phone] * CULTURE AFB+SMEAR (07/10/2024 12:24 PM VAULT CASHIER) Pathologist [facility] Culture No acid-fast bacillus isolated 08/18/2024 8:42 AM VAULT CASHIER [facility] AFB Smear No acid-fast bacilli seen 08/18/2024 8:42 AM VAULT CASHIER [facility] Microbiology CEREBROSPINAL FLUID SPECIMEN / Unknown Collection / Unknown 07/10/2024 12:24 PM VAULT CASHIER 07/11/2024 4:05 AM VAULT CASHIER Claus Wallace III, MD LAB - MICROBIOLO GY ORDERABLES [facility] [address] [place] [address], [facility] [phone] * (ABNORMAL) CELL COUNT W DIFFERENTIAL CSF (07/10/2024 12:24 PM VAULT CASHIER) Pathologist [facility] Tube Number [id number] 07/10/2024 12:48 PM [facility] Xanthochromia ABSENT ABSENT 07/10/2024 12:48 PM [facility] CSF Appearance HAZY 07/10/2024 12:48 PM [facility] CSF Color PINK 07/10/2024 12:48 PM [facility] Total Nucleated Cells CSF 0 <=5 x10E6/L 07/10/2024 12:48 PM [facility] Comment:TNC less than or equ al to 5. No differential reported per policy. RBC Count CSF 2,650(H) <1 x10E6/L 07/10/2024 12:48 PM [facility] Cerebral spinal fluid CEREBROSPINAL FLUID SPECIMEN / Unknown Collection / Unknown 07/10/2024 12:24 PM VAULT CASHIER 07/10/2024 12:31 PM VAULT CASHIER Claus Wallace III, MD LAB - BODY FLUID ORDERABLES [address] [address], [facility] [phone] * (ABNORMAL) PROTEIN CSF (07/10/2024 12:24 PM VAULT CASHIER) Protein CSF 50(H) 15 - 45 mg/dL 07/10/2024 1:09 PM [facility] Cerebral spinal fluid CEREBROSPINAL FLUID SPECIMEN / Unknown Collection / Unknown 07/10/2024 12:24 PM VAULT CASHIER 07/10/2024 12:31 PM VAULT CASHIER Claus Wallace III, MD LAB - BODY FLUID ORDERABLES [address] [address], [facility] [phone] * GLUCOSE CSF (07/10/2024 12:24 PM VAULT CASHIER) Glucose CSF 54 40 - 70 mg/dL 07/10/2024 1:09 PM [facility] Cerebral spinal fluid CEREBROSPINAL FLUID SPECIMEN / Unknown Collection / Unknown 07/10/2024 12:24 PM VAULT CASHIER 07/10/2024 12:31 PM VAULT CASHIER Claus Wallace III, MD LAB - BODY FLUID ORDERABLES [facility] [address] [place] [address], [facility] [phone] * FL Lumbar Puncture (07/10/2024 12:22 PM VAULT CASHIER) Anatomical Region Laterality Modality Spine Digital Radiogra phy 07/11/2024 1:11 PM VAULT CASHIER Impressions 07/12/2024 7:15 PM VAULT CASHIER IMPRESSION: Successful lumbar puncture under fluoroscopic guidance at L3-L4 with removal of CSF for diagnostic studies as described above. I, Dr. Carolyn Islas, was present and performed/supervised the entire procedure. This preliminary report was dictated by Giovany Austin MD (DR/IR Resident). > Dictated by Giovany Austin MD (Electric Frying Pan Repairer) 07/11/2024 1:11 PM ICarolyn MD have personally reviewed and interpreted this examination/study. > Interpreting Provider: Carolyn Islas MD on 07/12/2024 7:15 PM Narrative 07/12/2024 7:15 PM VAULT CASHIER PROCEDURE: FL LUMBAR PUNCTURE, DATE/TIME OF EXAM: 07/10/2024 12:27 PM, LOCATION [facility] INDICATION: R29.818: Suspected infectious meningitis ADDITIONAL CLINICAL INFORMATION: Ordering Provider Reason For Exam: AMS with recurrent fevers, CSF studies ordered HISTORY: 68-year-old male with altered mental status referred to neuroradiology service for image guided lumbar puncture following 2 unsuccessful floor attempts. OPERATORS: 1.Dr. Carolyn Islas, Attending Physician 2.Dr. Giovany Austin, IR resident Physician ANESTHESIA: 1.General anesthesia provided by the anesthesia team 2.Local - 4.5 ml of 1% lidocaine TECHNIQUE: The risks and benefits of the lumbar puncture including, but not limited to, infection, bleeding, seizure, epidural hematoma, post spinal headache, cerebrospinal fluid (CSF) leak requiring blood patch procedure, nausea, vomiting, irritation or damage to nerves causing pain or permanent injury were discussed with the patient's significant other (due to patient's altered mental status). After alternatives were discussed and the opportunity to ask questions was provided, patient's significant other acknowledged understanding, gave verbal and written consent, and wished to proceed. General anesthesia was provided by the anesthesia team monitored the patient throughout the procedure. The L2-L3 level was first localized with fluoroscopy. The skin overlying this level was then sterilely prepped, draped, and infiltrated with 1% lidocaine for local anesthesia. Under intermittent fluoroscopic guidance, a 20-gauge, 3.5 spinal needle was inserted into the soft tissues at this level. Despite multiple attempts successful introduction of needle into the thecal sac was not possible due to severe degenerative changes and osteophytes obstructing needle passage. The L3-L4 level was then localized fluoroscopy. The skin overlying this level was then sterilely prepped, draped, and infiltrated with 1% lidocaine for local anesthesia. Under intermittent fluoroscopic guidance, a 22-gauge 3.5 spinal needle was ultimately guided into the thecal sac at this level. Clear CSF was identified. Despite employing table tilting and repositioning of the patient, only total of 5 mL of CSF was able to be removed (could be secondary to narrow thecal sac at this level). This was then placed into 3 specimen tubes. The patient tolerated the procedure well. The patient was then transferred to the holding area for further observation and two hours of bedrest. OPENING PRESSURE: Too low to be performed FLUOROSCOPY TIME: 3.2 minutes Procedure Note Carolyn Islas MD - 07/12/2024 PROCEDURE: FL LUMBAR PUNCTURE, DATE/TIME OF EXAM: 07/10/2024 12:27 PM, LOCATION [facility] INDICATION: R29.818: Suspected infectious meningitis ADDITIONAL CLINICAL INFORMATION: Ordering Provider Reason For Exam: AMS with recurrent fevers, CSFstudies ordered HISTORY: 68-year-old male with altered mental status referred to neuroradiology service for image guided lumbar puncture following 2 unsuccessful floor attempts. OPERATORS: 1.Dr. Carolyn Islas, Attending Physician 2.Dr. Giovany Austin, IR resident Physician ANESTHESIA: 1.General anesthesia provided by the anesthesia team 2.Local - 4.5 ml of 1% lidocaine TECHNIQUE: The risks and benefits of the lumbar puncture including, but not limited to, infection, bleeding, seizure, epidural hematoma, post spinal headache, cerebrospinal fluid (CSF) leak requiring blood patch procedure, nausea, vomiting, irritation or damage to nerves causing painor permanent injury were discussed with the patient's significant other(due to patient's altered mental status). After alternatives were discussedand the opportunity to ask questions was provided, patient's significantother acknowledged understanding, gave verbal and written consent, and wishedto proceed. General anesthesia was provided by the anesthesia team monitored the patient throughout the procedure. The L2-L3 level was first localized with fluoroscopy. The skin overlying this level was then sterilely prepped, draped, and infiltrated with 1% lidocaine for local anesthesia. Under intermittent fluoroscopic guidance,a 20-gauge, 3.5 spinal needle was inserted into the soft tissues at this level. Despite multiple attempts successful introduction of needle intothe thecal sac was not possible due to severe degenerative changes and osteophytes obstructing needle passage. The L3-L4 level was then localized fluoroscopy. The skin overlying this level was then sterilely prepped, draped, and infiltrated with 1%lidocaine for local anesthesia. Under intermittent fluoroscopic guidance, [id number] 3.5 spinal needle was ultimately guided into the thecal sac at thislevel. Clear CSF was identified. Despite employing table tilting andrepositioning of the patient, only total of 5 mL of CSF was able to be removed (couldbe secondary to narrow thecal sac at this level). This was then placed into3 specimen tubes. The patient tolerated the procedure well. The patientwas then transferred to the holding area for further observation and twohours of bedrest. OPENING PRESSURE: Too low to be performed FLUOROSCOPY TIME: 3.2 minutes IMPRESSION: Successful lumbar puncture under fluoroscopic guidance atL3-L4 with removal of CSF for diagnostic studies as described above. IDr. Carolyn, was present and performed/supervised theentire procedure. This preliminary report was dictated by Giovany Austin MD (DR/IR Resident). > Dictated by Giovany Austin MD (Electric Frying Pan Repairer) 07/11/2024 1:11 PM Carolyn Gauthier MD have personally reviewed and interpreted this examination/study. > Interpreting Provider: Carolyn Islas MD on 07/12/2024 7:15 PM Claus Wallace III, MD FLUOROSCOPY MANI LUTHER * IV PLACEMENT PERFORMABLE (07/10/2024 10:11 AM VAULT CASHIER) Narrative Floresita Blanton APRN-CRNA - 07/10/2024 10:11 AM VAULT CASHIER Floresita Blanton APRN-CRNA 07/10/2024 10:12 AM Peripheral IV Line Placement: Patient Location: OR Insertion Time: 07/10/2024 9:37 AM Procedure: IV start ([id number]) Procedure Section: Skin Prep: alcohol. Orientation: left Location: hand Local Anesthetic Used? No Catheter Gauge: 20 Number of Attempts: 1. Procedure Tolerance: performed while patient under general anesthesia. Staff Section Anesthesia Provider: Emelyn Badillo MD, Performed the procedure Provider #1: Floresita Blanton APRN-CRNA. Emelyn Badillo MD GENERAL ANESTHESIA O RDERABLES * (ABNORMAL) PT-INR [facility] (07/08/2024 9:25 AM VAULT CASHIER) Only the most recent of2 resultswithin the time period is included. PT 15.2(H) 12.1 - 14.8 Seconds 07/08/2024 10:37 AM [facility] INR 1.2 See Comment 07/08/2024 10:37 AM [facility] Comment:The suggested therap eutic range for standard coumadin (warfarin) therapy is an INR of 2.0-3.0. For high-risk patients (Mechanical Mitral Valve Prosthesis, etc.), the suggested prophylactic therapeutic range is an INR of 2.5-3.5. Blood BLOOD SPECIMEN / Unknown Lab Venipuncture / Unknown 07/08/2024 9:25 AM VAULT CASHIER 07/08/2024 9:51 AM VAULT CASHIER Claus Wallace III, MD LAB - COAGULATIO N ORDERABLES [facility] [address] [place] [phone], [facility] [phone] * VANCOMYCIN LEVEL TROUGH (07/06/2024 10:18 PM VAULT CASHIER) Only the most recent of3 resultswithin the time period is included. Pathologist [facility] Vancomycin Trough 14.8 10.0 - 20.0 ug/mL 07/06/2024 10:52 PM VAULT CASHIER [facility] Blood BLOOD SPECIMEN / Unknown Lab Venipuncture / Unknown 07/06/2024 10:18 PM VAULT CASHIER 07/06/2024 10:23 PM VAULT CASHIER Narrative [facility] - 07/06/2024 10:52 PM VAULT CASHIER See institution protocol. Claus Wallace III, MD LAB - CHEMISTRY ORDERABLES [facility] [address] [place] [address], [facility] [phone] * EKG 12-LEAD (07/06/2024 4:59 PM VAULT CASHIER) Only the most recent of5 resultswithin the time period is included. Pathologist [facility] Ventricular Rate 82 BPM H MUSE Atrial Rate 82 BPM [facility] MUSE P-R Interval 140 ms [facility] MUSE QRS Duration ms 76 ms [facility] MUSE Q-T Interval ms 410 ms [facility] MUSE QTC Calculation (Bezet) 479 ms [facility] MUSE Calculated P Nebo 60 degrees [facility] MUSE Calculated R Nebo 52 degrees [facility] MUSE Calculated T Nebo 73 degrees [facility] MUSE Interpretation EKG NORMAL SINUS RHYTHM SEPTAL INFARCT , AGE UNDETERMINED ABNORMAL ECG WHEN COMPARED WITH ECG OF 01-JUL-2024 06:40, PREVIOUS ECG HAS UNDETERMINED RHYTHM, NEEDS REVIEW SEPTAL INFARCT IS NOW PRESENT Confirmed by DINO PELLETIER, RACQUEL ([id number]) on 07/09/2024 2:32:01 PM [facility] MUSE 07/06/2024 4:59 PM VAULT CASHIER 07/09/2024 2:32 PM VAULT CASHIER Claus Wallace III, MD ECG ORDERABLES [facility] MUSE * CRYPTOCOCCUS ANTIGEN BLOOD (07/06/2024 3:15 AM VAULT CASHIER) Pathologist [facility] Cryptococcus Antigen Negative Negative 07/06/2024 9:24 AM VAULT CASHIER [facility] Blood BLOOD SPECIMEN / Unknown Lab Venipuncture / Unknown 07/06/2024 3:15 AM VAULT CASHIER 07/06/2024 3:53 AM VAULT CASHIER Claus Wallace III, MD LAB - SEROLOGY O RDERABLES [facility] [address] [place] [address], [facility] [phone] * URINALYSIS REFLEX TO MICROSCOPIC NO CULTURE (07/05/2024 11:07 PM VAULT CASHIER) Color UA Straw Straw, Yellow 07/05/2024 11:17 PM [facility] Clarity UA Clear Clear 07/05/2024 11:17 PM [facility] Specific Gardner UA 1.006 1.005 - 1.030 07/05/2024 11:17 PM [facility] pH UA 7.0 5.0 - 8.0 pH 07/05/2024 11:17 PM [facility] Protein UA Negative Negative 07/05/2024 11:17 PM [facility] Glucose UA Negative Negative 07/05/2024 11:17 PM [facility] Ketone UA Negative Negative 07/05/2024 11:17 PM [facility] Bilirubin UA Negative Negative 07/05/2024 11:17 PM [facility] Blood UA Negative Negative 07/05/2024 11:17 PM [facility] Nitrite UA Negative Negative 07/05/2024 11:17 PM [facility] Leukocyte Esterase Negative Negative 07/05/2024 11:17 PM [facility] Urobilinogen UA Negative Negative mg/dL 07/05/2024 11:17 PM [facility] RBC UA 0-2 None Seen, 0-2, 3-5 /HPF 07/05/2024 11:17 PM [facility] WBC UA 0-5 None Seen, 0-5 /HPF 07/05/2024 11:17 PM [facility] Squamous Epithelial Cells UA None Seen None Seen, 0-2, 3-5 /HPF 07/05/2024 11:17 PM [facility] Mucus UA 1+ /LPF 07/05/2024 11:17 PM VAULT CASHIER [facility] Urine URINE SPECIMEN OBTAINED BY CLEAN CATCH PROCEDURE / Unknown Collection / Unknown 07/05/2024 11:07 PM VAULT CASHIER 07/05/2024 11:07 PM VAULT CASHIER Narrative [facility] - 07/05/2024 11:17 PM VAULT CASHIER Claus Wallace III, MD LAB - URINALYSIS ORDERABLES Performing Organization Address City/State/[facility] Co de Phone Number [facility] [address] [place] [address], [facility] [phone] * CT Chest Wo Contrast (07/05/2024 3:28 PM VAULT CASHIER) Anatomical Region Laterality Modality Chest Computed Tomogra phy 07/06/2024 11:4 0 AM VAULT CASHIER Impressions 07/06/2024 11:47 AM VAULT CASHIER IMPRESSION: No acute findings in the chest. Mild dependent atelectasis are reidentified in both lungs. > Interpreting Provider: Jennie Rollins MD on 07/06/2024 11:47 AM Narrative 07/06/2024 11:47 AM VAULT CASHIER PROCEDURE: CT CHEST WO CONTRAST DATE/TIME OF EXAM: 07/05/2024 3:46 PM CLINICAL INFORMATION: None relevant/not provided if blank. Indication: R41.82: Altered mental status, unspecified altered mental status type Additional History: COMPARISON: 06/30/2024. TECHNIQUE: CT of the chest was performed without intravenous contrast utilizing standard protocol. CT dose reduction technique was used, including Automated Exposure Control. FINDINGS: Central tracheobronchial tree: Clear. Lungs: Mild dependent atelectasis are reidentified in the lower lobes bilaterally. A linear atelectatic band is noted in the apical segment of the left lower lobe. No newly developed consolidations or air space opacities. No significant pulmonary nodules or masses seen. Pleura: No significant pleural effusion. No pneumothorax. Heart: Coronary artery atherosclerotic disease. Grossly normal size of the heart. Calcified plaques noted in the descending thoracic aorta. No pericardial effusion. Miguelina/mediastinum: No abnormally enlarged hilar or mediastinal lymph nodes by noncontrast technique. Bones: Right proximal humeral fracture and nondisplaced fractures are reidentified without change. No newly developed bony lesions. Upper abdomen: No abnormality in the visualized upper abdomen. Procedure Note Jennie Rollins MD - 07/06/2024 PROCEDURE: CT CHEST WO CONTRAST DATE/TIME OF EXAM: 07/05/2024 3:46 PM CLINICAL INFORMATION: None relevant/not provided if blank. Indication: R41.82: Altered mental status, unspecified altered mental status type Additional History: COMPARISON: 06/30/2024. TECHNIQUE: CT of the chest was performed without intravenous contrast utilizing standard protocol. CT dose reduction technique was used, including Automated ExposureControl. FINDINGS: Central tracheobronchial tree: Clear. Lungs: Mild dependent atelectasis are reidentified in the lower lobes bilaterally. A linear atelectatic band is noted in the apical segment of the left lower lobe. No newly developed consolidations or air space opacities. No significant pulmonary nodules or masses seen. Pleura: No significant pleural effusion. No pneumothorax. Heart: Coronary artery atherosclerotic disease. Grossly normal size ofthe heart. Calcified plaques noted in the descending thoracic aorta. No pericardial effusion. Miguelina/mediastinum: No abnormally enlarged hilar or mediastinal lymphnodes by noncontrast technique. Bones: Right proximal humeral fracture and nondisplaced fractures are reidentified without change. No newly developed bony lesions. Upper abdomen: No abnormality in the visualized upper abdomen. IMPRESSION: No acute findings in the chest. Mild dependent atelectasis arereidentified in both lungs. > Interpreting Provider: Jennie Rollins MD on 411:47 AM Claus Wallace III, MD CT ORDERABLES * CULTURE BLOOD FUNGUS (07/05/2024 1:47 PM VAULT CASHIER) Culture No fungus isolated FRANCOISE 08/29/2024 11:22 AM VAULT CASHIER [facility] Blood PERIPHERAL BLOOD / Unknown Lab Venipuncture / Unknown 07/05/2024 1:47 PM VAULT CASHIER 07/05/2024 2:16 PM VAULT CASHIER Claus Wallace III, MD LAB - MICROBIOLO GY ORDERABLES Performing Organization Address City/[facility]/ZIP Co de Phone Number [facility] [address] [place] [address], [facility] [phone] * CYCLIC CITRUL PEPTIDE ANTIBODY IGG/IGA (CCP) (07/05/2024 3:04 AM VAULT CASHIER) Pathologist [facility] CCP Antibodies IgG/IgA 5 0 - 19 units 07/10/2024 3:07 PM VAULT CASHIER [facility] ([facility]) Comment: Negative <20 Weak positive 20 - 39 Moderate positive 40 - 59 Strong positive >59 Blood BLOOD SPECIMEN / Unknown Lab Venipuncture / Unknown 07/05/2024 3:04 AM VAULT CASHIER 07/05/2024 5:36 AM VAULT CASHIER Narrative [facility] ([facility]) - 07/10/2024 3:07 PM VAULT CASHIER Performed at: [facility] [address] [id number] Hand Hardener: Jonathan Moore PhD, Phone: [phone] Elder Rhoades MD LAB - SEROLOGY ORDER BABITA Performing Organization Address City/[facility] Co de Phone Number [facility] ([facility]) [address] [place] [address], [facility] * MYCOPLASMA PNEUMONIAE AB IGM (07/05/2024 3:04 AM VAULT CASHIER) Pathologist [facility] Mycoplasma Antibody IgM 0.04 <=0.76 U/L 07/08/2024 12:31 PM VAULT CASHIER [employer] [facility] ([facility]) Comment: INTERPRETIVE INFORMATION: Mycoplasma pneumoniae Ab, IgM 0.76 U/L or less .......... Negative: No clinically significant amount of M. pneumoniae IgM antibody detected. 0.77 - 0.95 U/L ........... Low Positive: M. pneumoniae- specific IgM presumptively detected. Collection of a follow-up sample in 1-2 weeks is recommended to assure reactivity. 0.96 U/L or greater ....... Positive: Highly significant amount of M. pneumoniae- specific IgM antibody detected. However, low levels of IgM antibodies may occasionally persist for more than 12 months post-infection. Performed By: [facility] [address] [place], [place] [id number] Battery Container Tester [employer]uminum: Caden Hanna MD, PhD CLIA Number: [id number] Blood BLOOD SPECIMEN / Unknown Lab Venipuncture / Unknown 07/05/2024 3:04 AM VAULT CASHIER 07/05/2024 5:36 AM VAULT CASHIER Elder Rhoades MD LAB - SEROLOGY ORDER BABITA Performing Organization Address City/[facility]/ZIP Co de Phone Number [facility]) [address] * RHEUMATOID FACTOR BLOOD QUANTITATIVE (07/05/2024 3:04 AM VAULT CASHIER) Pathologist [facility] Rheumatoid Factor <15 <30 IU/mL 07/05/2024 5:46 AM VAULT CASHIER [facility] Rheumatoid Factor Screen Negative Negative 07/05/2024 5:46 AM VAULT CASHIER [facility] Blood BLOOD SPECIMEN / Unknown Lab Venipuncture / Unknown 07/05/2024 3:04 AM VAULT CASHIER 07/05/2024 5:36 AM VAULT CASHIER Elder Rhoades MD LAB - CHEMISTRY ORDE RABLES Performing Organization Address City/[facility]/ZIP Co de Phone Number [place] [phone], [facility] [phone] * KAYLEY BLOOD SCREEN W/REFLEX TITER (07/05/2024 3:04 AM VAULT CASHIER) KAYLEY IgG None Detected None Detected 07/07/2024 7:04 AM VAULT CASHIER [facility] ([facility]) Comment: If suspicion of connective tissue disease is strong and KAYLEY EIA is negative, consider testing for KAYLEY by IFA ([id number]). INTERPRETIVE INFORMATION: Anti-Nuclear Antibodies (KAYLEY), IgG by JESSICA Antinuclear Antibodies (KAYLEY), IgG by JESSICA: KAYLEY specimens are screened using enzyme-linked immunosorbent assay (JESSICA) methodology. All JESSICA results reported as Detected are further tested by indirect fluorescent assay (IFA) using HEp-2 substrate with an IgG-specific conjugate. The KAYLEY JESSICA screen is designed to detect antibodies against dsDNA, histones, SS-A (Ro), SS-B (La), Brunner, Brunner/[employer]TR[employer] SUPPLY TECHNICIAN, Scl-70, Zeynep-1, centromeric proteins, other antigens extracted from the HEp-2 cell nucleus. KAYLEY JESSICA assays have been reported to have lower sensitivities than KAYLEY IFA for systemic autoimmune rheumatic diseases (SARD). Negative results do not necessarily rule out SARD. Performed by [facility], [address] [place] [address] [email or web address], Esequiel Corrigan MD, Lab. Director CLIA Number: [id number] Blood BLOOD SPECIMEN / Unknown Lab Venipuncture / Unknown 07/05/2024 3:04 AM VAULT CASHIER 07/05/2024 5:36 AM VAULT CASHIER Elder Rhoades MD LAB - CHEMISTRY MANI LUTHER [employer] ([facility]) [address] [place] [address], [facility] * DNA ANTIBODY DOUBLE STRANDED (07/05/2024 3:04 AM VAULT CASHIER) Pathologist [facility] dsDNA Antibody 4 0 - 24 IU 07/07/2024 11:44 PM VAULT CASHIER [facility] [employer] ([facility]) Comment: INTERPRETIVE INFORMATION: Double-Stranded DNA (dsDNA) Ab IgG JESSICA 24 IU or less........Negative 25-30 IU.............Borderline Positive 30-60 IU.............Low Positive 60-200 IU............Positive 201 IU or greater....Strong Positive Positivity for anti-double stranded DNA (anti-dsDNA) IgG antibody is a diagnostic criterion of systemic lupus erythematosus (SLE). Specimens are initially screened by enzyme-linked immunosorbent assay (JESSICA). If ordered as reflex ([id number]), positive JESSICA results (>24 IU) will be reflexed to a highly specific IFA titer (Crithidia luciliae indirect fluorescent test [MARTÍN') for confirmation. Some patients with early or inactive SLE may be positive for anti-dsDNA IgG by JESSICA but negative by MARTÍN. If the patient is negative by MARTÍN but positive by JESSICA and clinical suspicion remains, consider antinuclear antibody (KAYLEY) testing by IFA. Additional information and recommendations for testing may be found at [email or web address]. Performed by [facility], [address] [place] [address] [email or web address], Esequiel Corrigan MD, Lab. Director CLIA Number: [id number] Blood BLOOD SPECIMEN / Unknown Lab Venipuncture / Unknown 07/05/2024 3:04 AM VAULT CASHIER 07/05/2024 5:36 AM VAULT CASHIER Elder Rhoades MD LAB - HEMATOLOGY ORD ERABLES [facility]) [address] [place], [place] [address] * COMPLEMENT C4 (07/05/2024 3:04 AM VAULT CASHIER) Complement C4 30 15 - 57 mg/dL 07/05/2024 5:46 AM VAULT CASHIER [facility] Blood BLOOD SPECIMEN / Unknown Lab Venipuncture / Unknown 07/05/2024 3:04 AM VAULT CASHIER 07/05/2024 5:21 AM VAULT CASHIER Elder Rhoades MD LAB - SEROLOGY ORDER BABITA Performing Organization Address City/[facility]/ZIP Co de Phone Number [address] [address], [facility] [phone] * COMPLEMENT C3 (07/05/2024 3:04 AM VAULT CASHIER) Complement C3 128 82 - 193 mg/dL 07/05/2024 5:46 AM VAULT CASHIER [facility] Blood BLOOD SPECIMEN / Unknown Lab Venipuncture / Unknown 07/05/2024 3:04 AM VAULT CASHIER 07/05/2024 5:21 AM VAULT CASHIER Elder Rhoades MD LAB - CHEMISTRY ORDE RABLES [address] [address], [place] [phone] * ECHO COMPLETE W CONTRAST (07/04/2024 3:39 PM VAULT CASHIER) LVOT diam 2.103 cm SSM CV FUJ I PACS LVOT pk quintin 95.085 cm/s SSM CV F UJI PACS LVOT VTI 17.249 cm SSM CV FUJ I PACS AV mn grad 2.445 mmHg SSM CV FU JI PACS AV pk quintin 106.161 cm/s SSM CV FUJ I PACS AV VTI 18.705 cm SSM CV FUJ I PACS MV A pk quintin 72.546 cm/s SSM CV F UJI PACS MV E pk quintin 49.711 cm/s SSM CV F UJI PACS MV E' lateral quintin 11.067 cm/s SSM CV FUJI PACS MV mn grad 0.767 mmHg SSM CV FU JI PACS MV VTI 15.342 cm SSM CV FUJ I PACS PV pk quintin 115.406 cm/s SSM CV FUJ I PACS PV VTI 19.937 cm SSM CV FUJ I PACS IVC Diam Expiration 1.649 cm SSM CV FUJI PACS Myocardial strain charge 2 unitless SSM CV FUJI PACS Anatomical Region Laterality Modality Ultrasound 07/04/2024 11:0 5 AM VAULT CASHIER Narrative 07/04/2024 4:14 PM VAULT CASHIER Summary * Technically difficult study, most measurements unsuitable for reporting. * Left ventricular systolic function is normal with an estimated ejection fraction of about 55-60% by visual estimate on limited views. Patient Info Name: Tony Mauro Age: 68 years : 1955 Gender: Male Ht: 73 in Wt: 191 lb BSA: 2.12 m2 HR: 92 bpm BP: 166 / 96 mmHg Heart Rhythm: Sinus Rhythm Exam Date: 07/04/2024 11:05 AM Exam Room: [facility] Patient Status: I/P Study Site: [facility] Primary Location: [facility] EStudy Info Technical Quality: Technically Difficult Exam Type: ECHO COMPLETE W CONTRAST Indications I48.91 - Atrial fibrillation, unspecified type (HCC) Procedure(s) * A complete 2D, color Doppler, spectral Doppler and M-Mode transthoracic echocardiogram was performed with an Ultrasound Enhancing Agent (UEA). Contrast/Agitated Saline Contrast / Saline: Definity Amount: 1.00 ml Administered By: Gin Gunderson RDCS Reaction to Contrast: no Reason for Technically Difficult Study: poor echocardiographic windows, positional limitations, lung interference, patient supine, poor patient cooperation Staff Referring Physician: Elder Rhoades Ordering Provider: Elder Rhoades Attending Physician: Elder Rhoades Board Handler: Gin Gunderson RDCS Left Ventricle Left ventricular systolic function is normal with an estimated ejection fraction of about 55-60% by visual estimate on limited views. Left ventricular segmental wall motion is unable to be assessed secondary to poor endocardial definition. Right Ventricle The right ventricle is not well visualized. Left Atrium The left atrium is not well visualized. Right Atrium The right atrium is not well visualized. Atrial Septum Interatrial septum not well visualized by 2D imaging. Aortic Valve The aortic valve is trileaflet. There is no aortic valve regurgitation. There is no aortic valve stenosis with a peak velocity of 1.1 m/s, mean gradient of 2 mmHg, and aortic valve area of 3.20 cm2. Pulmonic Valve The pulmonic valve is grossly normal. There is no pulmonic valve stenosis. There is no significant pulmonic regurgitation. Mitral Valve The mitral valve is not well visualized. Tricuspid Valve The tricuspid valve is grossly normal. There is no tricuspid valve stenosis. There is no significant tricuspid valve regurgitation. Unable to assess pulmonary pressures due to a lack of tricuspid and pulmonic regurgitation. Inferior Vena Cava The inferior vena cava is normal in size (< 2.1 cm). There is > 50% collapse of the IVC upon inspiration with an estimated right atrial pressure of 3 mmHg. Pericardium/Pleural There is no obvious pericardial effusion. Aorta The aortic root at the sinus of Valsalva is not well visualized. The ascending aorta is not well visualized. Measurements Left Ventricular Outflow Tract Name Value Normal LVOT 2D LVOT Diameter 2.1 cm LVOT Area 3.5 cm2 LVOT Doppler LVOT Peak Velocity 1.0 m/s LVOT Peak Gradient 4 mmHg LVOT Mean Velocity 64.29 cm/s LVOT Mean Gradient 2 mmHg LVOT VTI 17.2 cm LVOT VTI/AV VTI Ratio 0.9 LVOT Stroke Volume 60 ml LVOT Stroke Volume Index 28 ml/m2 35-58 LVOT CO 5.5 l/min LVOT CI 2.6 l/min/m2 Pulmonic Valve Name Value Normal PV Doppler PV Peak Velocity 1.2 m/s PV Peak Gradient 5 mmHg PV Mean Gradient 3 mmHg Mitral Valve Name Value Normal MV Doppler MV Peak Gradient 2 mmHg MV Mean Gradient 1 mmHg MV DI (VTI) 0.89 MV PHT 61 ms MV Area (PHT) 3.60 cm2 4.00-5.00 MV Area (Cont Eq VTI) 3.90 cm2 MV Diastolic Function MV E Peak Velocity 0.5 m/sec MV A Peak Velocity 0.7 m/sec MV E/A 0.7 MV Decel Time (PW) 178 ms MV A Wave Duration 88 ms MV Annular TDI MV Septal e' Velocity 7 cm/s >=8 MV E/e' (Septal) 8 <=8 MV Lateral e' Velocity 11 cm/s >=10 MV E/e' (Lateral) 4 <=8 MV e' Average 9 cm/s MV E/e' (Average) 6 Tricuspid Valve Name Value Normal Estimated PAP/RSVP RA Pressure 3 mmHg <=5 TV Annular TDI TV Lateral Joan s' Velocity 18 cm/s 10-19 Venous Name Value Normal IVC/SVC IVC Diameter 1.6 cm <=2.1 Aortic Valve Name Value Normal AV 2D/MM AV Cusp Sep (MM) 2.0 cm AV Doppler AV Peak Velocity 1.06 m/s AV Peak Gradient 5 mmHg AV Mean Gradient 2 mmHg AV VTI 19 cm AV Area (Cont Eq VTI) 3.20 cm2 >=2.00 AV Area (Cont Eq Quintin) 3.11 cm2 AV DI (VTI) 0.92 AV DI (Quintin) 0.90 AV Regurgitation 2D LVOT Area 3.47 cm2 Report Signatures Finalized by Josie Guerrero on 07/04/2024 04:13 PM Procedure Note Josie Guerrero MD - 07/04/2024 Summary * Technically difficult study, most measurements unsuitable forreporting. * Left ventricular systolic function is normal with an estimatedejection fraction of about 55-60% by visual estimate on limited views. Patient Info Name: Tony Mauro Age: 68 years : 1955 Gender: Male Ht: 73 in Wt: 191 lb BSA: 2.12 m2 HR: 92 bpm BP: 166 / 96 mmHg Heart Rhythm: Sinus Rhythm Exam Date: 07/04/2024 11:05 AM Exam Room: [facility] Patient Status: I/P [facility]: Technically Difficult Exam Type: ECHO COMPLETE W CONTRAST Indications I48.91 - Atrial fibrillation, unspecified type (HCC) Procedure(s) * A complete 2D, color Doppler, spectral Doppler and M-Modetransthoracic echocardiogram was performed with an Ultrasound Enhancing Agent (UEA). Contrast/Agitated Saline Contrast / Saline: Definity Amount: 1.00 ml Administered By: Gin Gunderson RDCS Reaction to Contrast: no Reason for Technically Difficult Study: poor echocardiographicwindows, positional limitations, lung interference, patient supine, poor patient cooperation Staff Referring Physician: Elder Rhoades Ordering Provider: Elder Rhoades Attending Physician: Elder Rhoades Board Handler: Gin Gunderson RDCS Left Ventricle Left ventricular systolic function is normal with an estimatedejection fraction of about 55-60% by visual estimate on limited views. Leftventricular segmental wall motion is unable to be assessed secondary to poorendocardial definition. Right Ventricle The right ventricle is not well visualized. Left Atrium The left atrium is not well visualized. Right Atrium The right atrium is not well visualized. Atrial Septum Interatrial septum not well visualized by 2D imaging. Aortic Valve The aortic valve is trileaflet. There is no aortic valveregurgitation. There is no aortic valve stenosis with a peak velocity of 1.1 m/s, mean gradient of 2 mmHg, and aortic valve area of 3.20 cm2. Pulmonic Valve The pulmonic valve is grossly normal. There is no pulmonic valvestenosis. There is no significant pulmonic regurgitation. Mitral Valve The mitral valve is not well visualized. Tricuspid Valve The tricuspid valve is grossly normal. There is no tricuspid valvestenosis. There is no significant tricuspid valve regurgitation. Unable to assess pulmonary pressures due to a lack of tricuspid and pulmonicregurgitation. Inferior Vena Cava The inferior vena cava is normal in size (< 2.1 cm). There is > 50%collapse of the IVC upon inspiration with an estimated right atrial pressure of 3mmHg. Pericardium/Pleural There is no obvious pericardial effusion. Aorta The aortic root at the sinus of Valsalva is not well visualized. The ascending aorta is not well visualized. Measurements Left Ventricular Outflow Tract Name Value Normal LVOT 2D LVOT Diameter 2.1 cm LVOT Area 3.5 cm2 LVOT Doppler LVOT Peak Velocity 1.0 m/s LVOT Peak Gradient 4 mmHg LVOT Mean Velocity 64.29 cm/s LVOT Mean Gradient 2 mmHg LVOT VTI 17.2 cm LVOT VTI/AV VTI Ratio 0.9 LVOT Stroke Volume 60 ml LVOT Stroke Volume Index 28 ml/m2 35-58 LVOT CO 5.5 l/min LVOT CI 2.6 l/min/m2 Pulmonic Valve Name Value Normal PV Doppler PV Peak Velocity 1.2 m/s PV Peak Gradient 5 mmHg PV Mean Gradient 3 mmHg Mitral Valve Name Value Normal MV Doppler MV Peak Gradient 2 mmHg MV Mean Gradient 1 mmHg MV DI (VTI) 0.89 MV PHT 61 ms MV Area (PHT) 3.60 cm2 4.00-5.00 MV Area (Cont Eq VTI) 3.90 cm2 MV Diastolic Function MV E Peak Velocity 0.5 m/sec MV A Peak Velocity 0.7 m/sec MV E/A 0.7 MV Decel Time (PW) 178 ms MV A Wave Duration 88 ms MV Annular TDI MV Septal e' Velocity 7 cm/s >=8 MV E/e' (Septal) 8 <=8 MV Lateral e' Velocity 11 cm/s >=10 MV E/e' (Lateral) 4 <=8 MV e' Average 9 cm/s MV E/e' (Average) 6 Tricuspid Valve Name Value Normal Estimated PAP/RSVP RA Pressure 3 mmHg <=5 TV Annular TDI TV Lateral Joan s' Velocity 18 cm/s 10-19 Venous Name Value Normal IVC/SVC IVC Diameter 1.6 cm <=2.1 Aortic Valve Name Value Normal AV 2D/MM AV Cusp Sep (MM) 2.0 cm AV Doppler AV Peak Velocity 1.06 m/s AV Peak Gradient 5 mmHg AV Mean Gradient 2 mmHg AV VTI 19 cm AV Area (Cont Eq VTI) 3.20 cm2 >=2.00 AV Area (Cont Eq Quintin) 3.11 cm2 AV DI (VTI) 0.92 AV DI (Quintin) 0.90 AV Regurgitation 2D LVOT Area 3.47 cm2 Report Signatures Finalized by Josie Guerrero on 07/04/2024 04:13 PM Elder Rhoades MD ECHO CUPID * MRI Brain Wo Contrast (07/03/2024 4:02 PM VAULT CASHIER) Anatomical Region Laterality Modality Head Magnetic Resonan ce 07/04/2024 9:44 AM VAULT CASHIER Impressions 07/04/2024 10:02 AM VAULT CASHIER IMPRESSION: Limited study as described above no evidence of acute infarction or acute findings in the limits of the study. > Interpreting Provider: Carolyn Islas MD on 07/04/2024 10:02 AM Narrative 07/04/2024 10:02 AM VAULT CASHIER PROCEDURE: MRI BRAIN WO CONTRAST, DATE/TIME OF EXAM: 07/03/2024 4:02 PM, LOCATION [facility] INDICATION: R29.818: Suspected infectious meningitis ADDITIONAL CLINICAL INFORMATION: Ordering Provider Reason For Exam: AMS workup Technologist Note: We attempted to do an MRI scan on this patient but after a few sequences patient began to pull on MRI coil and headphones and trying to crawl out of scanner. When we went in to pull patient out he was combative and threatening us as well as cursing us out. This is patient's second MRI attempt (patient was given more meds this time) with little to no success. We were only able to obtain the AX DTI, AX T2 FLAIR, and SAG FLAIR. Additional: COMPARISON: CT head 07/01/2024 TECHNIQUE: MRI of the brain was performed without contrast, according to standard protocol FINDINGS: Limited study on the axial DWI, FLAIR images are obtained. Motion degraded sagittal T1-weighted images. No evidence of acute extra-axial fluid collections or hemorrhage is identified. No evidence of acute cerebral infarction is seen. There is mild cerebral volume loss with associated ex vacuo ventricular dilatation. No mass effect or midline shift is seen. Mild burden of periventricular, subcortical white matter FLAIR hyperintensities likely represent sequelae of chronic small vessel ischemic disease. The corpus callosum and sella appear normal. The visualized posterior fossa, brainstem, and craniocervical junction appear normal. Partially visualized cervical spine with the ACDF at the level of C3-C4. Procedure Note Carolyn Islas MD - 07/04/2024 PROCEDURE: MRI BRAIN WO CONTRAST, DATE/TIME OF EXAM: 07/03/2024 4:02PM, [facility] INDICATION: R29.818: Suspected infectious meningitis ADDITIONAL CLINICAL INFORMATION: Ordering Provider Reason For Exam: AMS workup Technologist Note: We attempted to do an MRI scan on this patient but after a few sequences patient began to pull on MRI coil and headphonesand trying to crawl out of scanner. When we went in to pull patient out hewas combative and threatening us as well as cursing us out. This ispatient's second MRI attempt (patient was given more meds this time) with littleto no success. We were only able to obtain the AX DTI, AX T2 FLAIR, and SAG FLAIR. Additional: COMPARISON: CT head 07/01/2024 TECHNIQUE: MRI of the brain was performed without contrast, according to standard protocol FINDINGS: Limited study on the axial DWI, FLAIR images are obtained.Motion degraded sagittal T1-weighted images. No evidence of acute extra-axial fluid collections or hemorrhage is identified. No evidence of acute cerebral infarction is seen. There ismild cerebral volume loss with associated ex vacuo ventricular dilatation. No mass effect or midline shift is seen. Mild burden of periventricular, subcortical white matter FLAIR hyperintensities likely representsequelae of chronic small vessel ischemic disease. The corpus callosum and sella appear normal. The visualized posterior fossa, brainstem, and craniocervical junction appear normal. Partially visualized cervical spine with the ACDF at the level of C3-C4. IMPRESSION: Limited study as described above no evidence of acute infarction oracute findings in the limits of the study. > Interpreting Provider: Carolyn Islas MD on 07/04/2024 10:02 AM Elder Rhoades MD MR ORDERABLES * CULTURE BLOOD (07/03/2024 2:05 PM VAULT CASHIER) Only the most recent of4 resultswithin the time period is included. Culture No growth day 5 FRANCOISE 07/08/2024 7:01 PM VAULT CASHIER [facility] MICROBIOLOGY Blood PERIPHERAL BLOOD / Unknown Lab Venipuncture / Unknown 07/03/2024 2:05 PM VAULT CASHIER 07/03/2024 2:22 PM VAULT CASHIER Elder Rhoades MD LAB - MICROBIOLOGY O RDERABLES [facility] MICROBIOLOGY [address] [place] [address], [facility] [phone] * CULTURE SPUTUM+GRAM STAIN (07/03/2024 11:22 AM VAULT CASHIER) Culture Light normal oropharyngeal marquez FRANCOISE 07/05/2024 6:23 AM VAULT CASHIER [facility] MICROBIOLOGY Gram Stain <10 per low power field Squamous epithelial cells 07/05/2024 6:23 AM [facility] MICROBIOLOGY Gram Stain >= 25 per low power field Polymorphonuclear cells 07/05/2024 6:23 AM [facility] MICROBIOLOGY Gram Stain Rare Gram-positive cocci 07/05/2024 6:23 AM [facility] MICROBIOLOGY Microbiology SPUTUM / Unknown Collection / Unknown 07/03/2024 11:22 AM VAULT CASHIER 07/03/2024 12:13 PM VAULT CASHIER Elder Rhoades MD LAB - MICROBIOLOGY O RDERABLES [facility] MICROBIOLOGY [address] [place] [address], [facility] [phone] * SARS-COV-2 (COVID-19) FLU A/B RSV PCR RAPID (07/02/2024 4:50 PM VAULT CASHIER) COVID-19 PCR Not detected Not detected 07/02/20 5:32 PM VAULT CASHIER [facility] Influenza A PCR Not detected Not detected 07/02/2024 5:32 PM VAULT CASHIER [facility] Influenza B PCR Not detected Not detected 07/02/2024 5:32 PM [facility] RSV PCR Not detected Not detected 07/02/2024 5:32 PM [facility] Microbiology SPECIMEN FROM NASOPHARYNGEAL STRUCTURE / Unknown Collection / Unknown 07/02/2024 4:50 PM VAULT CASHIER 07/02/2024 4:51 PM VAULT CASHIER Narrative [facility] - 07/02/2024 5:32 PM VAULT CASHIER This nucleic acid amplification assay has been authorized by the Food and Drug administration (FDA) under an Emergency Use Authorization (EUA). This test is only authorized for the duration of time the declaration that circumstances exist justifying the authorization of emergency use of in vitro diagnostic tests for detection of SARS-CoV-2 virus and/or diagnosis of COVID-19 infection under section 564(b)(1) of the Act, 21 U.S.C 360bbb-3 (b)(1), unless the authorization is terminated or revoked sooner. Fact Sheets for this EUA assay are available upon request. Elder Rhoades MD LAB - MICROBIOLOGY O RDERABLES [place] [id number] [place] [address], [facility] [phone] * XR Chest 1Vw Portable (07/02/2024 11:58 AM VAULT CASHIER) Only the most recent of2 resultswithin the time period is included. Anatomical Region Laterality Modality Chest Digital Radiogra phy 07/02/2024 1:34 PM VAULT CASHIER Impressions 07/02/2024 1:35 PM VAULT CASHIER IMPRESSION: There is elevation of left hemidiaphragm with lower lung atelectasis. No pleural effusion or pneumothorax. The cardiomediastinal silhouette is unchanged. Aorta is atherosclerotic. There is an impacted fracture of the right humeral head. > Interpreting Provider: Gabo Gallegos MD on 07/02/2024 1:35 PM Narrative 07/02/2024 1:35 PM VAULT CASHIER PROCEDURE: XR CHEST 1VW PORTABLE DATE/TIME OF EXAM: 07/02/2024 12:29 PM CLINICAL INFORMATION: None relevant/not provided if blank. Indication: R05.8: Productive cough Additional History: COMPARISON: 06/30/2024. Procedure Note Gabo Gallegos MD - 07/02/2024 PROCEDURE: XR CHEST 1VW PORTABLE DATE/TIME OF EXAM: 07/02/2024 12:29 PM CLINICAL INFORMATION: None relevant/not provided if blank. Indication: R05.8: Productive cough Additional History: COMPARISON: 06/30/2024. IMPRESSION: There is elevation of left hemidiaphragm with lower lung atelectasis. No pleural effusion or pneumothorax. The cardiomediastinal silhouette is unchanged. Aorta is atherosclerotic. There is an impacted fracture of the right humeral head. > Interpreting Provider: Gabo Gallegso MD on 07/02/2024 1:35 PM Elder Rhoades MD DIAGNOSTIC IMAGING O RDERABLES * (ABNORMAL) RENAL FUNCTION PANEL (07/01/2024 11:26 PM VAULT CASHIER) Only the most recent of2 resultswithin the time period is included. BUN 14 7 - 26 mg/dL 07/02/2024 12:12 AM [facility] Creatinine 0.63(L) 0.71 - 1.16 mg/dL 07/02/2024 12:12 AM [facility] Sodium 143 136 - 145 mmol/L 07/02/2024 12:12 AM [facility] Potassium 3.7 3.5 - 4.5 mmol/L 07/02/2024 12:12 AM [facility] Chloride 109(H) 98 - 107 mmol/L 07/02/2024 12:12 AM [facility] CO2 23 22 - 29 mmol/L 07/02/2024 12:12 AM [facility] Glucose 90 70 - 99 mg/dL 07/02/2024 12:12 AM [facility] Albumin 2.5(L) 3.4 - 5.0 g/dL 07/02/2024 12:12 AM [facility] Calcium 8.4 8.4 - 10.2 mg/dL 07/02/2024 12:12 AM [facility] Phosphorus 2.6(L) 2.8 - 5.1 mg/dL 07/02/2024 12:12 AM [facility] Anion Gap 11 6 - 16 07/02/2024 12:12 AM [facility] BUN/Creatinine Ratio 22 7 - 23 07/02/2024 12:12 AM [facility] Osmolality Calculated 296(H) 275 - 295 mOsm/kg 07/02/2024 12:12 AM [facility] eGFR by CKD-EPI >90 >=90 mL/min/1.7 3 m2 07/02/2024 12:12 AM [facility] Blood BLOOD SPECIMEN / Unknown Venipuncture / Unknown 07/01/2024 11:26 PM VAULT CASHIER 07/01/2024 11:44 PM VAULT CASHIER Elder Rhoades MD LAB - CHEMISTRY MANI LUTHER [facility] Organization Address City/State/ZIP Co de Phone Number [facility] [address] [place] [address], [facility] [phone] * CT Head Wo Contrast (07/01/2024 8:22 AM VAULT CASHIER) Anatomical Region Laterality Modality Head Computed Tomogra phy 07/01/2024 8:19 AM VAULT CASHIER Impressions 07/01/2024 9:27 AM VAULT CASHIER IMPRESSION: 1.No acute intracranial hemorrhage, large vascular territorial infarct, or mass effect identified. Please note that MRI is more sensitive for evaluation of small acute ischemic infarcts. This preliminary report was dictated by Giovany Austin MD (DR/IR Resident). I, Carolyn Islas MD have personally reviewed and interpreted this examination/study. > Interpreting Provider: Carolyn Islas MD on 07/01/2024 9:27 AM Narrative 07/01/2024 9:27 AM [facility]IER PROCEDURE: CT HEAD WO CONTRAST, DATE/TIME OF EXAM: 07/01/2024 8:23 AM, LOCATION [facility] INDICATION: I48.91: Atrial fibrillation, unspecified type (HCC) ADDITIONAL CLINICAL INFORMATION: Ordering Provider Reason For Exam: r/o stroke Technologist Note: Additional: TECHNIQUE: CT of the head was performed without contrast according to standard protocol. CONTRAST: None COMPARISON: None FINDINGS: No acute intracranial hemorrhage or intra- or extra-axial fluid collections are identified. There is mild cerebral volume loss with associated ex vacuo ventricular dilatation. The basal cisterns are patent. No mass effect or midline shift is seen. The guillen-white matter differentiation is normal. Periventricular white matter hypoattenuation is a nonspecific finding that may be indicative of chronic small vessel ischemic disease. There is atherosclerotic calcification of the carotid siphons. Other than mild paranasal sinus disease, the visualized portions of the orbits, paranasal sinuses, and mastoids appear normal. No acute calvarial fracture is identified. Procedure Note Carolyn Islas MD - 07/01/2024 PROCEDURE: CT HEAD WO CONTRAST, DATE/TIME OF EXAM: 07/01/2024 8:23 AM, LOCATION [facility] INDICATION: I48.91: Atrial fibrillation, unspecified type (HCC) ADDITIONAL CLINICAL INFORMATION: Ordering Provider Reason For Exam: r/o stroke Technologist Note: Additional: TECHNIQUE: CT of the head was performed without contrast according to standard protocol. CONTRAST: None COMPARISON: None FINDINGS: No acute intracranial hemorrhage or intra- or extra-axial fluidcollections are identified. There is mild cerebral volume loss with associated exvacuo ventricular dilatation. The basal cisterns are patent. No mass effect or midline shift is seen. The guillen-white matter differentiation is normal. Periventricular white matter hypoattenuation is a nonspecific findingthat may be indicative of chronic small vessel ischemic disease. There is atherosclerotic calcification of the carotid siphons. Other than mild paranasal sinus disease, the visualized portions of the orbits, paranasal sinuses, and mastoids appear normal. No acute calvarial fracture is identified. IMPRESSION: 1.No acute intracranial hemorrhage, large vascular territorial infarct,or mass effect identified. Please note that MRI is more sensitive for evaluation of small acute ischemic infarcts. This preliminary report was dictated by Giovany Austin MD (DR/IR Resident). ICarolyn MD have personally reviewed and interpreted this examination/study. > Interpreting Provider: Carolyn Islas MD on 07/01/2024 9:27 AM Elder Rhoades MD CT ORDERABLES * GLUCOSE - POINT OF CARE (07/01/2024 7:36 AM VAULT [facility]IER) Glucose WB/POC 84 70 - 99 mg/dL 07/01/2024 2:10 PM [facility] Specimen Type Cap Fingerstick 2023 2:10 PM [facility] Blood BLOOD SPECIMEN / Unknown 07/01/2024 7:36 AM [facility] 07/01/2024 2:10 PM [facility] Elder Rhoades MD LAB - POINT OF CARE ORDERABLES [facility] [address] [place] [phone], [facility] [phone] * (ABNORMAL) BLOOD GASES JOSE MIGUEL + COOX PANEL (07/01/2024 7:31 AM VAULT C[facility]IER) pH Venous 7.45(H) 7.32 - 7.42 pH 07/01/2024 7:38 AM VA[facility] C[facility]IER [facility] pO2 Venous 147(H) 35 - 40 mmHg 07/01/2024 7:38 AM [facility] pCO2 Venous 33(L) 40 - 50 mmHg 07/01/2024 7:38 AM [facility] HCO3 Venous 22.9 20 - 30 mmol/L 07/01/2024 7:38 AM [facility] Base Excess Venous -0.7 -2.0 - 2.0 mmol/L 07/01/2024 7:38 AM [facility] Oxyhemoglobin Venous 97.0 % 06/09 7:38 AM [facility] Deoxyhemoglobin (HHB) Venous % <1.0 % 07/01/2024 7:38 AM [facility] Methemoglobin 1.0 0.0 - 2.0 % 07/01/2024 7:38 AM [facility] Carboxyhemoglobin 2.1(H) 0.0 - 2.0 % 2023 7:38 AM [facility] O2 Content Venous 13.8 Interpret within clinical context ml/dL 07/01/2024 7:38 AM [facility] Hemoglobin by COOX 9.9(L) 12.0 - 17.6 g/dL 07/01/2024 7:38 AM [facility] O2 Saturation Venous 100 >=70 % 06/09 7:38 AM [facility] FI O2 Mixed Venous 21.0 % 2023 7:38 AM [facility] Blood BLOOD SPECIMEN / Unknown Venipuncture / Unknown 07/01/2024 7:31 AM [facility] 07/01/2024 7:35 AM [facility] - 07/01/2024 7:38 AM [facility] Carboxyhemoglobin Normal Concentration: Non-smokers: 0-2%; Smokers: 0-9%; Toxic: >20% Elder Rhoades MD LAB - BLOOD GASES OR DERABLES [facility] [address] [place] [address], [facility] [phone] * (ABNORMAL) DIFFERENTIAL MANUAL (07/01/2024 7:31 AM [facility]) Neutrophil % 77(H) 41 - 74 % 07/01/2024 8:12 AM [facility] Lymphocyte % 15(L) 17 - 47 % 07/01/2024 8:12 AM [facility] Monocyte % 4 3 - 11 % 07/01/2024 8:12 AM [facility] Eosinophil % 3 0 - 7 % 07/01/2024 8:12 AM [facility] Basophil % 1 0 - 2 % 07/01/2024 8:12 AM [facility] Neutrophil Absolute 7.24 1.60 - 7.50 x10E9/L 07/01/2024 8:12 AM [facility] Lymphocyte Absolute 1.41 1.00 - 4.40 x10E9/L 07/01/2024 8:12 AM [facility] Monocyte Absolute 0.38 0.15 - 1.00 x10E9/L 07/01/2024 8:12 AM [facility] Eosinophil Absolute 0.28 0.00 - 0.60 x10E9/L 07/01/2024 8:12 AM [facility] Basophil Absolute 0.09 0.00 - 0.13 x10E9/L 07/01/2024 8:12 AM [facility] RBC Morphology REVIEWED 07/01/2024 8:12 AM [facility] Chicken Cells MODERATE(A) (none) 07/01/2024 8:12 AM [facility] Blood BLOOD SPECIMEN / Unknown Venipuncture / Unknown 07/01/2024 7:31 AM [facility] 07/01/2024 7:37 AM [facility] Elder Rhoades MD LAB - HEMATOLOGY ORD ERABLES [address] [address], [facility] [phone] * (ABNORMAL) CBC W AUTO DIFFERENTIAL (07/01/2024 7:31 AM VAULT CASHIER) WBC 9.4 4.0 - 10.7 x10E9/L 07/01/2024 8:12 AM [facility] RBC Count 3.05(L) 4.30 - 5.80 x10E12/L 07/01/2024 8:12 AM [facility] Hemoglobin 9.2(L) 13.3 - 17.5 g/dL 07/01/2024 8:12 AM [facility] Hematocrit 27.2(L) 38.7 - 51.1 % 07/01/2024 8:12 AM [facility] MCV 89.2 80.0 - 98.0 fL 07/01/2024 8:12 AM [facility] MCH 30.2 26.7 - 33.6 pg 07/01/2024 8:12 AM [facility] MCHC 33.8 31.7 - 36.3 g/dL 07/01/2024 8:12 AM [facility] RDW-CV 12.7 11.3 - 14.8 % 07/01/2024 8:12 AM [facility] Platelet Count 222 150 - 420 x10E9/L 07/01/2024 8:12 AM [facility] MPV 8.6 7.8 - 11.4 fL 07/01/2024 8:12 AM [facility] Blood BLOOD SPECIMEN / Unknown Venipuncture / Unknown 07/01/2024 7:31 AM [facility] 07/01/2024 7:37 AM VAULT CASHIER Elder Rhoades MD LAB - HEMATOLOGY ORD ERABLES [facility] [address] [place] [address] [phone] * LACTIC ACID BLOOD (07/01/2024 7:31 AM VAULT CASHIER) Lactic Acid-Stat 0.7 <=2.0 mmol/L 07/01/2024 8:05 AM [facility] Blood BLOOD SPECIMEN / Unknown Venipuncture / Unknown 07/01/2024 7:31 AM VA[facility]IER 07/01/2024 7:37 AM VAULT CASHIER Elder Rhoades MD LAB - CHEMISTRY ORDE RABTEVIN [facility] [address] [place] [address], [facility] [phone] * XR Elbow Right 2Vw (06/30/2024 4:29 PM VAULT CASHIER) Anatomical Region Laterality Modality Upper Extremity Digital Radiogra phy 07/01/2024 10:1 8 AM VAULT CASHIER Impressions 07/01/2024 1:04 PM VAULT CASHIER IMPRESSION: No definite fracture. If there are symptoms referable to this site, consider further evaluation with CT. 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 > Interpreting Provider: Marisol Charlton MD on 07/01/2024 1:04 PM Narrative 07/01/2024 1:04 PM VAULT CASHIER PROCEDURE: XR ELBOW RIGHT 2VW DATE/TIME OF EXAM: 06/30/2024 4:30 PM CLINICAL INFORMATION: None relevant/not provided if blank. Indication: I48.91: Atrial fibrillation, unspecified type (HCC) Additional History: Humerus fracture COMPARISON: None. FINDINGS: The distal 14 cm of the humerus has a lytic appearance with coarse trabecula and mild cortical thickening, likely due to Paget's disease. No fracture is demonstrated on this 2 view exam. The joint spaces are preserved. Small calcifications posterior to the olecranon may represent enthesophytes. There is no joint effusion. There is soft tissue swelling. Procedure Note Marisol Charlton MD - 07/01/2024 PROCEDURE: XR ELBOW RIGHT 2VW DATE/TIME OF EXAM: 06/30/2024 4:30 PM CLINICAL INFORMATION: None relevant/not provided if blank. Indication: I48.91: Atrial fibrillation, unspecified type (HCC) Additional History: Humerus fracture COMPARISON: None. FINDINGS: The distal 14 cm of the humerus has a lytic appearance with coarse trabecula and mild cortical thickening, likely due to Paget's disease.No fracture is demonstrated on this 2 view exam. The joint spaces are preserved. Small calcifications posterior to the olecranon may represent enthesophytes. There is no joint effusion. There is soft tissueswelling. IMPRESSION: No definite fracture. If there are symptoms referable to this site, consider further evaluation with CT. 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 > Interpreting Provider: Marisol Charlton MD on 07/01/2024 1:04 PM Elder Rhoades MD DIAGNOSTIC IMAGING O RDERABLES * CT Shoulder Right Wo Contrast (06/30/2024 3:02 PM VAULT CASHIER) Anatomical Region Laterality Modality Upper Extremity Computed Tomogra phy 06/30/2024 3:36 PM VAULT C[facility]IER Impressions 06/30/2024 3:47 PM VAULT C[facility]IER IMPRESSION: Moderately displaced, comminuted fracture of the humeral head and neck. > Interpreting Provider: Feng Ybarra MD on 06/30/2024 3:47 PM Narrative 06/30/2024 3:47 PM VAULT C[facility]IER PROCEDURE: CT SHOULDER RIGHT WO CONTRAST DATE/TIME OF EXAM: 06/30/2024 3:03 PM CLINICAL INFORMATION: None relevant/not provided if blank. Indication: S72.001A: Closed fracture dislocation of right hip joint, initial encounter (HCC) Additional History: COMPARISON: No prior right shoulder imaging is available. Correlation is made with right humerus x-rays dated 06/30/2024. TECHNIQUE: CT of the [right shoulder' was performed utilizing standard protocol. CT dose reduction technique was used, including Automated Exposure Control. FINDINGS: There is patient motion artifact despite repeat image acquisition. There is a moderately displaced comminuted fracture of the humeral head and neck. There is angulation and impaction at the head-neck junction. Fracture lines extend to the articular surface. There is no glenohumeral dislocation. An effusion is present. There is surrounding soft tissue edema. The acromioclavicular joint is not widened. There is mild arthritis at the joint. The abnormality of the distal humerus reported on the x-rays is not well evaluated on this study. Procedure Note Feng Ybarra MD - 06/30/2024 PROCEDURE: CT SHOULDER RIGHT WO CONTRAST DATE/TIME OF EXAM: 06/30/2024 3:03 PM CLINICAL INFORMATION: None relevant/not provided if blank. Indication: S72.001A: Closed fracture dislocation of right hip joint, initial encounter (HCC) Additional History: COMPARISON: No prior right shoulder imaging is available. Correlation is made with right humerus x-rays dated 06/30/2024. TECHNIQUE: CT of the [right shoulder' was performed utilizing standard protocol. CT dose reduction technique was used, including Automated ExposureControl. FINDINGS: There is patient motion artifact despite repeat image acquisition. There is a moderately displaced comminuted fracture of the humeral headand neck. There is angulation and impaction at the head-neck junction.Fracture lines extend to the articular surface. There is no glenohumeral dislocation. An effusion is present. There is surrounding soft tissue edema. The acromioclavicular joint is not widened. There is mildarthritis at the joint. The abnormality of the distal humerus reported on the x-rays is not well evaluated on this study. IMPRESSION: Moderately displaced, comminuted fracture of the humeral head and neck. > Interpreting Provider: Feng Ybarra MD on 06/30/2024 3:47 PM Elder Rhoades MD CT ORDERABLES * CT Chest Abdomen Pelvis W Cont (06/30/2024 3:02 PM VAULT CASHIER) Anatomical Region Laterality Modality Chest, Abdomen, Pelvis Computed Tomography 07/01/2024 7:20 AM VAULT CASHIER Impressions 07/01/2024 9:56 AM VAULT CASHIER Impression: Study is significantly degraded by motion artifact. Within this limitation: 1.Mild bilateral dependent atelectasis in the lung bases. Trace pleural effusion on the right. 2.Otherwise no acute process identified in the chest, abdomen or pelvis. 3.Fracture of the neck of the right humerus with involvement of the head. Nondisplaced fractures of the right ribs as described. 4.Age-indeterminate vertebral height loss of T7-T10. Grade 1 retrolisthesis of L2 on L3. > Dictated by Steven Harrison MD, (president consumer electronics [employer]). I, Jennie Rollins MD have personally reviewed and interpreted this examination/study. > Interpreting Provider: Jennie Rollins MD on 07/01/2024 9:56 AM Narrative 07/01/2024 9:56 AM VAULT CASHIER PROCEDURE: CT CHEST ABDOMEN PELVIS W CONT, DATE/TIME OF EXAM: 06/30/2024 3:03 PM, LOCATION [facility] INDICATION: R29.818: Suspected infectious meningitis ADDITIONAL CLINICAL INFORMATION: Ordering Provider Reason For Exam: Altered mental status infectious workup COMPARISON: None. TECHNIQUE: CT of the abdomen and pelvis was performed following the uneventful administration of Isovue 370 intravenous contrast according to standard protocol. Findings: Study is significantly degraded by motion artifact. Within this limitation: Lower Chest: Mild bilateral dependent atelectasis is present in the visualized lung bases. Trace pleural effusion on the right. Otherwise, no areas of focal consolidation. No pneumothorax. Liver: Normal. Gallbladder and Bile Ducts: Normal. Spleen: Normal. Pancreas: Normal. Adrenals: Normal. Kidneys: Normal. Gastrointestinal: The stomach and visualized loops of large and small bowel are unremarkable. Normal appendix. Mesentery/Peritoneum/Retroperitoneum: Normal. Bladder: There is a small amount of air within the bladder lumen, likely secondary to recent Monreal catheter removal. Otherwise, the bladder is normal. Reproductive Organs: The prostate is normal. Small foci of calcification within the prostate. Vasculature: Atherosclerotic calcification of the aorta and its branch vessels. Bones: Bone windows demonstrate no suspicious lytic or blastic lesions. Degenerative changes are seen in the spine. Age-indeterminate vertebral height loss in the thoracic spine from T7 to T10. There is grade 1 retrolisthesis of L2 on L3. Comminuted fractures of the right humeral neck. Nondisplaced fractures of the posterior third of right ninth and 10th ribs (image 94 and 103 in series 4). Nondisplaced fractures of mid third of right eighth and ninth ribs (image 115 series 4). Soft tissues: Normal. Procedure Note Jennie Rollins MD - 07/01/2024 PROCEDURE: CT CHEST ABDOMEN PELVIS W CONT, DATE/TIME OF EXAM:06/30/2024 3:03 PM, LOCATION [facility] INDICATION: R29.818: Suspected infectious meningitis ADDITIONAL CLINICAL INFORMATION: Ordering Provider Reason For Exam: Altered mental status infectiousworkup COMPARISON: None. TECHNIQUE: CT of the abdomen and pelvis was performed following the uneventful administration of Isovue 370 intravenous contrast accordingto standard protocol. Findings: Study is significantly degraded by motion artifact. Within thislimitation: Lower Chest: Mild bilateral dependent atelectasis is present in the visualized lung bases. Trace pleural effusion on the right. Otherwise, no areas of focal consolidation. No pneumothorax. Liver: Normal. Gallbladder and Bile Ducts: Normal. Spleen: Normal. Pancreas: Normal. Adrenals: Normal. Kidneys: Normal. Gastrointestinal: The stomach and visualized loops of large and small bowel areunremarkable. Normal appendix. Mesentery/Peritoneum/Retroperitoneum: Normal. Bladder: There is a small amount of air within the bladder lumen, likelysecondary to recent Monreal catheter removal. Otherwise, the bladder is normal. Reproductive Organs: The prostate is normal. Small foci of calcification within the prostate. Vasculature: Atherosclerotic calcification of the aorta and its branch vessels. Bones: Bone windows demonstrate no suspicious lytic or blastic lesions. Degenerative changes are seen in the spine. Age-indeterminate vertebral height loss in the thoracic spine from T7 to T10. There is grade 1 retrolisthesis of L2 on L3. Comminuted fractures of the right humeral neck. Nondisplaced fractures of the posterior third of right ninth and 10thribs (image 94 and 103 in series 4). Nondisplaced fractures of mid third of right eighth and ninth ribs (image 115 series 4). Soft tissues: Normal. Impression: Study is significantly degraded by motion artifact. Within thislimitation: 1.Mild bilateral dependent atelectasis in the lung bases. Trace pleural effusion on the right. 2.Otherwise no acute process identified in the chest, abdomen or pelvis. 3.Fracture of the neck of the right humerus with involvement of thehead. Nondisplaced fractures of the right ribs as described. 4.Age-indeterminate vertebral height loss of T7-T10. Grade 1retrolisthesis of L2 on L3. > Dictated by Steven Harrison MD, (president [employer]). I, Jennie Rollins MD have personally reviewed and interpreted this examination/study. > Interpreting Provider: Jennie Rollins MD on 49:56 AM Elder Rhoades MD CT ORDERABLES * SYPHILIS ANTIBODY CASCADING REFLEX (06/30/2024 11:46 AM VAULT CASHIER) Treponema pallidum Antibody Non-react cici Non-react cici 06/30/2024 1:02 PM VAULT CASHIER [facility] Comment: No Laboratory evidence of syphilis infection. Note: Circulating antibodies may be low or undetectable in early infection. If recent exposure is suspected, re-draw sample in 2-4 weeks and repeat testing. Blood BLOOD SPECIMEN / Unknown Lab Venipuncture / Unknown 06/30/2024 11:46 AM VAULT CASHIER 06/30/2024 12:01 PM VAULT CASHIER Elder Rhoades MD LAB - SEROLOGY ORDER BABITA [facility] [place] [id number] [place] [address], [facility] [phone] * PHOSPHATIDYLETHANOL (PETH) (06/30/2024 11:46 AM VAULT CASHIER) PEth 16:0/18.1 (POPEth) <10 ng/mL 07/02/2024 9:40 AM VAULT CASHIER [employer] [facility] ([facility]) Comment: PEth 16:0/18:1 (POPEth) Less than 10 ng/mL............Not detected Less than 20 ng/mL............Abstinence or light alcohol consumption 20 - 200 ng/mL................Moderate alcohol consumption Greater than 200 ng/mL........Heavy alcohol consumption or chronic alcohol use (Reference: Tremayne Sidhu and Julianna Brunner 2018 J. Forensic Sci) PEth 16:0/18.2 (PLPEth) <10 ng/mL 07/02/2024 9:40 AM VAULT CASHIER [employer] [facility] ([facility]) Comment:Reference ranges are not well established. EER Peth See Note 07/02/2024 9:40 AM VAULT CASHIER [facility] [employer] [facility] ([facility]) Comment: Authorized individuals can access the [employer] Enhanced Report with an [employer] Connect account using the following link. Your local lab can assist you in obtaining the patient report if you don't have a Connect account. [email or web address] Interpretation PEth See Comment 07/02/2024 9:40 AM VAULT CASHIER [employer] [facility] ([facility]) Comment: Phosphatidylethanol (PEth) is a group of phospholipids formed in the presence of ethanol, phospholipase D and phosphatidylcholine. PEth is known to be a direct alcohol biomarker. The predominant PEth homologues are PEth 16:0/18:1 (POPEth) and PEth 16:0/18:2 (PLPEth), which account for 37-46% and 26-28% of the total PEth homologues, respectively. PEth is incorporated into the phospholipid membrane of red blood cells and has a general half-life of 4-10 days and a window of detection of 2-4 weeks. However, the window of detection is longer in individuals who chronically or excessively consume alcohol. The limit of quantification is 10 ng/mL. Serial monitoring of PEth may be helpful in monitoring alcohol abstinence over time. PEth results should be interpreted in the context of the patient's clinical and behavioral history. Patients with advanced liver disease may have falsely elevated PEth concentrations (Angeline FERNÁNDEZ et al 2018, Alcoholism Clinical & Experimental Research). This test was developed and its performance characteristics determined by [facility]. It has not been cleared or approved by the U.S. Food and Drug Administration. This test was performed in a CLIA-certified laboratory and is intended for clinical purposes. Performed By: [facility] [address] [place] [address] [employer]: Caden Hanna MD, PhD CLIA Number: [id number] Blood BLOOD SPECIMEN / Unknown Lab Venipuncture / Unknown 06/30/2024 11:46 AM VAULT CASHIER 06/30/2024 12:01 PM VAULT CASHIER Nicky Wheeler MD LAB - CHEMISTRY MANI LUTHER [facility] ([facility]) [phone] * HIV-1 HIV-2 ANTIBODY + HIV P24 AG PANEL (06/30/2024 11:46 AM VAULT CASHIER) HIV Antigen/Antibod y 1 & 2 Non-reacti ve Non-react cici 06/30/2024 1:02 PM VAULT CASHIER [facility] Comment:No Laboratory eviden ce of HIV infection. Blood BLOOD SPECIMEN / Unknown Lab Venipuncture / Unknown 06/30/2024 11:46 AM VAULT CASHIER 06/30/2024 12:01 PM VAULT CASHIER Elder Rhoades MD LAB - CHEMISTRY MANI LUTHER [facility] Address City/State/ZIP Co de Phone Number [facility] [address] [place] [address], [facility] [phone] * (ABNORMAL) HEMOGLOBIN A1C (06/30/2024 11:46 AM VAULT CASHIER) Hemoglobin A1c 5.7(H) <=5.6 % 06/30/2024 2:28 PM VAULT CASHIER [facility] Estimated Average Glucose 117 mg/dL 06/30/2024 2:28 PM [facility] Comment: HbA1c Interpretation: Normal : < 5.7% Pre-diabetes: 5.7-6.4% Diabetes: Equal to or greater than 6.5% Test results diagnostic of diabetes should be repeated for confirmation. Treatment target values recommended by ADA and other clinical organizations should be used to evaluate metabolic control in patients. Reference: [place] [employer], Standards of Care in Diabetes -2020 In patients 70 years and older consider HbA1c target range of 7.0-7.5% (Reference: Stuart A, et al. JAMDA. 2012) The [employer] assay for the measurement of HbA1c is a National Glycohemoglobin Standardization Program (NGSP) certified method. HbA1c Interpretation: Normal : < 5.7% Pre-diabetes: 5.7-6.4% Diabetes: Equal to or greater than 6.5% Test results diagnostic of diabetes should be repeated for confirmation. Treatment target values recommended by ADA and other clinical organizations should be used to evaluate metabolic control in patients. Reference: [place] [employer], Standards of Care in Diabetes -2020 In patients 70 years and older consider HbA1c target range of 7.0-7.5% (Reference: Stuart A, et al. JAMDA. 2012) The [employer] assay for the measurement of HbA1c is a National Glycohemoglobin Standardization Program (NGSP) certified method. Blood BLOOD SPECIMEN / Unknown Lab Venipuncture / Unknown 06/30/2024 11:46 AM VAULT CASHIER 06/30/2024 12:10 PM VAULT CASHIER Nicky Wheeler MD LAB - CHEMISTRY MANI LUTHER Performing Organization Address City/[facility]/ZIP Co de Phone Number [facility] [address] [place] [phone], [place] [phone] * (ABNORMAL) VITAMIN D 25-HYDROXY (06/30/2024 11:46 AM VAULT CASHIER) Vitamin D, 25 Hydroxy 28.7(L) 30.0 - 80.0 ng/mL 06/30/2024 2:04 PM VAULT CASHIER [facility] Comment: The recommendations for 25-Hydroxy Vitamin D clinical decision points are as follows: Deficient: <20.0 ng/mL Insufficient: 20.0 - 29.9 ng/mL Sufficient: 30.0 - 100.0 ng/mL Potential Toxicity: >100 ng/mL Reference: The Endocrine Society Clinical Practice Guidelines. 2011 If the 25-Hydroxy Vitamin D results are inconsitent with clinical evidence, it is recommended that follow-up testing using a method such as LC/MS/MS be performed to confirm the result. Blood BLOOD SPECIMEN / Unknown Lab Venipuncture / Unknown 06/30/2024 11:46 AM VAULT CASHIER 06/30/2024 12:07 PM VAULT CASHIER Charley Fox PA-C LAB - CHEMIS TRY ORDERABLES Performing Organization Address [facility]/ZIP Co de Phone Number [address] [address], [place] [phone] * (ABNORMAL) VITAMIN B12 (06/30/2024 11:46 AM VAULT CASHIER) Vitamin B12 826(H) 213 - 816 pg/mL 06/30/2024 1:01 PM VAULT CASHIER [facility] Blood BLOOD SPECIMEN / Unknown Lab Venipuncture / Unknown 06/30/2024 11:46 AM VAULT CASHIER 06/30/2024 12:07 PM VAULT CASHIER Elder Rhoades MD LAB - CHEMISTRY MANI LUTHER Performing Organization Address City/[facility]/ZIP Co de Phone Number [address] [address], [place] [phone] * TSH (06/30/2024 11:46 AM VAULT CASHIER) TSH 0.982 0.350 - 4.940 uIU/mL 06/30/2024 1:01 PM VAULT CASHIER [facility] Blood BLOOD SPECIMEN / Unknown Lab Venipuncture / Unknown 06/30/2024 11:46 AM VAULT CASHIER 06/30/2024 12:07 PM VAULT CASHIER Elder Rhoades MD LAB - CHEMISTRY ORDE ASHKAN Performing Organization Address City/[facility]/ZIP Co de Phone Number [address] [address], [facility] [phone] * STREP PNEUMONIAE ANTIGEN URINE (06/30/2024 11:37 AM VAULT CASHIER) Streptococcus pneumoniae Antigen Urine Negative Negative 07/01/2024 7:24 AM VAULT CASHIER [facility] Urine URINE / Unknown Collection / Unknown 06/30/2024 11:37 AM VAULT CASHIER 06/30/2024 11:43 AM VAULT CASHIER Narrative [facility] - 07/01/2024 7:24 AM VAULT CASHIER Patients who have received the Streptococcus pneumoniae vaccines may test positive in the 48 hours following vaccination. It is recommended to avoid testing within five days of receiving vaccination. Testing pediatric patients is discouraged because of their high rates of nasal colonization with Streptococcus pneumoniae leading to false positive results. Samples from patients taking antibiotics for more than 24 hours may cause false negatives. Elder Rhoades MD LAB - MICROBIOLOGY O RDERABLES [facility] [address] [place] [address], [facility] [phone] * LEGIONELLA ANTIGEN URINE (06/30/2024 11:37 AM VAULT CASHIER) Legionella Antigen Urine Negative Negative 07/01/2024 7:28 AM VAULT CASHIER [facility] Urine URINE / Unknown Collection / Unknown 06/30/2024 11:37 AM VAULT CASHIER 06/30/2024 11:43 AM VAULT CASHIER Narrative [facility] - 07/01/2024 7:28 AM VAULT CASHIER This assay detects Legionella pneumophila serogroup one (1) antigen. A negative test result does not rule out the possibility of Legionella infection due to other serogroups or species of Legionella. A positive result may indicate a recent or remote infection with serogroup 1. Elder Rhoades MD LAB - MICROBIOLOGY O RDERABLES [facility] [address] [place] [address], [facility] [phone] * URINE DRUG SCREEN IMMUNOASSAY (06/30/2024 11:37 AM VAULT CASHIER) [facility] Amphetamines Screen Urine Negative Negative: < 1000 ng/mL 06/30/2024 12:20 PM [facility] Barbiturates Screen Urine Negative Negative: < 200 ng/mL 06/30/2024 12:20 PM [facility] Benzodiazepine Screen Urine Negative Negative: < 200 ng/mL 06/30/2024 12:20 PM [facility] Opiates Urine Negative Negative: < 300 ng/mL 06/30/2024 12:20 PM [facility] Cocaine Metabolites Urine Negative Negative: < 300 ng/mL 06/30/2024 12:20 PM [facility] Phencyclidine Screen Urine Negative Negative: < 25 ng/ml 06/30/2024 12:20 PM [facility] Cannabinoids Screen Urine Negative Negative: <50 ng/mL 06/30/2024 12:20 PM [facility] Methadone Screen Urine Negative Negative: < 300 ng/mL 06/30/2024 12:20 PM [facility] Fentanyl Screen Urine Negative Negative: <1.5 ng/mL 06/30/2024 12:20 PM [facility] Urine URINE / Unknown Collection / Unknown 06/30/2024 11:37 AM VAULT CASHIER 06/30/2024 11:43 AM [facility] - 06/30/2024 12:20 PM VAULT CASHIER The Urine Toxicology Screening Panel does not screen for Propoxyphene, Meprobamate, Carisoprodol, Trazodone, [id number] medications and/or volatiles (Acetone, Isopropanol, Methanol or Ethylene Glycol). Ethanol, Salicylate, Acetaminophen, Tricyclic Antidepressants and several therapeutic drugs may be individually assayed in serum or plasma specimen. Toxicology testing by the [facility] is an aid to medical diagnosis and treatment of patients. No documented chain of custody was maintained. Results are intended to be used for clinical purposes only. Elder Rhoades MD LAB - URINE CHEMISTR Y ORDERABLES [facility] [address] [place] [phone], [facility] [phone] * XR Humerus Right 2Vw or More (06/30/2024 11:11 AM VAULT CASHIER) Anatomical Region Laterality Modality Upper Extremity Digital Radiogra phy 06/30/2024 11:1 8 AM VAULT CASHIER Impressions 06/30/2024 12:48 PM VAULT CASHIER IMPRESSION: 1.Moderately displaced fracture of the humeral head and neck. 2.A right rib fracture is incidentally noted. 3.Enlargement of the distal humeral shaft with thickening of the cortex. 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 Recommend follow-up such as repeat humeral radiographs in 3-6 months to assess stability. > Dictated by Nadya WAKEFIELD [facility] (president [employer]). IeFng MD have personally reviewed and interpreted this examination/study. > Interpreting Provider: Feng Ybarra MD on 06/30/2024 12:48 PM Narrative 06/30/2024 12:48 PM VAULT CASHIER EXAMINATION: XR HUMERUS RIGHT 2VW OR MORE DATE/TIME OF EXAM: 06/30/2024 11:11 AM, LOCATION [facility] HISTORY: S42.411D: Closed supracondylar fracture of right humerus with routine healing, subsequent encounter f/u right humeral fracture COMPARISON: No prior study is available for comparison. FINDINGS: There is a moderately displaced fracture of the humeral head and neck. There are ossific fragments at the posterior aspect of the elbow which are probably chronic. There is soft tissue swelling. A mildly displaced fracture at the lateral aspect of a right lower rib is incidentally noted. The distal humeral shaft is mildly enlarged in diameter and there is cortical thickening and heterogeneous attenuation of the bone in this region. Procedure Note Feng Ybarra MD - 06/30/2024 EXAMINATION: XR HUMERUS RIGHT 2VW OR MORE DATE/TIME OF EXAM: 06/30/2024 11:11 AM, LOCATION [facility] HISTORY: S42.411D: Closed supracondylar fracture of right humerus with routine healing, subsequent encounter f/u right humeral fracture COMPARISON: No prior study is available for comparison. FINDINGS: There is a moderately displaced fracture of the humeral head and neck. There are ossific fragments at the posterior aspect of the elbow whichare probably chronic. There is soft tissue swelling. A mildly displaced fracture at the lateral aspect of a right lower ribis incidentally noted. The distal humeral shaft is mildly enlarged in diameter and there is cortical thickening and heterogeneous attenuation of the bone in this region. IMPRESSION: 1.Moderately displaced fracture of the humeral head and neck. 2.A right rib fracture is incidentally noted. 3.Enlargement of the distal humeral shaft with thickening of the cortex. 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 Recommend follow-up such asrepeat humeral radiographs in 3-6 months to assess stability. > Dictated by Nadya WAKEFIELD [facility] (president [employer]). I, Feng Ybarra MD have personally reviewed and interpreted this examination/study. > Interpreting Provider: Feng Ybarra MD on 06/30/2024 12:48 PM Nicky Wheeler MD DIAGNOSTIC IMAGING O RDERABLES * (ABNORMAL) URINE MICROSCOPIC ONLY REFLEX TO CULTURE (06/30/2024 5:41 AM VAULT CASHIER) Reflex Status Culture not indicated 06/30/2024 6:08 AM VAULT CASHIER [facility] RBC UA 51-100(A) None Seen, 0-2, 3-5 /HPF 06/30/2024 6:08 AM VAULT CASHIER [facility] WBC UA 6-10(A) None Seen, 0-5 /HPF 06/30/2024 6:08 AM VAULT CASHIER [facility] Bacteria UA Trace(A) None /HPF 06/30/2024 6:08 AM VAULT CASHIER [facility] Squamous Epithelial Cells UA 0-2 None Seen, 0-2, 3-5 /HPF 06/30/2024 6:08 AM [facility] Mucus UA 1+ /LPF 06/30/2024 6:08 AM [facility] Urine URINE SPECIMEN OBTAINED BY CLEAN CATCH PROCEDURE / Unknown Collection / Unknown 06/30/2024 5:41 AM VAULT CASHIER 06/30/2024 5:49 AM VAULT CASHIER [facility] - 06/30/2024 6:08 AM VAULT CASHIER Nicky Wheeler MD LAB - URINALYSIS ORD ERABLES [facility] [address] [place] [address], [facility] [phone] * (ABNORMAL) URINALYSIS REFLEX MICROSCOPIC REFLEX CULTURE (06/30/2024 5:41 AM VAULT CASHIER) Color UA Yellow Straw, Yellow 06/30/2024 6:03 AM [facility] Clarity UA Slt Cloudy(A) Clear 06/30/2024 6:03 AM [facility] Specific Gardner UA 1.014 1.005 - 1.030 06/30/2024 6:03 AM [facility] pH UA 6.0 5.0 - 8.0 pH 06/30/2024 6:03 AM [facility] Protein UA Negative Negative 06/30/2024 6:03 AM [facility] Glucose UA Negative Negative 06/30/2024 6:03 AM [facility] Ketone UA 1+(A) Negative 06/30/2024 6:03 AM [facility] Bilirubin UA Negative Negative 06/30/2024 6:03 AM [facility] Blood UA 2+(A) Negative 06/30/2024 6:03 AM [facility] Nitrite UA Negative Negative 06/30/2024 6:03 AM [facility] Leukocyte Esterase Negative Negative 06/30/2024 6:03 AM [facility] Urobilinogen UA Negative Negative mg/dL 06/30/2024 6:03 AM [facility] Urine URINE SPECIMEN OBTAINED BY CLEAN CATCH PROCEDURE / Unknown Collection / Unknown 06/30/2024 5:41 AM VAULT CASHIER 06/30/2024 5:49 AM VAULT CASHIER Narrative [facility] - 06/30/2024 6:03 AM VAULT CASHIER Nicky Wheeler MD LAB - URINALYSIS ORD ERABLES Performing Organization Address City/State/[facility] Co de Phone Number [facility] [address] [place] [address], [facility] [phone] Care Teams Tobacco Warehouse Manager Relationship Specialty Start Date End Date Unknown, Provider PCP - General 07/23/24
--- OUTSIDE RECORDS SUMMARY | 2024-09-03 13:34 | XMS_ITS | Clinical Summary ---
Author Organization [facility] Address [address] [place] [address] Care Team Providers Care Commercial Artist Lettering Name Role Phone Unknown, Provider Primary Care Provider Unavaila ble Source Comments [facility],non-owned Affiliates and Associated Physician Practices is amultiple site organization consisting of ambulatory clinics and hospital sitesin [place], [place], [place] and [place]. This disclosure is being madepursuant to the Care Everywhere program and may not contain all information available regarding this patient. Last updated 18.[facility] Allergies No known active allergies Medications * Be aware that medications may not be up to date on this document. Alwaysverify current medications with the patient. Medication Sig Dispensed Refills Start Date End Date Status acetaminophen (Tylenol) 500 MG tablet Take 2 (two) tablets by mouth 3 times daily Maximum allowable Acetaminophen amount = 4 Grams (4000 mg) / 24 hours. 07/18/2024 Active albuterol-ipratrop ium (Duo-Neb) 0.5-2.5 (3) MG/3ML nebulizer solution Inhale 3 mL by mouth every 6 hours as needed for Shortness of Breath or Wheezing 07/18/2024 Active apixaban (Eliquis) 5 MG tabletIndications: Atrial Fibrillation Take 1 (one) tablet by mouth 2 times daily Reasons: Atrial Fibrillation 07/18/2024 Active traZODone (Desyrel) 50 MG tablet Take 1 (one) tablet by mouth nightly as needed for Insomnia 07/18/2024 Active QUEtiapine (SEROquel) 50 MG tablet Take 1 (one) tablet by mouth once daily 07/18/2024 Active metoprolol tartrate IR (Lopressor) 25 MG tablet Take 1 (one) tablet by mouth 2 times daily 07/18/2024 Active folic acid (Folvite) 1 MG tablet Take 1 (one) tablet by mouth once daily 07/19/2024 Active melatonin 3 MG tablet Take 2 (two) tablets by mouth once daily 07/18/2024 Active magnesium oxide (Mag-Ox) 400 MG tablet Take 1 (one) tablet by mouth 2 times daily 07/18/2024 Active multiple vitamins with minerals tablet Take 1 (one) tablet by mouth once daily 07/19/2024 Active thiamine (Vitamin B-1) 100 MG tablet Take 1 (one) tablet by mouth once daily 07/19/2024 Active vitamin D3 (Cholecalciferol) 25 MCG (1000 UNITS) tablet Take 1 (one) tablet by mouth once daily 07/19/2024 Active LORazepam (Ativan) 1 MG tablet Take 1 (one) tablet by mouth pre-Procedure once 04/22/2024 Active atorvastatin (Lipitor) 20 MG tablet Take 1 (one) tablet by mouth once daily Active hydrOXYzine HCl (Atarax) 25 MG tablet Take 1 (one) tablet by mouth 4 times daily as needed for Itching Active amoxicillin (Amoxil) 875 MG tablet Take 1 (one) tablet by mouth every 12 hours 04/29/2024 5 Discontinue d(List Clean-Up) aspirin EC (Ecotrin) 81 MG tablet Take 1 (one) tablet by mouth once daily 5 Discontinue d(List Clean-Up) azithromycin (Zithromax) 250 MG tablet Take 1 (one) tablet by mouth once daily 03/20/2024 5 Discontinue d(List Clean-Up) benzonatate (Tessalon) 200 MG capsule Take 1 (one) capsule by mouth 3 times daily as needed for cough 04/29/2024 5 Discontinue d(List Clean-Up) doxycycline hyclate (Vibramycin) 100 MG capsule Take 1 (one) capsule by mouth 2 times daily 11/24/2023 5 Discontinue d(List Clean-Up) escitalopram (Lexapro) 10 MG tablet Take 1 (one) tablet by mouth once daily 06/04/2024 5 Discontinue d(List Clean-Up) Ferrous Sulfate (IRON PO) Take 1 tablet by mouth once daily 5 Discontinue d(List Clean-Up) HYDROcodone-acetam inophen ([place]) 5-325 MG tablet Take 1 (one) tablet by mouth every 8 hours as needed For pain. 06/19/2024 5 Discontinue d(List Clean-Up) ibuprofen (Motrin) 600 MG tablet Take 1 (one) tablet by mouth every 8 hours as needed for Fever or Pain 12/19/2023 5 Discontinue d(List Clean-Up) ibuprofen (Motrin) 800 MG tablet Take 1 (one) tablet by mouth 3 times daily as needed For pain. 03/18/2024 5 Discontinue d(List Clean-Up) lisinopril-hydroCH LOROthiazide (Prinzide; Zestoretic) 20-25 MG tablet Take 1 (one) tablet by mouth once daily 5 Discontinue d(List Clean-Up) methocarbamol (Robaxin) 750 MG tablet Take 1 (one) tablet by mouth 3 times daily as needed FOR MUSCLE SPASM 06/19/2024 5 Discontinue d(List Clean-Up) Multiple Vitamins-Minerals (PreserVision/Lute in) Take 1 (one) capsule by mouth once daily 5 Discontinue d(List Clean-Up) neomycin-polymyxin -hc (Cortisporin) 3.5-19260-0 otic suspension Instill 5 (five) drops into both ears 3 times daily 07/18/2023 5 Discontinue d(List Clean-Up) omeprazole (PriLOSEC) 20 MG capsule Take 1 (one) capsule by mouth once daily 07/18/2023 5 Discontinue d(List Clean-Up) sildenafil (Viagra) 25 MG tablet Take 1 (one) tablet by mouth once daily as needed 5 Discontinue d(List Clean-Up) predniSONE (Deltasone) 20 MG tablet Take 2 (two) tablets by mouth once daily 04/29/2024 5 Discontinue d(List Clean-Up) travoprost, SALMA free, (Travatan Z) 0.004 % ophthalmic solution Instill 1 (one) drop into both eyes at bedtime 5 Discontinue d(List Clean-Up) timolol as hemihydrate (Betimol) 0.25 % ophthalmic solution Instill 1 (one) drop into both eyes once daily 5 Discontinue d(List Clean-Up) B Complex Vitamins (VITAMIN-B COMPLEX PO) Take 1 tablet by mouth once daily 5 Discontinue d(List Clean-Up) Turmeric (QC TUMERIC COMPLEX PO) Take 1 tablet by mouth once daily 5 Discontinue d(List Clean-Up) Calcium Citrate-Vitamin D (CALCIUM CITRATE + D3 PO) Take 1 tablet by mouth once daily 5 Discontinue d(List Clean-Up) Active Problems Problem Noted Date Diagnosed Date Hallucinations 07/04/2024 Memory loss 07/04/2024 Closed fracture of right humerus 06/28/2024 Suspected infectious meningitis 06/28/2024 LLQ abdominal pain 04/14/2021 Overview (07/29/2024): Added automatically from request for surgery [id number] History of colonic polyps 04/14/2021 Overview (07/29/2024): Added automatically from request for surgery [id number] Multiple abrasions 05/07/2018 Fracture of toe of left foot 05/07/2018 Encounters Date Type Department Care Team Description 08/06/2024 9:40 AM MOISTURE METER READER Office Visit [facility] - [facility] [address] [place] [address] John Noel MD Closed fracture of proximal end of right humerus, unspecified fracture morphology, initial encounter (Primary Dx) 08/06/2024 9:09 AM MOISTURE METER READER - 08/06/2024 11:59 PM MOISTURE METER READER Hospital Encounter [facility] DIAGNOSTIC RAD [facility] [address] [place] [phone] John Noel MD Discharge Disposition: Home or Self Care 08/06/2024 Telephone [facility] - Neurology [address] [place] [phone] Ibrahima Simmons APRN-COMPLIANCE SPECIALIST Advice Only 08/06/2024 Travel 08/01/2024 Telephone [facility] - Neurology [address] [place] [phone] Ibrahima Simmons APRN-COMPLIANCE SPECIALIST Med Question (Pt has a referral for Neuro with dx of Suspected infectious meningitis/Atrial fibrillation, unspecified type (HCC)/Closed fracture of proximal end of right humerus, unspecified fracture morphology, initial encounter./Pt stated someone in neurology promised her father an appt for Neurology//) 07/30/2024 Travel 07/29/2024 Orders Only [facility] - Orthopedics [address] [place] [phone] John Noel MD Right shoulder pain, unspecified chronicity 07/10/2024 9:01 AM MOISTURE METER READER Anesthesia Event [facility] IVR [address] [place] [phone] Emelyn Badillo MD Ho, Jim Yarbrough Asst 07/01/2024 Travel 06/30/2024 1:52 AM MOISTURE METER READER - 07/18/2024 2:00 PM MOISTURE METER READER Hospital Encounter [facility] [address]USTIN [address] [place] [phone] Nicky Wheeler MD Raza, Awais, MD Buckhold, MD Wade Hanna III, MD Donnell August, MD Abram Broussard, Sara Manuel MD Internal Medicine Discharge Disposition: [facility] Facility 06/29/2024 Telephone [facility] INTERNAL MED [address] [place] [phone] Nicky Wheeler MD General (OSH Transfer) from Last 3 Months Social History Tobacco Use Types Packs/Day Years [...] Recorded Patient Health Questionnaire-2 Score 2 08/06/2024 [facility] - Occupational Stress [...] or rent on time? Patient declined 07/01/20 In the past 12 months, how m any times have you moved where you were living? 0 07/01/2024 At any time in the past 12 m [facility], were you homeless or living in a longterm (including now)? No 07/01/2024 Sex and Gender Information Value Date Recorded Sex Assigned at Not on file Gender Identity Not on file Sexual Orientation Not on file Last Filed Vital Signs Vital Sign Reading Time Taken Comments Blood Pressure 108/77 07/18/2024 12:04 PM MOISTURE METER READER Pulse 72 07/18/2024 12:04 PM MOISTURE METER READER Temperature 36.5 C (97.7 F) 07/18/2024 12:04 PM MOISTURE METER READER Respiratory Rate 17 07/18/2024 12:04 PM MOISTURE METER READER Oxygen Saturation 100% 07/18/2024 12:04 PM MOISTURE METER READER Inhaled Oxygen Concentration - - Weight 83.6 kg (184 lb 6.4 oz) 07/18/2024 4:00 A M MOISTURE METER READER Height 185.4 cm (6' 1 ) 07/12/2024 9:28 PM MOISTURE METER READER Body Mass Index 24.33 07/12/2024 9:28 PM MOISTURE METER READER Plan of Treatment Upcoming Encounters Date Type Department Care Team (Late st Contact Info) Description 11/20/2024 1:00 PM CDT Office Visit [facility] - Cardiology [address] [place] [id number] [place] [phone] Elder Rhoades MD [address] [place] [address] Osmany Rodríguez MD [address] [place] [id number] [place], [place] [phone] Health Maintenance Due Date Last Done Comments COLOGUARD (AGES 45-75) - COL ON CA SCREENING [address] COLONOGRAPHY - COLON CA SCREENING 1957 FIT - COLON CA SCREENING 1957 FLEX SIG - COLON CA SCREENING 1957 MEDICARE AWV 12 MONTHS 1957 HEPATITIS C SCREENING 10/31/1975 DTAP/TDAP/TD VACCINES (1 - Tdap) 1976 PNEUMOCOCCAL VACCINE 50+ (1 of 1 - PCV) 11/05/2007 ZOSTER VACCINE (1 of 2) 11/05/2007 Respiratory Syncytial Virus (RSV) Vaccine Pt: or over 60 yrs (1 - Risk 60-74 years 1-dose series) 2017 AAA SCREENING 2022 COVID-19 VACCINE (1 - 2023-2 5 season) 2024 INFLUENZA VACCINE (#1) 2024 COLONOSCOPY - COLON CA SCREENING 05/20/2031 05/20/20 21 Colorectal Cancer Screening 05/20/2031 DEPRESSION SCREENING Completed 08/06/2024 HEPATITIS B VACCINE Aged Out No longe r eligible based on patient's age to complete this topic HIB VACCINE Aged Out No longer eligi ble based on patient's age to complete this topic HPV VACCINE Aged Out No longer eligi ble based on patient's age to complete this topic MENINGOCOCCAL (Group B) VACCINE Aged Out No longer eligible based on patient's age to complete this topic MENINGOCOCCAL VACCINE Aged Out No miladys elizabeth eligible based on patient's age to complete this topic Procedures Procedure Name Priority Date/Time Associated Diagnosis Comments XR SHOULDER RIGHT 2VW OR MORE Routine 08/06/2024 9:38 AM MOISTURE METER READER Right shoulder pain, unspecified chronicity PHOSPHORUS BLOOD Routine 07/18/2024 5:02 AM MOISTURE METER READER MAGNESIUM BLOOD Routine 07/18/2024 5:02 AM MOISTURE METER READER COMPREHENSIVE METABOLIC PANEL Routine 07/18/2024 5:02 AM MOISTURE METER READER CBC W/O DIFFERENTIAL Routine 07/18/2024 5:02 AM MOISTURE METER READER PHOSPHORUS BLOOD Routine 07/17/2024 4:33 AM MOISTURE METER READER MAGNESIUM BLOOD Routine 07/17/2024 4:33 AM MOISTURE METER READER COMPREHENSIVE METABOLIC PANEL Routine 07/17/2024 4:33 AM MOISTURE METER READER CBC W/O DIFFERENTIAL Routine 07/17/2024 4:33 AM MOISTURE METER READER XR SHOULDER RIGHT 2VW OR MORE DAYSI 07/16/2024 8:57 AM MOISTURE METER READER Closed fracture of proximal end of right humerus, unspecified fracture morphology, initial encounter PHOSPHORUS BLOOD Routine 07/16/2024 4:42 AM MOISTURE METER READER MAGNESIUM BLOOD Routine 07/16/2024 4:42 AM MOISTURE METER READER COMPREHENSIVE METABOLIC PANEL Routine 07/16/2024 4:42 AM MOISTURE METER READER CBC W/O DIFFERENTIAL Routine 07/16/2024 4:42 AM MOISTURE METER READER PHOSPHORUS BLOOD Routine 07/15/2024 6:20 AM MOISTURE METER READER MAGNESIUM BLOOD Routine 07/15/2024 6:20 AM MOISTURE METER READER COMPREHENSIVE METABOLIC PANEL Routine 07/15/2024 6:20 AM MOISTURE METER READER CBC W/O DIFFERENTIAL Routine 07/15/2024 6:19 AM MOISTURE METER READER PHOSPHORUS BLOOD Routine 07/14/2024 11:20 AM MOISTURE METER READER MAGNESIUM BLOOD Routine 07/14/2024 11:20 AM MOISTURE METER READER COMPREHENSIVE METABOLIC PANEL Routine 07/14/2024 11:20 AM MOISTURE METER READER CBC W/O DIFFERENTIAL Routine 07/14/2024 11:20 AM MOISTURE METER READER PHOSPHORUS BLOOD Routine 07/13/2024 4:30 AM MOISTURE METER READER MAGNESIUM BLOOD Routine 07/13/2024 4:30 AM MOISTURE METER READER COMPREHENSIVE METABOLIC PANEL Routine 07/13/2024 4:30 AM MOISTURE METER READER CBC W/O DIFFERENTIAL Routine 07/13/2024 4:30 AM MOISTURE METER READER COMPREHENSIVE METABOLIC PANEL Routine 07/12/2024 3:53 AM MOISTURE METER READER MAGNESIUM BLOOD Routine 07/12/2024 3:53 AM MOISTURE METER READER PHOSPHORUS BLOOD Routine 07/12/2024 3:53 AM MOISTURE METER READER CBC W/O DIFFERENTIAL Routine 07/12/2024 3:52 AM MOISTURE METER READER COMPREHENSIVE METABOLIC PANEL Routine 07/11/2024 9:07 AM MOISTURE METER READER CBC W/O DIFFERENTIAL Routine 07/11/2024 9:07 AM MOISTURE METER READER MAGNESIUM BLOOD Routine 07/11/2024 9:07 AM MOISTURE METER READER PHOSPHORUS BLOOD Routine 07/11/2024 9:07 AM MOISTURE METER READER CELL COUNT W DIFFERENTIAL CSF DAYSI 07/10/2024 12:24 PM MOISTURE METER READER PROTEIN CSF STAT 07/10/2024 12:24 PM MOISTURE METER READER HOLD SPECIMEN CSF Routine 07/10/2024 12:24 PM MOISTURE METER READER GLUCOSE CSF DAYSI 07/10/2024 12:24 PM MOISTURE METER READER CULTURE CSF+GRAM STAIN DAYSI 12:24 PM MOISTURE METER READER CULTURE AFB+SMEAR Routine 07/10/2024 12:24 PM MOISTURE METER READER MENINGITIS/ENCEPHALITIS PANEL CSF STAT 07/10/2024 12:24 PM MOISTURE METER READER HERPES SIMPLEX 1+2 PCR CSF Routine 07/10 12:24 PM MOISTURE METER READER CULTURE FUNGUS OTHER+FUNGUS SMEAR Routine 07/10/2024 12:24 PM MOISTURE METER READER FL LUMBAR PUNCTURE Routine 07/10/2024 12:22 PM MOISTURE METER READER Suspected infectious meningitis PERIPHERAL IV NOTE Routine 07/10/2024 10:11 AM MOISTURE METER READER COMPREHENSIVE METABOLIC PANEL Routine 07/10/2024 3:04 AM MOISTURE METER READER CBC W/O DIFFERENTIAL Routine 07/10/2024 3:04 AM MOISTURE METER READER MAGNESIUM BLOOD Routine 07/10/2024 3:04 AM MOISTURE METER READER PHOSPHORUS BLOOD Routine 07/10/2024 3:04 AM MOISTURE METER READER COMPREHENSIVE METABOLIC PANEL Routine 07/09/2024 4:10 AM MOISTURE METER READER CBC W/O DIFFERENTIAL Routine 07/09/2024 4:10 AM MOISTURE METER READER MAGNESIUM BLOOD Routine 07/09/2024 4:10 AM MOISTURE METER READER PHOSPHORUS BLOOD Routine 07/09/2024 4:10 AM MOISTURE METER READER XR SHOULDER RIGHT 2VW OR MORE Routine 07/08/2024 12:36 PM MOISTURE METER READER Closed supracondylar fracture of right humerus with routine healing, subsequent encounter PT-INR [facility] STAT 07/08/2024 9:25 AM MOISTURE METER READER Suspected infectious meningitis COMPREHENSIVE METABOLIC PANEL Routine 07/08/2024 2:58 AM MOISTURE METER READER CBC W/O DIFFERENTIAL Routine 07/08/2024 2:58 AM MOISTURE METER READER MAGNESIUM BLOOD Routine 07/08/2024 2:58 AM MOISTURE METER READER PHOSPHORUS BLOOD Routine 07/08/2024 2:58 AM MOISTURE METER READER COMPREHENSIVE METABOLIC PANEL Routine 07/07/2024 1:55 AM MOISTURE METER READER CBC W/O DIFFERENTIAL Routine 07/07/2024 1:55 AM MOISTURE METER READER MAGNESIUM BLOOD Routine 07/07/2024 1:55 AM MOISTURE METER READER PHOSPHORUS BLOOD Routine 07/07/2024 1:55 AM MOISTURE METER READER VANCOMYCIN LEVEL TROUGH Timed 07/06/20 10:18 PM MOISTURE METER READER EKG 12-LEAD Routine 07/06/2024 4:59 PM MOISTURE METER READER Atrial fibrillation, unspecified type (HCC) CRYPTOCOCCUS ANTIGEN BLOOD AM Draw 07/06 3:15 AM MOISTURE METER READER COMPREHENSIVE METABOLIC PANEL Routine 07/06/2024 3:15 AM MOISTURE METER READER CBC W/O DIFFERENTIAL Routine 07/06/2024 3:15 AM MOISTURE METER READER MAGNESIUM BLOOD Routine 07/06/2024 3:15 AM MOISTURE METER READER PHOSPHORUS BLOOD Routine 07/06/2024 3:15 AM MOISTURE METER READER URINALYSIS REFLEX TO MICROSCOPIC NO CULTURE Routine 07/05/2024 11:[address] CHEST WO CONTRAST Routine 07/05/2024 3:28 PM MOISTURE METER READER Altered mental status, unspecified altered mental status type CULTURE BLOOD FUNGUS Timed 07/05/2024 1:47 PM MOISTURE METER READER VANCOMYCIN LEVEL TROUGH Timed 07/05/20 24 12:00 PM MOISTURE METER READER DNA ANTIBODY DOUBLE STRANDED AM Draw 07/05/2024 3:04 AM MOISTURE METER READER MYCOPLASMA PNEUMONIAE AB IGM AM Draw 07/05/2024 3:04 AM MOISTURE METER READER COMPLEMENT C4 Routine 07/05/2024 3:04 AM MOISTURE METER READER COMPLEMENT C3 Routine 07/05/2024 3:04 AM MOISTURE METER READER CYCLIC CITRUL PEPTIDE ANTIBODY IGG/IGA (CCP) AM Draw 07/05/2024 3:04 AM MOISTURE METER READER RHEUMATOID FACTOR BLOOD QUANTITATIVE AM Draw 07/05/2024 3:04 AM MOISTURE METER READER KAYLEY BLOOD SCREEN W/REFLEX TITER AM Draw 07/05/2024 3:04 AM MOISTURE METER READER COMPREHENSIVE METABOLIC PANEL Routine 07/05/2024 3:04 AM MOISTURE METER READER CBC W/O DIFFERENTIAL Routine 07/05/2024 3:04 AM MOISTURE METER READER MAGNESIUM BLOOD Routine 07/05/2024 3:04 AM MOISTURE METER READER PHOSPHORUS BLOOD Routine 07/05/2024 3:04 AM MOISTURE METER READER ECHO COMPLETE W CONTRAST Routine 024 3:39 PM MOISTURE METER READER Atrial fibrillation, unspecified type (HCC) COMPREHENSIVE METABOLIC PANEL Routine 07/04/2024 3:17 AM MOISTURE METER READER CBC W/O DIFFERENTIAL Routine 07/04/2024 3:17 AM MOISTURE METER READER MAGNESIUM BLOOD Routine 07/04/2024 3:17 AM MOISTURE METER READER PHOSPHORUS BLOOD Routine 07/04/2024 3:17 AM MOISTURE METER READER MRI BRAIN WO CONTRAST STAT 07/03/2024 4:02 PM MOISTURE METER READER Suspected infectious meningitis CULTURE BLOOD Timed 07/03/2024 2:05 PM MOISTURE METER READER VANCOMYCIN LEVEL TROUGH Timed 07/03/20 1:49 PM MOISTURE METER READER CULTURE BLOOD Timed 07/03/2024 1:49 PM MOISTURE METER READER CULTURE SPUTUM+GRAM STAIN Routine 2023 11:22 AM MOISTURE METER READER COMPREHENSIVE METABOLIC PANEL Routine 07/03/2024 2:20 AM MOISTURE METER READER CBC W/O DIFFERENTIAL Routine 07/03/2024 2:20 AM MOISTURE METER READER MAGNESIUM BLOOD Routine 07/03/2024 2:20 AM MOISTURE METER READER PHOSPHORUS BLOOD Routine 07/03/2024 2:20 AM MOISTURE METER READER SARS-COV-2 (COVID-19) FLU A/B RSV PCR RAPID Routine 07/02/2024 4:50 PM MOISTURE METER READER XR CHEST 1VW PORTABLE Routine 07/02/2024 11:58 AM MOISTURE METER READER Productive cough COMPREHENSIVE METABOLIC PANEL Routine 07/02/2024 1:59 AM MOISTURE METER READER CBC W/O DIFFERENTIAL Routine 07/02/2024 1:59 AM MOISTURE METER READER MAGNESIUM BLOOD STAT 07/01/2024 11:26 PM MOISTURE METER READER RENAL FUNCTION PANEL STAT 07/01/2024 11:26 PM MOISTURE METER READER PT-INR [facility] STAT 07/01/2024 12:47 [address] MOISTURE MET[address] HEAD WO CONTRAST STAT 07/01/2024 8 :22 AM MOISTURE METER READER Atrial fibrillation, unspecified type (HCC) GLUCOSE - POINT OF CARE Routine 07/01/20 7:36 AM MOISTURE METER READER DIFFERENTIAL MANUAL STAT 07/01/2024 7 :31 AM MOISTURE METER READER MAGNESIUM BLOOD STAT 07/01/2024 7:31 AM MOISTURE METER READER RENAL FUNCTION PANEL STAT 07/01/2024 7:31 AM MOISTURE METER READER CBC W AUTO DIFFERENTIAL STAT 07/01/20 7:31 AM MOISTURE METER READER LACTIC ACID BLOOD STAT 07/01/2024 7:3 1 AM MOISTURE METER READER BLOOD GASES JOSE MIGUEL + COOX PANEL STAT 07/01/2024 7:31 AM MOISTURE METER READER EKG 12-LEAD Routine 07/01/2024 6:40 AM MOISTURE METER READER Atrial fibrillation, unspecified type (HCC) EKG 12-LEAD Routine 07/01/2024 6:39 AM MOISTURE METER READER Atrial fibrillation, unspecified type (HCC) COMPREHENSIVE METABOLIC PANEL Routine 07/01/2024 1:45 AM MOISTURE METER READER CBC W/O DIFFERENTIAL Routine 07/01/2024 1:45 AM MOISTURE METER READER MAGNESIUM BLOOD Routine 07/01/2024 1:45 AM MOISTURE METER READER PHOSPHORUS BLOOD Routine 07/01/2024 1:45 AM MOISTURE METER READER XR SHOULDER RIGHT 2VW OR MORE Routine 06/30/2024 4:30 PM MOISTURE METER READER Atrial fibrillation, unspecified type (HCC) XR ELBOW RIGHT 2VW Routine 06/30/2024 4: 29 PM MOISTURE METER READER Atrial fibrillation, unspecified type (HCC) CT SHOULDER RIGHT WO CONTRAST Routine 06/30/2024 3:02 PM MOISTURE METER READER Closed fracture dislocation of right hip joint, initial encounter (HCC) CT CHEST ABDOMEN PELVIS W CONT Routine 06/30/2024 3:02 PM MOISTURE METER READER Suspected infectious meningitis EKG 12-LEAD Routine 06/30/2024 12:37 PM MOISTURE METER READER Atrial fibrillation, unspecified type (HCC) CULTURE BLOOD STAT 06/30/2024 11:54 AM MOISTURE METER READER VITAMIN D 25-HYDROXY Routine 06/30/2024 11:46 AM MOISTURE METER READER HIV-1 HIV-2 ANTIBODY + HIV P24 AG PANEL STAT 06/30/2024 11:46 AM MOISTURE METER READER SYPHILIS ANTIBODY CASCADING REFLEX Routine 06/30/2024 11:46 AM MOISTURE METER READER VITAMIN B12 Routine 06/30/2024 11:46 AM MOISTURE METER READER TSH DAYSI 06/30/2024 11:46 AM MOISTURE METER READER PHOSPHATIDYLETHANOL (PETH) Routine 06/30 11:46 AM MOISTURE METER READER HEMOGLOBIN A1C Routine 06/30/2024 11:46 AM MOISTURE METER READER CULTURE BLOOD STAT 06/30/2024 11:46 AM MOISTURE METER READER URINE DRUG SCREEN IMMUNOASSAY Routine 06/30/2024 11:37 AM MOISTURE METER READER LEGIONELLA ANTIGEN URINE Routine 024 11:37 AM MOISTURE METER READER STREP PNEUMONIAE ANTIGEN URINE Routine 06/30/2024 11:37 AM MOISTURE METER READER XR HUMERUS RIGHT 2VW OR MORE Routine 06/30/2024 11:11 AM MOISTURE METER READER Closed supracondylar fracture of right humerus with routine healing, subsequent encounter EKG 12-LEAD STAT 06/30/2024 11:09 AM MOISTURE METER READER Atrial fibrillation, unspecified type (HCC) URINE MICROSCOPIC ONLY REFLEX TO CULTURE STAT 06/30/2024 5:41 AM MOISTURE METER READER URINALYSIS REFLEX MICROSCOPIC REFLEX CULTURE STAT 06/30/2024 5:41 AM MOISTURE METER READER XR CHEST 1VW PORTABLE STAT 06/30/2024 3:34 AM MOISTURE METER READER Suspected infectious meningitis CBC W/O DIFFERENTIAL STAT 06/30/2024 2:31 AM MOISTURE METER READER MAGNESIUM BLOOD STAT 06/30/2024 2:31 AM MOISTURE METER READER PHOSPHORUS BLOOD STAT 06/30/2024 2:31 AM MOISTURE METER READER COMPREHENSIVE METABOLIC PANEL STAT 06/30/2024 2:31 AM MOISTURE METER READER PT EVAL AND TREAT Routine 06/30/2024 2:0 1 AM MOISTURE METER READER OT EVAL AND TREAT Routine 06/30/2024 2:0 1 AM MOISTURE METER READER from Last 3 Months Results * XR Shoulder Right 2Vw or More (08/06/2024 9:38 AM MOISTURE METER READER) Only the most recent of4 resultswithin the time period is included. Anatomical Region Laterality Modality Upper Extremity Computed Radiogr aphy 08/06/2024 9:37 AM MOISTURE METER READER Impressions 08/06/2024 9:38 AM MOISTURE METER READER IMPRESSION: Proximal humeral fracture, not significantly changed in alignment. > Interpreting Provider: Feng Ybarra MD on 08/06/2024 9:38 AM Narrative 08/06/2024 9:38 AM MOISTURE METER READER PROCEDURE: XR SHOULDER RIGHT 2VW OR MORE [...] (ABNORMAL) CBC W/O DIFFERENTIAL (07/18/2024 5:02 AM MOISTURE METER READER) Only the most recent of19 resultswithin the time period is included. WBC 6.4 4.0 - 10.7 x10E9/L 07/18/2024 5:52 AM [facility] RBC Count 3.78(L) 4.30 - 5.80 x10E12/L 07/18/2024 5:52 AM [facility] Hemoglobin 11.4(L) 13.3 - 17.5 g/dL 07/18/2024 5:52 AM [facility] Hematocrit 34.6(L) 38.7 - 51.1 % 07/18/2024 5:52 AM [facility] MCV 91.5 80.0 - 98.0 fL 07/18/2024 5:52 AM [facility] MCH 30.2 26.7 - 33.6 pg 07/18/2024 5:52 AM [facility] MCHC 32.9 31.7 - 36.3 g/dL 07/18/2024 5:52 AM [facility] RDW-CV 14.9(H) 11.3 - 14.8 % 07/18/2024 5:52 AM [facility] Platelet Count 302 150 - 420 x10E9/L 07/18/2024 5:52 AM [facility] MPV 9.7 7.8 - 11.4 fL 07/18/2024 5:52 AM [facility] Blood BLOOD SPECIMEN / Unknown Lab Venipuncture / Unknown 07/18/2024 5:02 AM MOISTURE METER READER 07/18/2024 5:[address] [facility] Juve Olvera MD LAB - HEMATOLOGY ORD ERABLES [address] [address], [facility] [phone] * (ABNORMAL) COMPREHENSIVE METABOLIC PANEL (07/18/2024 5:[address] [facility]) Only the most recent of19 resultswithin the time period is included. BUN 21 7 - 26 mg/dL 07/18/2024 6:05 AM [facility] Creatinine 0.58(L) 0.71 - 1.16 mg/dL 07/18/2024 6:05 AM [facility] Sodium 135(L) 136 - 145 mmol/L 07/18/2024 6:05 AM [facility] Potassium 3.9 3.5 - 4.5 mmol/L 07/18/2024 6:05 AM [facility] Chloride 105 98 - 107 mmol/L 07/18/2024 6:05 AM [facility] CO2 25 22 - 29 mmol/L 07/18/2024 6:05 AM [facility] Glucose 110(H) 70 - 99 mg/dL 07/18/2024 6:05 AM [facility] Calcium 8.7 8.4 - 10.2 mg/dL 07/18/2024 6:05 AM [facility] Protein Total 5.9(L) 6.0 - 8.3 g/dL 07/18/2024 6:05 AM [facility] Albumin 3.0(L) 3.4 - 5.0 g/dL 07/18/2024 6:05 AM [facility] Bilirubin Total 0.4 0.2 - 1.2 mg/dL 07/18/2024 6:05 AM [facility] Alkaline Phosphatase 116 40 - 150 U/L 07/18/2024 6:05 AM [facility] ALT 52 5 - 55 U/L 07/18/2024 6:05 AM [facility] AST 35(H) 5 - 34 U/L 07/18/2024 6:05 AM [facility] Anion Gap 5(L) 6 - 16 07/18/2024 6:05 AM [facility] BUN/Creatinine Ratio 36(H) 7 - 23 07/18/2024 6:05 AM [facility] Osmolality Calculated 284 275 - 295 mOsm/kg 07/18/2024 6:05 AM [facility] Albumin/Globulin Ratio 1.0(L) 1.1 - 2.3 07/18/2024 6:05 AM [facility] eGFR by CKD-EPI >90 >=90 mL/min/1.7 3 m2 07/18/2024 6:05 AM [facility] Blood BLOOD SPECIMEN / Unknown Lab Venipuncture / Unknown 07/18/2024 5:02 AM MOISTURE METER READER 07/18/2024 5:[address] [facility] Juve Olvera MD LAB - CHEMISTRY ORDE ASHKAN [facility] Organization Address City/State/ZIP Co de Phone Number [facility] [address] [place] [address], [facility] [phone] * PHOSPHORUS BLOOD (07/18/2024 5:02 AM MOISTURE METER READER) Only the most recent of18 resultswithin the time period is included. Phosphorus 3.6 2.8 - 5.1 mg/dL 07/18/2024 6:05 AM MOISTURE METER READER [facility] Blood BLOOD SPECIMEN / Unknown Lab Venipuncture / Unknown 07/18/2024 5:02 AM MOISTURE METER READER 07/18/2024 5:36 AM MOISTURE METER READER Juve Olvera MD LAB - CHEMISTRY MANI LUTHER Performing Organization Address City/[facility]/ZIP Co de Phone Number [address] [address], [facility] [phone] * MAGNESIUM BLOOD (07/18/2024 5:02 AM MOISTURE METER READER) Only the most recent of20 resultswithin the time period is included. Magnesium 1.6 1.6 - 2.6 mg/dL 07/18/2024 6:05 AM MOISTURE METER READER [facility] Blood BLOOD SPECIMEN / Unknown Lab Venipuncture / Unknown 07/18/2024 5:02 AM MOISTURE METER READER 07/18/2024 5:36 AM MOISTURE METER READER Juve Olvera MD LAB - CHEMISTRY MANI LUTHER Performing Organization Address [facility]/ZIP Co de Phone Number [address] [address], [place] [phone] * CULTURE FUNGUS OTHER+FUNGUS SMEAR (07/10/2024 12:24 PM MOISTURE METER READER) Culture No fungus isolated FRANCOISE 08/04/2024 7:14 AM MOISTURE METER READER [facility] Fungus Stain No yeast or hyphae seen 08/04/2024 7:14 AM MOISTURE METER READER [facility] Microbiology CEREBROSPINAL FLUID SPECIMEN / Unknown Collection / Unknown 07/10/2024 12:24 PM MOISTURE METER READER 07/11/2024 4:05 AM MOISTURE METER READER Claus Wallace III, MD LAB - MICROBIOLO GY ORDERABLES [facility] [address] [place] [address], [facility] [phone] * HOLD SPECIMEN CSF (07/10/2024 12:24 PM MOISTURE METER READER) Specimen Hold 07/10/2024 2:01 PM MOISTURE METER READER [facility] Comment:The Hold Sample has been received in the lab and will be held for 30 days. Cerebral spinal fluid CEREBROSPINAL FLUID SPECIMEN / Unknown Collection / Unknown 07/10/2024 12:24 PM MOISTURE METER READER 07/10/2024 12:32 PM MOISTURE METER READER Claus Wallace III, MD LAB - BODY FLUID ORDERABLES [facility] [address] [place] [address], [place] [phone] * MENINGITIS/ENCEPHALITIS PANEL CSF (07/10/2024 12:24 PM MOISTURE METER READER) Pathologist [facility] Escherichia coli K1 Not detected Not detected 07/10/2024 6:07 PM MOISTURE METER READER [facility] Haemophilus influenzae Not detected Not detected 07/10/2024 6:07 PM MOISTURE METER READER [facility] Listeria monocytogenes Not detected Not detected 07/10/2024 6:07 PM MOISTURE METER READER [facility] Neisseria meningitis Not detected Not detected 07/10/2024 6:07 PM MOISTURE METER READER [facility] Streptococcus agalactiae (Group B) Not detected Not detected 07/10/2024 6:07 PM MOISTURE METER READER [facility] Streptococcus pneumoniae Not detected Not detected 07/10/2024 6:07 PM MOISTURE METER READER [facility] Cytomegalovirus Not detected Not detected 07/10/2024 6:07 PM MOISTURE METER READER [facility] Enterovirus Not detected Not detected 07/10/2024 6:07 PM MOISTURE METER READER [facility] Herpes simplex Virus 1 Not detected Not detected 07/10/2024 6:07 PM MOISTURE METER READER [facility] Herpes simplex Virus 2 Not detected Not detected 07/10/2024 6:07 PM MOISTURE METER READER [facility] Human Herpesvirus 6 Not detected Not detected 07/10/2024 6:07 PM MOISTURE METER READER [facility] Human Parechovirus Not detected Not detected 07/10/2024 6:07 PM MOISTURE METER READER [facility] Varicella zoster Virus Not detected Not detected 07/10/2024 6:07 PM MOISTURE METER READER [facility] Cryptococcus neoformans/gattii Not detected Not detected 07/10/2024 6:07 PM [facility] Microbiology CEREBROSPINAL FLUID SPECIMEN / Unknown Collection / Unknown 07/10/2024 12:24 PM MOISTURE METER READER 07/10/2024 12:32 PM MOISTURE METER READER Narrative [facility] - 07/10/2024 6:07 PM MOISTURE METER READER Meningitis/Encephalitis PCR CSF Panel performed by [employer] FilmArray multiplex PCR. A negative FilmArray ME Panel result does not exclude the possibility of CIGARETTE FILTER INSPECTOR infection and should not be used as [...] - MICROBIOLO GY ORDERABLES Performing Organization Address City/[facility]/ZIP Co de Phone Number [facility] [address] [place] [address], [facility] [phone] * CULTURE CSF+GRAM STAIN (07/10/2024 12:24 PM MOISTURE METER READER) Culture No growth FRANCOISE 07/17/2024 7:19 AM [facility] Gram Stain No polymorphonuclear cells 07/17/2024 7:19 AM [facility] Gram Stain Moderate Red blood cells 07/17/2024 7:19 AM [facility] Gram Stain No organisms seen 025 7:19 AM [facility] Cerebral spinal fluid CEREBROSPINAL FLUID SPECIMEN / Unknown Collection / Unknown 07/10/2024 12:24 PM MOISTURE METER READER 07/10/2024 12:31 PM MOISTURE METER READER Claus Wallace III, MD LAB - MICROBIOLO GY ORDERABLES Performing Organization Address City/[facility]/ZIP Co de Phone Number [facility] [address] [place] [address], [facility] [phone] * HERPES SIMPLEX 1+2 PCR CSF (07/10/2024 12:24 PM MOISTURE METER READER) Pathologist [facility] Herpes Simplex Virus 1 PCR CSF Not detected Not detected 07/10/2024 5:52 PM MOISTURE METER READER [facility] Herpes Simplex Virus 2 PCR CSF Not detected Not detected 07/10/2024 5:52 PM [facility] Microbiology CEREBROSPINAL FLUID SPECIMEN / Unknown Collection / Unknown 07/10/2024 12:24 PM MOISTURE METER READER 07/10/2024 1:26 PM MOISTURE METER READER Claus Wallace III, MD LAB - MICROBIOLO GY ORDERABLES [facility] [address] [place] [address], [facility] [phone] * CULTURE AFB+SMEAR (07/10/2024 12:24 PM MOISTURE METER READER) [facility] Culture No acid-fast bacillus isolated 08/18/2024 8:42 AM [facility] AFB Smear No acid-fast bacilli seen 08/18/2024 8:42 AM [facility] Microbiology CEREBROSPINAL FLUID SPECIMEN / Unknown Collection / Unknown 07/10/2024 12:24 PM MOISTURE METER READER 07/11/2024 4:05 AM MOISTURE METER READER Claus Wallace III, MD LAB - MICROBIOLO GY ORDERABLES [facility] [address] [place] [address], [facility] [phone] * (ABNORMAL) CELL COUNT W DIFFERENTIAL CSF (07/10/2024 12:24 PM MOISTURE METER READER) Pathologist [facility] Tube Number TUBE 1 07/10/2024 12:48 PM [facility] Xanthochromia ABSENT ABSENT 07/10/2024 12:48 PM [facility] CSF Appearance HAZY 07/10/2024 12:48 PM [facility] CSF Color PINK 07/10/2024 12:48 PM [facility] Total Nucleated Cells CSF 0 <=5 x10E6/L 07/10/2024 12:48 PM [facility] Comment:TNC less than or equ al to 5. No differential reported per policy. RBC Count CSF 2,650(H) <1 x10E6/L 07/10/2024 12:48 PM MOISTURE METER READER [facility] Cerebral spinal fluid CEREBROSPINAL FLUID SPECIMEN / Unknown Collection / Unknown 07/10/2024 12:24 PM MOISTURE METER READER 07/10/2024 12:31 PM MOISTURE METER READER Claus Wallace III, MD LAB - BODY FLUID ORDERABLES Performing Organization Address City/[facility]/ZIP Co de Phone Number [address] [address], [place] [phone] * (ABNORMAL) PROTEIN CSF (07/10/2024 12:24 PM MOISTURE METER READER) Protein CSF 50(H) 15 - 45 mg/dL 07/10/2024 1:09 PM MOISTURE METER READER [facility] Cerebral spinal fluid CEREBROSPINAL FLUID SPECIMEN / Unknown Collection / Unknown 07/10/2024 12:24 PM MOISTURE METER READER 07/10/2024 12:31 PM MOISTURE METER READER Claus Wallace III, MD LAB - BODY FLUID ORDERABLES Performing Organization Address [facility] Co de Phone Number [address] [address], [place] [phone] * GLUCOSE CSF (07/10/2024 12:24 PM MOISTURE METER READER) Glucose CSF 54 40 - 70 mg/dL 07/10/2024 1:09 PM MOISTURE METER READER [facility] Cerebral spinal fluid CEREBROSPINAL FLUID SPECIMEN / Unknown Collection / Unknown 07/10/2024 12:24 PM MOISTURE METER READER 07/10/2024 12:31 PM MOISTURE METER READER Claus Wallace III, MD LAB - BODY FLUID ORDERABLES Performing Organization Address [facility]/ZIP Co de Phone Number [address] [address], [place] [phone] * FL Lumbar Puncture (07/10/2024 12:22 PM MOISTURE METER READER) Anatomical Region Laterality Modality Spine Digital Radiogra phy 07/11/2024 1:11 PM MOISTURE METER READER Impressions 07/12/2024 7:15 PM MOISTURE METER READER IMPRESSION: Successful lumbar puncture under fluoroscopic guidance at L3-L4 with removal of CSF for diagnostic studies as described above. I, Dr. Carolyn Islas, was present and performed/supervised the entire procedure. This preliminary report was dictated by Giovany Austin MD (DR/IR Resident). > Dictated by Giovany Austin MD (Insurance Law Specialist) 07/11/2024 1:11 PM I, Carolyn Islas MD have personally reviewed and interpreted this examination/study. > Interpreting Provider: Carolyn Islas MD on 07/12/2024 7:15 PM Narrative 07/12/2024 7:15 PM MOISTURE METER READER PROCEDURE: FL LUMBAR PUNCTURE, DATE/TIME OF EXAM: 07/10/2024 12:27 PM, LOCATION [facility] INDICATION: R29.818: Suspected infectious meningitis ADDITIONAL CLINICAL [...] DATE/TIME OF EXAM: 07/10/2024 12:27 PM, LOCATION [facility] INDICATION: R29.818: Suspected infectious meningitis ADDITIONAL CLINICAL [...] for local anesthesia. Under intermittent fluoroscopic guidance, [id number] 3.5 spinal needle was ultimately guided into [...] Dr. Carolyn Islas, was present and performed/supervised theentire procedure. This preliminary report was dictated by Giovany Austin MD (DR/IR Resident). > Dictated by Giovany Austin MD (Insurance Law Specialist) 07/11/2024 1:11 PM ICarolyn MD have personally reviewed and interpreted this examination/study. > Interpreting Provider: Carolyn Islas MD on 07/12/2024 7:15 PM Claus Wallace III, MD FLUOROSCOPY MANI LUTHER * IV PLACEMENT PERFORMABLE (07/10/2024 10:11 AM MOISTURE METER READER) Narrative Floresita Blanton APRN-HAZARDOUS MATERIAL SPECIALIST - 07/10/2024 10:11 AM MOISTURE METER READER Floresita Blanton APRN-CRNA 07/10/2024 10:12 AM Peripheral IV Line Placement: Patient Location: OR Insertion Time: 07/10/2024 9:37 AM Procedure: IV start ([id number]) Procedure Section: Skin Prep: alcohol. Orientation: left Location: hand Local Anesthetic Used? No Catheter Gauge: 20 Number of Attempts: 1. Procedure Tolerance: performed while patient under general anesthesia. Staff Section Anesthesia Provider: Emelyn Badillo MD, Performed the procedure Provider #1: Floresita Blanton APRN-CRNA. Emelyn Badillo MD GENERAL ANESTHESIA O RDERABLES * (ABNORMAL) PT-INR [facility] (07/08/2024 9:25 AM MOISTURE METER READER) Only the most recent of2 resultswithin the time period is included. PT 15.2(H) 12.1 - 14.8 Seconds 07/08/2024 10:37 AM MOISTURE METER READER [facility] INR 1.2 See Comment 07/08/2024 10:37 AM MOISTURE METER READER [facility] Comment:The suggested therap eutic range for standard coumadin (warfarin) therapy is an INR of 2.0-3.0. For high-risk patients (Mechanical Mitral Valve Prosthesis, etc.), the suggested prophylactic therapeutic range is an INR of 2.5-3.5. Blood BLOOD SPECIMEN / Unknown Lab Venipuncture / Unknown 07/08/2024 9:25 AM MOISTURE METER READER 07/08/2024 9:51 AM MOISTURE METER READER Claus Wallaec III, MD LAB - COAGULATIO N ORDERABLES [address] [address], [facility] [phone] * VANCOMYCIN LEVEL TROUGH (07/06/2024 10:18 PM MOISTURE METER READER) Only the most recent of3 resultswithin the time period is included. Vancomycin Trough 14.8 10.0 - 20.0 ug/mL 07/06/2024 10:52 PM MOISTURE METER READER [facility] Blood BLOOD SPECIMEN / Unknown Lab Venipuncture / Unknown 07/06/2024 10:18 PM MOISTURE METER READER 07/06/2024 10:23 PM MOISTURE METER READER Narrative [facility] - 07/06/2024 10:52 PM MOISTURE METER READER See institution protocol. Claus Wallace III, MD LAB - CHEMISTRY ORDERABLES Performing Organization Address City/[facility]/ZIP Co de Phone Number [facility] [address] [place] [address], [place] [phone] * EKG 12-LEAD (07/06/2024 4:59 PM MOISTURE METER READER) Only the most recent of5 resultswithin the time period is included. Ventricular Rate 82 BPM [facility] MUSE Atrial Rate 82 BPM [facility] MUSE P-R Interval 140 ms [facility] MUSE QRS Duration ms 76 ms [facility] MUSE Q-T Interval ms 410 ms [facility] MUSE QTC Calculation (Bezet) 479 ms [facility] MUSE Calculated P [place] 60 degrees SL MUSE Calculated R [place] 52 degrees [facility] MUSE Calculated T [place] 73 degrees [facility] MUSE Interpretation EKG NORMAL SINUS RHYTHM SEPTAL INFARCT , AGE UNDETERMINED ABNORMAL ECG WHEN COMPARED WITH ECG OF 01-JUL-2024 06:40, PREVIOUS ECG HAS UNDETERMINED RHYTHM, NEEDS REVIEW SEPTAL INFARCT IS NOW PRESENT Confirmed by RACQUEL SUN MD ([id number]) on 07/09/2024 2:32:01 PM [facility] MUSE 07/06/2024 4:59 PM MOISTURE METER READER 07/09/2024 2:32 PM MOISTURE METER READER Claus Wallace III, MD ECG ORDERABLES Performing Organization Address [facility] Co de Phone Number [facility] MUSE * CRYPTOCOCCUS ANTIGEN BLOOD (07/06/2024 3:15 AM MOISTURE METER READER) Cryptococcus Antigen Negative Negative 07/06/2024 9:24 AM MOISTURE METER READER [facility] Blood BLOOD SPECIMEN / Unknown Lab Venipuncture / Unknown 07/06/2024 3:15 AM MOISTURE METER READER 07/06/2024 3:53 AM MOISTURE METER READER Claus Wallace III, MD LAB - SEROLOGY O RDERABLES Performing Organization Address City/[facility]/ZIP Co de Phone Number [facility] [address] [place] [address], [place] [phone] * URINALYSIS REFLEX TO MICROSCOPIC NO CULTURE (07/05/2024 11:07 PM MOISTURE METER READER) Color UA Straw Straw, Yellow 07/05/2024 11:17 PM [facility] Clarity UA Clear Clear 07/05/2024 11:17 PM [facility] Specific Randolph UA 1.006 1.005 - 1.030 07/05/2024 11:17 PM [facility] pH UA 7.0 5.0 - 8.0 pH 07/05/2024 11:17 PM [facility] Protein UA Negative Negative 07/05/2024 11:17 PM [facility] Glucose UA Negative Negative 07/05/2024 11:17 PM [facility] Ketone UA Negative Negative 07/05/2024 11:17 PM [facility] Bilirubin UA Negative Negative 07/05/2024 11:17 PM [facility] Blood UA Negative Negative 07/05/2024 11:17 PM [facility] Nitrite UA Negative Negative 07/05/2024 11:17 PM [facility] Leukocyte Esterase Negative Negative 07/05/2024 11:17 PM [facility] Urobilinogen UA Negative Negative mg/dL 07/05/2024 11:17 PM [facility] RBC UA 0-2 None Seen, 0-2, 3-5 /HPF 07/05/2024 11:17 PM [facility] WBC UA 0-5 None Seen, 0-5 /HPF 07/05/2024 11:17 PM [facility] Squamous Epithelial Cells UA None Seen None Seen, 0-2, 3-5 /HPF 07/05/2024 11:17 PM [facility] Mucus UA 1+ /LPF 07/05/2024 11:17 PM [facility] Urine URINE SPECIMEN OBTAINED BY CLEAN CATCH PROCEDURE / Unknown Collection / Unknown 07/05/2024 11:07 PM MOISTURE METER READER 07/05/2024 11:07 PM [facility] - 07/05/2024 11:17 PM MOISTURE METER READER Claus Wallace III, MD LAB - URINALYSIS ORDERABLES Performing Organization Address City/State/[facility] Co de Phone Number [facility] [address] [place] [address] [phone] * CT Chest Wo Contrast (07/05/2024 3:28 PM MOISTURE METER READER) Anatomical Region Laterality Modality Chest Computed Tomogra phy 07/06/2024 11:4 0 AM MOISTURE METER READER Impressions 07/06/2024 11:47 AM MOISTURE METER READER IMPRESSION: No acute findings in the chest. Mild dependent atelectasis are reidentified in both lungs. > Interpreting Provider: Jennie Rollins MD on 07/06/2024 11:47 AM Narrative 07/06/2024 11:47 AM MOISTURE METER READER PROCEDURE: CT CHEST WO CONTRAST DATE/TIME OF [...] * CULTURE BLOOD FUNGUS (07/05/2024 1:47 PM MOISTURE METER READER) [facility] Culture No fungus isolated FRANCOISE 08/29/2024 11:22 AM MOISTURE METER READER [facility] Blood PERIPHERAL BLOOD / Unknown Lab Venipuncture / Unknown 07/05/2024 1:47 PM MOISTURE METER READER 07/05/2024 2:16 PM MOISTURE METER READER Claus Wallace III, MD LAB - MICROBIOLO GY ORDERABLES [facility] [address] [place], [place] [address], [facility] [phone] * CYCLIC CITRUL PEPTIDE ANTIBODY IGG/IGA (CCP) (07/05/2024 3:04 AM MOISTURE METER READER) Pathologist [facility] CCP Antibodies IgG/IgA 5 0 - 19 units 07/10/2024 3:07 PM MOISTURE METER READER [facility] ([facility]) Comment: Negative <20 Weak positive 20 - 39 Moderate positive 40 - 59 Strong positive >59 Blood BLOOD SPECIMEN / Unknown Lab Venipuncture / Unknown 07/05/2024 3:04 AM MOISTURE METER READER 07/05/2024 5:36 AM MOISTURE METER READER Narrative [facility] ([facility]) - 07/10/2024 3:07 PM MOISTURE METER READER Performed at: [address] [place], [place] [id number] [place], [place] [id number] Christmas Tree Contractor: Jonathan Moore PhD, Phone: [phone] Elder Rhoades MD LAB - SEROLOGY ORDER BABITA Performing Organization Address City/[facility]/ZIP Co de Phone Number [facility] ([facility]) [address] [place] [address] * MYCOPLASMA PNEUMONIAE AB IGM (07/05/2024 3:04 AM MOISTURE METER READER) [facility] Mycoplasma Antibody IgM 0.04 <=0.76 U/L 07/08/2024 12:31 PM MOISTURE METER READER [employer] [facility] ([facility]) Comment: INTERPRETIVE INFORMATION: Mycoplasma pneumoniae Ab, IgM [...] more than 12 months post-infection. Performed By: Isabella Oliver [address] [id number] Information Security Director: Caden Hanna MD, PhD CLIA Number: [id number] Blood BLOOD SPECIMEN / Unknown Lab Venipuncture / Unknown 07/05/2024 3:04 AM MOISTURE METER READER 07/05/2024 5:36 AM MOISTURE METER READER Elder Rhoades MD LAB - SEROLOGY ORDER BABITA Performing Organization Address City/[facility]/ZIP Co de Phone Number [employer] ([facility]) [address] [place] [address], [facility] * RHEUMATOID FACTOR BLOOD QUANTITATIVE (07/05/2024 3:04 AM MOISTURE METER READER) Rheumatoid Factor <15 <30 IU/mL 07/05/2024 5:46 AM MOISTURE METER READER [facility] Rheumatoid Factor Screen Negative Negative 07/05/2024 5:46 AM MOISTURE METER READER [facility] Blood BLOOD SPECIMEN / Unknown Lab Venipuncture / Unknown 07/05/2024 3:04 AM MOISTURE METER READER 07/05/2024 5:36 AM MOISTURE METER READER Elder Rhoades MD LAB - CHEMISTRY MANI LUTHER [address] [address], [facility] [phone] * KAYLEY BLOOD SCREEN W/REFLEX TITER (07/05/2024 3:04 AM MOISTURE METER READER) KAYLEY IgG None Detected None Detected 07/07/2024 7:04 AM MOISTURE METER READER [employer] ([facility]) Comment: If suspicion of connective tissue disease is strong and KAYLEY EIA is negative, consider testing for KAYLEY by IFA ([id number]). INTERPRETIVE INFORMATION: Anti-Nuclear Antibodies (KAYLEY), IgG by JESSICA Antinuclear Antibodies (KAYLEY), IgG by JESSICA: KAYLEY specimens are screened using enzyme-linked immunosorbent assay (JESSICA) methodology. All JESSICA results reported as Detected are further tested by indirect fluorescent assay (IFA) using HEp-2 substrate with an IgG-specific conjugate. The KAYLEY JESSICA screen is designed to detect antibodies against dsDNA, histones, SS-A (Ro), SS-B (La), Brunner, Brunner/COMMERCIAL JOURNEYMAN ELECTRICIAN, Scl-70, Zeynep-1, centromeric proteins, other antigens extracted from the HEp-2 cell nucleus. KAYLEY JESSICA assays have been reported to have lower sensitivities than KAYLEY IFA for systemic autoimmune rheumatic diseases (SARD). Negative results do not necessarily rule out SARD. Performed by Isabella Oliver, [address] [place] [id number] [email or web address], Esequiel Corrigan MD, Lab. Director CLIA Number: [id number] Blood BLOOD SPECIMEN / Unknown Lab Venipuncture / Unknown 07/05/2024 3:04 AM MOISTURE METER READER 07/05/2024 5:36 AM MOISTURE METER READER Elder Rhoades MD LAB - CHEMISTRY MANI LUTHER [employer] [facility]) [address] [place] [address], [facility] * DNA ANTIBODY DOUBLE STRANDED (07/05/2024 3:04 AM MOISTURE METER READER) [facility] dsDNA Antibody 4 0 - 24 IU 07/07/2024 11:44 PM MOISTURE METER READER [employer] ([facility]) Comment: INTERPRETIVE INFORMATION: Double-Stranded DNA (dsDNA) Ab IgG JESSICA 24 IU or less........Negative 25-30 IU.............Borderline Positive 30-60 IU.............Low Positive 60-200 IU............Positive 201 IU or greater....Strong Positive Positivity for anti-double stranded DNA (anti-dsDNA) IgG antibody is a diagnostic criterion of systemic lupus erythematosus (SLE). Specimens are initially screened by enzyme-linked immunosorbent assay (JESSICA). If ordered as reflex ([id number]), positive JESSICA results (>24 IU) will be reflexed to a highly specific IFA titer (Crithidia luciliae indirect fluorescent test [MARTNÍ') for confirmation. Some patients with early or inactive SLE may be positive for anti-dsDNA IgG by JESSICA but negative by MARTÍN. If the patient is negative by MARTÍN but positive by JESSICA and clinical suspicion remains, consider antinuclear antibody (KAYLEY) testing by IFA. Additional information and recommendations for testing may be found at [email or web address]. Performed by Isabella Oliver, [address], [place] [id number] www.[employer], Esequiel Corrigan MD, Lab. Director CLIA Number: [id number] Blood BLOOD SPECIMEN / Unknown Lab Venipuncture / Unknown 07/05/2024 3:04 AM MOISTURE METER READER 07/05/2024 5:36 AM MOISTURE METER READER Elder Rhoades MD LAB - HEMATOLOGY ORD ERABLES [facility]) [address] * COMPLEMENT C4 (07/05/2024 3:04 AM MOISTURE METER READER) Complement C4 30 15 - 57 mg/dL 07/05/2024 5:46 AM MOISTURE METER READER [facility] Blood BLOOD SPECIMEN / Unknown Lab Venipuncture / Unknown 07/05/2024 3:04 AM MOISTURE METER READER 07/05/2024 5:21 AM MOISTURE METER READER Elder Rhoades MD LAB - SEROLOGY ORDER BABITA [facility] [address] [place] [address], [place] [phone] * COMPLEMENT C3 (07/05/2024 3:04 AM MOISTURE METER READER) Complement C3 128 82 - 193 mg/dL 07/05/2024 5:46 AM MOISTURE METER READER [facility] Blood BLOOD SPECIMEN / Unknown Lab Venipuncture / Unknown 07/05/2024 3:04 AM MOISTURE METER READER 07/05/2024 5:21 AM MOISTURE METER READER Elder Rhoades MD LAB - CHEMISTRY ORDE RABLES Performing Organization Address City/[facility]/ZIP Co de Phone Number [facility] [address] [place] [address], [place] [phone] * ECHO COMPLETE W CONTRAST (07/04/2024 3:39 PM MOISTURE METER READER) LVOT diam 2.103 cm [facility] CV FUJ [...] Laterality Modality Ultrasound 07/04/2024 11:0 5 AM MOISTURE METER READER Narrative 07/04/2024 4:14 PM MOISTURE METER READER Summary * Technically difficult study, most measurements [...] Exam Date: 07/04/2024 11:05 AM Exam Room: [facility] Patient Status: I/P Study Site: [facility] Primary Location: [facility] EStudy Info Technical Quality: Technically Difficult [...] Provider: Elder Rhoades Attending Physician: Elder Rhoades [employer] Teacher: Gin Gunderson RDCS Left Ventricle Left ventricular [...] Exam Date: 07/04/2024 11:05 AM Exam Room: [facility] Patient Status: I/P Study Site: [facility] Primary Location: [facility] Info Technical Quality: Technically Difficult Exam Type: [...] Provider: Elder Rhoades Attending Physician: Elder Rhoades [employer] Teacher: Gin Gunderson RDCS Left Ventricle Left ventricular [...] Josie Guerrero on 07/04/2024 04:13 PM Elder Rhodaes MD ECHO CUPID * MRI Brain Wo Contrast (07/03/2024 4:02 PM MOISTURE METER READER) Anatomical Region Laterality Modality Head Magnetic Resonan ce 07/04/2024 9:44 AM MOISTURE METER READER Impressions 07/04/2024 10:02 AM MOISTURE METER READER IMPRESSION: Limited study as described above no evidence of acute infarction or acute findings in the limits of the study. > Interpreting Provider: Carolyn Islas MD on 07/04/2024 10:02 AM Narrative 07/04/2024 10:02 AM MOISTURE METER READER PROCEDURE: MRI BRAIN WO CONTRAST, DATE/TIME OF EXAM: 07/03/2024 4:02 PM, LOCATION [facility] INDICATION: R29.818: Suspected infectious meningitis ADDITIONAL CLINICAL [...] WO CONTRAST, DATE/TIME OF EXAM: 07/03/2024 4:02PM, LOCATION [facility] INDICATION: R29.818: Suspected infectious meningitis ADDITIONAL CLINICAL [...] ORDERABLES * CULTURE BLOOD (07/03/2024 2:05 PM MOISTURE METER READER) Only the most recent of4 resultswithin the time period is included. Culture No growth day 5 FRANCOISE 07/08/2024 7:01 PM [facility] MICROBIOLOGY Blood PERIPHERAL BLOOD / Unknown Lab Venipuncture / Unknown 07/03/2024 2:05 PM MOISTURE METER READER 07/03/2024 2:22 PM MOISTURE METER READER Elder Rhoades MD LAB - MICROBIOLOGY O RDERABLES [facility] MICROBIOLOG[facility] [address] [place], [place] [address], [facility] [phone] * CULTURE SPUTUM+GRAM STAIN (07/03/2024 11:22 AM MOISTURE METER READER) Culture Light normal oropharyngeal marquez FRANCOISE 07/05/2024 6:23 AM MOISTURE METER READER [facility] MICROBIOLOGY Gram Stain <10 per low power field Squamous epithelial cells 07/05/2024 6:23 AM [facility] MICROBIOLOG[facility] Gram Stain >= 25 per low power field Polymorphonuclear cells 07/05/2024 6:23 AM [facility] MICROBIOLOG[facility] Gram Stain Rare Gram-positive cocci 07/05/2024 6:23 AM [facility] MICROBIOLOGY Microbiology SPUTUM / Unknown Collection / Unknown 07/03/2024 11:22 AM MOISTURE METER READER 07/03/2024 12:13 PM MOISTURE METER READER Elder Rhoades MD LAB - MICROBIOLOGY O RDERABLES [facility] MICROBIOLOGY [address] [place] [address], [facility] [phone] * SARS-COV-2 (COVID-19) FLU A/B RSV PCR RAPID (07/02/2024 4:50 PM MOISTURE METER READER) COVID-19 PCR Not detected Not detected 07/02/20 5:32 PM MOISTURE METER READER [facility] Influenza A PCR Not detected Not detected 07/02/2024 5:32 PM MOISTURE METER READER [facility] Influenza B PCR Not detected Not detected 07/02/2024 5:32 PM MOISTURE METER READER [facility] RSV PCR Not detected Not detected 07/02/2024 5:32 PM MOISTURE METER READER [facility] Microbiology SPECIMEN FROM NASOPHARYNGEAL STRUCTURE / Unknown Collection / Unknown 07/02/2024 4:50 PM MOISTURE METER READER 07/02/2024 4:51 PM MOISTURE METER READER Narrative [facility] - 07/02/2024 5:32 PM MOISTURE METER READER This nucleic acid amplification assay has been [...] Rhoades MD LAB - MICROBIOLOGY O RDERABLES [facility] [address] [place] [address], [facility] [phone] * XR Chest 1Vw Portable (07/02/2024 11:58 AM MOISTURE METER READER) Only the most recent of2 resultswithin the time period is included. Anatomical Region Laterality Modality Chest Digital Radiogra phy 07/02/2024 1:34 PM MOISTURE METER READER Impressions 07/02/2024 1:35 PM MOISTURE METER READER IMPRESSION: There is elevation of left hemidiaphragm with lower lung atelectasis. No pleural effusion or pneumothorax. The cardiomediastinal silhouette is unchanged. Aorta is atherosclerotic. There is an impacted fracture of the right humeral head. > Interpreting Provider: Gabo Gallegos MD on 07/02/2024 1:35 PM Narrative 07/02/2024 1:35 PM MOISTURE METER READER PROCEDURE: XR CHEST 1VW PORTABLE DATE/TIME OF EXAM: 07/02/2024 12:29 PM CLINICAL INFORMATION: None relevant/not provided if blank. Indication: R05.8: Productive cough Additional History: COMPARISON: 06/30/2024. Procedure Note aGbo Gallegos MD - 07/02/2024 PROCEDURE: XR CHEST [...] Gabo Gallegos MD on 07/02/2024 1:35 PM Elder Rhoades MD DIAGNOSTIC IMAGING O RDERABLES * (ABNORMAL) RENAL FUNCTION PANEL (07/01/2024 11:26 PM MOISTURE METER READER) Only the most recent of2 resultswithin the time period is included. BUN 14 7 - 26 mg/dL 07/02/2024 12:12 AM [facility] Creatinine 0.63(L) 0.71 - 1.16 mg/dL 07/02/2024 12:12 AM [facility] Sodium 143 136 - 145 mmol/L 07/02/2024 12:12 AM [facility] Potassium 3.7 3.5 - 4.5 mmol/L 07/02/2024 12:12 AM [facility] Chloride 109(H) 98 - 107 mmol/L 07/02/2024 12:12 AM [facility] CO2 23 22 - 29 mmol/L 07/02/2024 12:12 AM [facility] Glucose 90 70 - 99 mg/dL 07/02/2024 12:12 AM [facility] Albumin 2.5(L) 3.4 - 5.0 g/dL 07/02/2024 12:12 AM [facility] Calcium 8.4 8.4 - 10.2 mg/dL 07/02/2024 12:12 AM [facility] Phosphorus 2.6(L) 2.8 - 5.1 mg/dL 07/02/2024 12:12 AM [facility] Anion Gap 11 6 - 16 07/02/2024 12:12 AM [facility] BUN/Creatinine Ratio 22 7 - 23 07/02/2024 12:12 AM [facility] Osmolality Calculated 296(H) 275 - 295 mOsm/kg 07/02/2024 12:12 AM [facility] eGFR by CKD-EPI >90 >=90 mL/min/1.7 3 m2 07/02/2024 12:12 AM [facility] Blood BLOOD SPECIMEN / Unknown Venipuncture / Unknown 07/01/2024 11:26 PM MOISTURE METER READER 07/01/2024 11:44 PM MOISTURE METER READER Elder Rhoades MD LAB - CHEMISTRY MANI LUTHER [facility] Organization Address City/State/ZIP Co de Phone Number [facility] [address] [place] [address], [facility] [phone] * CT Head Wo Contrast (07/01/2024 8:22 AM MOISTURE METER READER) Anatomical Region Laterality Modality Head Computed Tomogra phy 07/01/2024 8:19 AM MOISTURE METER READER Impressions 07/01/2024 9:27 AM MOISTURE METER READER IMPRESSION: 1.No acute intracranial hemorrhage, large vascular territorial infarct, or mass effect identified. Please note that MRI is more sensitive for evaluation of small acute ischemic infarcts. This preliminary report was dictated by Giovany Austin MD (DR/IR Resident). ICarolyn MD have personally reviewed and interpreted this examination/study. > Interpreting Provider: Carolyn Islas MD on 07/01/2024 9:27 AM Narrative 07/01/2024 9:27 AM MOISTURE METER READER PROCEDURE: CT HEAD WO CONTRAST, DATE/TIME OF EXAM: 07/01/2024 8:23 AM, LOCATION [facility] INDICATION: I48.91: Atrial fibrillation, unspecified type (HCC) [...] DATE/TIME OF EXAM: 07/01/2024 8:23 AM, LOCATION [facility] INDICATION: I48.91: Atrial fibrillation, unspecified type (HCC) [...] - POINT OF CARE (07/01/2024 7:36 AM MOISTURE METER READER) Glucose WB/POC 84 70 - 99 mg/dL 07/01/2024 2:10 PM [facility] Specimen Type Cap Fingerstick 2023 2:10 PM [facility] Blood BLOOD SPECIMEN / Unknown 07/01/2024 7:36 AM MOISTURE METER READER 07/01/2024 2:10 PM MOISTURE METER READER Elder Rhoades MD LAB - POINT OF CARE ORDERABLES [facility] [address] [place] [address], [facility] [phone] * (ABNORMAL) BLOOD GASES JOSE MIGUEL + COOX PANEL (07/01/2024 7:31 AM MOISTURE METER READER) pH Venous 7.45(H) 7.32 - 7.42 pH 07/01/2024 7:38 AM [facility] pO2 Venous 147(H) 35 - 40 mmHg 07/01/2024 7:38 AM [facility] pCO2 Venous 33(L) 40 - 50 mmHg 07/01/2024 7:38 AM [facility] HCO3 Venous 22.9 20 - 30 mmol/L 07/01/2024 7:38 AM [facility] Base Excess Venous -0.7 -2.0 - 2.0 mmol/L 07/01/2024 7:38 AM [facility] Oxyhemoglobin Venous 97.0 % 06/09 7:38 AM [facility] Deoxyhemoglobin (HHB) Venous % <1.0 % 07/01/2024 7:38 AM [facility] Methemoglobin 1.0 0.0 - 2.0 % 07/01/2024 7:38 AM [facility] Carboxyhemoglobin 2.1(H) 0.0 - 2.0 % 2023 7:38 AM [facility] O2 Content Venous 13.8 Interpret within clinical context ml/dL 07/01/2024 7:38 AM [facility] Hemoglobin by COOX 9.9(L) 12.0 - 17.6 g/dL 07/01/2024 7:38 AM [facility] O2 Saturation Venous 100 >=70 % 06/09 7:38 AM [facility] FI O2 Mixed Venous 21.0 % 2023 7:38 AM [facility] Blood BLOOD SPECIMEN / Unknown Venipuncture / Unknown 07/01/2024 7:[address] [facility] 07/01/2024 7:35 AM [facility] - 07/01/2024 7:[address] [facility] Carboxyhemoglobin Normal Concentration: Non-smokers: 0-2%; Smokers: 0-9%; Toxic: >20% Elder Rhoades MD LAB - BLOOD GASES OR DERABLES Performing Organization Address [facility]/State/[facility] Co de Phone Number [facility] [address] [place] [address], [facility] [phone] * (ABNORMAL) DIFFERENTIAL MANUAL (07/01/2024 7:[address] [facility]) Neutrophil % 77(H) 41 - 74 % 07/01/2024 8:12 AM [facility] Lymphocyte % 15(L) 17 - 47 % 07/01/2024 8:12 AM [facility] Monocyte % 4 3 - 11 % 07/01/2024 8:12 AM [facility] Eosinophil % 3 0 - 7 % 07/01/2024 8:12 AM [facility] Basophil % 1 0 - 2 % 07/01/2024 8:12 AM [facility] Neutrophil Absolute 7.24 1.60 - 7.50 x10E9/L 07/01/2024 8:12 AM [facility] Lymphocyte Absolute 1.41 1.00 - 4.40 x10E9/L 07/01/2024 8:12 AM [facility] Monocyte Absolute 0.38 0.15 - 1.00 x10E9/L 07/01/2024 8:12 AM [facility] Eosinophil Absolute 0.28 0.00 - 0.60 x10E9/L 07/01/2024 8:12 AM [facility] Basophil Absolute 0.09 0.00 - 0.13 x10E9/L 07/01/2024 8:12 AM [facility] RBC Morphology REVIEWED 07/01/2024 8:12 AM [facility] [place] Cells MODERATE(A) (none) 07/01/2024 8:12 AM [facility] Blood BLOOD SPECIMEN / Unknown Venipuncture / Unknown 07/01/2024 7:31 AM MOISTURE METER READER 07/01/2024 7:[address] [facility] Elder Rhoades MD LAB - HEMATOLOGY ORD ERABLES [facility] [address] [place] [phone] [phone] * (ABNORMAL) CBC W AUTO DIFFERENTIAL (07/01/2024 7:31 AM MOISTURE METER READER) WBC 9.4 4.0 - 10.7 x10E9/L 07/01/2024 8:12 AM [facility] RBC Count 3.05(L) 4.30 - 5.80 x10E12/L 07/01/2024 8:12 AM [facility] Hemoglobin 9.2(L) 13.3 - 17.5 g/dL 07/01/2024 8:12 AM [facility] Hematocrit 27.2(L) 38.7 - 51.1 % 07/01/2024 8:12 AM [facility] MCV 89.2 80.0 - 98.0 fL 07/01/2024 8:12 AM [facility] MCH 30.2 26.7 - 33.6 pg 07/01/2024 8:12 AM [facility] MCHC 33.8 31.7 - 36.3 g/dL 07/01/2024 8:12 AM [facility] RDW-CV 12.7 11.3 - 14.8 % 07/01/2024 8:12 AM [facility] Platelet Count 222 150 - 420 x10E9/L 07/01/2024 8:12 AM [facility] MPV 8.6 7.8 - 11.4 fL 07/01/2024 8:12 AM [facility] Blood BLOOD SPECIMEN / Unknown Venipuncture / Unknown 07/01/2024 7:31 AM MOISTURE METER READER 07/01/2024 7:37 AM MOISTURE METER READER Elder Rhoades MD LAB - HEMATOLOGY ORD ERABLES Performing Organization Address City/[facility]/ZIP Co de Phone Number [address] [address], [facility] [phone] * LACTIC ACID BLOOD (07/01/2024 7:31 AM MOISTURE METER READER) Lactic Acid-Stat 0.7 <=2.0 mmol/L 07/01/2024 8:05 AM [facility] Blood BLOOD SPECIMEN / Unknown Venipuncture / Unknown 07/01/2024 7:31 AM MOISTURE METER READER 07/01/2024 7:37 AM MOISTURE METER READER Elder Rhoades MD LAB - CHEMISTRY ORDE RABLES [address] [address], [place] [phone] * XR Elbow Right 2Vw (06/30/2024 4:29 PM MOISTURE METER READER) Anatomical Region Laterality Modality Upper Extremity Digital Radiogra phy 07/01/2024 10:1 8 AM MOISTURE METER READER Impressions 07/01/2024 1:04 PM MOISTURE METER READER IMPRESSION: No definite fracture. If there are symptoms referable to this site, consider further evaluation with CT. 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 > Interpreting Provider: Marisol Charlton MD on 07/01/2024 1:04 PM Narrative 07/01/2024 1:04 PM MOISTURE METER READER PROCEDURE: XR ELBOW RIGHT 2VW DATE/TIME OF [...] Shoulder Right Wo Contrast (06/30/2024 3:02 PM MOISTURE METER READER) Anatomical Region Laterality Modality Upper Extremity Computed Tomogra phy 06/30/2024 3:36 PM MOISTURE METER READER Impressions 06/30/2024 3:47 PM MOISTURE METER READER IMPRESSION: Moderately displaced, comminuted fracture of the humeral head and neck. > Interpreting Provider: Feng Ybarra MD on 06/30/2024 3:47 PM Narrative 06/30/2024 3:47 PM MOISTURE METER READER PROCEDURE: CT SHOULDER RIGHT WO CONTRAST DATE/TIME OF EXAM: 06/30/2024 3:03 PM CLINICAL INFORMATION: None relevant/not provided if blank. Indication: S72.001A: Closed fracture dislocation of right hip joint, initial encounter ([facility]) Additional History: COMPARISON: No prior right shoulder [...] dislocation of right hip joint, initial encounter ([facility]) Additional History: COMPARISON: No prior right shoulder [...] Abdomen Pelvis W Cont (06/30/2024 3:02 PM MOISTURE METER READER) Anatomical Region Laterality Modality Chest, Abdomen, Pelvis Computed Tomography 07/01/2024 7:20 AM MOISTURE METER READER Impressions 07/01/2024 9:56 AM MOISTURE METER READER Impression: Study is significantly degraded by motion [...] L3. > Dictated by Steven Harrison MD, (radiology ct technologist). I, Jennie Rollins MD have personally reviewed and interpreted this examination/study. > Interpreting Provider: Jennie Rollins MD on 07/01/2024 9:56 AM Narrative 07/01/2024 9:56 AM MOISTURE METER READER PROCEDURE: CT CHEST ABDOMEN PELVIS W CONT, DATE/TIME OF EXAM: 06/30/2024 3:03 PM, LOCATION [facility] INDICATION: R29.818: Suspected infectious meningitis ADDITIONAL CLINICAL [...] CONT, DATE/TIME OF EXAM:06/30/2024 3:03 PM, LOCATION [facility] INDICATION: R29.818: Suspected infectious meningitis ADDITIONAL CLINICAL [...] L3. > Dictated by Steven Harrison MD, (radiology ct technologist). I, Jennie Rollins MD have personally reviewed and interpreted this examination/study. > Interpreting Provider: Jennie Rollins MD on 49:56 AM Elder Rhoades MD CT ORDERABLES * SYPHILIS ANTIBODY CASCADING REFLEX (06/30/2024 11:46 AM MOISTURE METER READER) Treponema pallidum Antibody Non-react cici Non-react cici 06/30/2024 1:02 PM MOISTURE METER READER [facility] Comment: No Laboratory evidence of syphilis infection. Note: Circulating antibodies may be low or undetectable in early infection. If recent exposure is suspected, re-draw sample in 2-4 weeks and repeat testing. Blood BLOOD SPECIMEN / Unknown Lab Venipuncture / Unknown 06/30/2024 11:46 AM MOISTURE METER READER 06/30/2024 12:01 PM MOISTURE METER READER Elder Rhoades MD LAB - SEROLOGY ORDER BABITA [address] [address], [facility] [phone] * PHOSPHATIDYLETHANOL (PETH) (06/30/2024 11:46 AM MOISTURE METER READER) PEth 16:0/18.1 (POPEth) <10 ng/mL 07/02/2024 9:[address] [facility] [employer] ([facility]) Comment: PEth 16:0/18:1 (POPEth) Less than 10 ng/mL............Not detected Less than 20 ng/mL............Abstinence or light alcohol consumption 20 - 200 ng/mL................Moderate alcohol consumption Greater than 200 ng/mL........Heavy alcohol consumption or chronic alcohol use (Reference: Tremayne Sidhu and Julianna Brunner 2018 J. Forensic Sci) PEth 16:0/18.2 (PLPEth) <10 ng/mL 07/02/2024 9:[address] [facility] [employer] ([facility]) Comment:Reference ranges are not well established. EER Peth See Note 07/02/2024 9:[address] [facility] [employer] ([facility]) Comment: Authorized individuals can access the [employer] Enhanced Report with an [employer] Connect account using the following link. Your local lab can assist you in obtaining the patient report if you don't have a Connect account. [email or web address] Interpretation PEth See Comment 07/02/2024 9:40 AM MOISTURE METER READER [employer] ([facility]) Comment: Phosphatidylethanol (PEth) is a group of [...] developed and its performance characteristics determined by Isabella Oliver. It has not been cleared or approved by the U.S. Food and Drug Administration. This test was performed in a CLIA-certified laboratory and is intended for clinical purposes. Performed By: [facility] [employer] [address] [place] [id number] Information Security Director: Caden Hanna MD, PhD CLIA Number: [id number] Blood BLOOD SPECIMEN / Unknown Lab Venipuncture / Unknown 06/30/2024 11:46 AM MOISTURE METER READER 06/30/2024 12:01 PM MOISTURE METER READER Nicky Wheeler MD LAB - CHEMISTRY MANI LUTHER Performing Organization Address [facility]/ZIP Co de Phone Number [facility] ([facility]) [address] [place] [address], [facility] * HIV-1 HIV-2 ANTIBODY + HIV P24 AG PANEL (06/30/2024 11:46 AM MOISTURE METER READER) Pathologist [facility] HIV Antigen/Antibod y 1 & 2 Non-reacti ve Non-react cici 06/30/2024 1:02 PM MOISTURE METER READER [facility] Comment:No Laboratory eviden ce of HIV infection. Blood BLOOD SPECIMEN / Unknown Lab Venipuncture / Unknown 06/30/2024 11:46 AM MOISTURE METER READER 06/30/2024 12:01 PM MOISTURE METER READER Elder Rhoades MD LAB - CHEMISTRY MANI LUTHER Performing Organization Address City/[facility]/ZIP Co de Phone Number [facility] [address] [place] [address], [place] [phone] * (ABNORMAL) HEMOGLOBIN A1C (06/30/2024 11:46 AM MOISTURE METER READER) Pathologist [facility] Hemoglobin A1c 5.7(H) <=5.6 % 06/30/2024 2:28 PM [facility] Estimated Average Glucose 117 mg/dL 06/30/2024 2:28 PM [facility] Comment: HbA1c Interpretation: Normal : < 5.7% Pre-diabetes: 5.7-6.4% Diabetes: Equal to or greater than 6.5% Test results diagnostic of diabetes should be repeated for confirmation. Treatment target values recommended by ADA and other clinical organizations should be used to evaluate metabolic control in patients. Reference: [place] [employer], Standards of Care in Diabetes -2020 In patients 70 years and older consider HbA1c target range of 7.0-7.5% (Reference: Narciso A, et al. KEIDA. 2012) The Sebia assay for the measurement of HbA1c is a National Glycohemoglobin Standardization Program (NGSP) certified method. HbA1c Interpretation: Normal : < 5.7% Pre-diabetes: 5.7-6.4% Diabetes: Equal to or greater than 6.5% Test results diagnostic of diabetes should be repeated for confirmation. Treatment target values recommended by ADA and other clinical organizations should be used to evaluate metabolic control in patients. Reference: [place] [employer], Standards of Care in Diabetes -2020 In patients 70 years and older consider HbA1c target range of 7.0-7.5% (Reference: Stuart A, et al. JAMDA. 2012) The Sebia assay for the measurement of HbA1c is a National Glycohemoglobin Standardization Program (NGSP) certified method. Blood BLOOD SPECIMEN / Unknown Lab Venipuncture / Unknown 06/30/2024 11:46 AM MOISTURE METER READER 06/30/2024 12:10 PM MOISTURE METER READER Nicky Wheeler MD LAB - CHEMISTRY MANI LUTHER [facility] Organization Address City/State/ZIP Co de Phone Number [address] [address], [facility] [phone] * (ABNORMAL) VITAMIN D 25-HYDROXY (06/30/2024 11:46 AM MOISTURE METER READER) [facility] Vitamin D, 25 Hydroxy 28.7(L) 30.0 - 80.0 ng/mL 06/30/2024 2:04 PM MOISTURE METER READER [facility] Comment: The recommendations for 25-Hydroxy Vitamin [...] Lab Venipuncture / Unknown 06/30/2024 11:46 AM MOISTURE METER READER 06/30/2024 12:07 PM MOISTURE METER READER Charley Fox PA-C LAB - CHEMIS TRY ORDERABLES [address] [address], [facility] [phone] * (ABNORMAL) VITAMIN B12 (06/30/2024 11:46 AM MOISTURE METER READER) Vitamin B12 826(H) 213 - 816 pg/mL 06/30/2024 1:01 PM MOISTURE METER READER [facility] Blood BLOOD SPECIMEN / Unknown Lab Venipuncture / Unknown 06/30/2024 11:46 AM MOISTURE METER READER 06/30/2024 12:07 PM MOISTURE METER READER Elder Rhoades MD LAB - CHEMISTRY MANI LUTHER [address] [address], [facility] [phone] * TSH (06/30/2024 11:46 AM MOISTURE METER READER) TSH 0.982 0.350 - 4.940 uIU/mL 06/30/2024 1:01 PM MOISTURE METER READER [facility] Blood BLOOD SPECIMEN / Unknown Lab Venipuncture / Unknown 06/30/2024 11:46 AM MOISTURE METER READER 06/30/2024 12:07 PM MOISTURE METER READER Elder Rhoades MD LAB - CHEMISTRY MANI LUTHER Performing Organization Address City/[facility]/ZIP Co de Phone Number [id number] [place] [address], [facility] [phone] * STREP PNEUMONIAE ANTIGEN URINE (06/30/2024 11:37 AM MOISTURE METER READER) Streptococcus pneumoniae Antigen Urine Negative Negative 07/01/2024 7:24 AM MOISTURE METER READER [facility] Urine URINE / Unknown Collection / Unknown 06/30/2024 11:37 AM MOISTURE METER READER 06/30/2024 11:43 AM MOISTURE METER READER Narrative [facility] - 07/01/2024 7:24 AM MOISTURE METER READER Patients who have received the Streptococcus pneumoniae [...] negatives. Elder Rhoades MD LAB - MICROBIOLOGY Antwon QUISPE Performing Organization Address [facility] Co de Phone Number [facility] [address] [place] [address], [facility] [phone] * LEGIONELLA ANTIGEN URINE (06/30/2024 11:37 AM MOISTURE METER READER) Legionella Antigen Urine Negative Negative 07/01/2024 7:28 AM MOISTURE METER READER [facility] Urine URINE / Unknown Collection / Unknown 06/30/2024 11:37 AM MOISTURE METER READER 06/30/2024 11:43 AM MOISTURE METER READER Narrative [facility] - 07/01/2024 7:28 AM MOISTURE METER READER This assay detects Legionella pneumophila serogroup one (1) antigen. A negative test result does not rule out the possibility of Legionella infection due to other serogroups or species of Legionella. A positive result may indicate a recent or remote infection with serogroup 1. Elder Rhoades MD LAB - MICROBIOLOGY O BRITTANEY Performing Organization Address [facility]/ZIP Co de Phone Number [facility] [address] [place] [address], [facility] [phone] * URINE DRUG SCREEN IMMUNOASSAY (06/30/2024 11:[address] [facility]) Amphetamines Screen Urine Negative Negative: < 1000 ng/mL 06/30/2024 12:20 PM [facility] Barbiturates Screen Urine Negative Negative: < 200 ng/mL 06/30/2024 12:20 PM [facility] Benzodiazepine Screen Urine Negative Negative: < 200 ng/mL 06/30/2024 12:20 PM [facility] Opiates Urine Negative Negative: < 300 ng/mL 06/30/2024 12:20 PM [facility] Cocaine Metabolites Urine Negative Negative: < 300 ng/mL 06/30/2024 12:20 PM [facility] Phencyclidine Screen Urine Negative Negative: < 25 ng/ml 06/30/2024 12:20 PM [facility] Cannabinoids Screen Urine Negative Negative: <50 ng/mL 06/30/2024 12:20 PM [facility] Methadone Screen Urine Negative Negative: < 300 ng/mL 06/30/2024 12:20 PM [facility] Fentanyl Screen Urine Negative Negative: <1.5 ng/mL 06/30/2024 12:20 PM [facility] Urine URINE / Unknown Collection / Unknown 06/30/2024 11:[address] [facility] 06/30/2024 11:43 AM [facility] - 06/30/2024 12:[address] [facility] The Urine Toxicology Screening Panel does not screen for Propoxyphene, Meprobamate, Carisoprodol, Trazodone, gjll-pal-svctuhd medications and/or volatiles (Acetone, Isopropanol, Methanol or Ethylene Glycol). Ethanol, Salicylate, Acetaminophen, Tricyclic Antidepressants and several therapeutic drugs may be individually assayed in serum or plasma specimen. Toxicology testing by the [facility] is an aid to medical diagnosis and treatment of patients. No documented chain of custody was maintained. Results are intended to be used for clinical purposes only. Elder Rhoades MD LAB - URINE CHEMISTR Y ORDERABLES [facility] [address] [place] [address], [facility] [phone] * XR Humerus Right 2Vw or More (06/30/2024 11:11 AM MOISTURE METER READER) Anatomical Region Laterality Modality Upper Extremity Digital Radiogra phy 06/30/2024 11:1 8 AM MOISTURE METER READER Impressions 06/30/2024 12:48 PM MOISTURE METER READER IMPRESSION: 1.Moderately displaced fracture of the humeral head and neck. 2.A right rib fracture is incidentally noted. 3.Enlargement of the distal humeral shaft with thickening of the cortex. 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 Recommend follow-up such as repeat humeral radiographs in 3-6 months to assess stability. > Dictated by Nadya WAKEFIELD [facility] (radiology ct technologist). I, Feng Ybarra MD have personally reviewed and interpreted this examination/study. > Interpreting Provider: Feng Ybarra MD on 06/30/2024 12:48 PM Narrative 06/30/2024 12:48 PM MOISTURE METER READER EXAMINATION: XR HUMERUS RIGHT 2VW OR MORE DATE/TIME OF EXAM: 06/30/2024 11:11 AM, LOCATION [facility] HISTORY: S42.411D: Closed supracondylar fracture of right [...] DATE/TIME OF EXAM: 06/30/2024 11:11 AM, LOCATION [facility] HISTORY: S42.411D: Closed supracondylar fracture of right [...] assess stability. > Dictated by Nadya WAKEFIELD [facility] (radiology ct technologist). I, Feng Ybarra MD have personally reviewed and interpreted this examination/study. > Interpreting Provider: Feng Ybarra MD on 06/30/2024 12:48 PM Nicky Wheeler MD DIAGNOSTIC IMAGING O RDERABLES * (ABNORMAL) URINE MICROSCOPIC ONLY REFLEX TO CULTURE (06/30/2024 5:41 AM MOISTURE METER READER) Reflex Status Culture not indicated 06/30/2024 6:08 AM [facility] RBC UA 51-100(A) None Seen, 0-2, 3-5 /HPF 06/30/2024 6:08 AM [facility] WBC UA 6-10(A) None Seen, 0-5 /HPF 06/30/2024 6:08 AM [facility] Bacteria UA Trace(A) None /HPF 06/30/2024 6:08 AM [facility] Squamous Epithelial Cells UA 0-2 None Seen, 0-2, 3-5 /HPF 06/30/2024 6:08 AM [facility] Mucus UA 1+ /LPF 06/30/2024 6:08 AM [facility] Urine URINE SPECIMEN OBTAINED BY CLEAN CATCH PROCEDURE / Unknown Collection / Unknown 06/30/2024 5:41 AM MOISTURE METER READER 06/30/2024 5:49 AM MOISTURE METER READER [facility] - 06/30/2024 6:08 AM MOISTURE METER READER Nicky Wheeler MD LAB - URINALYSIS ORD ERABLES [facility] [address] [place] [address], [place] [phone] * (ABNORMAL) URINALYSIS REFLEX MICROSCOPIC REFLEX CULTURE (06/30/2024 5:41 AM MOISTURE METER READER) Color UA Yellow Straw, Yellow 06/30/2024 6:03 AM [facility] Clarity UA Slt Cloudy(A) Clear 06/30/2024 6:03 AM [facility] Specific Randolph UA 1.014 1.005 - 1.030 06/30/2024 6:03 AM [facility] pH UA 6.0 5.0 - 8.0 pH 06/30/2024 6:03 AM [facility] Protein UA Negative Negative 06/30/2024 6:03 AM [facility] Glucose UA Negative Negative 06/30/2024 6:03 AM [facility] Ketone UA 1+(A) Negative 06/30/2024 6:03 AM [facility] Bilirubin UA Negative Negative 06/30/2024 6:03 AM [facility] Blood UA 2+(A) Negative 06/30/2024 6:03 AM [facility] Nitrite UA Negative Negative 06/30/2024 6:03 AM [facility] Leukocyte Esterase Negative Negative 06/30/2024 6:03 AM [facility] Urobilinogen UA Negative Negative mg/dL 06/30/2024 6:03 AM [facility] Urine URINE SPECIMEN OBTAINED BY CLEAN CATCH PROCEDURE / Unknown Collection / Unknown 06/30/2024 5:41 AM MOISTURE METER READER 06/30/2024 5:49 AM [facility] - 06/30/2024 6:03 AM MOISTURE METER READER Nicky Wheeler MD LAB - URINALYSIS ORD ERABLES [facility] [address] [place] [address], [place] [phone] from Last 3 Months Advance Directives * Full Code (Latest Code Status on File) Date Activated Date Inactivated Comments 06/30/2024 2:01 AM 07/18/2024 4:10 PM 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
--- OUTSIDE RECORDS SUMMARY | 2024-09-03 13:34 | XMS_ITS | Referral Summary ---
Author Organization [facility] Address [address] [place] [address] Care Team Providers Care Silk Screen Painter Name Role Phone Unknown, Provider Primary Care Provider Unavaila ble Source Comments [facility],non-owned Affiliates and Associated Physician Practices is amultiple site organization consisting of ambulatory clinics and hospital sitesin [place], [place] and [place]. This disclosure is being madepursuant to the Care Everywhere program and may not contain all information available regarding this patient. Last updated 18.[facility] Speed[employer] Encounters Date Type Department Care Team Description 08/06/2024 Telephone [facility] - Neurology [address] [place] [phone] Ibrahima Simmons, RETURNING OFFICER-SHADE CUTTER Advice Only 08/06/2024 9:09 AM TITLE CAMERA OPERATOR - 08/06/2024 11:59 PM TITLE CAMERA OPERATOR Hospital Encounter [facility] DIAGNOSTIC RAD CSM [address] [place] [phone] John Noel MD Discharge Disposition: Home or Self Care 08/06/2024 Travel 08/06/2024 9:40 AM TITLE CAMERA OPERATOR Office Visit [facility] - Orthopedics [address] [place] [phone] John Nole MD Closed fracture of proximal end of right humerus, unspecified fracture morphology, initial encounter (Primary Dx) 08/01/2024 Telephone [facility] - Neurology [address] [place] [phone] Ibrahima Simmons, RETURNING OFFICER-SHADE CUTTER Med Question (Pt has a referral for Neuro with dx of Suspected infectious meningitis/Atrial fibrillation, unspecified type (HCC)/Closed fracture of proximal end of right humerus, unspecified fracture morphology, initial encounter./Pt stated someone in neurology promised her father an appt for Neurology//) 07/30/2024 Travel 07/29/2024 Orders Only [facility] - Orthopedics [address] [place] [phone] John Noel MD Right shoulder pain, unspecified chronicity 06/30/2024 1:52 AM TITLE CAMERA OPERATOR - 07/18/2024 2:00 PM TITLE CAMERA OPERATOR Hospital Encounter [facility] AGUSTIN [address] [place] [phone] Nicky Wheeler MD Raza, Awais, MD Buckhold, Claus Bennett III, MD Olvera, MD Donnell August, MD Abram Broussard, Sara Manuel MD Internal Medicine Discharge Disposition: Correction Facility 07/10/2024 9:01 AM TITLE CAMERA OPERATOR Anesthesia Event [facility] IVR [address] [place] [phone] mEelyn Badillo MD Ho, Jim Yarbrough Asst 07/01/2024 Travel 06/29/2024 Telephone [facility] PHYS INTERNAL MED [address] [place] [phone] Nicky Wheeler MD General (OSH Transfer) from Last 3 Months Allergies No known active allergies Medications * [...] daily 5 Discontinue d(List Clean-Up) HYDROcodone-acetam inophen ([place]onee) 5-325 MG tablet Take 1 (one) tablet [...] 5 Discontinue d(List Clean-Up) neomycin-polymyxin -hc (Cortisporin) [id number] otic suspension Instill 5 (five) drops into [...] (07/29/2024): Added automatically from request for surgery [id number] History of colonic polyps 04/14/2021 Overview (07/29/2024): Added automatically from request for surgery [id number] Multiple abrasions 05/07/2018 Fracture of toe of [...] Recorded Patient Health Questionnaire-2 Score 2 08/06/2024 [facility] - Occupational [...] any time in the past 12 m [facility], were you homeless or living in a halfway (including now)? No 07/01/2024 Sex and Gender Information Value Date Recorded Sex Assigned at Not on file Gender Identity Not on file Sexual Orientation Not on file Last Filed Vital Signs Vital Sign Reading Time Taken Comments Blood Pressure 108/77 07/18/2024 12:04 PM TITLE CAMERA OPERATOR Pulse 72 07/18/2024 12:04 PM TITLE CAMERA OPERATOR Temperature 36.5 C (97.7 F) 07/18/2024 12:04 PM TITLE CAMERA OPERATOR Respiratory Rate 17 07/18/2024 12:04 PM TITLE CAMERA OPERATOR Oxygen Saturation 100% 07/18/2024 12:04 PM TITLE CAMERA OPERATOR Inhaled Oxygen Concentration - - Weight 83.6 kg (184 lb 6.4 oz) 07/18/2024 4:00 A M TITLE CAMERA OPERATOR Height 185.4 cm (6' 1 ) 07/12/2024 9:28 PM TITLE CAMERA OPERATOR Body Mass Index 24.33 07/12/2024 9:28 PM TITLE CAMERA OPERATOR Functional Status Functional Status Response Date of Assess ment Is person deaf or have serious hearing difficult y? No 07/01/2024 Is person blind or have serious difficulty seein g? No 07/01/2024 Does person have serious dif ficulty walking/climbing stairs? Yes 07/01/2024 Does person have difficulty dressing/bathing? Ye s 07/01/2024 Does person have difficulty doing errands alone? Yes 07/01/2024 Cognitive Status Response Date of Assessm ent Does person have difficulty concentrating/remembering/making decisions? Yes 07/01/2024 Plan of Treatment Upcoming Encounters Date Type Department Care Team (Late st Contact Info) Description 11/20/2024 1:00 PM CDT Office Visit [facility] - Cardiology [address] [phone] Elder Rhoades MD [address] [place] [address] Osmany Rodríguez MD [address] [facility] [place] [id number] [place] [address] Procedures Procedure Name Priority Date/Time Associated Diagnosis Comments XR SHOULDER RIGHT 2VW OR MORE Routine 08/06/2024 9:38 AM TITLE CAMERA OPERATOR Right shoulder pain, unspecified chronicity PHOSPHORUS BLOOD Routine 07/18/2024 5:02 AM TITLE CAMERA OPERATOR MAGNESIUM BLOOD Routine 07/18/2024 5:02 AM TITLE CAMERA OPERATOR COMPREHENSIVE METABOLIC PANEL Routine 07/18/2024 5:02 AM TITLE CAMERA OPERATOR CBC W/O DIFFERENTIAL Routine 07/18/2024 5:02 AM TITLE CAMERA OPERATOR PHOSPHORUS BLOOD Routine 07/17/2024 4:33 AM TITLE CAMERA OPERATOR MAGNESIUM BLOOD Routine 07/17/2024 4:33 AM TITLE CAMERA OPERATOR COMPREHENSIVE METABOLIC PANEL Routine 07/17/2024 4:33 AM TITLE CAMERA OPERATOR CBC W/O DIFFERENTIAL Routine 07/17/2024 4:33 AM TITLE CAMERA OPERATOR XR SHOULDER RIGHT 2VW OR MORE DAYSI 07/16/2024 8:57 AM TITLE CAMERA OPERATOR Closed fracture of proximal end of right humerus, unspecified fracture morphology, initial encounter PHOSPHORUS BLOOD Routine 07/16/2024 4:42 AM TITLE CAMERA OPERATOR MAGNESIUM BLOOD Routine 07/16/2024 4:42 AM TITLE CAMERA OPERATOR COMPREHENSIVE METABOLIC PANEL Routine 07/16/2024 4:42 AM TITLE CAMERA OPERATOR CBC W/O DIFFERENTIAL Routine 07/16/2024 4:42 AM TITLE CAMERA OPERATOR PHOSPHORUS BLOOD Routine 07/15/2024 6:20 AM TITLE CAMERA OPERATOR MAGNESIUM BLOOD Routine 07/15/2024 6:20 AM TITLE CAMERA OPERATOR COMPREHENSIVE METABOLIC PANEL Routine 07/15/2024 6:20 AM TITLE CAMERA OPERATOR CBC W/O DIFFERENTIAL Routine 07/15/2024 6:19 AM TITLE CAMERA OPERATOR PHOSPHORUS BLOOD Routine 07/14/2024 11:20 AM TITLE CAMERA OPERATOR MAGNESIUM BLOOD Routine 07/14/2024 11:20 AM TITLE CAMERA OPERATOR COMPREHENSIVE METABOLIC PANEL Routine 07/14/2024 11:20 AM TITLE CAMERA OPERATOR CBC W/O DIFFERENTIAL Routine 07/14/2024 11:20 AM TITLE CAMERA OPERATOR PHOSPHORUS BLOOD Routine 07/13/2024 4:30 AM TITLE CAMERA OPERATOR MAGNESIUM BLOOD Routine 07/13/2024 4:30 AM TITLE CAMERA OPERATOR COMPREHENSIVE METABOLIC PANEL Routine 07/13/2024 4:30 AM TITLE CAMERA OPERATOR CBC W/O DIFFERENTIAL Routine 07/13/2024 4:30 AM TITLE CAMERA OPERATOR COMPREHENSIVE METABOLIC PANEL Routine 07/12/2024 3:53 AM TITLE CAMERA OPERATOR MAGNESIUM BLOOD Routine 07/12/2024 3:53 AM TITLE CAMERA OPERATOR PHOSPHORUS BLOOD Routine 07/12/2024 3:53 AM TITLE CAMERA OPERATOR CBC W/O DIFFERENTIAL Routine 07/12/2024 3:52 AM TITLE CAMERA OPERATOR COMPREHENSIVE METABOLIC PANEL Routine 07/11/2024 9:07 AM TITLE CAMERA OPERATOR CBC W/O DIFFERENTIAL Routine 07/11/2024 9:07 AM TITLE CAMERA OPERATOR MAGNESIUM BLOOD Routine 07/11/2024 9:07 AM TITLE CAMERA OPERATOR PHOSPHORUS BLOOD Routine 07/11/2024 9:07 AM TITLE CAMERA OPERATOR CELL COUNT W DIFFERENTIAL CSF DAYSI 07/10/2024 12:24 PM TITLE CAMERA OPERATOR PROTEIN CSF STAT 07/10/2024 12:24 PM TITLE CAMERA OPERATOR HOLD SPECIMEN CSF Routine 07/10/2024 12:24 PM TITLE CAMERA OPERATOR GLUCOSE CSF DAYSI 07/10/2024 12:24 PM TITLE CAMERA OPERATOR CULTURE CSF+GRAM STAIN DAYSI 12:24 PM TITLE CAMERA OPERATOR CULTURE AFB+SMEAR Routine 07/10/2024 12:24 PM TITLE CAMERA OPERATOR MENINGITIS/ENCEPHALITIS PANEL CSF STAT 07/10/2024 12:24 PM TITLE CAMERA OPERATOR HERPES SIMPLEX 1+2 PCR CSF Routine 07/10 12:24 PM TITLE CAMERA OPERATOR CULTURE FUNGUS OTHER+FUNGUS SMEAR Routine 07/10/2024 12:24 PM TITLE CAMERA OPERATOR FL LUMBAR PUNCTURE Routine 07/10/2024 12:22 PM TITLE CAMERA OPERATOR Suspected infectious meningitis PERIPHERAL IV NOTE Routine 07/10/2024 10:11 AM TITLE CAMERA OPERATOR COMPREHENSIVE METABOLIC PANEL Routine 07/10/2024 3:04 AM TITLE CAMERA OPERATOR CBC W/O DIFFERENTIAL Routine 07/10/2024 3:04 AM TITLE CAMERA OPERATOR MAGNESIUM BLOOD Routine 07/10/2024 3:04 AM TITLE CAMERA OPERATOR PHOSPHORUS BLOOD Routine 07/10/2024 3:04 AM TITLE CAMERA OPERATOR COMPREHENSIVE METABOLIC PANEL Routine 07/09/2024 4:10 AM TITLE CAMERA OPERATOR CBC W/O DIFFERENTIAL Routine 07/09/2024 4:10 AM TITLE CAMERA OPERATOR MAGNESIUM BLOOD Routine 07/09/2024 4:10 AM TITLE CAMERA OPERATOR PHOSPHORUS BLOOD Routine 07/09/2024 4:10 AM TITLE CAMERA OPERATOR XR SHOULDER RIGHT 2VW OR MORE Routine 07/08/2024 12:36 PM TITLE CAMERA OPERATOR Closed supracondylar fracture of right humerus with routine healing, subsequent encounter PT-INR [facility] STAT 07/08/2024 9:25 AM TITLE CAMERA OPERATOR Suspected infectious meningitis COMPREHENSIVE METABOLIC PANEL Routine 07/08/2024 2:58 AM TITLE CAMERA OPERATOR CBC W/O DIFFERENTIAL Routine 07/08/2024 2:58 AM TITLE CAMERA OPERATOR MAGNESIUM BLOOD Routine 07/08/2024 2:58 AM TITLE CAMERA OPERATOR PHOSPHORUS BLOOD Routine 07/08/2024 2:58 AM TITLE CAMERA OPERATOR COMPREHENSIVE METABOLIC PANEL Routine 07/07/2024 1:55 AM TITLE CAMERA OPERATOR CBC W/O DIFFERENTIAL Routine 07/07/2024 1:55 AM TITLE CAMERA OPERATOR MAGNESIUM BLOOD Routine 07/07/2024 1:55 AM TITLE CAMERA OPERATOR PHOSPHORUS BLOOD Routine 07/07/2024 1:55 AM TITLE CAMERA OPERATOR VANCOMYCIN LEVEL TROUGH Timed 07/06/20 10:18 PM TITLE CAMERA OPERATOR EKG 12-LEAD Routine 07/06/2024 4:59 PM TITLE CAMERA OPERATOR Atrial fibrillation, unspecified type (HCC) CRYPTOCOCCUS ANTIGEN BLOOD AM Draw 07/06 3:15 AM TITLE CAMERA OPERATOR COMPREHENSIVE METABOLIC PANEL Routine 07/06/2024 3:15 AM TITLE CAMERA OPERATOR CBC W/O DIFFERENTIAL Routine 07/06/2024 3:15 AM TITLE CAMERA OPERATOR MAGNESIUM BLOOD Routine 07/06/2024 3:15 AM TITLE CAMERA OPERATOR PHOSPHORUS BLOOD Routine 07/06/2024 3:15 AM TITLE CAMERA OPERATOR URINALYSIS REFLEX TO MICROSCOPIC NO CULTURE Routine 07/05/2024 11:07 PM TITLE CAMERA OPERATOR CT CHEST WO CONTRAST Routine 07/05/2024 3:28 PM TITLE CAMERA OPERATOR Altered mental status, unspecified altered mental status type CULTURE BLOOD FUNGUS Timed 07/05/2024 1:47 PM TITLE CAMERA OPERATOR VANCOMYCIN LEVEL TROUGH Timed 07/05/20 24 12:00 PM TITLE CAMERA OPERATOR DNA ANTIBODY DOUBLE STRANDED AM Draw 07/05/2024 3:04 AM TITLE CAMERA OPERATOR MYCOPLASMA PNEUMONIAE AB IGM AM Draw 07/05/2024 3:04 AM TITLE CAMERA OPERATOR COMPLEMENT C4 Routine 07/05/2024 3:04 AM TITLE CAMERA OPERATOR COMPLEMENT C3 Routine 07/05/2024 3:04 AM TITLE CAMERA OPERATOR CYCLIC CITRUL PEPTIDE ANTIBODY IGG/IGA (CCP) AM Draw 07/05/2024 3:04 AM TITLE CAMERA OPERATOR RHEUMATOID FACTOR BLOOD QUANTITATIVE AM Draw 07/05/2024 3:04 AM TITLE CAMERA OPERATOR KAYLEY BLOOD SCREEN W/REFLEX TITER AM Draw 07/05/2024 3:04 AM TITLE CAMERA OPERATOR COMPREHENSIVE METABOLIC PANEL Routine 07/05/2024 3:04 AM TITLE CAMERA OPERATOR CBC W/O DIFFERENTIAL Routine 07/05/2024 3:04 AM TITLE CAMERA OPERATOR MAGNESIUM BLOOD Routine 07/05/2024 3:04 AM TITLE CAMERA OPERATOR PHOSPHORUS BLOOD Routine 07/05/2024 3:04 AM TITLE CAMERA OPERATOR ECHO COMPLETE W CONTRAST Routine 024 3:39 PM TITLE CAMERA OPERATOR Atrial fibrillation, unspecified type (HCC) COMPREHENSIVE METABOLIC PANEL Routine 07/04/2024 3:17 AM TITLE CAMERA OPERATOR CBC W/O DIFFERENTIAL Routine 07/04/2024 3:17 AM TITLE CAMERA OPERATOR MAGNESIUM BLOOD Routine 07/04/2024 3:17 AM TITLE CAMERA OPERATOR PHOSPHORUS BLOOD Routine 07/04/2024 3:17 AM TITLE CAMERA OPERATOR MRI BRAIN WO CONTRAST STAT 07/03/2024 4:02 PM TITLE CAMERA OPERATOR Suspected infectious meningitis CULTURE BLOOD Timed 07/03/2024 2:05 PM TITLE CAMERA OPERATOR VANCOMYCIN LEVEL TROUGH Timed 07/03/20 1:49 PM TITLE CAMERA OPERATOR CULTURE BLOOD Timed 07/03/2024 1:49 PM TITLE CAMERA OPERATOR CULTURE SPUTUM+GRAM STAIN Routine 2023 11:22 AM TITLE CAMERA OPERATOR COMPREHENSIVE METABOLIC PANEL Routine 07/03/2024 2:20 AM TITLE CAMERA OPERATOR CBC W/O DIFFERENTIAL Routine 07/03/2024 2:20 AM TITLE CAMERA OPERATOR MAGNESIUM BLOOD Routine 07/03/2024 2:20 AM TITLE CAMERA OPERATOR PHOSPHORUS BLOOD Routine 07/03/2024 2:20 AM TITLE CAMERA OPERATOR SARS-COV-2 (COVID-19) FLU A/B RSV PCR RAPID Routine 07/02/2024 4:50 PM TITLE CAMERA OPERATOR XR CHEST 1VW PORTABLE Routine 07/02/2024 11:58 AM TITLE CAMERA OPERATOR Productive cough COMPREHENSIVE METABOLIC PANEL Routine 07/02/2024 1:59 AM TITLE CAMERA OPERATOR CBC W/O DIFFERENTIAL Routine 07/02/2024 1:59 AM TITLE CAMERA OPERATOR MAGNESIUM BLOOD STAT 07/01/2024 11:26 PM TITLE CAMERA OPERATOR RENAL FUNCTION PANEL STAT 07/01/2024 11:26 PM TITLE CAMERA OPERATOR PT-INR [facility] STAT 07/01/2024 12:47 PM TITLE CAMERA OPERATOR CT HEAD WO CONTRAST STAT 07/01/2024 8 :22 AM TITLE CAMERA OPERATOR Atrial fibrillation, unspecified type (HCC) GLUCOSE - POINT OF CARE Routine 07/01/20 7:36 AM TITLE CAMERA OPERATOR DIFFERENTIAL MANUAL STAT 07/01/2024 7 :31 AM TITLE CAMERA OPERATOR MAGNESIUM BLOOD STAT 07/01/2024 7:31 AM TITLE CAMERA OPERATOR RENAL FUNCTION PANEL STAT 07/01/2024 7:31 AM TITLE CAMERA OPERATOR CBC W AUTO DIFFERENTIAL STAT 07/01/20 7:31 AM TITLE CAMERA OPERATOR LACTIC ACID BLOOD STAT 07/01/2024 7:3 1 AM TITLE CAMERA OPERATOR BLOOD GASES JOSE MIGUEL + COOX PANEL STAT 07/01/2024 7:31 AM TITLE CAMERA OPERATOR EKG 12-LEAD Routine 07/01/2024 6:40 AM TITLE CAMERA OPERATOR Atrial fibrillation, unspecified type (HCC) EKG 12-LEAD Routine 07/01/2024 6:39 AM TITLE CAMERA OPERATOR Atrial fibrillation, unspecified type (HCC) COMPREHENSIVE METABOLIC PANEL Routine 07/01/2024 1:45 AM TITLE CAMERA OPERATOR CBC W/O DIFFERENTIAL Routine 07/01/2024 1:45 AM TITLE CAMERA OPERATOR MAGNESIUM BLOOD Routine 07/01/2024 1:45 AM TITLE CAMERA OPERATOR PHOSPHORUS BLOOD Routine 07/01/2024 1:45 AM TITLE CAMERA OPERATOR XR SHOULDER RIGHT 2VW OR MORE Routine 06/30/2024 4:30 PM TITLE CAMERA OPERATOR Atrial fibrillation, unspecified type (HCC) XR ELBOW RIGHT 2VW Routine 06/30/2024 4: 29 PM TITLE CAMERA OPERATOR Atrial fibrillation, unspecified type (HCC) CT SHOULDER RIGHT WO CONTRAST Routine 06/30/2024 3:02 PM TITLE CAMERA OPERATOR Closed fracture dislocation of right hip joint, initial encounter (HCC) CT CHEST ABDOMEN PELVIS W CONT Routine 06/30/2024 3:02 PM TITLE CAMERA OPERATOR Suspected infectious meningitis EKG 12-LEAD Routine 06/30/2024 12:37 PM TITLE CAMERA OPERATOR Atrial fibrillation, unspecified type (HCC) CULTURE BLOOD STAT 06/30/2024 11:54 AM TITLE CAMERA OPERATOR VITAMIN D 25-HYDROXY Routine 06/30/2024 11:46 AM TITLE CAMERA OPERATOR HIV-1 HIV-2 ANTIBODY + HIV P24 AG PANEL STAT 06/30/2024 11:46 AM TITLE CAMERA OPERATOR SYPHILIS ANTIBODY CASCADING REFLEX Routine 06/30/2024 11:46 AM TITLE CAMERA OPERATOR VITAMIN B12 Routine 06/30/2024 11:46 AM TITLE CAMERA OPERATOR TSH DAYSI 06/30/2024 11:46 AM TITLE CAMERA OPERATOR PHOSPHATIDYLETHANOL (PETH) Routine 06/30 11:46 AM TITLE CAMERA OPERATOR HEMOGLOBIN A1C Routine 06/30/2024 11:46 AM TITLE CAMERA OPERATOR CULTURE BLOOD STAT 06/30/2024 11:46 AM TITLE CAMERA OPERATOR URINE DRUG SCREEN IMMUNOASSAY Routine 06/30/2024 11:37 AM TITLE CAMERA OPERATOR LEGIONELLA ANTIGEN URINE Routine 11:37 AM TITLE CAMERA OPERATOR STREP PNEUMONIAE ANTIGEN URINE Routine 06/30/2024 11:37 AM TITLE CAMERA OPERATOR XR HUMERUS RIGHT 2VW OR MORE Routine 06/30/2024 11:11 AM TITLE CAMERA OPERATOR Closed supracondylar fracture of right humerus with routine healing, subsequent encounter EKG 12-LEAD STAT 06/30/2024 11:09 AM TITLE CAMERA OPERATOR Atrial fibrillation, unspecified type (HCC) URINE MICROSCOPIC ONLY REFLEX TO CULTURE STAT 06/30/2024 5:41 AM TITLE CAMERA OPERATOR URINALYSIS REFLEX MICROSCOPIC REFLEX CULTURE STAT 06/30/2024 5:41 AM TITLE CAMERA OPERATOR XR CHEST 1VW PORTABLE STAT 06/30/2024 3:34 AM TITLE CAMERA OPERATOR Suspected infectious meningitis CBC W/O DIFFERENTIAL STAT 06/30/2024 2:31 AM TITLE CAMERA OPERATOR MAGNESIUM BLOOD STAT 06/30/2024 2:31 AM TITLE CAMERA OPERATOR PHOSPHORUS BLOOD STAT 06/30/2024 2:31 AM TITLE CAMERA OPERATOR COMPREHENSIVE METABOLIC PANEL STAT 06/30/2024 2:31 AM TITLE CAMERA OPERATOR PT EVAL AND TREAT Routine 06/30/2024 2:0 1 AM TITLE CAMERA OPERATOR OT EVAL AND TREAT Routine 06/30/2024 2:0 1 AM TITLE CAMERA OPERATOR from Last 3 Months Results * XR Shoulder Right 2Vw or More (08/06/2024 9:38 AM TITLE CAMERA OPERATOR) Only the most recent of4 resultswithin the time period is included. Anatomical Region Laterality Modality Upper Extremity Computed Radiogr aphy 08/06/2024 9:37 AM TITLE CAMERA OPERATOR Impressions 08/06/2024 9:38 AM TITLE CAMERA OPERATOR IMPRESSION: Proximal humeral fracture, not significantly changed in alignment. > Interpreting Provider: Feng Ybarra MD on 08/06/2024 9:38 AM Narrative 08/06/2024 9:38 AM TITLE CAMERA OPERATOR PROCEDURE: XR SHOULDER RIGHT 2VW OR MORE [...] (ABNORMAL) CBC W/O DIFFERENTIAL (07/18/2024 5:02 AM [facility]) Only the most recent of19 resultswithin the time period is included. WBC 6.4 4.0 - 10.7 x10E9/L 07/18/2024 5:[address] [facility] RBC Count 3.78(L) 4.30 - 5.80 x10E12/L 07/18/2024 5:[address] [facility] Hemoglobin 11.4(L) 13.3 - 17.5 g/dL 07/18/2024 5:[address] [facility] Hematocrit 34.6(L) 38.7 - 51.1 % 07/18/2024 5:[address] [facility] MCV 91.5 80.0 - 98.0 fL 07/18/2024 5:[address] [facility] MCH 30.2 26.7 - 33.6 pg 07/18/2024 5:[address] [facility] MCHC 32.9 31.7 - 36.3 g/dL 07/18/2024 5:[address] [facility] RDW-CV 14.9(H) 11.3 - 14.8 % 07/18/2024 5:[address] [facility] Platelet Count 302 150 - 420 x10E9/L 07/18/2024 5:[address] [facility] MPV 9.7 7.8 - 11.4 fL 07/18/2024 5:[address] [facility] Blood BLOOD SPECIMEN / Unknown Lab Venipuncture / Unknown 07/18/2024 5:02 AM TITLE CAMERA OPERATOR 07/18/2024 5:36 AM [facility] Juve Olvera MD LAB - HEMATOLOGY ORD ERABLES [facility] [address] [place] [address], [facility] [phone] * (ABNORMAL) COMPREHENSIVE METABOLIC PANEL (07/18/2024 5:02 AM [facility]) Only the most recent of19 resultswithin the time period is included. BUN 21 7 - 26 mg/dL 07/18/2024 6:[address] [facility] Creatinine 0.58(L) 0.71 - 1.16 mg/dL 07/18/2024 6:[address] [facility] Sodium 135(L) 136 - 145 mmol/L 07/18/2024 6:[address] [facility] Potassium 3.9 3.5 - 4.5 mmol/L 07/18/2024 6:[address] [facility] Chloride 105 98 - 107 mmol/L 07/18/2024 6:[address] [facility] CO2 25 22 - 29 mmol/L 07/18/2024 6:[address] [facility] Glucose 110(H) 70 - 99 mg/dL 07/18/2024 6:[address] [facility] Calcium 8.7 8.4 - 10.2 mg/dL 07/18/2024 6:[address] [facility] Protein Total 5.9(L) 6.0 - 8.3 g/dL 07/18/2024 6:[address] [facility] Albumin 3.0(L) 3.4 - 5.0 g/dL 07/18/2024 6:[address] [facility] Bilirubin Total 0.4 0.2 - 1.2 mg/dL 07/18/2024 6:[address] [facility] Alkaline Phosphatase 116 40 - 150 U/L 07/18/2024 6:[address] [facility] ALT 52 5 - 55 U/L 07/18/2024 6:[address] [facility] AST 35(H) 5 - 34 U/L 07/18/2024 6:[address] [facility] Anion Gap 5(L) 6 - 16 07/18/2024 6:[address] [facility] BUN/Creatinine Ratio 36(H) 7 - 23 07/18/2024 6:[address] [facility] Osmolality Calculated 284 275 - 295 mOsm/kg 07/18/2024 6:[address] [facility] Albumin/Globulin Ratio 1.0(L) 1.1 - 2.3 07/18/2024 6:[address] [facility] eGFR by CKD-EPI >90 >=90 mL/min/1.7 3 m2 07/18/2024 6:[address] [facility] Blood BLOOD SPECIMEN / Unknown Lab Venipuncture / Unknown 07/18/2024 5:02 AM TITLE CAMERA OPERATOR 07/18/2024 5:36 AM TITLE CAMERA OPERATOR Juve Olvera MD LAB - CHEMISTRY MANI LUTHER [address] [address], [facility] [phone] * PHOSPHORUS BLOOD (07/18/2024 5:02 AM TITLE CAMERA OPERATOR) Only the most recent of18 resultswithin the time period is included. Phosphorus 3.6 2.8 - 5.1 mg/dL 07/18/2024 6:[address] [facility] Blood BLOOD SPECIMEN / Unknown Lab Venipuncture / Unknown 07/18/2024 5:02 AM TITLE CAMERA OPERATOR 07/18/2024 5:36 AM TITLE CAMERA OPERATOR Juve Olvera MD LAB - CHEMISTRY MANI LUTHER [address] [address], [facility] [phone] * MAGNESIUM BLOOD (07/18/2024 5:02 AM TITLE CAMERA OPERATOR) Only the most recent of20 resultswithin the time period is included. Magnesium 1.6 1.6 - 2.6 mg/dL 07/18/2024 6:05 AM TITLE CAMERA OPERATOR [facility] Blood BLOOD SPECIMEN / Unknown Lab Venipuncture / Unknown 07/18/2024 5:02 AM TITLE CAMERA OPERATOR 07/18/2024 5:36 AM TITLE CAMERA OPERATOR Juve Olvera MD LAB - CHEMISTRY MANI LUTHER Performing Organization Address City/[facility]/ZIP Co de Phone Number [address] [address], [place] [phone] * CULTURE FUNGUS OTHER+FUNGUS SMEAR (07/10/2024 12:24 PM TITLE CAMERA OPERATOR) Culture No fungus isolated FRANCOISE 08/04/2024 7:14 AM TITLE CAMERA OPERATOR [facility] Fungus Stain No yeast or hyphae seen 08/04/2024 7:14 AM [facility] Microbiology CEREBROSPINAL FLUID SPECIMEN / Unknown Collection / Unknown 07/10/2024 12:24 PM TITLE CAMERA OPERATOR 07/11/2024 4:05 AM TITLE CAMERA OPERATOR Claus Wallace III, MD LAB - MICROBIOLO GY ORDERABLES Performing Organization Address [facility]/ZIP Co de Phone Number [facility] [address] [place] [address], [facility] [phone] * HOLD SPECIMEN CSF (07/10/2024 12:24 PM TITLE CAMERA OPERATOR) Specimen Hold 07/10/2024 2:01 PM TITLE CAMERA OPERATOR [facility] Comment:The Hold Sample has been received in the lab and will be held for 30 days. Cerebral spinal fluid CEREBROSPINAL FLUID SPECIMEN / Unknown Collection / Unknown 07/10/2024 12:24 PM TITLE CAMERA OPERATOR 07/10/2024 12:32 PM TITLE CAMERA OPERATOR Claus Wallace III, MD LAB - BODY FLUID ORDERABLES Performing Organization Address City/[facility]/ZIP Co de Phone Number [facility] [address] [place] [id number], [place] [phone] * MENINGITIS/ENCEPHALITIS PANEL CSF (07/10/2024 12:24 PM TITLE CAMERA OPERATOR) Escherichia coli K1 Not detected Not detected 07/10/2024 6:07 PM TITLE CAMERA OPERATOR [facility] Haemophilus influenzae Not detected Not detected 07/10/2024 6:07 PM TITLE CAMERA OPERATOR [facility] Listeria monocytogenes Not detected Not detected 07/10/2024 6:07 PM TITLE CAMERA OPERATOR [facility] Neisseria meningitis Not detected Not detected 07/10/2024 6:07 PM TITLE CAMERA OPERATOR [facility] Streptococcus agalactiae (Group B) Not detected Not detected 07/10/2024 6:07 PM TITLE CAMERA OPERATOR [facility] Streptococcus pneumoniae Not detected Not detected 07/10/2024 6:07 PM TITLE CAMERA OPERATOR [facility] Cytomegalovirus Not detected Not detected 07/10/2024 6:07 PM TITLE CAMERA OPERATOR [facility] Enterovirus Not detected Not detected 07/10/2024 6:07 PM TITLE CAMERA OPERATOR [facility] Herpes simplex Virus 1 Not detected Not detected 07/10/2024 6:07 PM TITLE CAMERA OPERATOR [facility] Herpes simplex Virus 2 Not detected Not detected 07/10/2024 6:07 PM TITLE CAMERA OPERATOR [facility] Human Herpesvirus 6 Not detected Not detected 07/10/2024 6:07 PM TITLE CAMERA OPERATOR [facility] Human Parechovirus Not detected Not detected 07/10/2024 6:07 PM TITLE CAMERA OPERATOR [facility] Varicella zoster Virus Not detected Not detected 07/10/2024 6:07 PM TITLE CAMERA OPERATOR [facility] Cryptococcus neoformans/gattii Not detected Not detected 07/10/2024 6:07 PM TITLE CAMERA OPERATOR [facility] Microbiology CEREBROSPINAL FLUID SPECIMEN / Unknown Collection / Unknown 07/10/2024 12:24 PM TITLE CAMERA OPERATOR 07/10/2024 12:32 PM TITLE CAMERA OPERATOR Narrative [facility] - 07/10/2024 6:07 PM TITLE CAMERA OPERATOR Meningitis/Encephalitis PCR CSF Panel performed by Linked[employer] FilmArray multiplex PCR. A negative FilmArray ME Panel result does not exclude the possibility of DIE MOUNTER infection and should not be used as [...] - MICROBIOLO GY ORDERABLES Performing Organization Address City/[facility]/ZIP Co de Phone Number [facility] [address] [place] [address], [facility] [phone] * CULTURE CSF+GRAM STAIN (07/10/2024 12:24 PM TITLE CAMERA OPERATOR) Culture No growth FRANCOISE 07/17/2024 7:19 AM TITLE CAMERA OPERATOR [facility] Gram Stain No polymorphonuclear cells 07/17/2024 7:19 AM TITLE CAMERA OPERATOR [facility] Gram Stain Moderate Red blood cells 07/17/2024 7:19 AM TITLE CAMERA OPERATOR [facility] Gram Stain No organisms seen 025 7:19 AM TITLE CAMERA OPERATOR [facility] Cerebral spinal fluid CEREBROSPINAL FLUID SPECIMEN / Unknown Collection / Unknown 07/10/2024 12:24 PM TITLE CAMERA OPERATOR 07/10/2024 12:31 PM TITLE CAMERA OPERATOR Claus Wallace III, MD LAB - MICROBIOLO GY ORDERABLES Performing Organization Address City/[facility]/ZIP Co de Phone Number [facility] [address] [place] [address], [facility] [phone] * HERPES SIMPLEX 1+2 PCR CSF (07/10/2024 12:24 PM TITLE CAMERA OPERATOR) Herpes Simplex Virus 1 PCR CSF Not detected Not detected 07/10/2024 5:52 PM TITLE CAMERA OPERATOR [facility] Herpes Simplex Virus 2 PCR CSF Not detected Not detected 07/10/2024 5:52 PM TITLE CAMERA OPERATOR [facility] Microbiology CEREBROSPINAL FLUID SPECIMEN / Unknown Collection / Unknown 07/10/2024 12:24 PM TITLE CAMERA OPERATOR 07/10/2024 1:26 PM TITLE CAMERA OPERATOR Claus Wallace III, MD LAB - MICROBIOLO GY ORDERABLES Performing Organization Address City/[facility]/ZIP Co de Phone Number [facility] [address] [place] [address], [facility] [phone] * CULTURE AFB+SMEAR (07/10/2024 12:24 PM TITLE CAMERA OPERATOR) Culture No acid-fast bacillus isolated 08/18/2024 8:42 AM [facility] AFB Smear No acid-fast bacilli seen 08/18/2024 8:42 AM [facility] Microbiology CEREBROSPINAL FLUID SPECIMEN / Unknown Collection / Unknown 07/10/2024 12:24 PM TITLE CAMERA OPERATOR 07/11/2024 4:05 AM TITLE CAMERA OPERATOR Claus Wallace III, MD LAB - MICROBIOLO GY ORDERABLES [facility] [address] [place] [address], [facility] [phone] * (ABNORMAL) CELL COUNT W DIFFERENTIAL CSF (07/10/2024 12:24 PM TITLE CAMERA OPERATOR) Tube Number TUBE 1 07/10/2024 12:[address] [facility] Xanthochromia ABSENT ABSENT 07/10/2024 12:[address] [facility] CSF Appearance HAZY 07/10/2024 12:[address] [facility] CSF Color PINK 07/10/2024 12:[address] [facility] Total Nucleated Cells CSF 0 <=5 x10E6/L 07/10/2024 12:[address] [facility] Comment:TNC less than or equ al to 5. No differential reported per policy. RBC Count CSF 2,650(H) <1 x10E6/L 07/10/2024 12:[address] [facility] Cerebral spinal fluid CEREBROSPINAL FLUID SPECIMEN / Unknown Collection / Unknown 07/10/2024 12:24 PM TITLE CAMERA OPERATOR 07/10/2024 12:31 PM TITLE CAMERA OPERATOR Claus Wallace III, MD LAB - BODY FLUID ORDERABLES [facility] [address] [place] [address], [place] [phone] * (ABNORMAL) PROTEIN CSF (07/10/2024 12:24 PM TITLE CAMERA OPERATOR) Protein CSF 50(H) 15 - 45 mg/dL 07/10/2024 1:[address] [facility] Cerebral spinal fluid CEREBROSPINAL FLUID SPECIMEN / Unknown Collection / Unknown 07/10/2024 12:24 PM TITLE CAMERA OPERATOR 07/10/2024 12:31 PM TITLE CAMERA OPERATOR Claus Wallace III, MD LAB - BODY FLUID ORDERABLES Performing Organization Address City/[facility]/ZIP Co de Phone Number [address] [address], [facility] [phone] * GLUCOSE CSF (07/10/2024 12:24 PM TITLE CAMERA OPERATOR) Glucose CSF 54 40 - 70 mg/dL 07/10/2024 1:09 PM TITLE CAMERA OPERATOR [facility] Cerebral spinal fluid CEREBROSPINAL FLUID SPECIMEN / Unknown Collection / Unknown 07/10/2024 12:24 PM TITLE CAMERA OPERATOR 07/10/2024 12:31 PM TITLE CAMERA OPERATOR Claus Wallace III, MD LAB - BODY FLUID ORDERABLES Performing Organization Address [facility]/ZIP Co de Phone Number [address] [address], [facility] [phone] * FL Lumbar Puncture (07/10/2024 12:22 PM TITLE CAMERA OPERATOR) Anatomical Region Laterality Modality Spine Digital Radiogra phy 07/11/2024 1:11 PM TITLE CAMERA OPERATOR Impressions 07/12/2024 7:15 PM TITLE CAMERA OPERATOR IMPRESSION: Successful lumbar puncture under fluoroscopic guidance at L3-L4 with removal of CSF for diagnostic studies as described above. I, Dr. Carolyn Islas, was present and performed/supervised the entire procedure. This preliminary report was dictated by Giovany Austin MD (DR/IR Resident). > Dictated by Giovany Austin MD (Reduction Furnace Operator Helper) 07/11/2024 1:11 PM ICarolyn MD have personally reviewed and interpreted this examination/study. > Interpreting Provider: Carolyn Islas MD on 07/12/2024 7:15 PM Narrative 07/12/2024 7:15 PM TITLE CAMERA OPERATOR PROCEDURE: FL LUMBAR PUNCTURE, DATE/TIME OF EXAM: 07/10/2024 12:27 PM, LOCATION [facility] INDICATION: R29.818: Suspected infectious meningitis ADDITIONAL [...] DATE/TIME OF EXAM: 07/10/2024 12:27 PM, LOCATION [facility] INDICATION: R29.818: Suspected infectious meningitis ADDITIONAL [...] for local anesthesia. Under intermittent fluoroscopic guidance, [id number] 3.5 spinal needle was ultimately guided into [...] Resident). > Dictated by Giovany Austin MD (Reduction Furnace Operator Helper) 07/11/2024 1:11 PM Carolyn Gauthier MD have personally reviewed and interpreted this examination/study. > Interpreting Provider: Carolyn Islas MD on 07/12/2024 7:15 PM Claus Wallace III, MD FLUOROSCOPY MANI LUTHER * IV PLACEMENT PERFORMABLE (07/10/2024 10:11 AM TITLE CAMERA OPERATOR) Narrative Floresita Blanton APRN-CRNA - 07/10/2024 10:11 AM TITLE CAMERA OPERATOR lForesita Blanton APRN-CRNA 07/10/2024 10:12 AM Peripheral IV Line Placement: Patient Location: OR Insertion Time: 07/10/2024 9:37 AM Procedure: IV start ([id number]) Procedure Section: Skin Prep: alcohol. Orientation: left Location: hand Local Anesthetic Used? No Catheter Gauge: 20 Number of Attempts: 1. Procedure Tolerance: performed while patient under general anesthesia. Staff Section Anesthesia Provider: Emelyn Badillo MD, Performed the procedure Provider #1: Floresita Blanton APRN-CRNA. Emelyn Badillo MD GENERAL ANESTHESIA O RDERABLES * (ABNORMAL) PT-INR [facility] (07/08/2024 9:25 AM TITLE CAMERA OPERATOR) Only the most recent of2 resultswithin the time period is included. PT 15.2(H) 12.1 - 14.8 Seconds 07/08/2024 10:37 AM [facility] INR 1.2 See Comment 07/08/2024 10:37 AM [facility] Comment:The suggested therap eutic range for standard coumadin (warfarin) therapy is an INR of 2.0-3.0. For high-risk patients (Mechanical Mitral Valve Prosthesis, etc.), the suggested prophylactic therapeutic range is an INR of 2.5-3.5. Blood BLOOD SPECIMEN / Unknown Lab Venipuncture / Unknown 07/08/2024 9:25 AM TITLE CAMERA OPERATOR 07/08/2024 9:51 AM TITLE CAMERA OPERATOR Claus Wallace III, MD LAB - COAGULATIO N ORDERABLES Performing Organization Address [facility] Co de Phone Number [address] [address], [facility] [phone] * VANCOMYCIN LEVEL TROUGH (07/06/2024 10:18 PM TITLE CAMERA OPERATOR) Only the most recent of3 resultswithin the time period is included. [facility] Vancomycin Trough 14.8 10.0 - 20.0 ug/mL 07/06/2024 10:52 PM TITLE CAMERA OPERATOR [facility] Blood BLOOD SPECIMEN / Unknown Lab Venipuncture / Unknown 07/06/2024 10:18 PM TITLE CAMERA OPERATOR 07/06/2024 10:23 PM TITLE CAMERA OPERATOR Narrative [facility] - 07/06/2024 10:52 PM TITLE CAMERA OPERATOR See institution protocol. Claus Wallace III, MD LAB - CHEMISTRY ORDERABLES Performing Organization Address [facility] de Phone Number [address] [address], [facility] [phone] * EKG 12-LEAD (07/06/2024 4:59 PM TITLE CAMERA OPERATOR) Only the most recent of5 resultswithin the time period is included. Ventricular Rate 82 BPM [facility] Atrial Rate 82 BPM [facility] MUSE P-R Interval 140 ms [facility] MUSE QRS Duration ms 76 ms [facility] Q-T Interval ms 410 ms [facility] QTC Calculation (Bezet) 479 ms [facility] Calculated P [place] 60 degrees [facility] Calculated R [place] 52 degrees [facility] Calculated T [place] 73 degrees [facility] Interpretation EKG NORMAL SINUS RHYTHM SEPTAL INFARCT , AGE UNDETERMINED ABNORMAL ECG WHEN COMPARED WITH ECG OF 01-JUL-2024 06:40, PREVIOUS ECG HAS UNDETERMINED RHYTHM, NEEDS REVIEW SEPTAL INFARCT IS NOW PRESENT Confirmed by RACQUEL SUN MD ([id number]) on 07/09/2024 2:32:01 PM [facility] MUSE 07/06/2024 4:59 PM TITLE CAMERA OPERATOR 07/09/2024 2:32 PM TITLE CAMERA OPERATOR Claus Wallace III, MD ECG ORDERABLES Performing Organization Address [facility]/ZIP Co de Phone Number [facility] MUSE * CRYPTOCOCCUS ANTIGEN BLOOD (07/06/2024 3:15 AM TITLE CAMERA OPERATOR) Cryptococcus Antigen Negative Negative 07/06/2024 9:24 AM TITLE CAMERA OPERATOR [facility] Blood BLOOD SPECIMEN / Unknown Lab Venipuncture / Unknown 07/06/2024 3:15 AM TITLE CAMERA OPERATOR 07/06/2024 3:53 AM TITLE CAMERA OPERATOR Claus Wallace III, MD LAB - SEROLOGY O RDERABLES Performing Organization Address [facility] Co de Phone Number [facility] [address] [place] [address], [facility] [phone] * URINALYSIS REFLEX TO MICROSCOPIC NO CULTURE (07/05/2024 11:07 PM TITLE CAMERA OPERATOR) Color UA Straw Straw, Yellow 07/05/2024 11:[address] [facility] Clarity UA Clear Clear 07/05/2024 11:[address] [facility] Specific [place] UA 1.006 1.005 - 1.030 07/05/2024 11:[address] [facility] pH UA 7.0 5.0 - 8.0 pH 07/05/2024 11:[address] [facility] Protein UA Negative Negative 07/05/2024 11:[address] [facility] Glucose UA Negative Negative 07/05/2024 11:[address] [facility] Ketone UA Negative Negative 07/05/2024 11:[address] [facility] Bilirubin UA Negative Negative 07/05/2024 11:[address] [facility] Blood UA Negative Negative 07/05/2024 11:[address] [facility] Nitrite UA Negative Negative 07/05/2024 11:[address] [facility] Leukocyte Esterase Negative Negative 07/05/2024 11:[address] [facility] Urobilinogen UA Negative Negative mg/dL 07/05/2024 11:[address] [facility] RBC UA 0-2 None Seen, 0-2, 3-5 /HPF 07/05/2024 11:[address] [facility] WBC UA 0-5 None Seen, 0-5 /HPF 07/05/2024 11:[address] [facility] Squamous Epithelial Cells UA None Seen None Seen, 0-2, 3-5 /HPF 07/05/2024 11:[address] [facility] Mucus UA 1+ /LPF 07/05/2024 11:[address] [facility] Urine URINE SPECIMEN OBTAINED BY CLEAN CATCH PROCEDURE / Unknown Collection / Unknown 07/05/2024 11:07 PM TITLE CAMERA OPERATOR 07/05/2024 11:07 PM TITLE CAMERA OPERATOR Narrative [facility] - 07/05/2024 11:17 PM TITLE CAMERA OPERATOR Claus Wallace III, MD LAB - URINALYSIS ORDERABLES [facility] [address] [place] [address], [facility] [phone] * CT Chest Wo Contrast (07/05/2024 3:28 PM TITLE CAMERA OPERATOR) Anatomical Region Laterality Modality Chest Computed Tomogra phy 07/06/2024 11:4 0 AM TITLE CAMERA OPERATOR Impressions 07/06/2024 11:47 AM TITLE CAMERA OPERATOR IMPRESSION: No acute findings in the chest. Mild dependent atelectasis are reidentified in both lungs. > Interpreting Provider: Jennie Rollins MD on 07/06/2024 11:47 AM Narrative 07/06/2024 11:47 AM TITLE CAMERA OPERATOR PROCEDURE: CT CHEST WO CONTRAST DATE/TIME OF [...] > Interpreting Provider: Jennie Rollins MD on 1:47 AM Claus Wallace III, MD CT ORDERABLES * CULTURE BLOOD FUNGUS (07/05/2024 1:47 PM TITLE CAMERA OPERATOR) Pathologist [facility] Culture No fungus isolated FRANCOISE 08/29/2024 11:22 AM TITLE CAMERA OPERATOR [facility] Blood PERIPHERAL BLOOD / Unknown Lab Venipuncture / Unknown 07/05/2024 1:47 PM TITLE CAMERA OPERATOR 07/05/2024 2:16 PM TITLE CAMERA OPERATOR Claus Wallace III, MD LAB - MICROBIOLO GY ORDERABLES [facility] [address] [place], [address] [phone] * CYCLIC CITRUL PEPTIDE ANTIBODY IGG/IGA (CCP) (07/05/2024 3:04 AM TITLE CAMERA OPERATOR) [facility] CCP Antibodies IgG/IgA 5 0 - 19 units 07/10/2024 3:07 PM TITLE CAMERA OPERATOR [facility] ([facility]) Comment: Negative <20 Weak positive 20 - 39 Moderate positive 40 - 59 Strong positive >59 Blood BLOOD SPECIMEN / Unknown Lab Venipuncture / Unknown 07/05/2024 3:04 AM TITLE CAMERA OPERATOR 07/05/2024 5:36 AM TITLE CAMERA OPERATOR Narrative [facility] ([facility]) - 07/10/2024 3:07 PM TITLE CAMERA OPERATOR Performed at: 01 - [facility] [address] [place], [place] [id number] Carburetor Rebuilder: Jonathan Moore PhD, Phone: [phone] Elder Rhoades MD LAB - SEROLOGY ORDER BABITA Performing Organization Address City/[facility]/ZIP Co de Phone Number [facility] ([facility]) [address] [place] [address] * MYCOPLASMA PNEUMONIAE AB IGM (07/05/2024 3:04 AM TITLE CAMERA OPERATOR) Pathologist [facility] Mycoplasma Antibody IgM 0.04 <=0.76 U/L 07/08/2024 12:31 PM TITLE CAMERA OPERATOR [facility]) Comment: INTERPRETIVE INFORMATION: Mycoplasma pneumoniae Ab, [...] more than 12 months post-infection. Performed By: [facility] [employer] [address] [place] [address] Lap Winder: Caden Hanna MD, PhD CLIA Number: [id number] Blood BLOOD SPECIMEN / Unknown Lab Venipuncture / Unknown 07/05/2024 3:04 AM TITLE CAMERA OPERATOR 07/05/2024 5:36 AM TITLE CAMERA OPERATOR Elder Rhoades MD LAB - SEROLOGY ORDER BABITA Performing Organization Address City/[facility]/ZIP Co de Phone Number [facility]) [address] [place], [place] [address] * RHEUMATOID FACTOR BLOOD QUANTITATIVE (07/05/2024 3:04 AM TITLE CAMERA OPERATOR) [facility] Rheumatoid Factor <15 <30 IU/mL 07/05/2024 5:46 AM TITLE CAMERA OPERATOR [facility] Rheumatoid Factor Screen Negative Negative 07/05/2024 5:46 AM TITLE CAMERA OPERATOR [facility] Blood BLOOD SPECIMEN / Unknown Lab Venipuncture / Unknown 07/05/2024 3:04 AM TITLE CAMERA OPERATOR 07/05/2024 5:36 AM TITLE CAMERA OPERATOR Elder Rhoades MD LAB - CHEMISTRY MANI LUTHER [address] [place] [address], [facility] [phone] * KAYLEY BLOOD SCREEN W/REFLEX TITER (07/05/2024 3:04 AM TITLE CAMERA OPERATOR) [facility] KAYLEY IgG None Detected None Detected 07/07/2024 7:04 AM TITLE CAMERA OPERATOR [facility] [employer] ([facility]) Comment: If suspicion of connective tissue disease is strong and KAYLEY EIA is negative, consider testing for KAYLEY by IFA ([id number]). INTERPRETIVE INFORMATION: Anti-Nuclear Antibodies (KAYLEY), IgG by JESSICA Antinuclear Antibodies (KAYLEY), IgG by JESSICA: KAYLEY specimens are screened using enzyme-linked immunosorbent assay (JESSICA) methodology. All JESSICA results reported as Detected are further tested by indirect fluorescent assay (IFA) using HEp-2 substrate with an IgG-specific conjugate. The KAYLEY JESSICA screen is designed to detect antibodies against dsDNA, histones, SS-A (Ro), SS-B (La), Brunner, Brunner/NOTE TELLER, Scl-70, Zeynep-1, centromeric proteins, other antigens extracted from the HEp-2 cell nucleus. KAYLEY JESSICA assays have been reported to have lower sensitivities than KAYLEY IFA for systemic autoimmune rheumatic diseases (SARD). Negative results do not necessarily rule out SARD. Performed by [email or web address], [address] [place] [address] [email or web address], Esequiel Corrigan MD, Lab. Director CLIA Number: [id number] Blood BLOOD SPECIMEN / Unknown Lab Venipuncture / Unknown 07/05/2024 3:04 AM TITLE CAMERA OPERATOR 07/05/2024 5:36 AM TITLE CAMERA OPERATOR Elder Rhoades MD LAB - CHEMISTRY MANI LUTHER [facility] Organization Address City/State/ZIP Co de Phone Number [facility] [employer] [facility]) [address] * DNA ANTIBODY DOUBLE STRANDED (07/05/2024 3:04 AM TITLE CAMERA OPERATOR) Pathologist [facility] dsDNA Antibody 4 0 - 24 IU 07/07/2024 11:44 PM TITLE CAMERA OPERATOR [facility] [employer] ([facility]) Comment: INTERPRETIVE INFORMATION: Double-Stranded DNA (dsDNA) Ab IgG JESSICA 24 IU or less........Negative 25-30 IU.............Borderline Positive 30-60 IU.............Low Positive 60-200 IU............Positive 201 IU or greater....Strong Positive Positivity for anti-double stranded DNA (anti-dsDNA) IgG antibody is a diagnostic criterion of systemic lupus erythematosus (SLE). Specimens are initially screened by enzyme-linked immunosorbent assay (JESSICA). If ordered as reflex ([id number]), positive JESSICA results (>24 IU) will be [...] recommendations for testing may be found at https://[employer]/content/[email or web address]-[email or web address]-[email or web address]. Performed by [email or web address], [address] [place] [address] [email or web address], Esequiel Corrigan MD, Lab. Director CLIA Number: [id number] Blood BLOOD SPECIMEN / Unknown Lab Venipuncture / Unknown 07/05/2024 3:04 AM TITLE CAMERA OPERATOR 07/05/2024 5:36 AM TITLE CAMERA OPERATOR Elder Rhoades MD LAB - HEMATOLOGY ORD ERABLES Performing Organization Address City/[facility]/ZIP Co de Phone Number [facility] ([facility]) [address] [place] [id number] * COMPLEMENT C4 (07/05/2024 3:04 AM TITLE CAMERA OPERATOR) Pathologist [facility] Complement C4 30 15 - 57 mg/dL 07/05/2024 5:46 AM TITLE CAMERA OPERATOR [facility] Blood BLOOD SPECIMEN / Unknown Lab Venipuncture / Unknown 07/05/2024 3:04 AM TITLE CAMERA OPERATOR 07/05/2024 5:21 AM TITLE CAMERA OPERATOR Elder Rhoades MD LAB - SEROLOGY ORDER BABITA [address] [address], [facility] [phone] * COMPLEMENT C3 (07/05/2024 3:04 AM TITLE CAMERA OPERATOR) Complement C3 128 82 - 193 mg/dL 07/05/2024 5:46 AM TITLE CAMERA OPERATOR [facility] Blood BLOOD SPECIMEN / Unknown Lab Venipuncture / Unknown 07/05/2024 3:04 AM TITLE CAMERA OPERATOR 07/05/2024 5:21 AM TITLE CAMERA OPERATOR Elder Rhoades MD LAB - CHEMISTRY MANI LUTHER Performing Organization Address City/[facility]/ZIP Co de Phone Number [address] [address], [facility] [phone] * ECHO COMPLETE W CONTRAST (07/04/2024 3:39 PM TITLE CAMERA OPERATOR) LVOT diam 2.103 cm [facility] CV FUJ [...] Laterality Modality Ultrasound 07/04/2024 11:0 5 AM TITLE CAMERA OPERATOR Narrative 07/04/2024 4:14 PM TITLE CAMERA OPERATOR Summary * Technically difficult study, most measurements [...] Exam Date: 07/04/2024 11:05 AM Exam Room: [facility] Patient Status: I/P Study Site: [facility] Primary Location: [facility] Info Technical Quality: Technically Difficult Exam Type: [...] Provider: Elder Rhoades Attending Physician: Elder Rhoades Hydrometeorology Teacher: Gin Gunderson RDCS Left Ventricle Left [...] Exam Date: 07/04/2024 11:05 AM Exam Room: [facility] Patient Status: I/P Study Site: [facility] Primary Location: [facility] EStudy Info Technical Quality: Technically Difficult [...] Provider: Elder Rhoades Attending Physician: Elder Rhoades Hydrometeorology Teacher: Gin Gunderson RDCS Left Ventricle Left [...] MRI Brain Wo Contrast (07/03/2024 4:02 PM TITLE CAMERA OPERATOR) Anatomical Region Laterality Modality Head Magnetic Resonan ce 07/04/2024 9:44 AM TITLE CAMERA OPERATOR Impressions 07/04/2024 10:02 AM TITLE CAMERA OPERATOR IMPRESSION: Limited study as described above no evidence of acute infarction or acute findings in the limits of the study. > Interpreting Provider: Carolyn Islas MD on 07/04/2024 10:02 AM Narrative 07/04/2024 10:02 AM TITLE CAMERA OPERATOR PROCEDURE: MRI BRAIN WO CONTRAST, DATE/TIME OF EXAM: 07/03/2024 4:02 PM, LOCATION [facility] INDICATION: R29.818: Suspected infectious meningitis ADDITIONAL [...] CONTRAST, DATE/TIME OF EXAM: 07/03/2024 4:02PM, LOCATION [facility] INDICATION: R29.818: Suspected infectious meningitis ADDITIONAL [...] ORDERABLES * CULTURE BLOOD (07/03/2024 2:05 PM TITLE CAMERA OPERATOR) Only the most recent of4 resultswithin the time period is included. Culture No growth day 5 FRANCOISE 07/08/2024 7:01 PM TITLE CAMERA OPERATOR [facility] Blood PERIPHERAL BLOOD / Unknown Lab Venipuncture / Unknown 07/03/2024 2:05 PM TITLE CAMERA OPERATOR 07/03/2024 2:22 PM TITLE CAMERA OPERATOR Elder Rhoades MD LAB - MICROBIOLOGY O RDGEORGE Performing Organization Address [facility]/ZIP Co de Phone Number [facility] [address] [place] [address], [facility] [phone] * CULTURE SPUTUM+GRAM STAIN (07/03/2024 11:22 AM TITLE CAMERA OPERATOR) Culture Light normal oropharyngeal marquez FRANCOISE 07/05/2024 6:23 AM TITLE CAMERA OPERATOR [facility] Gram Stain <10 per low power field Squamous epithelial cells 07/05/2024 6:23 AM TITLE CAMERA OPERATOR [facility] Gram Stain >= 25 per low power field Polymorphonuclear cells 07/05/2024 6:23 AM TITLE CAMERA OPERATOR [facility] Gram Stain Rare Gram-positive cocci 07/05/2024 6:23 AM [facility] Microbiology SPUTUM / Unknown Collection / Unknown 07/03/2024 11:22 AM TITLE CAMERA OPERATOR 07/03/2024 12:13 PM TITLE CAMERA OPERATOR Elder Rhoades MD LAB - MICROBIOLOGY O BRITTANEY Performing Organization Address [facility]/ZIP Co de Phone Number [facility] [address] [facility] [place] [address], [facility] [phone] * SARS-COV-2 (COVID-19) FLU A/B RSV PCR RAPID (07/02/2024 4:50 PM TITLE CAMERA OPERATOR) COVID-19 PCR Not detected Not detected 07/02/20 5:32 PM TITLE CAMERA OPERATOR [facility] Influenza A PCR Not detected Not detected 07/02/2024 5:32 PM TITLE CAMERA OPERATOR [facility] Influenza B PCR Not detected Not detected 07/02/2024 5:32 PM TITLE CAMERA OPERATOR [facility] RSV PCR Not detected Not detected 07/02/2024 5:32 PM TITLE CAMERA OPERATOR [facility] Microbiology SPECIMEN FROM NASOPHARYNGEAL STRUCTURE / Unknown Collection / Unknown 07/02/2024 4:50 PM TITLE CAMERA OPERATOR 07/02/2024 4:51 PM TITLE CAMERA OPERATOR Narrative [facility] - 07/02/2024 5:32 PM TITLE CAMERA OPERATOR This nucleic acid amplification assay has been [...] Rhoades MD LAB - MICROBIOLOGY O RDERABLES [facility] [address] [place] [address], [facility] [phone] * XR Chest 1Vw Portable (07/02/2024 11:58 AM TITLE CAMERA OPERATOR) Only the most recent of2 resultswithin the time period is included. Anatomical Region Laterality Modality Chest Digital Radiogra phy 07/02/2024 1:34 PM TITLE CAMERA OPERATOR Impressions 07/02/2024 1:35 PM TITLE CAMERA OPERATOR IMPRESSION: There is elevation of left hemidiaphragm with lower lung atelectasis. No pleural effusion or pneumothorax. The cardiomediastinal silhouette is unchanged. Aorta is atherosclerotic. There is an impacted fracture of the right humeral head. > Interpreting Provider: Gabo Gallegos MD on 07/02/2024 1:35 PM Narrative 07/02/2024 1:35 PM TITLE CAMERA OPERATOR PROCEDURE: XR CHEST 1VW PORTABLE DATE/TIME OF [...] (ABNORMAL) RENAL FUNCTION PANEL (07/01/2024 11:26 PM TITLE CAMERA OPERATOR) Only the most recent of2 resultswithin the time period is included. BUN 14 7 - 26 mg/dL 07/02/2024 12:[address] [facility] Creatinine 0.63(L) 0.71 - 1.16 mg/dL 07/02/2024 12:[address] [facility] Sodium 143 136 - 145 mmol/L 07/02/2024 12:[address] [facility] Potassium 3.7 3.5 - 4.5 mmol/L 07/02/2024 12:[address] [facility] Chloride 109(H) 98 - 107 mmol/L 07/02/2024 12:[address] [facility] CO2 23 22 - 29 mmol/L 07/02/2024 12:[address] [facility] Glucose 90 70 - 99 mg/dL 07/02/2024 12:[address] [facility] Albumin 2.5(L) 3.4 - 5.0 g/dL 07/02/2024 12:[address] [facility] Calcium 8.4 8.4 - 10.2 mg/dL 07/02/2024 12:[address] [facility] Phosphorus 2.6(L) 2.8 - 5.1 mg/dL 07/02/2024 12:[address] [facility] Anion Gap 11 6 - 16 07/02/2024 12:[address] [facility] BUN/Creatinine Ratio 22 7 - 23 07/02/2024 12:12 AM [facility] Osmolality Calculated 296(H) 275 - 295 mOsm/kg 07/02/2024 12:12 AM TITLE CAMERA OPERATOR [facility] eGFR by CKD-EPI >90 >=90 mL/min/1.7 3 m2 07/02/2024 12:12 AM TITLE CAMERA OPERATOR [facility] Blood BLOOD SPECIMEN / Unknown Venipuncture / Unknown 07/01/2024 11:26 PM TITLE CAMERA OPERATOR 07/01/2024 11:44 PM TITLE CAMERA OPERATOR Elder Rhoades MD LAB - CHEMISTRY MANI LUTHER [facility] [address] [place] [address], [facility] [phone] * CT Head Wo Contrast (07/01/2024 8:22 AM TITLE CAMERA OPERATOR) Anatomical Region Laterality Modality Head Computed Tomogra phy 07/01/2024 8:19 AM TITLE CAMERA OPERATOR Impressions 07/01/2024 9:27 AM TITLE CAMERA OPERATOR IMPRESSION: 1.No acute intracranial hemorrhage, large vascular territorial infarct, or mass effect identified. Please note that MRI is more sensitive for evaluation of small acute ischemic infarcts. This preliminary report was dictated by Giovany Austin MD (DR/IR Resident). I, Carolyn Islas MD have personally reviewed and interpreted this examination/study. > Interpreting Provider: Carolyn Islas MD on 07/01/2024 9:27 AM Narrative 07/01/2024 9:27 AM TITLE CAMERA OPERATOR PROCEDURE: CT HEAD WO CONTRAST, DATE/TIME OF EXAM: 07/01/2024 8:23 AM, LOCATION [facility] INDICATION: I48.91: Atrial fibrillation, unspecified type [...] DATE/TIME OF EXAM: 07/01/2024 8:23 AM, LOCATION [facility] INDICATION: I48.91: Atrial fibrillation, unspecified type [...] - POINT OF CARE (07/01/2024 7:36 AM TITLE CAMERA OPERATOR) Glucose WB/POC 84 70 - 99 mg/dL 07/01/2024 2:10 PM TITLE CAMERA OPERATOR [facility] Specimen Type Cap Fingerstick 2023 2:10 PM TITLE CAMERA OPERATOR [facility] Blood BLOOD SPECIMEN / Unknown 07/01/2024 7:36 AM TITLE CAMERA OPERATOR 07/01/2024 2:10 PM TITLE CAMERA OPERATOR Elder Rhoades MD LAB - POINT OF CARE ORDERABLES [facility] [address] [place] [address], [facility] [phone] * (ABNORMAL) BLOOD GASES JOSE MIGUEL + COOX PANEL (07/01/2024 7:31 AM TITLE CAMERA OPERATOR) pH Venous 7.45(H) 7.32 - 7.42 pH 07/01/2024 7:[address] [facility] pO2 Venous 147(H) 35 - 40 mmHg 07/01/2024 7:[address] [facility] pCO2 Venous 33(L) 40 - 50 mmHg 07/01/2024 7:[address] [facility] HCO3 Venous 22.9 20 - 30 mmol/L 07/01/2024 7:[address] [facility] Base Excess Venous -0.7 -2.0 - 2.0 mmol/L 07/01/2024 7:[address] [facility] Oxyhemoglobin Venous 97.0 % 06/09 7:[address] [facility] Deoxyhemoglobin (HHB) Venous % <1.0 % 07/01/2024 7:[address] [facility] Methemoglobin 1.0 0.0 - 2.0 % 07/01/2024 7:[address] [facility] Carboxyhemoglobin 2.1(H) 0.0 - 2.0 % 2023 7:[address] [facility] O2 Content Venous 13.8 Interpret within clinical context ml/dL 07/01/2024 7:[address] [facility] Hemoglobin by COOX 9.9(L) 12.0 - 17.6 g/dL 07/01/2024 7:[address] [facility] O2 Saturation Venous 100 >=70 % 06/09 7:[address] [facility] FI O2 Mixed Venous 21.0 % 2023 7:[address] [facility] Blood BLOOD SPECIMEN / Unknown Venipuncture / Unknown 07/01/2024 7:31 AM TITLE CAMERA OPERATOR 07/01/2024 7:35 AM [facility] - 07/01/2024 7:38 AM [facility] Carboxyhemoglobin Normal Concentration: Non-smokers: 0-2%; Smokers: 0-9%; Toxic: >20% Elder Rhoades MD LAB - BLOOD GASES OR DERABLES Performing Organization Address [facility] Co de Phone Number [facility] [address] [place] [id number] [phone] * (ABNORMAL) DIFFERENTIAL MANUAL (07/01/2024 7:31 AM [facility]) Neutrophil % 77(H) 41 - 74 % 07/01/2024 8:[address] [facility] Lymphocyte % 15(L) 17 - 47 % 07/01/2024 8:[address] [facility] Monocyte % 4 3 - 11 % 07/01/2024 8:[address] [facility] Eosinophil % 3 0 - 7 % 07/01/2024 8:[address] [facility] Basophil % 1 0 - 2 % 07/01/2024 8:[address] [facility] Neutrophil Absolute 7.24 1.60 - 7.50 x10E9/L 07/01/2024 8:[address] [facility] Lymphocyte Absolute 1.41 1.00 - 4.40 x10E9/L 07/01/2024 8:[address] [facility] Monocyte Absolute 0.38 0.15 - 1.00 x10E9/L 07/01/2024 8:[address] [facility] Eosinophil Absolute 0.28 0.00 - 0.60 x10E9/L 07/01/2024 8:[address] [facility] Basophil Absolute 0.09 0.00 - 0.13 x10E9/L 07/01/2024 8:[address] [facility] RBC Morphology REVIEWED 07/01/2024 8:[address] [facility] Mesick Cells MODERATE(A) (none) 07/01/2024 8:[address] [facility] Blood BLOOD SPECIMEN / Unknown Venipuncture / Unknown 07/01/2024 7:31 AM TITLE CAMERA OPERATOR 07/01/2024 7:37 AM TITLE CAMERA OPERATOR Elder Rhoades MD LAB - HEMATOLOGY ORD ERABLES [facility] [address] [place] [address], [facility] [phone] * (ABNORMAL) CBC W AUTO DIFFERENTIAL (07/01/2024 7:31 AM TITLE CAMERA OPERATOR) WBC 9.4 4.0 - 10.7 x10E9/L 07/01/2024 8:[address] [facility] RBC Count 3.05(L) 4.30 - 5.80 x10E12/L 07/01/2024 8:[address] [facility] Hemoglobin 9.2(L) 13.3 - 17.5 g/dL 07/01/2024 8:[address] [facility] Hematocrit 27.2(L) 38.7 - 51.1 % 07/01/2024 8:[address] [facility] MCV 89.2 80.0 - 98.0 fL 07/01/2024 8:[address] [facility] MCH 30.2 26.7 - 33.6 pg 07/01/2024 8:[address] [facility] MCHC 33.8 31.7 - 36.3 g/dL 07/01/2024 8:[address] [facility] RDW-CV 12.7 11.3 - 14.8 % 07/01/2024 8:[address] [facility] Platelet Count 222 150 - 420 x10E9/L 07/01/2024 8:[address] [facility] MPV 8.6 7.8 - 11.4 fL 07/01/2024 8:[address] [facility] Blood BLOOD SPECIMEN / Unknown Venipuncture / Unknown 07/01/2024 7:31 AM TITLE CAMERA OPERATOR 07/01/2024 7:37 AM TITLE CAMERA OPERATOR Elder Rhoades MD LAB - HEMATOLOGY ORD ERABLES [facility] [address] [place] [address], [facility] [phone] * LACTIC ACID BLOOD (07/01/2024 7:31 AM TITLE CAMERA OPERATOR) Lactic Acid-Stat 0.7 <=2.0 mmol/L 07/01/2024 8:05 AM TITLE CAMERA OPERATOR [facility] Blood BLOOD SPECIMEN / Unknown Venipuncture / Unknown 07/01/2024 7:31 AM TITLE CAMERA OPERATOR 07/01/2024 7:37 AM TITLE CAMERA OPERATOR Elder Rhoades MD LAB - CHEMISTRY ORDE ASHKAN [facility] [address] [place] [address], [facility] [phone] * XR Elbow Right 2Vw (06/30/2024 4:29 PM TITLE CAMERA OPERATOR) Anatomical Region Laterality Modality Upper Extremity Digital Radiogra phy 07/01/2024 10:1 8 AM TITLE CAMERA OPERATOR Impressions 07/01/2024 1:04 PM TITLE CAMERA OPERATOR IMPRESSION: No definite fracture. If there are symptoms referable to this site, consider further evaluation with CT. 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 > Interpreting Provider: Marisol Charlton MD on 07/01/2024 1:04 PM Narrative 07/01/2024 1:04 PM TITLE CAMERA OPERATOR PROCEDURE: XR ELBOW RIGHT 2VW DATE/TIME OF [...] blank. Indication: I48.91: Atrial fibrillation, unspecified type ([facility]) Additional History: Humerus fracture COMPARISON: None. FINDINGS: [...] Shoulder Right Wo Contrast (06/30/2024 3:02 PM TITLE CAMERA OPERATOR) Anatomical Region Laterality Modality Upper Extremity Computed Tomogra phy 06/30/2024 3:36 PM TITLE CAMERA OPERATOR Impressions 06/30/2024 3:47 PM TITLE CAMERA OPERATOR IMPRESSION: Moderately displaced, comminuted fracture of the humeral head and neck. > Interpreting Provider: Feng Ybarra MD on 06/30/2024 3:47 PM Narrative 06/30/2024 3:47 PM TITLE CAMERA OPERATOR PROCEDURE: CT SHOULDER RIGHT WO CONTRAST DATE/TIME OF EXAM: 06/30/2024 3:03 PM CLINICAL INFORMATION: None relevant/not provided if blank. Indication: S72.001A: Closed fracture dislocation of right hip joint, initial encounter ([facility]) Additional History: COMPARISON: No prior right shoulder [...] dislocation of right hip joint, initial encounter ([facility]) Additional History: COMPARISON: No prior right shoulder [...] Abdomen Pelvis W Cont (06/30/2024 3:02 PM TITLE CAMERA OPERATOR) Anatomical Region Laterality Modality Chest, Abdomen, Pelvis Computed Tomography 07/01/2024 7:20 AM TITLE CAMERA OPERATOR Impressions 07/01/2024 9:56 AM TITLE CAMERA OPERATOR Impression: Study is significantly degraded by motion [...] L3. > Dictated by Steven Harrison MD, (vice president sales). IJennie MD have personally reviewed and interpreted this examination/study. > Interpreting Provider: Jennie Rollins MD on 07/01/2024 9:56 AM Narrative 07/01/2024 9:56 AM TITLE CAMERA OPERATOR PROCEDURE: CT CHEST ABDOMEN PELVIS W CONT, DATE/TIME OF EXAM: 06/30/2024 3:03 PM, LOCATION [facility] INDICATION: R29.818: Suspected infectious meningitis ADDITIONAL [...] series 4). Soft tissues: Normal. Procedure Note PoovaJennie taylor MD - 07/01/2024 PROCEDURE: CT CHEST ABDOMEN PELVIS W CONT, DATE/TIME OF EXAM:06/30/2024 3:03 PM, LOCATION [facility] INDICATION: R29.818: Suspected infectious meningitis ADDITIONAL [...] L3. > Dictated by Steven Harrison MD, (vice president sales). I, Jennie Rollins MD have personally reviewed and interpreted this examination/study. > Interpreting Provider: Jennie Rollins MD on 49:56 AM Elder Rhoades MD CT ORDERABLES * SYPHILIS ANTIBODY CASCADING REFLEX (06/30/2024 11:46 AM TITLE CAMERA OPERATOR) Treponema pallidum Antibody Non-react cici Non-react cici 06/30/2024 1:02 PM TITLE CAMERA OPERATOR [facility] Comment: No Laboratory evidence of syphilis infection. Note: Circulating antibodies may be low or undetectable in early infection. If recent exposure is suspected, re-draw sample in 2-4 weeks and repeat testing. Blood BLOOD SPECIMEN / Unknown Lab Venipuncture / Unknown 06/30/2024 11:46 AM TITLE CAMERA OPERATOR 06/30/2024 12:01 PM TITLE CAMERA OPERATOR Elder Rhoades MD LAB - SEROLOGY ORDER BABITA [facility] [address] [address], [facility] [phone] * PHOSPHATIDYLETHANOL (PETH) (06/30/2024 11:46 AM TITLE CAMERA OPERATOR) PEth 16:0/18.1 (POPEth) <10 ng/mL 07/02/2024 9:40 AM TITLE CAMERA OPERATOR [facility] ([facility]) Comment: PEth 16:0/18:1 (POPEth) Less than 10 ng/mL............Not detected Less than 20 ng/mL............Abstinence or light alcohol consumption 20 - 200 ng/mL................Moderate alcohol consumption Greater than 200 ng/mL........Heavy alcohol consumption or chronic alcohol use (Reference: Tremayne Sidhu and Julianna Brunner 2018 J. Forensic Sci) PEth 16:0/18.2 (PLPEth) <10 ng/mL 07/02/2024 9:40 AM [facility] ([facility]) Comment:Reference ranges are not well established. EER Peth See Note 07/02/2024 9:40 AM [facility] ([facility]) Comment: Authorized individuals can access the [facility] Enhanced Report with an [employer] Connect account using the following link. Your local lab can assist you in obtaining the patient report if you don't have a Connect account. [email or web address] Interpretation PEth See Comment 07/02/2024 9:40 AM [facility] ([facility]) Comment: Phosphatidylethanol (PEth) is a group [...] developed and its performance characteristics determined by [email or web address]. It has not been cleared or approved by the U.S. Food and Drug Administration. This test was performed in a CLIA-certified laboratory and is intended for clinical purposes. Performed By: [email or web address] [address] [place] [id number] [address] Winder: Caden Hanna MD, PhD CLIA Number: [id number] Blood BLOOD SPECIMEN / Unknown Lab Venipuncture / Unknown 06/30/2024 11:46 AM TITLE CAMERA OPERATOR 06/30/2024 12:01 PM TITLE CAMERA OPERATOR Nicky Wheeler MD LAB - CHEMISTRY MANI LUTHER [facility] ([facility]) [address] [place] [address], [facility] * HIV-1 HIV-2 ANTIBODY + HIV P24 AG PANEL (06/30/2024 11:46 AM TITLE CAMERA OPERATOR) HIV Antigen/Antibod y 1 & 2 Non-reacti ve Non-react cici 06/30/2024 1:02 PM TITLE CAMERA OPERATOR [facility] Comment:No Laboratory eviden ce of HIV infection. Blood BLOOD SPECIMEN / Unknown Lab Venipuncture / Unknown 06/30/2024 11:46 AM TITLE CAMERA OPERATOR 06/30/2024 12:01 PM TITLE CAMERA OPERATOR Elder Rhoades MD LAB - CHEMISTRY MANI LUTHER Performing Organization Address City/[facility]/ZIP Co de Phone Number [facility] [address] [place] [address], [facility] [phone] * (ABNORMAL) HEMOGLOBIN A1C (06/30/2024 11:46 AM TITLE CAMERA OPERATOR) Hemoglobin A1c 5.7(H) <=5.6 % 06/30/2024 2:28 PM TITLE CAMERA OPERATOR [facility] Estimated Average Glucose 117 mg/dL 06/30/2024 2:28 PM [facility] Comment: HbA1c Interpretation: Normal : < 5.7% Pre-diabetes: 5.7-6.4% Diabetes: Equal to or greater than 6.5% Test results diagnostic of diabetes should be repeated for confirmation. Treatment target values recommended by ADA and other clinical organizations should be used to evaluate metabolic control in patients. Reference: [place] Diabetes Association, Standards of Care in Diabetes -2020 In patients 70 years and older consider HbA1c target range of 7.0-7.5% (Reference: Narciso Clinton et al. JAMDA. 2012) The Sebia assay [...] to evaluate metabolic control in patients. Reference: [place] Diabetes Association, Standards of Care in Diabetes -2020 In patients 70 years and older consider HbA1c target range of 7.0-7.5% (Reference: Narciso Clinton et al. KEIDA. 2012) The Sebia assay for the measurement of HbA1c is a National Glycohemoglobin Standardization Program (NGSP) certified method. Blood BLOOD SPECIMEN / Unknown Lab Venipuncture / Unknown 06/30/2024 11:46 AM TITLE CAMERA OPERATOR 06/30/2024 12:10 PM TITLE CAMERA OPERATOR Nicyk Wheeler MD LAB - CHEMISTRY MANI LUTHER [address] [address], [place] [phone] * (ABNORMAL) VITAMIN D 25-HYDROXY (06/30/2024 11:46 AM TITLE CAMERA OPERATOR) [facility] Vitamin D, 25 Hydroxy 28.7(L) 30.0 - 80.0 ng/mL 06/30/2024 2:04 PM TITLE CAMERA OPERATOR [facility] Comment: The recommendations for 25-Hydroxy Vitamin [...] Lab Venipuncture / Unknown 06/30/2024 11:46 AM TITLE CAMERA OPERATOR 06/30/2024 12:07 PM TITLE CAMERA OPERATOR Charley Fox PA-C LAB - CHEMIS TRY ORDERABLES Performing Organization Address City/[facility]/ZIP Co de Phone Number [address] [address], [place] [phone] * (ABNORMAL) VITAMIN B12 (06/30/2024 11:46 AM TITLE CAMERA OPERATOR) Vitamin B12 826(H) 213 - 816 pg/mL 06/30/2024 1:01 PM TITLE CAMERA OPERATOR [facility] Blood BLOOD SPECIMEN / Unknown Lab Venipuncture / Unknown 06/30/2024 11:46 AM TITLE CAMERA OPERATOR 06/30/2024 12:07 PM TITLE CAMERA OPERATOR Elder Rhoades MD LAB - CHEMISTRY MANI LUTHER [address] [address], [facility] [phone] * TSH (06/30/2024 11:46 AM TITLE CAMERA OPERATOR) Pathologist [facility] TSH 0.982 0.350 - 4.940 uIU/mL 06/30/2024 1:01 PM TITLE CAMERA OPERATOR [facility] Blood BLOOD SPECIMEN / Unknown Lab Venipuncture / Unknown 06/30/2024 11:46 AM TITLE CAMERA OPERATOR 06/30/2024 12:07 PM TITLE CAMERA OPERATOR Elder Rhoades MD LAB - CHEMISTRY MANI LUTHER Performing Organization Address City/[facility]/ZIP Co de Phone Number [address] [address], [place] [phone] * STREP PNEUMONIAE ANTIGEN URINE (06/30/2024 11:37 AM TITLE CAMERA OPERATOR) Pathologist [facility] Streptococcus pneumoniae Antigen Urine Negative Negative 07/01/2024 7:24 AM TITLE CAMERA OPERATOR [facility] Urine URINE / Unknown Collection / Unknown 06/30/2024 11:37 AM TITLE CAMERA OPERATOR 06/30/2024 11:43 AM TITLE CAMERA OPERATOR Narrative [facility] - 07/01/2024 7:24 AM TITLE CAMERA OPERATOR Patients who have received the Streptococcus pneumoniae [...] Elder Rhoades MD LAB - MICROBIOLOGY O RDGEORGE [facility] [address] [place] [address], [facility] [phone] * LEGIONELLA ANTIGEN URINE (06/30/2024 11:37 AM TITLE CAMERA OPERATOR) [facility] Legionella Antigen Urine Negative Negative 07/01/2024 7:28 AM [facility] Urine URINE / Unknown Collection / Unknown 06/30/2024 11:37 AM TITLE CAMERA OPERATOR 06/30/2024 11:43 AM TITLE CAMERA OPERATOR Narrative [facility] - 07/01/2024 7:28 AM TITLE CAMERA OPERATOR This assay detects Legionella pneumophila serogroup one (1) antigen. A negative test result does not rule out the possibility of Legionella infection due to other serogroups or species of Legionella. A positive result may indicate a recent or remote infection with serogroup 1. Elder Rhoades MD LAB - MICROBIOLOGY O BRITTANEY Performing Organization Address [facility] de Phone Number [facility] [address] [place] [address], [facility] [phone] * URINE DRUG SCREEN IMMUNOASSAY (06/30/2024 11:37 AM TITLE CAMERA OPERATOR) [facility] Amphetamines Screen Urine Negative Negative: < 1000 ng/mL 06/30/2024 12:[address] [facility] Barbiturates Screen Urine Negative Negative: < 200 ng/mL 06/30/2024 12:[address] [facility] Benzodiazepine Screen Urine Negative Negative: < 200 ng/mL 06/30/2024 12:[address] [facility] Opiates Urine Negative Negative: < 300 ng/mL 06/30/2024 12:[address] [facility] Cocaine Metabolites Urine Negative Negative: < 300 ng/mL 06/30/2024 12:[address] [facility] Phencyclidine Screen Urine Negative Negative: < 25 ng/ml 06/30/2024 12:[address] [facility] Cannabinoids Screen Urine Negative Negative: <50 ng/mL 06/30/2024 12:[address] [facility] Methadone Screen Urine Negative Negative: < 300 ng/mL 06/30/2024 12:20 PM TITLE CAMERA OPERATOR [facility] Fentanyl Screen Urine Negative Negative: <1.5 ng/mL 06/30/2024 12:20 PM TITLE CAMERA OPERATOR [facility] Urine URINE / Unknown Collection / Unknown 06/30/2024 11:37 AM TITLE CAMERA OPERATOR 06/30/2024 11:43 AM TITLE CAMERA OPERATOR Narrative [facility] - 06/30/2024 12:20 PM TITLE CAMERA OPERATOR The Urine Toxicology Screening Panel does not screen for Propoxyphene, Meprobamate, Carisoprodol, Trazodone, xaid-wsl-pubzjrg medications and/or volatiles (Acetone, Isopropanol, Methanol or Ethylene Glycol). Ethanol, Salicylate, Acetaminophen, Tricyclic Antidepressants and several therapeutic drugs may be individually assayed in serum or plasma specimen. Toxicology testing by the [facility] is an aid to medical diagnosis and treatment of patients. No documented chain of custody was maintained. Results are intended to be used for clinical purposes only. Elder Rhoades MD LAB - URINE CHEMISTR Y ORDERABLES [facility] [address] [place] [address], [facility] [phone] * XR Humerus Right 2Vw or More (06/30/2024 11:11 AM TITLE CAMERA OPERATOR) Anatomical Region Laterality Modality Upper Extremity Digital Radiogra phy 06/30/2024 11:1 8 AM TITLE CAMERA OPERATOR Impressions 06/30/2024 12:48 PM TITLE CAMERA OPERATOR IMPRESSION: 1.Moderately displaced fracture of the humeral head and neck. 2.A right rib fracture is incidentally noted. 3.Enlargement of the distal humeral shaft with thickening of the cortex. 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 Recommend follow-up such as repeat humeral radiographs in 3-6 months to assess stability. > Dictated by Nadya WAKEFIELD [facility] (vice president sales). I, Feng Ybarra MD have personally reviewed and interpreted this examination/study. > Interpreting Provider: Feng Ybarra MD on 06/30/2024 12:48 PM Narrative 06/30/2024 12:48 PM TITLE CAMERA OPERATOR EXAMINATION: XR HUMERUS RIGHT 2VW OR MORE DATE/TIME OF EXAM: 06/30/2024 11:11 AM, LOCATION [facility] HISTORY: S42.411D: Closed supracondylar fracture of [...] DATE/TIME OF EXAM: 06/30/2024 11:11 AM, LOCATION [facility] HISTORY: S42.411D: Closed supracondylar fracture of [...] months to assess stability. > Dictated by KEANU [facility] (vice president sales). I, Feng Ybarra MD have personally reviewed and interpreted this examination/study. > Interpreting Provider: Feng Ybarra MD on 06/30/2024 12:48 PM Nicky Wheeler MD DIAGNOSTIC IMAGING O RDERABLES * (ABNORMAL) URINE MICROSCOPIC ONLY REFLEX TO CULTURE (06/30/2024 5:41 AM TITLE CAMERA OPERATOR) Reflex Status Culture not indicated 06/30/2024 6:[address] [facility] RBC UA 51-100(A) None Seen, 0-2, 3-5 /HPF 06/30/2024 6:[address] [facility] WBC UA 6-10(A) None Seen, 0-5 /HPF 06/30/2024 6:[address] [facility] Bacteria UA Trace(A) None /HPF 06/30/2024 6:[address] [facility] Squamous Epithelial Cells UA 0-2 None Seen, 0-2, 3-5 /HPF 06/30/2024 6:[address] [facility] Mucus UA 1+ /LPF 06/30/2024 6:[address] [facility] Urine URINE SPECIMEN OBTAINED BY CLEAN CATCH PROCEDURE / Unknown Collection / Unknown 06/30/2024 5:41 AM TITLE CAMERA OPERATOR 06/30/2024 5:49 AM [facility] - 06/30/2024 6:08 AM TITLE CAMERA OPERATOR Nicky Wheeler MD LAB - URINALYSIS ORD ERABLES [address] [address], [facility] [phone] * (ABNORMAL) URINALYSIS REFLEX MICROSCOPIC REFLEX CULTURE (06/30/2024 5:41 AM TITLE CAMERA OPERATOR) Color UA Yellow Straw, Yellow 06/30/2024 6:[address] [facility] Clarity UA Slt Cloudy(A) Clear 06/30/2024 6:[address] [facility] Specific [place] UA 1.014 1.005 - 1.030 06/30/2024 6:[address] [facility] pH UA 6.0 5.0 - 8.0 pH 06/30/2024 6:[address] [facility] Protein UA Negative Negative 06/30/2024 6:[address] [facility] Glucose UA Negative Negative 06/30/2024 6:[address] [facility] Ketone UA 1+(A) Negative 06/30/2024 6:[address] [facility] Bilirubin UA Negative Negative 06/30/2024 6:[address] [facility] Blood UA 2+(A) Negative 06/30/2024 6:[address] [facility] Nitrite UA Negative Negative 06/30/2024 6:[address] [facility] Leukocyte Esterase Negative Negative 06/30/2024 6:[address] [facility] Urobilinogen UA Negative Negative mg/dL 06/30/2024 6:[address] [facility] Urine URINE SPECIMEN OBTAINED BY CLEAN CATCH PROCEDURE / Unknown Collection / Unknown 06/30/2024 5:41 AM TITLE CAMERA OPERATOR 06/30/2024 5:49 AM TITLE CAMERA OPERATOR Narrative [facility] - 06/30/2024 6:03 AM TITLE CAMERA OPERATOR Nicky Wheeler MD LAB - URINALYSIS ORD ERABLES [facility] [address] [place] [address] [phone] from Last 3 Months Advance Directives * Full Code (Latest Code Status on File) Date Activated Date Inactivated Comments 06/30/2024 2:01 AM 07/18/2024 4:10 PM Care Teams Silk Screen Painter Relationship Specialty Start Date End Date Unknown, Provider PCP - General 07/23/24
== END 2024-09-03 11:38 | disposition home or self-care (01) ==
PROVIDERS: PCP Nurse Practitioner Adult Health; Visit Provider Nurse Practitioner Adult Health
DX: S42.221D 2-part displaced fracture of surgical neck of right humerus, subsequent encounter for fracture with routine healing (principal); X58.XXXD Exposure to other specified factors, subsequent encounter
CPT/HCPCS: 73060

== ENCOUNTER 2024-11-17 13:24 | Outpatient (CLI) | payer MEDICARE, BC, SELFPAY ==
--- OUTSIDE RECORDS SUMMARY | 2024-11-17 13:38 | XMS_ITS | Clinical Summary ---
Author Organization [facility] Address [address] [place] [address] Care Team Providers Care Saddle Maker Name Role Phone Zaina Castillo NP Primary Care Provider [phone] Allergies No known active allergies Medications acetaminophen (TYLENOL) 500 mg tabletIndications :Fever,Pain Take 2 tablets (1,000 mg total) by mouth every 6 (six) hours as needed for fever or pain Active apixaban (ELIQUIS) 5 mg tabletIndications :atrial fibrillation Take 1 tablet (5 mg total) by mouth 2 (two) times a day Active atorvastatin (LIPITOR) 20 mg tabletIndications :hyperlipidemia Take 1 tablet (20 mg total) by mouth daily Active cholecalciferol (VITAMIN D-3) 25 mcg (1,000 unit) tabletIndications :Osteoporosis Take 1 tablet (1,000 Units total) by mouth daily Active folic acid (FOLVITE) 1 mg tabletIndications :Folate Deficiency Take 1 tablet (1 mg total) by mouth daily Active hydrOXYzine (ATARAX) 25 mg tabletIndications :anxiety Take 1 tablet (25 mg total) by mouth every 4 (four) hours as needed for anxiety Active LORazepam (ATIVAN) 1 mg tabletIndications :anxiety Take 1 tablet (1 mg total) by mouth every 6 (six) hours as needed for anxiety Active magnesium oxide (MAG-OX) 400 mg (241.3 mg elemental magnesium) tabletIndications :hypomagnesemia Take 1 tablet (400 mg total) by mouth 2 (two) times a day Active melatonin tabletIndications :Insomnia Take 2 tablets (6 mg total) by mouth nightly Active metoprolol tartrate (LOPRESSOR) 25 mg immediate release tabletIndications :hypertension Take 1 tablet (25 mg total) by mouth 2 (two) times a day Active multivitamin with minerals tabletIndications :Mineral Deficiency,Vitami n Deficiency Take 1 tablet by mouth daily Active QUEtiapine (SEROquel) 50 mg tabletIndications :Generalized Anxiety Disorder Take 1 tablet (50 mg total) by mouth nightly Active thiamine (VITAMIN B1) 100 mg tabletIndications :Wernicke-Korsako ff Syndrome Take 2 tablets (200 mg total) by mouth 2 (two) times a day Active traZODone (DESYREL) 50 mg tabletIndications :insomnia associated with depression Take 1 tablet (50 mg total) by mouth nightly as needed for sleep Active Active Problems No known active problems Encounters Date Type Department Care Team Description 11/14/2024 1:45 PM CDT Therapy [facility] Physical Therapy [address] [place] [address] Sigrid Kingston, EXTRACTOR MACHINE OPERATOR Other reduced mobility (Primary Dx) 11/14/2024 1:00 PM CDT Therapy [facility] Occupational Therapy [address] [place] [address] Mariana Rico, OT Other reduced mobility (Primary Dx) 11/05/2024 8:00 AM CDT Therapy [facility] Occupational Therapy [address] [place] [phone] Mariana Rico, OT Other reduced mobility 11/05/2024 7:00 AM CDT Therapy [facility] Physical Therapy [address] [place] [address] Bernadette Alcala, PT Other reduced mobility (Primary Dx) 11/05/2024 Plan of Care Documentation [facility] Occupational Therapy [address] [place] [address] 11/05/2024 Plan of Care Documentation [facility] Physical Therapy [address] [place] [address] 2024 10:35 AM CDT Ancillary Procedure [facility] Imaging at [address] [address] Acute pain of right shoulder 2024 10:30 AM CDT Office Visit [facility] Sports Medicine and Primary Care at [address] [place] [address] Nilson Thomson, Acute pain of right shoulder (Primary Dx); Adhesive capsulitis of right shoulder; Closed 4-part fracture of proximal humerus, right, sequela 10/06/2024 1:00 PM CDT Home Care Visit [address] [place] [address] Nilda Devlin, PT PT OASIS DISCHARGE 10/01/2024 9:30 AM CDT Home Care Visit [address] [place] [address] Daniela Fernández, OT OT REASSESSMENT 10/01/2024 Home Care Visit [address] [place] [address] Daniela Fernández, OT OT DISCIPLINE DISCHARGE 09/30/2024 11:00 AM CDT Home Care Visit [address] [place] [address] Florence Saldana COTA OT HOME VISIT 09/29/2024 11:45 AM CDT Home Care Visit [address] [place] [address] Danya Goodman, EXTRACTOR MACHINE OPERATOR PT HOME VISIT 09/26/2024 10:00 AM CDT Home Care Visit [address] [place] [address] Danya Goodman, BRADEN PT HOME VISIT 09/25/2024 11:30 AM CDT Home Care Visit [address] [place] [address] Florence Saldana COTA OT HOME VISIT 09/23/2024 11:30 AM CDT Home Care Visit [address] [place] [address] Florence Saldana, SHAW OT HOME VISIT 09/22/2024 10:30 AM CDT Home Care Visit [address] [place] [address] Evelyn Luna, PT PT REASSESSMENT 09/18/2024 12:30 PM CDT Home Care Visit [address] [place] [address] Florence Saldana, SHAW OT HOME VISIT 09/17/2024 10:45 AM CDT Home Care Visit [address] [place] [address] Florence Saldana, SHAW OT HOME VISIT 09/15/2024 1:30 PM CDT Home Care Visit [address] [place] [address] Danya Goodman, EXTRACTOR MACHINE OPERATOR PT HOME VISIT 09/11/2024 9:30 AM [facility] Home Care Visit [address] [place] [address] Daniela Fernández, OT OT REASSESSMENT 09/10/2024 1:15 PM [facility] Home Care Visit [address] [place] [address] Danya Goodman, EXTRACTOR MACHINE OPERATOR PT HOME VISIT 09/09/2024 12:30 PM [facility] Home Care Visit [address] [place] [address] Florence Saldana, SHAW OT HOME VISIT 09/08/2024 11:15 AM [facility] Home Care Visit [address] [place] [address] Danya Goodman, EXTRACTOR MACHINE OPERATOR PT HOME VISIT 09/04/2024 12:30 PM [facility] Home Care Visit [address] [place] [address] Florence Saldana COTA OT HOME VISIT 09/04/2024 10:45 AM [facility] Home Care Visit [address] [place] [address] Danya Goodman, EXTRACTOR MACHINE OPERATOR PT HOME VISIT 09/04/2024 Home Care Visit [address] [place] [address] Ada Askew, RN CLIENT CUSTOMER MANAGER DISCIPLINE DISCHARGE 09/02/2024 11:00 AM [facility] Home Care Visit [address] [place] [address] Florence Saldana COTA OT HOME VISIT 09/02/2024 Home Care Visit [address] [place] [address] Ada Askew, RN TELEPHONE ENCOUNTER 09/01/2024 1:00 PM [facility] Home Care Visit [address] [place] [address] Evelyn Luna, PT PT REASSESSMENT 08/29/2024 12:45 PM [facility] Home Care Visit [address] [place] [address] Florence Saldana SHAW OT HOME VISIT 08/29/2024 11:00 AM [facility] Home Care Visit [address] [place] [address] Fariba Cabral, DONITA CLIENT CUSTOMER MANAGER HOME VISIT 08/27/2024 12:45 PM [facility] Home Care Visit [address] [place] [address] Danya Goodman, BRADEN PT HOME VISIT 08/26/2024 2:00 PM [facility] Home Care Visit [address] [place] [address] Florence Saldana SHAW OT HOME VISIT 08/26/2024 Home Care Visit [address] [place] [address] Vicky Quezada, MONICA CASE COMMUNICATION 08/25/2024 3:00 PM [facility] Home Care Visit [address] [place] [address] Danya Goodman PTA PT HOME VISIT 08/21/2024 3:00 PM [facility] Home Care Visit [address] [place] [address] Danya Goodman PTA PT HOME VISIT 08/20/2024 12:30 PM [facility] Home Care Visit [address] [place] [address] Kade Szymanski RN SN DISCIPLINE DISCHARGE from Last 3 Months Social History Tobacco Use Types Packs/Day Years Used Date Smoking Tobacco: Never Assessed OASIS D0700: Social Isolation Answer Da te Recorded Frequency of experiencing loneliness or isolatio n Never 10/06/2024 OASIS A1250: Transportation Answer Date Recorded Lack of Transportation (Medical) No 10/06/2024 Lack of Transportation (Non-Medical) No 10/06/2024 Patient Unable or Declines to Respond No 10/06/2024 OASIS B1300: Health Literacy Answer Alex e Recorded Frequency of needing help to read materials from doctor or pharmacy Often 10/06/2024 Sex and Gender Information Value Date Recorded Sex Assigned at Not on file Legal Sex Male 10:25 PM [facility] Gender Identity Not on file Sexual Orientation Not on file Obstetrics History Last Filed Vital Signs Vital Sign Reading Time Taken Comments Blood Pressure 117/78 2024 10:48 AM CDT Pulse 73 2024 10:48 AM CDT Temperature 36.1 C (97 F) 10/06/2024 1:25 PM CDT Respiratory Rate 17 10/06/2024 1:25 PM CDT Oxygen Saturation 100% 10/01/2024 10:01 AM CDT Inhaled Oxygen Concentration - - Weight 83.5 kg (184 lb) 2024 10:48 AM CDT Height 182.9 cm (6') 2024 10:48 AM CDT Body Mass Index 24.95 2024 10:48 AM CDT Plan of Treatment Health Maintenance Due Date Last Done Comments Colon Cancer Screening-Colonoscopy 1957 Depression Screening 1957 Fall Risk Assessment 1957 Hepatitis C Screening 1957 Prostate Cancer Screening-PSA 1957 Hepatitis B Screening 11/05/1975 Zoster Vaccine (1 of 2) 11/05/2007 Well Visit 65+ 2022 Pneumococcal vaccine 65+ (3 of 3 - PCV20 or PCV21) 06/26/2027 06/26/2022, 04/10/2016 DTaP/Tdap/Td Vaccine (2 - Td or Tdap) 04/11/2029 04/11/2019 Influenza Vaccine Completed 04/12/2024, , 05/01/2022, Additional history exists Abdominal Aortic Aneurysm (A AA) Screen Completed 06/30/2024 Procedures Procedure Name Priority Date/Time Associated Diagnosis Comments XR SHOULDER RIGHT 2 OR MORE VIEWS Routine 2024 10:43 AM CDT Acute pain of right shoulder from Last 3 Months Results * XR Shoulder Right 2 or More Views (2024 10:43 AM CDT) Anatomical Region Laterality Modality Upper Extremities, Shoulder Right Digi rich Radiography 2024 12:0 5 PM CDT Narrative 2024 12:06 PM CDT EXAM DESCRIPTION: XR SHOULDER RIGHT 2 OR MORE VIEWS REASON FOR STUDY: pain Follow up fracture 06.30.25 TECHNIQUE: 3 radiographic view(s) of the right shoulder . COMPARISON: None FINDINGS: BONES/JOINTS: There is no acute fracture, malalignment or osseous abnormality. Severe degenerative change of the acromioclavicular joint and glenohumeral joint. There old fracture of the humeral neck with callus formation. There is some apex lateral angulation. SOFT TISSUES: Within normal limits. IMPRESSION: Severe degenerative change of the shoulder. Healing fracture of the humeral neck. THIS IS AN ELECTRONICALLY VERIFIED FINAL REPORT 2024 12:06 PM - Electronically signed by Berny Rodriguez M.D. RW T: Report ID: [id number] Reading Location: [id number] Procedure Note Berny Rodriguez MD - 2024 EXAM DESCRIPTION: XR SHOULDER RIGHT 2 OR MORE VIEWS REASON FOR STUDY: pain Follow up fracture 06.30.25 TECHNIQUE: 3 radiographic view(s) of the right shoulder . COMPARISON: None FINDINGS: BONES/JOINTS: There is no acute fracture, malalignment orosseous abnormality. Severe degenerative change of the acromioclavicular joint and glenohumeral joint. There old fracture of the humeral neck with callus formation. There is some apex lateral angulation. SOFT TISSUES: Within normal limits. IMPRESSION: Severe degenerative change of the shoulder. Healing fracture of the humeral neck. THIS IS AN ELECTRONICALLY VERIFIED FINAL REPORT 2024 12:06 PM - Electronically signed by Berny Rodriguez M.D. RW T: Report ID: [id number] Reading Location: [id number] Nilson Thomson DO IMG XR PROCEDURES Nicole l Result from Last 3 Months Insurance [facility] [employer] MEDICARE Care Teams Saddle Maker Relationship Specialty Start Date End Date Zaina Castillo NP [address] [place] [address] PCP - General Nurse Practitioner 08/01/24
--- OUTSIDE RECORDS SUMMARY | 2024-11-17 13:38 | XMS_ITS | Clinical Summary ---
Author Organization [facility] Address [address] [place] [address] Care Team Providers Care Medical Insurance Coding Specialist Name Role Phone Unknown, Provider Primary Care Provider Unavaila ble Source Comments [facility],non-owned Affiliates and Associated Physician Practices is amultiple site organization consisting of ambulatory clinics and hospital sitesin [place], [place], [place] and [place]. This disclosure is being madepursuant to the Care Everywhere program and may not contain all information available regarding this patient. Last updated 18.[employer] Allergies No known active allergies Medications * This document contains information received from the source organization and may not represent a complete record from that organization. * Be aware that medications may not be up to date on this document. Alwaysverify current medications with the patient. acetaminophen (Tylenol) 500 MG tablet Take 2 (two) tablets by mouth 3 times daily Maximum allowable Acetaminophen amount = 4 Grams (4000 mg) / 24 hours. 07/18/19 25 Active apixaban (Eliquis) 5 MG tabletIndication s:Atrial Fibrillation Take 1 (one) tablet by mouth 2 times daily Reasons: Atrial Fibrillation 07/18/19 25 Active traZODone (Desyrel) 50 MG tablet Take 1 (one) tablet by mouth nightly as needed for Insomnia 07/18/19 25 Active QUEtiapine (SEROquel) 50 MG tablet Take 1 (one) tablet by mouth once daily 07/18/19 25 Active metoprolol tartrate IR (Lopressor) 25 MG tablet Take 1 (one) tablet by mouth 2 times daily 07/18/19 25 Active folic acid (Folvite) 1 MG tablet Take 1 (one) tablet by mouth once daily 07/19/19 25 Active magnesium oxide (Mag-Ox) 400 MG tablet Take 1 (one) tablet by mouth 2 times daily 07/18/19 25 Active thiamine (Vitamin B-1) 100 MG tablet Take 1 (one) tablet by mouth once daily 07/19/19 25 Active vitamin D3 (Cholecalciferol ) 25 MCG (1000 UNITS) tablet Take 1 (one) tablet by mouth once daily 07/19/19 25 Active atorvastatin (Lipitor) 20 MG tablet Take 1 (one) tablet by mouth once daily Active hydrOXYzine HCl (Atarax) 25 MG tablet Take 1 (one) tablet by mouth 4 times daily as needed Active melatonin 3 MG tablet Take 2 (two) tablets by mouth at bedtime Active timolol maleate (Timoptic) 0.5 % ophthalmic solution Instill 1 (one) drop into both eyes every morning Active travoprost, SALMA free, (Travatan Z) 0.004 % ophthalmic solution Instill 1 (one) drop into both eyes at bedtime Active rivastigmine (Exelon) 4.6 MG/24HR patch Apply 1 (one) patch to skin once daily 30 patch 1 11/11/19 25 Active traZODone (Desyrel) 50 MG tablet Take 0.5 (one-half) tablet by mouth 2 times daily as needed for Insomnia 60 tablet 2 11/11/19 25 Active albuterol-ipratr opium (Duo-Neb) 0.5-2.5 (3) MG/3ML nebulizer solution Inhale 3 mL by mouth every 6 hours as needed for Shortness of Breath or Wheezing 07/18/19 25 025 Discontin ued(Non-C ompliance ) melatonin 3 MG tablet Take 2 (two) tablets by mouth once daily 07/18/19 25 025 Discontin ued(List Clean-Up) multiple vitamins with minerals tablet Take 1 (one) tablet by mouth once daily 07/19/19 25 025 Discontin ued(List Clean-Up) LORazepam (Ativan) 1 MG tablet Take 1 (one) tablet by mouth pre-Procedure once 04/22/20 24 025 Discontin ued(List Clean-Up) hydrOXYzine HCl (Atarax) 25 MG tablet Take 1 (one) tablet by mouth 4 times daily as needed 025 Discontin ued(List Clean-Up) Active Problems Problem Noted Date Diagnosed Date Dementia without behavioral disturbance, psychotic disturbance, mood disturbance, or anxiety, unspecified dementia severity, unspecified dementia type 11/10/2024 Hallucinations 07/04/2024 Memory loss 07/04/2024 Closed fracture of right humerus 06/28/2024 Suspected infectious meningitis 06/28/2024 Overview (10/08/2024): IMO 10/08/2024 LLQ abdominal pain 04/14/2021 Overview (07/29/2024): Added automatically from request for surgery [id number] History of colonic polyps 04/14/2021 Overview (07/29/2024): Added automatically from request for surgery [id number] Multiple abrasions 05/07/2018 Fracture of toe of left foot 05/07/2018 Encounters * This document contains information received from the source organization and may not represent a complete record from that organization. Date Type Department Care Team Description 11/10/2024 Travel from Last 3 Months Social History Tobacco Use Types Packs/Day Years Used Date Smoking Tobacco: Former Cigarettes Passive Smoke Exposure: Past Smokeless Tobacco: Never Tobacco Cessation:Counseling Given: Not Answered Alcohol Use Standard Drinks/Week Comments Yes 0 [...] Date Recorded Patient Health Questionnaire-2 Score 2 11/10/2024 [facility] [place] [facility] - Occupational Stress [...] any time in the past 12 m [facility], were you homeless or living in a half-way (including now)? No 07/01/2024 Sex and Gender Information Value Date Recorded Sex Assigned at Not on file Legal Sex Male 4:45 PM BINDERY MACHINE SETTER Gender Identity Not on file Sexual Orientation Not on file Last Filed Vital Signs Vital Sign Reading Time Taken Comments Blood Pressure 112/78 11/10/2024 1:45 PM CDT Pulse 66 11/10/2024 1:45 PM CDT Temperature 36.5 C (97.7 F) 07/18/2024 12:04 PM BINDERY MACHINE SETTER Respiratory Rate 17 07/18/2024 12:04 PM BINDERY MACHINE SETTER Oxygen Saturation 100% 07/18/2024 12:04 PM BINDERY MACHINE SETTER Inhaled Oxygen Concentration - - Weight 85.3 kg (188 lb) 11/10/2024 1:45 PM CDT Height 185.4 cm (6' 1) 11/10/2024 1:45 PM CDT Body Mass Index 24.8 11/10/2024 1:45 PM CDT Plan of Treatment Upcoming Encounters Date Type Department Care Team (Late st Contact Info) Description 11/20/2024 1:00 PM CDT Office Visit [facility] - Cardiology [address], [address] [place] [address] Elder Rhoades MD [address] [place] [address] Osmany Rodríguez MD [address] [facility] [place] [address] Health Maintenance Due Date Last Done Comments [...] series) 2017 AAA SCREENING 2022 COVID-19 VACCINE ( - 2023-2 5 season) 2024 INFLUENZA VACCINE (Season Ended) 2025 COLONOSCOPY - COLON CA SCREENING 05/20/2031 05/20/20 [...] to complete this topic MENINGOCOCCAL (Group B) VACC INE SHARED DECISION-MAKING Aged Out No longer eligibl e based on patient's age to complete this topic MENINGOCOCCAL GROUPS A/C/Y/W VACCINE Aged Out No longer eligible b ased on patient's age to complete this topic Insurance [facility] MEDICARE [facility] MEDICARE Advance Directives * Full Code (Latest Code Status on File) Date Activated Date Inactivated Comments 06/30/2024 2:01 AM 07/18/2024 4:10 PM Care Teams Medical Insurance Coding Specialist Relationship Specialty Start Date End Date Unknown, Provider PCP - General 07/23/24
--- OUTSIDE RECORDS SUMMARY | 2024-11-17 13:38 | XMS_ITS | Clinical Summary ---
Author Organization [facility] Kiah sullivan Bulmaro Address [address] [place] [address] Care Team Providers Care Direct Marketing Representative Name Role Phone Unavailable Primary Care Provider [...] Tablet by mouth daily. Active Vit C-Vit F-Cdeayu-YyQl-L utein (PRESERVISION) 226-90-0.8-5 mg Capsule Take 1 Capsule by mouth daily. Active viatamin B complex-vitamin D-ficqwiuc-poju -folic acid 106 mg iron- 1 mg Tablet Take 1 Tablet by mouth daily. Active CALCIUM CITRATE-VITAMIN D3 ORAL Take by mouth. Active sildenafiL (VIAGRA) 25 mg tablet Take by mouth 1 time daily as needed for Erectile Dysfunction. Active Active Problems No known active problems Encounters Date Type Department Care Team Description 10/10/2024 Abstract [facility] Oncology and Hematology - [place] [address] [address] Nelson Saavedra MD from Last 3 Months Family History Medical [...] 11:01 AM CDT Height 188 cm (6' 2) 12/19/2023 2:34 PM CDT Body Mass Index 25.29 12/19/2023 2:34 PM CDT Plan of Treatment Upcoming Encounters Date Type Department Care Team (Late st Contact Info) Description 11/24/2024 11:30 AM CDT Office Visit [facility] Oncology and Hematology - [place] [address] [place] [address] [facility] [address] [place] [address] Nelson Saavedra MD [address] [facility] [address] [place] [address] Health Maintenance Due Date Last Done Comments Pre-Diabetes and Diabetes Screening 1957 DTAP/TDAP/TD VACCINES (1 - Tdap) 1976 COLORECTAL SCREENING 2002 Colorectal Cancer Screening 2002 FIT-DNA Q 3 years 2002 FIT/FOBT Q 1 year 2002 Flex Sig/CT Colonography Q 5 years 2002 Lung Cancer Screening 11/05/2007 PNEUMOCOCCAL VACCINE 50+ YEARS (1 of 1 - PCV) 11/05/19 08 ZOSTER VACCINE (1 of 2) 11/05/2007 Abdominal Aortic Aneurysm (AAA) Screening 2022 INFLUENZA VACCINE (#1) 2024 Preventative Visit- Commercial 07/09/2024 RSV VACCINE (60+ or ) (1 - 1-dose 75+ series) 2032 Insurance [facility] FEDERAL
--- OUTSIDE RECORDS SUMMARY | 2024-11-17 13:38 | XMS_ITS | Referral Summary ---
Author Organization [facility] Address 1 [place] [address] Care Team Providers Care Automotive Worker Foreman Name Role Phone Zaina Castillo NAIN Primary Care Provider Encounters Date Type Department Care Team Description 11/14/2024 1:45 PM CDT Therapy [facility] Physical Therapy [address] [place] [address] Sigrid Kingston, FOREST PATHOLOGY ASSOCIATE PROFESSOR Other reduced mobility (Primary Dx) 11/14/2024 1:00 PM CDT Therapy [facility] Occupational Therapy [address] [place] [address] Mariana Rico, OT Other reduced mobility (Primary Dx) 11/05/2024 Plan of Care Documentation [facility] Occupational Therapy [address] [place] [address] 11/05/2024 Plan of Care Documentation [facility] Physical Therapy [address] [place] [address] 11/05/2024 7:00 AM CDT Therapy [facility] Physical Therapy [address] [place] [address] Bernadette Alcala, PT Other reduced mobility (Primary Dx) 11/05/2024 8:00 AM CDT Therapy [facility] Occupational Therapy [address] [place] [address] Mariana Rico, OT Other reduced mobility 2024 10:35 AM CDT Ancillary Procedure [facility] Medical Group Imaging at [address] [address] Acute pain of right shoulder 2024 10:30 AM CDT Office Visit [facility] Medical Group Sports Medicine and Primary Care at [address] [place] [address] Nilson Thomson, Acute pain of right shoulder (Primary Dx); Adhesive capsulitis of right shoulder; Closed 4-part fracture of proximal humerus, right, sequela 10/06/2024 1:00 PM CDT Home Care Visit [address] [place] [address] Nilda Devlin, PT PT OASIS DISCHARGE 10/01/2024 Home Care Visit [address] [place] [address] Daniela Fernández, OT OT DISCIPLINE DISCHARGE 10/01/2024 9:30 AM CDT Home Care Visit [address] [place] [address] Daniela Fernández, OT OT REASSESSMENT 09/30/2024 11:00 AM CDT Home Care Visit [address] [place] [address] Florence Saldana COTA OT HOME VISIT 09/29/2024 11:45 AM CDT Home Care Visit [address] [place] [address] Danya Goodman, FOREST PATHOLOGY ASSOCIATE PROFESSOR PT HOME VISIT 09/26/2024 10:00 AM CDT Home Care Visit [address] [place] [address] Danya Goodman, BRADEN PT HOME VISIT 09/25/2024 11:30 AM CDT Home Care Visit [address] [place] [address] Florence Saldana COTA OT HOME VISIT 09/23/2024 11:30 AM CDT Home Care Visit [address] [place] [address] Florence Saldana COTA OT HOME VISIT 09/22/2024 10:30 AM CDT Home Care Visit [address] [place] [address] Evelyn Lnua, PT PT REASSESSMENT 09/18/2024 12:30 PM CDT Home Care Visit [address] [place] [address] Florence Saldana SHAW OT HOME VISIT 09/17/2024 10:45 AM CDT Home Care Visit [address] [place] [address] Florence Saldana COTA OT HOME VISIT 09/15/2024 1:30 PM CDT Home Care Visit [address] [place] [address] Danya Goodman, FOREST PATHOLOGY ASSOCIATE PROFESSOR PT HOME VISIT 09/11/2024 9:30 AM SMALL ANIMAL CARETAKER Home Care Visit [address] [place] [address] Daniela Fernández, OT OT REASSESSMENT 09/10/2024 1:15 PM SMALL ANIMAL CARETAKER Home Care Visit [address] [place] [address] Danya Goodman, FOREST PATHOLOGY ASSOCIATE PROFESSOR PT HOME VISIT 09/09/2024 12:30 PM SMALL ANIMAL CARETAKER Home Care Visit [address] [place] [address] Florence Saldana SHAW OT HOME VISIT 09/08/2024 11:15 AM SMALL ANIMAL CARETAKER Home Care Visit [address] [place] [address] Danya Goodman, BRADEN PT HOME VISIT 09/04/2024 Home Care Visit [address] [place] [address] Ada Askew, RN WET PROCESS OPERATOR DISCIPLINE DISCHARGE 09/04/2024 12:30 PM SMALL ANIMAL CARETAKER Home Care Visit [address] [place] [address] Florence Saldana, SHAW OT HOME VISIT 09/04/2024 10:45 AM SMALL ANIMAL CARETAKER Home Care Visit [address] [place] [address] Danya Goodman, FOREST PATHOLOGY ASSOCIATE PROFESSOR PT HOME VISIT 09/02/2024 Home Care Visit [address] [place] [address] Ada Askew, RN TELEPHONE ENCOUNTER 09/02/2024 11:00 AM SMALL ANIMAL CARETAKER Home Care Visit [address] [place] [address] Florence Saldana, SHAW OT HOME VISIT 09/01/2024 1:00 PM SMALL ANIMAL CARETAKER Home Care Visit [address] [place] [address] Evelyn Luna, PT PT REASSESSMENT 08/29/2024 11:00 AM SMALL ANIMAL CARETAKER Home Care Visit [address] [place] [address] Fariba Cabral, DONITA WET PROCESS OPERATOR HOME VISIT 08/29/2024 12:45 PM SMALL ANIMAL CARETAKER Home Care Visit [address] [place] [address] Florence Saldana SHAW OT HOME VISIT 08/27/2024 12:45 PM SMALL ANIMAL CARETAKER Home Care Visit [address] [place] [address] Danya Goodman, FOREST PATHOLOGY ASSOCIATE PROFESSOR PT HOME VISIT 08/26/2024 Home Care Visit [address] [place] [address] Vicky Qeuzada RN CASE COMMUNICATION 08/26/2024 2:00 PM SMALL ANIMAL CARETAKER Home Care Visit [address] [place] [address] Florence Saldana COTA OT HOME VISIT 08/25/2024 3:00 PM SMALL ANIMAL CARETAKER Home Care Visit [address] [place] [address] Danya Goodman PTA PT HOME VISIT 08/21/2024 3:00 PM SMALL ANIMAL CARETAKER Home Care Visit [address] [place] [address] Danya Goodman PTA PT HOME VISIT 08/20/2024 12:30 PM SMALL ANIMAL CARETAKER Home Care Visit [address] [place] [address] Kade Szymanski, MONICA SN DISCIPLINE DISCHARGE from Last 3 Months Allergies No known active allergies Medications acetaminophen [...] Active Active Problems No known active problems Social History Tobacco Use Types Packs/Day Years [...] on file Legal Sex Male 10:25 PM SMALL ANIMAL CARETAKER Gender Identity Not on file Sexual Orientation [...] 2024 10:48 AM CDT Plan of Treatment Not on file Procedures Procedure Name Priority Date/Time Associated Diagnosis [...] Berny Rodriguez M.D. RW T: Report ID: [id number] Reading Location: [id number] Procedure Note Berny Rodriguez MD - 2024 [...] Berny Rodriguez M.D. RW T: Report ID: [id number] Reading Location: [place] [address] Nilson Thomson DO IMG XR PROCEDURES Nicole l Result from Last 3 Months Insurance [facility] FEDERAL Member Subscriber Plan / Payer (Ef fective 2024-Present) Name:Tony Mauro Relation to Subscriber:Self Name:Tony Mauro Payer ID:[id number] (NAIC) Group ID:[id number] Type:[facility] Address: [address] [place] [id number] MEDICARE Care Teams Automotive Worker Foreman Relationship Specialty Start Date End Date Zaina Castillo NP [address] [place] [address] PCP - General Nurse Practitioner 08/01/24
[2024-11-17 14:36] LABS: Basophils Absolute Auto 0.1 K/mm3 (0.0-0.1); Basophils Percent Auto 0.8 % (0.2-1.2); Eosinophils Absolute Auto 0.2 K/mm3 (0-0.3); Hematocrit 44.3 % (42.0-52.0); Hemoglobin 13.9 g/dL (14.0-18.0); Immature Granulocyte Absolute 0.02 K/mm3 (0.00-0.031); Immature Granulocyte Percent A 0.3 % (0-0.5); Lymphocytes Absolute Auto 1.61 K/mm3 (0.9-3.2); Lymphocytes Percent Auto 25.3 % (18.3-44.2); Mean Corpuscular HGB Conc 31.4 g/dl (32-36); Mean Corpuscular Hemoglobin 29.1 pg (26-34); Mean Corpuscular Volume 92.7 fl (80-100); Mean Platelet Volume 9.2 fl (7.4-10.4); Monocytes Absolute Auto 0.5 K/mm3 (0.1-0.6); Monocytes Percent Auto 7.5 % (2.6-8.5); Neutrophils Percent Auto 63.1 % (45.5-73.1); Platelet Count Result 249 k/mm3 (150-375); Red Blood Count 4.78 M/mm3 (4.6-6.20); Red Cell Distribution Width 13.8 % (11.5-14.5); White Blood Count 6.4 K/mm3 (4.5-10.0)
[2024-11-17 20:01] LABS: Alanine Aminotransferase 26 U/L (6-50); Albumin Level 4.3 g/dL (3.5-5.1); Alkaline Phosphatase 117 U/L (38-126); Anion Gap 6 mmol/L (4-12); Aspartate Amino Transferase 35 U/L (17-59); Bilirubin,Total 0.4 mg/dL (0.2-1.3); Blood Urea Nitrogen 19 mg/dL (9-20); Calcium 9.6 mg/dL (8.4-10.2); Carbon Dioxide 32 mmol/L (22-30); Chloride 106 mmol/L (98-107); Estimated Glomerular Filt Rate > 60; Glucose 85 mg/dL (65-110); Potassium 4.4 mmol/L (3.4-5.0); Sodium 144 mmol/L (137-145)
[2024-11-17 21:03] LABS: Immunoglobulin A 189 mg/dL (70-400); Immunoglobulin G 1149 mg/dL (700-1600); Immunoglobulin M 46 mg/dL (40-230)
[2024-11-17 21:28] LABS: Iron 121 ug/dL (49-181)
[2024-11-17 21:38] LABS: Percent Iron Saturation 36 % (20-50)
[2024-11-19 11:43] LABS: Kappa\\Lambda Light Chains 1.32 (0.26-1.65); Lambda Light Chain 21.7 mg/L (5.7-26.3)
[2024-11-19 13:43] LABS: Protein, Total 7.1 g/dL (6.1-8.1)
[2024-11-19 13:54] LABS: Red Blood Cell Folate 585 ng/mL RBC (>280)
[2024-11-20 09:12] LABS: Alpha 1 Globulin 0.4 g/dL (0.2-0.3); Alpha 2 Globulin 0.9 g/dL (0.5-0.9); Beta 1 Globulin 0.4 g/dL (0.4-0.6); Gamma Globulin 1.1 g/dL (0.8-1.7)
[2024-11-21 06:59] LABS: Methylmalonic Acid. 123 nmol/L (69-390)
[2024-11-21 16:40] LABS: Vitamin B1. 181 nmol/L (8-30)
== END 2024-11-17 13:25 | disposition home or self-care (01) ==
PROVIDERS: PCP Nurse Practitioner Adult Health; Referring Provider Internal Medicine Hematology & Oncology
DX: F10.21 Alcohol dependence, in remission (principal); F03.C2 Unspecified dementia, severe, with psychotic disturbance; E53.8 Deficiency of other specified B group vitamins; F04 Amnestic disorder due to known physiological condition; R77.9 Abnormality of plasma protein, unspecified; D64.9 Anemia, unspecified; Z91.89 Other specified personal risk factors, not elsewhere classified
CPT/HCPCS: 36415; 80053; 82728; 82747; 82784; 83540; 83550; 83883; 83921; 84155; 84165; 84207; 84425; 85025; 86140

== ENCOUNTER 2024-12-15 14:33 | Outpatient (CLI) | payer MEDICARE, BC, SELFPAY ==
--- OUTSIDE RECORDS SUMMARY | 2024-12-15 15:43 | XMS_ITS | Clinical Summary ---
Author Organization [facility] Address 1 [place] [address] Care Team Providers Care Telephone Supervisor Name Role Phone Zaina Castillo NP Primary Care Provider [phone] Allergies No known active allergies Medications acetaminophen [...] Encounters Date Type Department Care Team Description 12/08/2024 11:00 AM CDT Therapy [facility] Occupational Therapy [address] [place] [address] Barbara Hoff, SHAW Other reduced mobility (Primary Dx) 12/03/2024 11:15 AM CDT Therapy [facility] Occupational Therapy [address] [place] [address] Barbara Hoff., SHAW Other reduced mobility (Primary Dx) 11/27/2024 1:45 PM CDT Therapy [facility] Occupational Therapy [address] [place] [address] Barbara Hoff., SHAW Other reduced mobility (Primary Dx) 11/27/2024 1:00 PM CDT Therapy [facility] Physical Therapy [address] [place] [address] Sigrid Kingston PTA Other reduced mobility (Primary Dx) 11/18/2024 1:45 PM CDT Therapy [facility] Physical Therapy [address] [place] [address] Sigrid Kingston PTA Other reduced mobility (Primary Dx) 11/18/2024 1:00 PM CDT Therapy [facility]ational Therapy [address] [place] [address] Barbara Hoff, SHAW Other reduced mobility (Primary Dx) 11/14/2024 1:45 PM CDT Therapy [facility] Physical Therapy [address] [place] [address] Sigrid Kingston, SHOE REPAIRER Other reduced mobility (Primary Dx) 11/14/2024 1:00 PM CDT Therapy [facility] [address] [place] [address] Mariana Rico, OT Other reduced mobility (Primary Dx) 11/05/2024 8:00 AM CDT Therapy [facility] Occupational Therapy [address] [place] [address] Mariana Rico, OT Other reduced mobility 11/05/2024 7:00 AM CDT Therapy [facility] Physical Therapy [address] [place] [address] Bernadette Alcala, PT Other reduced mobility (Primary Dx) 11/05/2024 Plan of Care Documentation [facility] Occupational Therapy [address] [place] [address] 11/05/2024 Plan of Care Documentation [facility] Physical Therapy [address] [place] [address] 2024 10:35 AM CDT Ancillary Procedure [facility] Medical Group Imaging at [address] [phone] Acute pain of right shoulder 2024 10:30 AM CDT Office Visit [facility] Sports Medicine and Primary Care at [address] [place] [phone] Nilson Thomson DO Acute pain of right shoulder (Primary Dx); Adhesive capsulitis of right shoulder; Closed 4-part fracture of proximal humerus, right, sequela 10/06/2024 1:00 PM CDT Home Care Visit [address] [place] [address] Nilda Devlin, PT PT OASIS DISCHARGE 10/01/2024 9:30 AM CDT Home Care Visit [address] [place] [address] Daniela Fernández, OT OT REASSESSMENT 10/01/2024 Home Care Visit [address] [place] [address] Daniela Fernández, OT OT DISCIPLINE DISCHARGE 09/30/2024 11:00 AM CDT Home Care Visit [address] [place] [address] Florence Saldana COTA OT HOME VISIT 09/29/2024 11:45 AM CDT Home Care Visit [address] [place] [address] Danya Goodman, SHOE REPAIRER PT HOME VISIT 09/26/2024 10:00 AM CDT Home Care Visit [address] [place] [address] Danya Goodman, SHOE REPAIRER PT HOME VISIT 09/25/2024 11:30 AM CDT Home Care Visit [address] [place] [address] Florence Saldana SHAW OT HOME VISIT 09/23/2024 11:30 AM CDT Home Care Visit [address] [place] [address] Florence Saldana SHAW OT HOME VISIT 09/22/2024 10:30 AM CDT Home Care Visit [address] [place] [address] Evelyn Luna, PT PT REASSESSMENT 09/18/2024 12:30 PM CDT Home Care Visit [address] [place] [address] Florence Saldana COTA OT HOME VISIT 09/17/2024 10:45 AM CDT Home Care Visit [address] [place] [address] Florence Saldana SHAW OT HOME VISIT 09/15/2024 1:30 PM CDT Home Care Visit [facility] [address] [place] [address] Danya Goodman PTA PT HOME VISIT from Last 3 Months Social History Tobacco [...] on file 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 RW T: Report ID: [id number] Reading Location: [id number] Procedure Note Berny Rodriguez MD - 2024 [...] Berny Rodriguez M.D. RW T: Report ID: [id number] Reading Location: [id number] Nilson Thomson DO IMG XR PROCEDURES Nicole l Result from Last 3 Months Insurance [facility] FEDERAL MEDICARE Care Teams Telephone Supervisor Relationship Specialty Start Date End Date Zaina Castillo NP [address] [place] [address] PCP - General Nurse Practitioner 08/01/24
--- OUTSIDE RECORDS SUMMARY | 2024-12-15 15:43 | XMS_ITS | Clinical Summary ---
Author Organization [facility] Kiah sullivan Bulmaro Address [address] [place] [address] Care Team Providers Care Sanitary Aide Name Role Phone Unavailable Primary Care Provider [...] Tablet by mouth daily. Active Vit C-Vit H-Vwebci-SqQi-L utein (PRESERVISION) 226-90-0.8-5 mg Capsule Take 1 Capsule by mouth daily. Active viatamin B complex-vitamin M-tknavhbk-zjxd -folic acid 106 mg iron- 1 mg Tablet Take 1 Tablet by mouth daily. Active CALCIUM CITRATE-VITAMIN D3 ORAL Take by mouth. Active sildenafiL (VIAGRA) 25 mg tablet Take by mouth 1 time daily as needed for Erectile Dysfunction. Active Active Problems No known active problems Encounters Date Type Department Care Team Description 11/24/2024 11:30 AM CDT Office Visit [facility] Oncology and Hematology [facility] [address] [facility] [place] [address] Nelson Saavedra MD Elevated serum protein level (Primary Dx) 10/10/2024 Abstract [facility] Oncology and Hematology [place] [address] [facility] [place] [address] Nelson Saavedra MD from Last 3 [...] Sign Reading Time Taken Comments Blood Pressure 110/67 11/24/2024 11:24 AM CDT Pulse 75 11/24/2024 11:24 AM CDT Temperature 37.2 C (98.9 F) 11/24/2024 11:24 AM CDT Respiratory Rate 15 11/24/2024 11:24 AM CDT Oxygen Saturation 95% 11/24/2024 11:24 AM CDT Inhaled Oxygen Concentration - - Weight 85.4 kg (188 lb 3.2 oz) 11/24/2024 11:24 AM CDT Height 188 cm (6' 2) 12/19/2023 2:34 PM CDT Body Mass Index 24.16 12/19/2023 2:34 PM CDT Plan of Treatment Upcoming Encounters Date Type Department Care Team (Late st Contact Info) Description 11/26/2025 10:00 AM CDT Office Visit [facility] Oncology and Hematology - [place] [address] [facility] [address] [place] [address] Nelson Saavedra MD [address] [facility] [address] [place] [address] Health Maintenance Due Date Last Done Comments DTAP/TDAP/TD VACCINES (1 - Tdap) 1976 COLORECTAL [...] (1 - 1-dose 75+ series) 2032 Insurance [facility] MEDICARE PART A AND B
--- OUTSIDE RECORDS SUMMARY | 2024-12-15 15:43 | XMS_ITS | Referral Summary ---
Author Organization [facility] Address [address] [place] [address] Care Team Providers Care Property Insurance Inspector Name Role Phone Jereldimitrios Zaina NAIN Primary Care Provider [phone] Encounters Date Type Department Care Team Description 12/08/2024 11:00 AM CDT Therapy [facility] Occupational Therapy [address] [place] [address] Barbara Hoff., SHAW Other reduced mobility (Primary Dx) 12/03/2024 11:15 AM CDT Therapy [facility] Occupational Therapy [address] [place] [address] Barbara Hoff., SHAW Other reduced mobility (Primary Dx) 11/27/2024 1:00 PM CDT Therapy [facility] Physical Therapy [address] [place] [address] Sigrid Kingston, ENGRAVING OPERATOR Other reduced mobility (Primary Dx) 11/27/2024 1:45 PM CDT Therapy [facility] Occupational Therapy [address] [place] [address] Barbara Hoff., SHAW Other reduced mobility (Primary Dx) 11/18/2024 1:45 PM CDT Therapy [facility] Physical Therapy [address] [place] [address] Sigrid Kingston, ENGRAVING OPERATOR Other reduced mobility (Primary Dx) 11/18/2024 1:00 PM CDT Therapy [facility] Occupational Therapy [address] [place] [address] Barbara Hoff., SHAW Other reduced mobility (Primary Dx) 11/14/2024 1:45 PM CDT Therapy [facility] Physical Therapy [address] [place] [address] Sigrid Kingston, ENGRAVING OPERATOR Other reduced mobility (Primary Dx) 11/14/2024 1:00 PM CDT Therapy [facility] Occupational Therapy [address] [place] [address] Mariana Rico, OT Other reduced mobility (Primary Dx) 11/05/2024 Plan of Care Documentation [facility] Occupational Therapy [address] [place] [address] 11/05/2024 Plan of Care Documentation [facility] Physical Therapy [address] [place] [address] 11/05/2024 7:00 AM CDT Therapy [facility] Physical Therapy [address] [place] [address] Bernadette Alcala, PT Other reduced mobility (Primary Dx) 11/05/2024 8:00 AM CDT Therapy [facility] Occupational Therapy [address] [place] [address] Mariana Rico, OT Other reduced mobility 2024 10:35 AM CDT Ancillary Procedure [facility] Medical Group Imaging at [address] [phone] Acute pain of right shoulder 2024 10:30 AM CDT Office Visit [facility] Medical Group Sports Medicine and Primary Care at [address] [place] [phone] Nilson Thomson, Acute pain of right shoulder (Primary Dx); Adhesive capsulitis of right shoulder; Closed 4-part fracture of proximal humerus, right, sequela 10/06/2024 1:00 PM CDT Home Care Visit [place] [address] [address] [place] [address] Nilda Devlin, PT PT OASIS DISCHARGE 10/01/2024 Home Care Visit [address] [place], [place] [address] Daniela Fernández, OT OT DISCIPLINE DISCHARGE 10/01/2024 9:30 AM CDT Home Care Visit [address] [place] [address] Daniela Fernández, OT OT REASSESSMENT 09/30/2024 11:00 AM CDT Home Care Visit [address] [place] [address] Florence Saldana COTA OT HOME VISIT 09/29/2024 11:45 AM CDT Home Care Visit [address] [place] [address] Danya Goodman, ENGRAVING OPERATOR PT HOME VISIT 09/26/2024 10:00 AM CDT Home Care Visit [address] [place] [address] Danya Goodman, ENGRAVING OPERATOR PT HOME VISIT 09/25/2024 11:30 AM CDT Home Care Visit [address] [place] [address] Florence Saldana COTA OT HOME VISIT 09/23/2024 11:30 AM CDT Home Care Visit [address] [place] [address] Florence Saldana COTA OT HOME VISIT 09/22/2024 10:30 AM CDT Home Care Visit [address] [place] [address] Evelyn Luna, PT PT REASSESSMENT 09/18/2024 12:30 PM CDT Home Care Visit [address] [place] [address] Florence Saldana COTA OT HOME VISIT 09/17/2024 10:45 AM CDT Home Care Visit [address] [place] [address] Florence Saldana COTA OT HOME VISIT 09/15/2024 1:30 PM CDT Home Care Visit [place] [address] [address] [place] [id number] Danya Goodman PTA PT HOME VISIT from Last 3 Months Allergies No known [...] on file 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 RW T: Report ID: [id number] Reading Location: [id number] Procedure Note Berny Rodriguez MD - 2024 [...] 12:06 PM - Electronically signed by Berny Rodriugez M.D. RW T: Report ID: [id number] Reading Location: [id number] Nilson Thomson DO IMG XR PROCEDURES Nicole l Result from Last [address] [facility] FEDERAL MEDICARE Care Teams Property Insurance Inspector Relationship Specialty Start Date End Date Zaina Castillo NP [address] [place] [address] PCP - General Nurse Practitioner 08/01/24
--- OUTSIDE RECORDS SUMMARY | 2024-12-15 15:43 | XMS_ITS | Clinical Summary ---
Author Organization [facility] [employer] Address [address] [place] [address] Care Team Providers Care [employer] Anchor Name Role Phone Unknown, Provider Primary Care Provider Unavaila ble Source Comments [facility] [employer],non-owned Affiliates and Associated Physician Practices is amultiple site organization consisting of ambulatory clinics and hospital sitesin [place], [place], [place] and [place]. This disclosure is being madepursuant to the Care Everywhere program and may not contain all information available regarding this patient. Last updated 18.[facility] [employer] Allergies No known active allergies Medications * [...] Insomnia 60 tablet 2 11/11/19 25 Active Active Problems Problem Noted Date Diagnosed Date Dementia without behavioral disturbance, psychotic disturbance, mood disturbance, or anxiety, unspecified dementia severity, unspecified dementia type 11/10/2024 Hallucinations 07/04/2024 Memory loss 07/04/2024 Closed fracture of right humerus 06/28/2024 Suspected infectious meningitis 06/28/2024 Overview (10/08/2024): IMO 10/08/2024 LLQ abdominal pain 04/14/2021 Overview (07/29/2024): Added automatically from request for surgery [id number] History of colonic polyps 04/14/2021 Overview (07/29/2024): Added automatically from request for surgery [id number] Multiple abrasions 05/07/2018 Fracture of toe of left foot 05/07/2018 Encounters * This document contains information received from the source organization and may not represent a complete record from that organization. Date Type Department Care Team Description 11/20/2024 1:00 PM CDT Office Visit [facility] - Cardiology [address], [facility] [address] [place] [address] Elder Rhoades MD Mar, Osmany Cavanaugh MD SVT (supraventricular tachycardia) (HCC) (Primary Dx) 11/20/2024 Travel 11/10/2024 Travel from Last 3 Months Social [...] Recorded Patient Health Questionnaire-2 Score 2 11/10/2024 [facility] - Occupational [...] any time in the past 12 m [facility], were you homeless or living in a snf (including now)? No 07/01/2024 Sex and Gender Information Value Date Recorded Sex Assigned at Not on file Legal Sex Male 4:45 PM INFORMATION BROKER Gender Identity Not on file Sexual Orientation Not on file Last Filed Vital Signs Vital Sign Reading Time Taken Comments Blood Pressure 118/78 11/20/2024 12:57 PM CDT Pulse 70 11/20/2024 12:57 PM CDT Temperature 36.5 C (97.7 F) 07/18/2024 12:04 PM INFORMATION BROKER Respiratory Rate 17 07/18/2024 12:04 PM INFORMATION BROKER Oxygen Saturation 97% 11/20/2024 12:57 PM CDT Inhaled Oxygen Concentration - - Weight 85.3 kg (188 lb) 11/20/2024 12:57 PM CDT Height 185.4 cm (6' 1) 11/20/2024 12:57 PM CDT Body Mass Index 24.8 11/20/2024 12:57 PM CDT Plan of Treatment Upcoming Encounters Date Type Department Care Team (Late st Contact Info) Description 02/19/2025 11:20 AM CDT Office Visit [facility] - Cardiology [address], [place] [address] [place] [id number] Elder Rhoades MD [address] [place] [address] Osmany Rodríguez MD [address], [facility] [address] [place] [address] Health Maintenance Due Date Last Done Comments COLOGUARD (AGES 45-75) - COL ON CA SCREENING [address] COLONOGRAPHY - COLON CA SCREENING [...] season) 2024 INFLUENZA VACCINE (Season Ended) 2025 COLON MONITORING 05/20/2031 05/20/2021 COLONOSCOPY - COLON CA SCREENING 05/20/2031 05/20/20 [...] Procedure Name Priority Date/Time Associated Diagnosis Comments CARDIAC PROCEDURE ORDER 11/28/2024 from Last 3 Months Results * CARDIAC PROCEDURE ORDER (11/28/2024) 11/28/2024 Narrative 11/28/2024 Ordered by an unspecified provider. us Scanned Document CARDIAC SERVICES ORDERABLES Fin al Result from Last 3 Months Insurance [facility] MEDICARE [facility] MEDICARE Advance Directives * Full Code (Latest Code Status on File) Date Activated Date Inactivated Comments 06/30/2024 2:01 AM 07/18/2024 4:10 PM Care Teams [employer] An[employer] Relationship Specialty Start Date End Date Unknown, Provider PCP - General 07/23/24
[2024-12-15 20:03] LABS: Add Urine Microscopic? YES; Appearance Urine Clear (Clear); Bilirubin Urine Negative (Negative); Blood Urine Negative (Negative); Color Urine Dark Yellow (Yellow); Glucose Urine UA Negative (Negative); Ketones Urine 1+ mg/dL (Negative); Leukocyte Esterase Ur Negative LEU/UL (Negative); Nitrate Urine Negative (Negative); Protein Urine Negative (Negative); Specific Grav Ur 1.026 (1.001-1.035)
== END 2024-12-15 14:34 | disposition home or self-care (01) ==
PROVIDERS: PCP Nurse Practitioner Adult Health; Visit Provider Nurse Practitioner Adult Health
DX: R39.9 Unspecified symptoms and signs involving the genitourinary system (principal)
CPT/HCPCS: 81001; 87077; 87086; 87186

== ENCOUNTER 2025-05-11 14:36 | Outpatient (CLI) | payer MEDICARE, BC, SELFPAY ==
[2025-05-11 19:27] LABS: CRP 0.8 mg/dL (<1.0)
[2025-05-15 15:09] LABS: Vit. B1, Whole Blood 192.2 nmol/L (66.5-200.0)
== END 2025-05-11 14:37 | disposition home or self-care (01) ==
PROVIDERS: PCP Nurse Practitioner Adult Health
DX: F03.C2 Unspecified dementia, severe, with psychotic disturbance (principal); Z91.89 Other specified personal risk factors, not elsewhere classified; F10.21 Alcohol dependence, in remission; E53.8 Deficiency of other specified B group vitamins; E78.2 Mixed hyperlipidemia
CPT/HCPCS: 36415; 84425; 86140